=== PATIENT | male | born 1950 | race Caucasian/White ===

== ENCOUNTER 2019-09-24 06:00 | Outpatient (RCR) | payer OTHER, SELFPAY | END 2019-10-24 00:01 | LOC: WPT 06:00 | PROVIDERS: Visit Provider Specialist | DX: M75.101 Unspecified rotator cuff tear or rupture of right shoulder, not specified as traumatic (principal) | CPT/HCPCS: 97110 ×2 ==

== ENCOUNTER 2019-10-27 | Outpatient (RCR) | payer OTHER, SELFPAY | END 2020-01-04 | disposition home or self-care (01) | LOC: WPT | PROVIDERS: PCP Nurse Practitioner; Visit Provider Specialist | DX: M75.101 Unspecified rotator cuff tear or rupture of right shoulder, not specified as traumatic (principal) | CPT/HCPCS: 97110; 97164 ==

== ENCOUNTER → 2019-12-21 10:36 | Outpatient (BNVA) | payer OTHER, SELFPAY | PROVIDERS: Family Provider Nurse Practitioner; PCP Nurse Practitioner; Visit Provider Nurse Practitioner Family | DX: R09.89 Other specified symptoms and signs involving the circulatory and respiratory systems (principal); J06.9 Acute upper respiratory infection, unspecified; J43.9 Emphysema, unspecified | CPT/HCPCS: 71046; 80053; 85025; 87804 ==

== ENCOUNTER → 2020-01-25 15:00 | Outpatient (BNVA) | payer BC, SELFPAY | PROVIDERS: Family Provider Nurse Practitioner; PCP Nurse Practitioner; Visit Provider Nurse Practitioner Family | DX: R68.89 Other general symptoms and signs (principal); J06.9 Acute upper respiratory infection, unspecified; R53.83 Other fatigue; D64.9 Anemia, unspecified; E55.9 Vitamin D deficiency, unspecified; E78.2 Mixed hyperlipidemia; Z79.899 Other long term (current) drug therapy | CPT/HCPCS: 87635 ==

== ENCOUNTER → 2020-01-26 06:10 | Outpatient (BNVA) | payer BC, SELFPAY | PROVIDERS: Family Provider Nurse Practitioner; PCP Nurse Practitioner; Visit Provider Nurse Practitioner Family | DX: R68.89 Other general symptoms and signs (principal); J06.9 Acute upper respiratory infection, unspecified; R53.83 Other fatigue; E55.9 Vitamin D deficiency, unspecified; D64.9 Anemia, unspecified; E78.2 Mixed hyperlipidemia; Z79.899 Other long term (current) drug therapy | CPT/HCPCS: 80053; 80061; 82306; 82607; 83036; 83540; 84443; 85025 ==

== ENCOUNTER → 2020-02-26 12:21 | Outpatient (BNVA) | payer BC, SELFPAY | PROVIDERS: Family Provider Nurse Practitioner; PCP Nurse Practitioner; Visit Provider Nurse Practitioner Family | DX: R60.9 Edema, unspecified (principal); J22 Unspecified acute lower respiratory infection; J30.9 Allergic rhinitis, unspecified; R79.0 Abnormal level of blood mineral; J43.9 Emphysema, unspecified; D64.9 Anemia, unspecified | CPT/HCPCS: 80053; 83540; 85025 ==

== ENCOUNTER 2020-04-11 10:07 | Outpatient (CLI) | payer OTHER, BC, SELFPAY ==
[2020-04-11 10:59] LABS: Basophils % 0.3 %; Eosinophils # 0.1 10^3/uL (0.0-0.8); Eosinophils % 0.7 %; Hemoglobin 11.9 g/dL (11.7-16.6); Lymphocytes # 2.3 10^3/uL (0.8-4.8); Lymphocytes % 21.5 %; Mean Corpuscular HGB Conc 33.1 g/dL (30.0-36.0); Mean Corpuscular Hemoglobin 31.9 pg (28.0-34.0); Mean Corpuscular Volume 96.5 fL (80-94); Mean Platelet Volume 11.5 fL (7.4-10.4); Monocytes # 0.6 10^3/uL (0.2-0.9); Monocytes % 5.2 %; Neutrophils # 7.6 10^3/uL (1.8-7.7); Neutrophils % 71.5 %; Nucleated Red Blood Cells % 0 %; Platelet Count 160 10^3/cmm (130-400); Red Blood Count 3.73 10^6/uL (4.1-5.3); Red Cell Distribution Width 12.5 % (12.1-15.1); White Blood Count 10.6 10^3/uL (4.0-10.0)
[2020-04-11 11:01] LABS: Alanine Aminotransferase 16 U/L (0-41); Albumin Level 2.9 g/dL (3.5-5.2); Alkaline Phosphatase 63 IU/L (40-130); Anion Gap 11.6 (5-19); Aspartate Amino Transferase 26 U/L (0-40); Blood Urea Nitrogen 21 mg/dL (8-23); Calcium 8.8 mg/dL (8.5-10.5); Carbon Dioxide 29 mmol/L (22-29); Chloride 102 mmol/L (98-107); Globulin 2.2 g/dL (1.3-4.6); Glomerular Filtration Rate 66.8 mL/min (90-130); Glucose 109 mg/dL (65-115); Osmolality Calculated 283 mOsm/kg (285-295); Potassium 4.6 mmol/L (3.5-5.1); Sodium 138 mmol/L (136-145); Total Bilirubin 0.2 mg/dL (0.15-1.2); Total Protein 5.1 g/dL (6.6-8.7)
== END 2020-04-11 10:08 | disposition home or self-care (01) ==
LOC: LAB 10:13
PROVIDERS: PCP Nurse Practitioner; Visit Provider Internal Medicine Critical Care Medicine
DX: J43.9 Emphysema, unspecified (principal)
CPT/HCPCS: 80053; 85025

== ENCOUNTER → 2020-06-24 13:08 | Outpatient (BNVA) | payer OTHER, SELFPAY | PROVIDERS: PCP Nurse Practitioner; Visit Provider Nurse Practitioner Family | DX: M25.512 Pain in left shoulder (principal); R10.9 Unspecified abdominal pain; R53.83 Other fatigue; I10 Essential (primary) hypertension; J40 Bronchitis, not specified as acute or chronic; J32.9 Chronic sinusitis, unspecified | CPT/HCPCS: 73030 ==

== ENCOUNTER → 2020-10-01 12:07 | Outpatient (BNVA) | payer BC, SELFPAY | PROVIDERS: PCP Nurse Practitioner; Visit Provider Family Medicine | DX: J40 Bronchitis, not specified as acute or chronic (principal); I10 Essential (primary) hypertension; R53.83 Other fatigue; R00.1 Bradycardia, unspecified | CPT/HCPCS: 71045 ==

== ENCOUNTER 2020-10-22 09:17 | Outpatient (CLI) | payer BC, SELFPAY ==
--- NOTE | 2020-10-22 09:30 | USCV_ITS ---
Mian Menendez Age: 70 Gender: M : 1950 Exam Date: 10/22/2020 09:48 Ordering Phys: PARISH Fraser APRNP Technologist: Rubia Villeda Exam Location: [facility] Indication: SOB BP: / HR: Rhythm: Sinus Technical Quality: Adequate MEASUREMENTS (Male / Female) Normal Values 2D ECHO LV Diastolic Diameter PLAX 5.1 cm 4.2 - 5.9 / 3.9 - 5.3 cm LV Systolic Diameter PLAX 2.3 cm IVS Diastolic Thickness 1.6 cm 0.6 - 1.0 / 0.6 - 0.9 cm IVS Systolic Thickness 1.8 cm LVPW Diastolic Thickness 1.0 cm 0.6 - 1.0 / 0.6 - 0.9 cm LVPW Systolic Thickness 1.9 cm LVOT Diameter 2.0 cm LV Ejection Fraction 2D Teich 85.6 % LV Ejection Fraction MOD 2C 53.5 % LV Ejection Fraction 2C AL 55.3 % LA Diameter 4.3 cm LA Width 3.6 cm LA Height 4.3 cm RA Width 3.9 cm RA Height 5.1 cm Aorta at Sinotubular Diameter 3.1 cm M-MODE LV Diastolic Diameter MM 3.6 cm 4.2 - 5.9 / 3.9 - 5.3 cm LV Systolic Diameter MM 2.4 cm LV Ejection Fraction MM Teich 65.3 % IVS Diastolic Thickness MM 1.1 cm 0.6 - 1.0 / 0.6 - 0.9 cm IVS Systolic Thickness MM 1.3 cm LVPW Diastolic Thickness MM 1.3 cm 0.6 - 1.0 / 0.6 - 0.9 cm LVPW Systolic Thickness MM 1.6 cm RV Diastolic Diameter MM 2.3 cm Aortic Annulus Diameter 3.3 cm LA Ao Ratio MM 1.6 MV E Point Septal Separation 0.1 cm DOPPLER AV Peak Velocity 170.0 cm/s LVOT Peak Velocity 103.3 cm/s AV Area Cont Eq vti 2.4 cm squared AV Area Cont Eq pk 1.9 cm squared MV Area PHT 3.9 cm squared Mitral E to A Ratio 0.7 MV E' Velocity 47.0 cm/s Mitral E to MV E' Ratio 10.1 Mitral E to LV E' Lateral Ratio 12.7 Mitral E to LV E' Septal Ratio 8.4 TR Peak Velocity 202.9 cm/s TR Peak Gradient 16.5 mmHg TR Mean Velocity 148.2 cm/s TR Mean Gradient 10.2 mmHg TR Velocity Time Integral 49.5 cm TV Peak E Velocity 57.0 cm/s Right Atrial Pressure 3.0 mmHg Pulmonary Artery Systolic Pressu 19.5 mmHg PV Peak Velocity 74.0 cm/s RV Acceleration Time 0.2 s RV Ejection Time 0.3 s RV AcT/ET 0.6 FINDINGS Left Ventricle Normal left ventricular cavity size. Mild concentric left ventricular hypertrophy. Normal left ventricular systolic function. Left ventricular ejection fraction is estimated at 65 %. Normal diastolic function. Right Ventricle Normal right ventricular size and systolic function. Right ventricular systolic pressure 23 mmHg. Right Atrium Normal right atrial size. Right atrial pressure estimated at 3 mm Hg. Left Atrium Upper normal left atrial size. Mitral Valve Structurally normal mitral valve. No mitral valve stenosis. Trace mitral valve regurgitation. Aortic Valve Structurally normal trileaflet aortic valve. No aortic valve stenosis. No aortic valve regurgitation. Tricuspid Valve Structurally normal tricuspid valve. No tricuspid valve stenosis. Trace tricuspid valve regurgitation. Pulmonic Valve Structurally normal pulmonic valve. No pulmonary valve stenosis. Trace pulmonary valve regurgitation. Pericardium No pericardial effusion. Aorta Normal size aortic root and proximal ascending aorta. Normal- sized inferior vena cava. CONCLUSIONS 1. Normal left ventricular cavity size. Mild concentric left ventricle hypertrophy. Normal left ventricular systolic function. Left ventricular ejection fraction is estimated at 65 %. Normal diastolic function. 2. Normal right ventricular size and systolic function. 3. No significant valvular abnormality. 4. Normal pulmonary artery pressure estimated at 23 mmHg. 5. When compared to previous echocardiogram dated 07/16/2017, there may not have been any significant change. Dora Burris MD (Electronically Signed) Final Date: 22 October 2020 17:10 S
== END 2020-10-22 09:18 | disposition home or self-care (01) ==
PROVIDERS: PCP Nurse Practitioner; Visit Provider Nurse Practitioner Family
DX: R06.02 Shortness of breath (principal); R00.1 Bradycardia, unspecified; I51.7 Cardiomegaly
CPT/HCPCS: 80053; 83735; 84443; 85025; 85651; 93306

== ENCOUNTER 2020-10-28 07:47 | Outpatient (CLI) | payer BC, SELFPAY ==
[2020-10-28] MEDS: iohexol 300 mg/mL 100 mL Btl IV (08:29)
--- NOTE | 2020-10-28 08:30 | CT_ITS ---
WS: [id number] CT CHEST TECHNIQUE: Contrast enhanced CT of the chest with coronal and sagittal reformatted images. CLINICAL INFORMATION: R91.8 - Other nonspecific abnormal finding of lung field COMPARISON: None. DLP: 824.[address] scans at [facility] use at least one of these dose optimization techniques: automat ed exposure control; mA and/or kV adjustment per patient size (includes targeted exams where dose is matched to clinical indication); or iterative reconstruction. FINDINGS: Previously described lingula pneumonia has resolved. Moderate chronic emphysematous changes. No acute pulmonary infiltrates. Calcified granuloma left upper lobe. No mediastinal or hilar lymphadenopathy. Aortic calcification. Coronary calcification. Left upper pole renal cyst measuring 3.7 CM. Adrenal g lands are normal. Hypertrophic changes thoracic spine. CT/CT chest w con* [id number] IMPRESSION: 1. Moderate chronic emphysematous changes. No acute pulmonary infiltrates. 2. Previously described lingula pneumonia has resolved. 3. No suspicious pulmonary parenchymal opacities. 4. No mediastinal or hilar lymphadenopathy. 5. Vascular calcification including coronary. 6. Partially visualized left renal cyst measuring 3.7 CM.
== END 2020-10-28 07:48 | disposition home or self-care (01) ==
LOC: RADWPI 07:52
PROVIDERS: PCP Nurse Practitioner; Visit Provider Family Medicine
DX: R91.8 Other nonspecific abnormal finding of lung field (principal); I25.10 Atherosclerotic heart disease of native coronary artery without angina pectoris
CPT/HCPCS: 71260; Q9967

== ENCOUNTER → 2021-03-06 08:10 | Outpatient (BNVA) | payer OTHER, SELFPAY | PROVIDERS: PCP Nurse Practitioner Family; Visit Provider Internal Medicine Critical Care Medicine | DX: R53.83 Other fatigue (principal); Z20.822 Contact with and (suspected) exposure to COVID-19 | CPT/HCPCS: 87635 ==

== ENCOUNTER → 2021-03-12 10:43 | Outpatient (BNVA) | payer BC, SELFPAY | PROVIDERS: PCP Nurse Practitioner Family; Visit Provider Nurse Practitioner Family | DX: J32.9 Chronic sinusitis, unspecified (principal); I10 Essential (primary) hypertension; D64.9 Anemia, unspecified | CPT/HCPCS: 80053; 81003; 82607; 82746; 83921; 85025 ==

== ENCOUNTER 2021-03-13 07:57 | Outpatient (CLI) | payer OTHER, BC, SELFPAY ==
--- NOTE | 2021-03-13 13:22 | PFTS_ITS ---
Date of Study:03/13/21 Date of Dictation: MECHANICS: Forced vital capacity (FVC) is normal. Forced expiratory volume in one second (FEV1) is normal. FEV1/FVC is normal. FLOW VOLUME LOOP: Scooping present. LUNG VOLUMES: Total lung capacity (TLC) is normal. Residual volume (RV) is increased. DIFFUSING CAPACITY FOR CARBON MONOXIDE: Normal. INTERPRETATION: The postbronchodilator spirometry is normal. There is no significant postbronchodilator response. Lung volumes are consistent with air trapping. Given the presence of scooping of the flow volume loop, the patient likely has small airways disease. Gas exchange (DLCO) is normal. MTDD
== END 2021-03-13 07:58 | disposition home or self-care (01) ==
LOC: RT 08:02
PROVIDERS: PCP Nurse Practitioner Family; Visit Provider Internal Medicine Critical Care Medicine
DX: J43.9 Emphysema, unspecified (principal)
CPT/HCPCS: 94060; 94726; 94729; J7611

== ENCOUNTER 2021-03-24 19:32 | Inpatient (IN) | payer OTHER, BC, MEDICARE, SELFPAY ==
[2021-03-24 19:38] VITALS: BP 140/77; PULSE 77; RESP 20; TEMP 36.2; O2SAT 95; BMI 26.6
--- NOTE | 2021-03-24 19:38 | XRR_ITS ---
PROCEDURE INFORMATION: Exam: XR Chest Exam date and time: 03/24/2021 7:47 PM Age: 70 years old Clinical indication: Sternal or substernal pain; Prior surgery; Surgery type: Stents; Additional info: Cp and SOB x 5 days TECHNIQUE: Imaging protocol: XR of the chest. Views: 1 view. COMPARISON: CT chest w con* [id number] 10/28/2020 8:15 AM FINDINGS: Lungs: Unremarkable. No consolidation. The pulmonary vascularity is within normal limits. A few scattered calcified pulmonary granulomas are noted. Pleural spaces: Unremarkable. No pleural effusion. No pneumothorax. Heart/Mediastinum: Unremarkable. No cardiomegaly. Bones/joints: No acute abnormality. XR/XR chest 1V portable [id number] IMPRESSION: No acute findings.
--- NOTE | 2021-03-24 19:39 | ECG_ITS ---
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 Measurements Intervals [place] Rate: 73 P: 40 [place]: 144 QRS: 34 QRSD: 97 T: 30 QT: 393 QTc: 434 Interpretive Statements SINUS RHYTHM WITH OCCASIONAL VENTRICULAR PREMATURE COMPLEXES Compared to ECG 07/16/2017 05:53:50 Ventricular premature complex(es) now present Sinus bradycardia no longer present Electronically Signed On 03-25-2021 19:10:34 CDT by Zack Villareal M.D. [id number] f
--- NOTE | 2021-03-24 19:43 | W.ED.CHESTPA ---
HPI - Chest Pain General: Chief Complaint: Chest Pain Stated Complaint: cp Time Seen by Provider: 03/24/21 19:37 Source: patient Mode of arrival: ambulatory Limitations: no limitations History of Present Illness: HPI narrative: 70-year-old male who states been having chest pain for last 2 nights. He states it woke him up in the middle the night. His pain is sharp in nature last roughly 10 to 15 minutes. He does have a history of coronary disease. Denies any pain currently. Denies any dyspnea or nausea. He denies any diaphoresis. Associated symptoms: Deny abdominal pain, dyspnea, fever(s), nausea or vomiting Review of Systems Const: Denies: fever(s), chills, body aches or change in appetite Eyes: Denies: blurry vision or eye discomfort ENMT: Denies: throat pain or dental pain Card: Reports: chest pain Resp: Denies: dyspnea GI: Denies: abdominal pain, nausea, vomiting or diarrhea : Denies: dysuria Musc: Denies: neck pain or back pain Skin/Breast: Denies: rash Neuro: Denies: headache(s) Psych: Denies: depression Rell/Lymph: Denies: easy bruising All/Imm: Denies: urticaria PFSH ED PFSH: Medical History Anemia Anxiety Bronchitis COPD (chronic obstructive pulmonary disease) Fatigue Hypertension Left lateral abdominal pain Lower respiratory tract infection Nausea Primary localized osteoarthritis of both knees Sinusitis Surgical History Status post coronary artery stent placement Status post hernia repair Status post shoulder surgery Status post total knee replacement Social History Smoking and tobacco status: former smoker Quit status (tobacco): has quit using tobacco Year quit tobacco: 2002 - 1PPD x 35 Years Alcohol intake: never Lives independently: Yes Household members: spouse Marital status: Current occupational status: employed Current occupation: [employer] History of recent travel: No Current gender identity: Male Physical Exam Const: COMMON NORMALS: no acute distress, patient oriented x3 and healthy appearing HENMT: COMMON NORMALS: normocephalic and atraumatic HEAD & SCALP: normocephalic and atraumatic Eye: COMMON NORMALS: Equal, round and reactive pupils present and EOMs intact bilaterally PUPIL: Yes Equal, round and reactive pupils present Neck/C-Spine: COMMON NORMALS: full ROM and supple Chest: COMMONS NORMALS: normal inspection of the chest and normal palpation of entire chest wall Resp: COMMON NORMALS: normal respiratory effort, No retractions, No use of accessory muscles and clear to auscultation bilaterally AUSCULTATION: clear to auscultation bilaterally Cardio: COMMON NORMALS: regular rate, regular rhythm and No murmurs present (Cardio) RATE: regular rate RHYTHM: regular rhythm GI: COMMON NORMALS: Normal to inspection, nondistended, normoactive bowel sounds present, Soft to palpation, non-tender and no masses PALPATION: Yes Soft to palpation Extremity: COMMON NORMALS: normal to inspection and full ROM Neuro: COMMON NORMALS: patient oriented x3, moves all extremities and no focal motor deficits Psych: COMMON NORMALS: mental status grossly normal, Normal thought process present and cooperative THOUGHT PROCESS: Normal thought process present Skin: COMMON NORMALS: no rashes or lesions noted and no wounds GENERAL SKIN EXAM: no rashes or lesions noted Course Vital Signs: Vital signs: Vital Signs Temperature 97.1 F L 03/24/21 19:38 Pulse Rate 82 03/24/21 20:40 Respiratory Rate 22 H 03/24/21 20:40 Blood Pressure 126/79 03/24/21 20:40 Pulse Oximetry 94 03/24/21 20:40 MDM - Chest Pain MDM Narrative: Medical decision making narrative: Mian presents here with chest pain is repeat troponin here is negative. He also had some weakness and found to have acute kidney injury with elevated BUN and creatinine. Spoke to the hospitalist and will admit to trend troponins and give IV fluids. Will admit for observation. Lab Data: Labs: Lab Results 03/24/21 03/24/21 03/24/21 Range/Units 19:49 19:49 19:49 WBC 13.2 H (4.0-10.0) 10^3/ uL RBC 3.71 L (4.1-5.3) 10^6/u L Hgb 12.1 (11.7-16.6) g/dL Hct 36.1 L (42.0-52.0) % MCV 97.3 H (80-94) fL MCH 32.6 (28.0-34.0) pg MCHC 33.5 (30.0-36.0) g/dL RDW 12.3 (12.1-15.1) % Plt Count 284 (130-400) 10^3/c mm MPV 9.9 (7.4-10.4) fL Neut % (Auto) 73.9 % Lymph % (Auto) 21.0 % Granite % (Auto) 4.3 % Eos % (Auto) 0.0 % Baso % (Auto) 0.2 % Neut # (Auto) 9.74 H (1.8-7.7) 10^3/u L Lymph # (Auto) 2.8 (0.8-4.8) 10^3/u L Granite # (Auto) 0.6 (0.2-0.9) 10^3/u L Eos # (Auto) 0.0 (0.0-0.8) 10^3/u L Baso # (Auto) 0.0 (0.0-0.1) 10^3/u L Nucleated RBC % (a uto) 0 % Nucleated RBCs # 0.0 /100WBC Sodium 138 (136-145) mmol/L Potassium 4.9 (3.5-5.1) mmol/L Chloride 98 (98-107) mmol/L Carbon Dioxide 25 (22-29) mmol/L Anion Gap 19.9 H (5-19) BUN 54 H (8-23) mg/dL Creatinine 2.7 H (0.7-1.2) mg/dL GFR Calculation 23.6 L (90-130) mL/min Glucose 124 H (65-115) mg/dL Calculated Osmolal ity 302 H (285-295) mOsm/k g Calcium 9.7 (8.5-10.5) mg/dL Total Bilirubin 0.4 (0.15-1.2) mg/dL AST 17 (0-40) U/L ALT 16 (0-41) U/L Alkaline Phosphata se 59 (40-130) IU/L Troponin T Baselin e 29 H (0-15) ng/L Troponin T 120 Min [place] (0-15) ng/L Delta Troponin T (0-10) ABS# Total Protein 6.9 (6.6-8.7) g/dL Albumin 4.6 (3.5-5.2) g/dL Globulin 2.3 (1.3-4.6) g/dL Lipase 43 (13-60) U/L 03/24/21 Range/Units 21:36 WBC (4.0-10.0) 10^3/ uL RBC (4.1-5.3) 10^6/u L Hgb (11.7-16.6) g/dL Hct (42.0-52.0) % MCV (80-94) fL MCH (28.0-34.0) pg MCHC (30.0-36.0) g/dL RDW (12.1-15.1) % Plt Count (130-400) 10^3/c mm MPV (7.4-10.4) fL Neut % (Auto) % Lymph % (Auto) % Granite % (Auto) % Eos % (Auto) % Baso % (Auto) % Neut # (Auto) (1.8-7.7) 10^3/u L Lymph # (Auto) (0.8-4.8) 10^3/u L Granite # (Auto) (0.2-0.9) 10^3/u L Eos # (Auto) (0.0-0.8) 10^3/u L Baso # (Auto) (0.0-0.1) 10^3/u L Nucleated RBC % (a uto) % Nucleated RBCs # /100WBC Sodium (136-145) mmol/L Potassium (3.5-5.1) mmol/L Chloride (98-107) mmol/L Carbon Dioxide (22-29) mmol/L Anion Gap (5-19) BUN (8-23) mg/dL Creatinine (0.7-1.2) mg/dL GFR Calculation (90-130) mL/min Glucose (65-115) mg/dL Calculated Osmolal ity (285-295) mOsm/k g Calcium (8.5-10.5) mg/dL Total Bilirubin (0.15-1.2) mg/dL AST (0-40) U/L ALT (0-41) U/L Alkaline Phosphata se (40-130) IU/L Troponin T Baselin e (0-15) ng/L Troponin T 120 Min [place] 22.85 H (0-15) ng/L Delta Troponin T -6.15 L (0-10) ABS# Total Protein (6.6-8.7) g/dL Albumin (3.5-5.2) g/dL Globulin (1.3-4.6) g/dL Lipase (13-60) U/L Imaging Data^: CXR: Attestation: I personally reviewed and interpreted this imaging study as follows: Radiologist's impression: [facility] [place] [address] XRay Report Signed Patient: Mian Menendez Unit #: [id number] : 1950 Age/Sex: 70 / M ADM Date: 03/24/21 Loc: ER Room/Bed: Attending Dr: Ordering Provider/Ordering MD: Jenni Betancourt MD Date of Service: 03/24/21 Procedure(s): XR chest 1V portable [id number] Accession Number(s): [id number] Report Number: [id number] PROCEDURE INFORMATION: Exam: XR Chest Exam date and time: 03/24/2021 7:47 PM Age: 70 years old Clinical indication: Sternal or substernal pain; Prior surgery; Surgery type: Stents; Additional info: Cp and SOB x 5 days TECHNIQUE: Imaging protocol: XR of the chest. Views: 1 view. COMPARISON: CT chest w con* [id number] 10/28/2020 8:15 AM FINDINGS: Lungs: Unremarkable. No consolidation. The pulmonary vascularity is within normal limits. A few scattered calcified pulmonary granulomas are noted. Pleural spaces: Unremarkable. No pleural effusion. No pneumothorax. Heart/Mediastinum: Unremarkable. No cardiomegaly. Bones/joints: No acute abnormality. XR/XR chest 1V portable [id number] IMPRESSION: No acute findings. EKG Data^: EKG 1: Attestation: I personally reviewed and interpreted this EKG as follows: EKG interpretation date: 03/24/21 EKG interpretation time: 19:56 Interpretation: nsr hr [address] or t wave abnormalities qrs 91 qtc 413 EKG 2: Attestation: I personally reviewed and interpreted this EKG as follows: EKG interpretation date: 03/24/21 EKG interpretation time: 21:47 Interpretation: nsr hr [address] or t wave abnormalities qrs 105 qtc 435 Discharge Plan Discharge Patient Disposition: Admitted As Inpatient Clinical Impression: Acute kidney injury Chest pain Qualifiers: Chest pain type: unspecified Qualified Code(s): R07.9 - Chest pain, unspecified Condition: Stable Coding Level of Care Code ED Platform Stapler for Chg Fwd Exam Comprehensive
[2021-03-24] MEDS: aspirin 81 mg Chew Tablet 324 MG PO (19:57)
[2021-03-24 20:05] LABS: Basophils % 0.2 %; Hematocrit 36.1 % (42.0-52.0); Hemoglobin 12.1 g/dL (11.7-16.6); Lymphocytes # 2.8 10^3/uL (0.8-4.8); Mean Corpuscular HGB Conc 33.5 g/dL (30.0-36.0); Mean Corpuscular Hemoglobin 32.6 pg (28.0-34.0); Mean Corpuscular Volume 97.3 fL (80-94); Mean Platelet Volume 9.9 fL (7.4-10.4); Monocytes # 0.6 10^3/uL (0.2-0.9); Monocytes % 4.3 %; Neutrophils # 9.74 10^3/uL (1.8-7.7); Neutrophils % 73.9 %; Nucleated Red Blood Cells % 0 %; Platelet Count 284 10^3/cmm (130-400); Red Blood Count 3.71 10^6/uL (4.1-5.3); Red Cell Distribution Width 12.3 % (12.1-15.1); White Blood Count 13.2 10^3/uL (4.0-10.0)
[2021-03-24 20:22] LABS: Troponin(5th) Baseline 29 ng/L (0-15)
[2021-03-24 20:24] LABS: Alanine Aminotransferase 16 U/L (0-41); Albumin Level 4.6 g/dL (3.5-5.2); Alkaline Phosphatase 59 IU/L (40-130); Anion Gap 19.9 (5-19); Aspartate Amino Transferase 17 U/L (0-40); Blood Urea Nitrogen 54 mg/dL (8-23); Calcium 9.7 mg/dL (8.5-10.5); Carbon Dioxide 25 mmol/L (22-29); Chloride 98 mmol/L (98-107); Globulin 2.3 g/dL (1.3-4.6); Glomerular Filtration Rate 23.6 mL/min (90-130); Glucose 124 mg/dL (65-115); Lipase 43 U/L (13-60); Osmolality Calculated 302 mOsm/kg (285-295); Potassium 4.9 mmol/L (3.5-5.1); Sodium 138 mmol/L (136-145); Total Bilirubin 0.4 mg/dL (0.15-1.2); Total Protein 6.9 g/dL (6.6-8.7)
[2021-03-24 20:40] VITALS: BP 126/79; PULSE 82; RESP 22; O2SAT 94
[2021-03-24] MEDS: sodium chloride 0.9% 1,000 ML 999 ML IV (20:47)
--- NOTE | 2021-03-24 21:39 | ECG_ITS ---
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 Measurements Intervals [place] Rate: 84 P: -34 [place]: 137 QRS: 49 QRSD: 138 T: -33 QT: 481 QTc: 572 Interpretive Statements SINUS RHYTHM WITH OCCASIONAL SUPRAVENTRICULAR PREMATURE COMPLEXES INTRAVENTRICULAR CONDUCTION DELAY [130+ ms QRS DURATION] Compared to ECG 03/24/2021 19:47:29 Intraventricular conduction delay now present Ventricular premature complex(es) no longer present Electronically Signed On 03-25-2021 19:14:43 CDT by Zack Villareal M.D. [email or web address] [id number]
[2021-03-24 21:57] LABS: Troponin 5 2HR 22.85 ng/L (0-15)
[2021-03-24 22:00] VITALS: PULSE 101
--- NOTE | 2021-03-24 22:15 | P.HP_ITS ---
Providers/Chief Complaint Primary Care Provider: BOB Wilkins Chief Complaint: cp History of Present Illness Mian Menendez is a 70 year old male who has history of class D COPD, former smoker, sinus bradycardia, preserved ejection fraction heart failure, coronary artery disease status post 4 stent placement, presented today with chief complaint of lethargy fatigue and chest discomfort. Patient was treated with Augmentin and prednisone for sinusitis 2 weeks ago. Patient is stating that he has been expressing chest pain on and off, he had 2 episodes when he woke up from his sleep because of this discomfort which he is describing as pressure-like sensation substernal which lasted for about 5 minutes. Today he was working in his backyard when all of a sudden he started experiencing weak and lethargic, he could not bring himself back indoor, he laid down in his backyard, he did not sprints any chest pain, shortness of breath, strokelike symptoms. He is describing this event as just running out of energy. No recent nausea, vomiting, diaphoresis. He chews tobacco, consider himself fairly active for his age. No recent fever, diarrhea, dysuria. Diagnostics in the ER revealed normal CBC, BMP, he is afebrile, mild leukoc ytosis, D-dimer 1.4, creatinine 2.7, EKG without ischemic or infarctive changes, troponin with negative delta, He cannot get CTA because of his creatinine I will start him on heparin drip and get VQ scan Review of Systems Const: Denies: fever(s) Eyes: Denies: change in vision ENMT: Denies: throat pain Card: Reports: chest pain and pre-syncope Resp: Denies: dyspnea GI: Denies: abdominal pain : Denies: flank pain Musc: Denies: neck pain Skin/Breast: Denies: rash Neuro: Denies: headache(s) Psych: Denies: anxiety Endo: Denies: polyuria Rell/Lymph: Denies: easy bruising All/Imm: Denies: urticaria Medications/Allergies Home Medications Medication Instructions Recorded Confirmed Last Taken Type aspirin 325 mg tablet 325 mg PO DAILY@199912/18/19 03/24/21 03/23/21 History famotidine 20 mg tablet 20 mg PO BID@0800,199912/18/19 03/24/21 03/24/21 History furosemide 40 mg tablet 40 mg PO DAILY@0812/18/19 03/24/21 03/24/21 History montelukast 10 mg tablet 10 mg PO DAILY@199912/18/19 03/24/21 03/23/21 History tamsulosin 0.4 mg capsule 0.4 mg PO DAILY@199904/11/20 03/24/21 03/23/21 History gabapentin 100 mg capsule 100 mg PO TID@08,06/24/20 03/24/21 03/24/21 History mirtazapine 30 mg tablet 15 mg PO BEDTIME@1999 tab 06/24/20 03/24/21 03/23/21 History clonidine HCl 0.1 mg tablet 0.1 mg PO BID PRN 30 Days #60 tab 09/30/20 03/24/21 Unknown Rx lisinopril 40 mg tablet 40 mg PO DAILY@1999 tab 10/01/20 03/24/21 03/23/21 History melatonin 10 mg capsule 10 mg PO DAILY@199910/01/20 03/24/21 03/23/21 History potassium chloride 20 mEq 20 meq PO DAILY@0800 10/01/20 03/24/21 03/24/21 History tablet,extended release albuterol sulfate 90 mcg/actuation 1 inh INHALATION QID PRN #8.5 g 02/06/21 03/24/21 Unknown Rx aerosol inhaler amlodipine 10 mg PO DAILY@0803/24/21 03/24/21 03/24/21 History chlorthalidone 25 mg PO DAILY@199903/24/21 03/24/21 03/23/21 History cholecalciferol (vitamin D3) 1,250 mcg PO DAILY@199903/24/21 03/24/21 03/23/21 History citalopram 30 mg PO DAILY@199903/24/21 03/24/21 03/23/21 History vrdzzmqbkur-xwbabboyl-folnsqeo 1 inh INHALATION DAILY@79903/24/21 03/24/21 03/24/21 History [Trelegy Ellipta] olopatadine 1 - 2 drp OPHTHALMIC (EYE) 03/24/21 03/24/21 03/24/21 History DAILY@0800 Allergies Allergy/AdvReac Type Severity Reaction Status Date / [facility] Allergy hallucinati Verified 03/12/21 13:53 ons buspirone Allergy caused Verified 03/12/21 13:53 negative thinking simvastatin Allergy fatigue Verified 03/12/21 13:53 PFSH Acute PFSH: Medical History Anemia Anxiety Bronchitis COPD (chronic obstructive pulmonary disease) Fatigue Hypertension Left lateral abdominal pain Lower respiratory tract infection Nausea Primary localized osteoarthritis of both knees Sinusitis Surgical History Status post coronary artery stent placement Status post hernia repair Status post shoulder surgery Status post total knee replacement Family History Other Hypertension Social History Smoking and tobacco status: former smoker Quit status (tobacco): has quit using tobacco Year quit tobacco: 2002 - 1PPD x 35 Years Alcohol intake: never Lives independently: Yes Household members: spouse Marital status: Current occupational status: employed Current occupation: [employer] History of recent travel: No Current gender identity: Male Vitals/I&O/Wt Last Vital Signs Temp 97.1 F L 03/24/21 19:38 Pulse 82 03/24/21 20:40 Resp 22 H 03/24/21 20:40 BP 126/79 03/24/21 20:40 Pulse Ox 94 03/24/21 20:40 Weight last 48 hrs Weight 74.843 kg Physical Exam Narrative: EXAM NARRATIVE: elderly male was laying comfortably in supine position No active chest pain shortness of breath or abdominal pain Saturating well on room air S1, S2 sinus rhythm no active signs of heart failure or murmur Abdomen soft nontender bowel sound present Lower extremity no edema gangrene ulcer Bilateral breath sounds without adventitious rhonchi or crackles No acute neurological events EOMI, PERRLA Awake alert oriented x3 GCS 15 No joint swelling Data : 03/24/21 19:49 03/24/21 19:49 A&P Assessment and plan (1) Unstable angina: Status: Acute (2) Dehydration: Status: Acute (3) Acute kidney injury: Status: Acute Additional A&P Information Unstable angina Currently chest pain-free, EKG without ischemic or infarctive changes, incomplete right bundle branch block, troponin negative delta, patient has established history of coronary disease, hypertension and dyslipidemia will request Lexiscan stress test in the morning, hold AV lenora blocking agents, n.p.o. after midnight D-dimer came back high I will start heparin drip will request VQ scan not a candidate of CTA chest because of DAWNA, echo in am Dehydration with acute on chronic kidney disease Worsening creatinine, he takes multiple nephrotoxic agents which I would hold for now give him normal saline fluid resuscitation monitor urine output creatinine and fluid status on daily basis, hold chlorthalidone Patient has facial flushing Clinically looks dehydrated Patient chews tobacco, counseled on cessation History of bradycardia: Metoprolol has been discontinued by PCP, EKG showing incomplete right bundle branch block, current heart rate 77 normal hemodynamics, normal TSH, rheumatological profile showed positive SKYLER homogenous pattern N.p.o. after midnight Full code Currently on heparin drip for possible pulmonary embolism because of high D- dimer Attestations Medical Necessity Statement*: Anticipating discharge within 48 hours will need overnight monitoring to rule out cardiac etiology for his symptoms, will need stress test currently on heparin drip for possible PE Time Spent in Patient Care: 30mins Coding Level of Care Code Acute Supervisor [employer] for Meghan Hu Diagnoses Unstable angina I20.0 Dehydration E86.0 Acute kidney injury N17.9
[2021-03-24 22:42] LABS: D Dimer 1.49 ug/mIFEU (0-0.59)
[2021-03-24 22:51] LABS: Procalcitonin 0.07 ng/mL (0-0.5)
[2021-03-24 23:04] VITALS: BP 133/78; PULSE 78; RESP 16; O2SAT 94
[2021-03-24 23:13] VITALS: BP 139/76; PULSE 76; RESP 15; O2SAT 95
[2021-03-24 23:36] VITALS: BP 128/69; PULSE 75; RESP 19; TEMP 36.5; O2SAT 93
[2021-03-25] VITALS (12 sets, daily range): BP systolic 112–152; BP diastolic 64–78; PULSE 67–90; RESP 11–22; TEMP 36.4–36.7; O2SAT 91–98
[2021-03-25 00:01] LABS: Partial Thromboplastin Time 25.6 SECONDS (23.9-36.7)
[2021-03-25 00:05] LABS: Creatine Phosphokinase 66 U/L (39-308)
[2021-03-25] MEDS: heparin 5,000 unit/mL INJ 1 mL IV (00:09)
[2021-03-25] MEDS: sodium chloride 0.9% 1,000 ML 100 ML IV ×2 (00:17→10:20)
[2021-03-25] MEDS: heparin drip 25,000 UNIT/500 ML PREMIX 21 UNIT IV (00:20)
--- NOTE | 2021-03-25 01:39 | ECG_ITS ---
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 Measurements Intervals [place] Rate: 74 P: 65 [place]: 147 QRS: 61 QRSD: 91 T: 60 QT: 386 QTc: 428 Interpretive Statements SINUS RHYTHM Compared to ECG 03/24/2021 19:47:29 Ventricular premature complex(es) no longer present Electronically Signed On 03-25-2021 19:14:47 CDT by Zack Villareal M.D. [id number]
[2021-03-25 02:11] LABS: Troponin 5 6HR 25.06 ng/L (0-15)
[2021-03-25 02:12] LABS: Troponin 5 6HR Delta -3.94 ng/L (0-12)
--- NOTE | 2021-03-25 06:03 | ECG_ITS ---
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 Interpretive Statements NAME OF STUDY: LEXISCAN SESTAMIBI STRESS TEST INDICATION: Angina, PROCEDURE: At the baseline, the EKG revealed normal sinus rhythm with a poor R wave progression. Normal ST-T's.. The baseline blood pressure was 143/75 mm Hg with a heart rate of 72 beats/min. Lexiscan was infused over a period of 20 seconds. A total of 0.4 milligrams of Lexiscan was infused. The stress phase was continued for a total of 5 minutes. Heart rate at the end of the stress phase was 87 with a blood pressure 146/68. The EKG at the peak infusion revealed no significant changes.few PVCs were noted during the Lexiscan infusion. Sestamibi was injected 20 seconds after the Lexiscan infusion. Blood pressure at the end of the recovery phase was 152/64 with a heart rate of 83 per minute. CONCLUSION: 1. No significant EKG changes with the LexiScan infusion 2. No LexiScan induced chest pain or cardiac arrhythmia 3. Normal blood pressure and heart rate response 4. Sestamibi/sestamibi perfusion scan pending; see separate report. Electronically Signed On 03-27-2021 20:20:59 CDT by Mele Barragan M.D. [id number]
[2021-03-25 06:18] LABS: Basophils % 0.4 %; Eosinophils % 0.2 %; Hematocrit 29.6 % (42.0-52.0); Lymphocytes # 5.2 10^3/uL (0.8-4.8); Lymphocytes % 46.7 %; Mean Corpuscular HGB Conc 33.8 g/dL (30.0-36.0); Mean Corpuscular Hemoglobin 32.8 pg (28.0-34.0); Mean Platelet Volume 9.8 fL (7.4-10.4); Monocytes # 0.6 10^3/uL (0.2-0.9); Monocytes % 5.7 %; Neutrophils # 5.23 10^3/uL (1.8-7.7); Neutrophils % 46.6 %; Nucleated Red Blood Cells % 0 %; Platelet Count 219 10^3/cmm (130-400); Red Blood Count 3.05 10^6/uL (4.1-5.3); Red Cell Distribution Width 12.3 % (12.1-15.1); White Blood Count 11.2 10^3/uL (4.0-10.0)
[2021-03-25 06:45] LABS: Anion Gap 13.9 (5-19); Blood Urea Nitrogen 55 mg/dL (8-23); Calcium 8.5 mg/dL (8.5-10.5); Carbon Dioxide 26 mmol/L (22-29); Chloride 104 mmol/L (98-107); Glomerular Filtration Rate 40.3 mL/min (90-130); Glucose 84 mg/dL (65-115); Osmolality Calculated 304 mOsm/kg (285-295); Potassium 3.9 mmol/L (3.5-5.1); Sodium 140 mmol/L (136-145)
[2021-03-25 06:52] LABS: Partial Thromboplastin Time 90.9 SECONDS (23.9-36.7)
[2021-03-25] MEDS: regadenoson 0.4 Mg/5 ml Syringe IVP (08:08)
[2021-03-25] MEDS: amlodipine 10 mg Tablet PO (09:51)
[2021-03-25] MEDS: famotidine 20 mg Tablet PO (09:51)
[2021-03-25 13:50] LABS: Partial Thromboplastin Time 66.9 SECONDS (23.9-36.7)
[2021-03-25] MEDS: enoxaparin 100 mg/mL Syringe 70 MG SUBCUT (14:19)
--- NOTE | 2021-03-25 15:24 | PM.PN ---
Subjective Subjective: Interval history: Overnight labs and H&P reviewed. Patient continues to have some chest discomfort, however now rated as 1 out of 10. Stress test results are still pending at this time. Heparin drip has been changed to Lovenox. Currently saturating well on room air. However has not attempted to get out of bed due to concern for pain and dyspnea. 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: no focal neuro deficits Data : 03/25/21 06:05 03/25/21 06:05 A&P Assessment and plan (1) Unstable angina: Status: Acute (2) Chest pain: Status: Acute Qualifiers: Chest pain type: unspecified Qualified Code(s): R07.9 - Chest pain, unspecified (3) Acute kidney injury: Status: Acute (4) Anemia: Status: Acute Qualifiers: Anemia type: unspecified type Qualified Code(s): D64.9 - Anemia, unspecified Additional A&P Information 70-year-old male with a past CAD, CHF, status post 2 MIs in the past, multiple stents, hypertension, presented overnight with chief complains of chest pain that had been getting progressively worse over the past 2 to 3 weeks alongside dyspnea progressing to minimal exertion. Also reports orthopnea and PND per history. EKG and troponin series not concerning for NSTEMI at this time. Cannot rule out unstable angina. Stress test testing is pending. Less likely to be PE given more subacute presentation over the last 2 to 3 weeks however cannot rule this possibility out given elevated D-dimer. Unable to get a CTA of the chest due to DAWNA, VQ scan cannot be performed until 48 hours after Lexiscan infusion. We will need to wait for this. Echocardiogram has been taken and pending. Awaiting results of stress test to determine further treatment course. If continues to have significant chest pain, will obtain cardiology consult and assess for angiogram given significant past history. Continue aspirin, reported allergy to simvastatin,, listed as fatigue Heparin drip converted to Lovenox, creatinine clearance at 40 Attestations Medical Necessity Statement*: Ongoing chest pain and, change to inpatient admission. 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
--- NOTE | 2021-03-25 19:10 | PC.NURSE ---
Patient called nurses station with complaint of chest pain. Went to room to assess, no visible unease, no signs of diaphoresis, complained of pain at a 2 out of 10. Stated it felt like a dull ache. Vitals taken BP 140/75, hr 71. While in room patient stated pain was now gone.
[2021-03-25] MEDS: mirtazapine 15 mg Tablet PO (20:22)
[2021-03-25] MEDS: aspirin 325 mg Tablet PO (20:22)
[2021-03-25] MEDS: tamsulosin 0.4 mg Capsule PO (20:22)
[2021-03-25] MEDS: citalopram 20 mg Tablet 30 MG PO (20:23)
[2021-03-25] MEDS: sodium chloride 0.9% 1,000 ML 50 ML IV (20:24)
--- NOTE | 2021-03-25 23:12 | USCV_ITS ---
Mian Menendez Age: 70 Gender: M : 1950 Exam Date: 03/25/2021 05:22 Ordering Phys: Reji Bernard MD Technologist: Rubia Villeda Exam Location: [facility] [place] Indication: CHEST PAIN ANGINA BP: 122 / 70 HR: 77 Rhythm: Sinus Technical Quality: Adequate MEASUREMENTS (Male / Female) Normal Values 2D ECHO LV Diastolic Diameter PLAX 4.3 cm 4.2 - 5.9 / 3.9 - 5.3 cm LV Systolic Diameter PLAX 3.2 cm LV Chamber Size 3.5 cm IVS Diastolic Thickness 1.5 cm 0.6 - 1.0 / 0.6 - 0.9 cm IVS Systolic Thickness 1.5 cm LVPW Diastolic Thickness 1.6 cm 0.6 - 1.0 / 0.6 - 0.9 cm LVPW Systolic Thickness 1.3 cm RV Chamber Size 3.3 cm LVOT Diameter 2.0 cm LV Ejection Fraction 2D Teich 51.9 % LV Ejection Fraction MOD 2C 64.5 % LV Ejection Fraction 2C AL 64.6 % LA Diameter 3.4 cm LA Width 2.4 cm LA Height 3.8 cm RA Width 3.6 cm RA Height 4.6 cm Aorta at Sinotubular Diameter 3.4 cm M-MODE LV Diastolic Diameter MM 5.5 cm 4.2 - 5.9 / 3.9 - 5.3 cm LV Systolic Diameter MM 3.4 cm LV Ejection Fraction MM Teich 67.3 % IVS Diastolic Thickness MM 1.0 cm 0.6 - 1.0 / 0.6 - 0.9 cm IVS Systolic Thickness MM 1.6 cm LVPW Diastolic Thickness MM 1.1 cm 0.6 - 1.0 / 0.6 - 0.9 cm LVPW Systolic Thickness MM 1.7 cm Aortic Annulus Diameter 3.3 cm LA Ao Ratio MM 1.1 MV E Point Septal Separation 0.6 cm DOPPLER AV Peak Velocity 192.0 cm/s LVOT Peak Velocity 118.0 cm/s AV Area Cont Eq vti 2.1 cm squared AV Area Cont Eq pk 2.0 cm squared MV Area PHT 2.9 cm squared Mitral E to A Ratio 0.9 MV E' Velocity 50.0 cm/s Mitral E to MV E' Ratio 9.4 Mitral E to LV E' Lateral Ratio 9.6 Mitral E to LV E' Septal Ratio 9.3 TR Peak Velocity 164.7 cm/s TR Peak Gradient 10.8 mmHg TR Mean Velocity 107.9 cm/s TR Mean Gradient 5.6 mmHg TR Velocity Time Integral 38.2 cm TV Peak E Velocity 52.0 cm/s Right Atrial Pressure 3.0 mmHg Pulmonary Artery Systolic Pressu 13.8 mmHg PV Peak Velocity 82.0 cm/s RV Acceleration Time 0.1 s RV Ejection Time 0.3 s RV AcT/ET 0.4 FINDINGS Left Ventricle Normal left ventricular cavity size. Normal left ventricular systolic function. No regional wall motion abnormalities. Left ventricular ejection fraction is estimated at 66 %. Grade I/IV diastolic dysfunction (abnormal relaxation filling pattern), normal to mildly elevated filling pressures. Right Ventricle The right ventricle is normal in size and function. Right Atrium The right atrium is normal in size. Left Atrium The left atrium is normal in size. Mitral Valve Structurally normal mitral valve without significant stenosis or prolapse. There is no mitral regurgitation. Aortic Valve Moderate aortic valve calcification. No aortic valve stenosis. No aortic valve regurgitation. Tricuspid Valve Structurally normal tricuspid valve without significant stenosis or regurgitation. Pulmonary artery systolic pressure is normal. Pulmonic Valve Structurally normal pulmonic valve without significant stenosis. There is no pulmonic regurgitation. Pericardium Normal pericardium without effusion. Aorta Normal ascending aorta dimension. CONCLUSIONS 1-Normal left ventricular cavity size. Normal left ventricular systolic function. No regional wall motion abnormalities. Left ventricular ejection fraction is estimated at 66 %. Grade I/IV diastolic dysfunction (abnormal relaxation filling pattern), normal to mildly elevated filling pressures. 2-Moderate aortic valve calcification. No aortic valve stenosis. No aortic valve regurgitation. 3-There is no pericardial effusion. 4-Pulmonary artery systolic pressure is within normal limits. 5-Right atrial pressure is around 5 mm of mercury. 6-No significant change since the prior echocardiogram study of 10/22/2020. Reji Magaloln MD (Electronically Signed) Final Date: 25 March 2021 22:01 S
--- NOTE | 2021-03-25 23:12 | NMCV_ITS ---
NM trip perf SPECT r/s* [id number] Mian Menendez Age: 70 Gender: M : 1950 Exam Date: 03/25/2021 07:01 Ordering Phys: Reji Bernard MD Technologist: BENITEZ Vazquez Exam Location: [facility] Indications: Chest pain STRESS TEST Please see separate stress test report in [facility] for full findings IMAGE PROTOCOL Rest/Stress 1 Lexiscan Day Radiopharmaceutical Dose (mCi) Administration Site Administered by Rest: Tc-99m 10.9 IV BENITEZ Vazquez Sestamibi Stress:Tc-99m 32.6 IV BENITEZ Vazquez Sestamibi Rest: 25-Mar-2021 60 Discovery 630 Stress: 25-Mar-2021 60 Discovery 630 0.4mg Lexiscan. Images obtained in supine and prone position. SPECT RESULTS Technical Quality: Good Raw Data Analysis: Normal Image Corrections: No attenuation or motion correction applied Summed Stress Score: 4 Summed Rest Score: 1 Summed Difference Score: 3 PERFUSION FINDINGS Small to moderate area of decreased tracer uptake in the mid and apical inferior and apical lateral segments. Some reversibility was noted in these regions at rest FUNCTIONAL RESULTS (calculated via Gated SPECT) Stress Image LV EF (%): 67 Stress EDV (mL):108 TID: 1.07 Stress ESV (mL):36 FUNCTIONAL FINDINGS: Segmental wall motion analysis revealing no gross wall motion abnormalities. IMPRESSIONS 1. Myocardial perfusion imaging revealing small to moderate area of decreased aseptic in the inferior and inferolateral regions with some reversibility, suggestive of myocardial scarring with ischemia in the description of the right coronary artery predominantly with some involvement of the circumflex artery. 2. Normal LV ejection fraction 67%. 3. LV wall motion analysis revealing no gross wall motion abnormalities. 4. Normal LV volume. No similar previous studies are available for comparison Dr Mele Barragan MD [facility] (Electronically Signed) Final Date: 25 March 2021 19:11 S
[2021-03-26] VITALS (12 sets, daily range): BP systolic 113–151; BP diastolic 67–92; PULSE 72–90; RESP 14–18; TEMP 36.5–37.1; O2SAT 91–98
[2021-03-26] MEDS: enoxaparin 100 mg/mL Syringe 70 MG SUBCUT ×2 (02:04→13:21)
[2021-03-26 04:27] LABS: Basophils % 0.5 %; Eosinophils # 0.1 10^3/uL (0.0-0.8); Eosinophils % 0.9 %; Hematocrit 31.5 % (42.0-52.0); Hemoglobin 10.2 g/dL (11.7-16.6); Lymphocytes # 4.4 10^3/uL (0.8-4.8); Lymphocytes % 57.1 %; Mean Corpuscular HGB Conc 32.4 g/dL (30.0-36.0); Mean Corpuscular Hemoglobin 32.3 pg (28.0-34.0); Mean Corpuscular Volume 99.7 fL (80-94); Mean Platelet Volume 10.3 fL (7.4-10.4); Monocytes # 0.4 10^3/uL (0.2-0.9); Monocytes % 5.4 %; Neutrophils # 2.76 10^3/uL (1.8-7.7); Neutrophils % 35.8 %; Nucleated Red Blood Cells % 0 %; Platelet Count 199 10^3/cmm (130-400); Red Blood Count 3.16 10^6/uL (4.1-5.3); Red Cell Distribution Width 12.1 % (12.1-15.1); White Blood Count 7.7 10^3/uL (4.0-10.0)
[2021-03-26 04:41] LABS: Alanine Aminotransferase 11 U/L (0-41); Albumin Level 3.6 g/dL (3.5-5.2); Alkaline Phosphatase 45 IU/L (40-130); Anion Gap 11.3 (5-19); Aspartate Amino Transferase 17 U/L (0-40); Blood Urea Nitrogen 29 mg/dL (8-23); Calcium 8.6 mg/dL (8.5-10.5); Carbon Dioxide 24 mmol/L (22-29); Chloride 109 mmol/L (98-107); Globulin 2.1 g/dL (1.3-4.6); Glomerular Filtration Rate 74.3 mL/min (90-130); Glucose 89 mg/dL (65-115); Osmolality Calculated 295 mOsm/kg (285-295); Potassium 4.3 mmol/L (3.5-5.1); Sodium 140 mmol/L (136-145); Total Bilirubin 0.2 mg/dL (0.15-1.2); Total Protein 5.7 g/dL (6.6-8.7)
[2021-03-26] MEDS: amlodipine 10 mg Tablet PO (09:49)
--- NOTE | 2021-03-26 10:29 | PC.CHAP ---
Pastoral Care Encounter/Spiritual Assessment Type of Contact [] Declined machine ii engraver visit [] Patient/Family/Request visit [] Outpatient visit [] Follow-up visit [] Physician referral [] Code/Alert [x] Routine visit [] Staff referral [] Actively dying [x] Patient sleeping [] Family support [] [] Out of room [] Palliative care [] [] Receiving care in room [] Pre-surgical visit [] Trauma [] Long length of stay [] ICU visit [] Other: Relational/Emotional Strength [] Patient feels connected with others/family/visitors/staff [] Distress [] Loneliness/isolation [] Abandonment Spirituality of Patient [] Person of Ines [] Attends Taoist of their Ines [] Believes in Prayer [] Reads Bible or Worship materials [] There are Spiritual issues to be addressed Cofounder Interventions [x] Prayer [x] Active listening [x] Non-anxious presence [x] Spiritual/emotional support [] Crisis/trauma care [] Spiritual counseling [] Bereavement support [] Provided bereavement packet [] Provided Bible/devotional materials [] Provided toy/stuffed animal, coloring book to patient or family member [] Provided Communion [] Anointing/[place] [] Salvation [x] Completed spiritual assessment [] Other: Impact on Illness or Injury [] Angry [] Fearful [] Anxious [] Often cries [] Exhaustion [] Unable to work [] Unable to attend presybeterian [] Unable to walk/stand [] Unable to read [] Unable to drive [] Unable to eat/drink [] Unable to sleep [] Unable to be with family [] Patient intubated [] Other: Summary Time spent with patient
--- NOTE | 2021-03-26 16:32 | PC.RESP ---
Pulmonary Rehab information sent to patient.
--- NOTE | 2021-03-26 17:13 | P.PN_ITS ---
Subjective Subjective: Interval history: stress test returned abnormal. vague chest discomfort persisting, SOB on walking to bathroom, planned for cardiac cath tomorrow. 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 Myocardial perfusion imaging revealing small to moderate area of decreased aseptic in the inferior and inferolateral regions with some reversibility, suggestive of myocardial scarring with ischemia in the description of the right coronary artery predominantly with some involvement of the circumflex artery. 2. Normal LV ejection fraction 67%. 3. LV wall motion analysis revealing no gross wall motion abnormalities. 4. Normal LV volume. No similar previous studies are available for comparison ate of Service: 03/25/21 Procedure(s): CV echo complete* [id number] CONCLUSIONS 1-Normal left ventricular cavity size. Normal left ventricular systolic function. No regional wall motion abnormalities. Left ventricular ejection fraction is estimated at 66 %. Grade I/IV diastolic dysfunction (abnormal relaxation filling pattern), normal to mildly elevated filling pressures. 2-Moderate aortic valve calcification. No aortic valve stenosis. No aortic valve regurgitation. 3-There is no pericardial effusion. 4-Pulmonary artery systolic pressure is within normal limits. 5-Right atrial pressure is around 5 mm of mercury. 6-No significant change since the prior echocardiogram study of 10/22/2020. A&P Assessment and plan (1) Unstable angina: Status: Acute (2) Chest pain: Status: Acute Qualifiers: Chest pain type: unspecified Qualified Code(s): R07.9 - Chest pain, unspecified (3) Acute kidney injury: Status: Acute (4) Anemia: Status: Acute Qualifiers: Anemia type: unspecified type Qualified Code(s): D64.9 - Anemia, unspecified Additional A&P Information 70-year-old male with a past CAD, CHF, status post 2 MIs in the past, multiple stents, hypertension, presented overnight with chief complains of chest pain that had been getting progressively worse over the past 2 to 3 weeks alongside dyspnea progressing to minimal exertion. Also reports orthopnea and PND per history. Stress test today returned abnormal Still SOB with minimal exertion Echocardiogram as noted above Planend for cardiac cath tomorrow DAWNA resolved Continue aspirin, reported allergy to simvastatin,, listed as fatigue Continue Lovenox Attestations Medical Necessity Statement*: cardiac cath tomorrow Coding Level of Care Code Acute Hog Feeder for [facility] Fwjaved Diagnoses Unstable angina I20.0 Chest pain R07.9 Chest pain type: unspecified Acute kidney injury N17.9 Anemia D64.9 Anemia type: unspecified type
[2021-03-26] MEDS: sodium chloride 0.9% 1,000 ML 50 ML IV (17:23)
--- NOTE | 2021-03-26 18:02 | P.CONIM_ITS ---
Providers/Reason For Consult Consulting Physician/Specialty*: Zack Villareal MD/ Cardiology Reason for Consult*: Chest pain/abnormal stress test Requesting Physician: Dr Nieto Attending Physician: Cindy Nieto MD Primary Care Provider: BOB Wilkins History of Present Illness History of Present Illness Mian Menendez is a 70 year old male with a history of COPD, former smoker, sinus bradycardia, preserved ejection fraction heart failure, coronary artery disease status post 4 stent placement, presented chest pain, fatigue and shortness of breath. According to patient he was woken up from sleep because of chest discomfort. It felt like pressure. Substernal with radiation to the left arm. Last for about 5 minutes. He underwent nuclear stress test that showed scarring with possible ischemia in RCA and left circumflex artery. Troponins have not trended up. EKG not showing acute ischemic changes. Review of Systems Const: Denies: fever(s) Eyes: Denies: change in vision ENMT: Denies: throat pain Card: Reports: chest pain and pre-syncope Resp: Denies: dyspnea GI: Denies: abdominal pain : Denies: flank pain Musc: Denies: neck pain Skin/Breast: Denies: rash Neuro: Denies: headache(s) Psych: Denies: anxiety Endo: Denies: polyuria Rell/Lymph: Denies: easy bruising All/Imm: Denies: urticaria Meds/Allergies Home Medications and Allergies Home Medications Medication Instructions Recorded Confirmed Last Taken Type aspirin 325 mg tablet 325 mg PO DAILY@199912/18/19 03/24/21 03/23/21 History famotidine 20 mg tablet 20 mg PO BID@0812/18/19 03/24/21 03/24/21 History furosemide 40 mg tablet 40 mg PO DAILY@79912/18/19 03/24/21 03/24/21 History montelukast 10 mg tablet 10 mg PO DAILY@199912/18/19 03/24/21 03/23/21 History tamsulosin 0.4 mg capsule 0.4 mg PO DAILY@199904/11/20 03/24/21 03/23/21 History gabapentin 100 mg capsule 100 mg PO TID@08,12,20 06/24/20 03/24/21 03/24/21 History mirtazapine 30 mg tablet 15 mg PO BEDTIME@1999 tab 06/24/20 03/24/21 03/23/21 History clonidine HCl 0.1 mg tablet 0.1 mg PO BID PRN 30 Days #60 tab 09/30/20 03/24/21 Unknown Rx lisinopril 40 mg tablet 40 mg PO DAILY@1999 tab 10/01/20 03/24/21 03/23/21 History melatonin 10 mg capsule 10 mg PO DAILY@199910/01/20 03/24/21 03/23/21 History potassium chloride 20 mEq 20 meq PO DAILY@79910/01/20 03/24/21 03/24/21 History tablet,extended release albuterol sulfate 90 mcg/actuation 1 inh INHALATION QID PRN #8.5 g 02/06/21 03/24/21 Unknown Rx aerosol inhaler amlodipine 10 mg PO DAILY@79903/24/21 03/24/21 03/24/21 History chlorthalidone 25 mg PO DAILY@199903/24/21 03/24/21 03/23/21 History cholecalciferol (vitamin D3) 1,250 mcg PO DAILY@199903/24/21 03/24/21 03/23/21 History citalopram 30 mg PO DAILY@199903/24/21 03/24/21 03/23/21 History qbrjlqfzfuw-bbdglmxpt-keeynymo 1 inh INHALATION DAILY@0803/24/21 03/24/21 03/24/21 History [Trelegy Ellipta] olopatadine 1 - 2 drp OPHTHALMIC (EYE) 03/24/21 03/24/21 03/24/21 History DAILY@0800 Allergies Allergy/AdvReac Type Severity Reaction Status Date / Time bupropion [From Wellbutrin] Allergy hallucinati Verified 03/12/21 13:53 ons buspirone Allergy caused Verified 03/12/21 13:53 negative thinking simvastatin Allergy fatigue Verified 03/12/21 13:53 Current Medications Current Medications Generic Name Dose Route Start Last Admin Trade Name Freq PRN Reason Stop Dose Admin Albuterol Sulfate 2.5 mg 03/25/21 15:32 03/25/21 18:25 Albuterol 2.5 Mg/0.5 Ml Neb INHALATION 2.5 mg Q4H.RESPIRATORY PRN Administration SHORTNESS OF BREATH Amlodipine Besylate 10 mg 03/25/21 08:00 03/26/21 09:49 Amlodipine 10 Mg Tablet PO 10 mg DAILY@0800 SAMEER Administration Citalopram Hydrobromide 30 mg 03/25/21 20:00 03/25/21 20:23 Citalopram 20 Mg Tablet PO 30 mg DAILY@1999 SAMEER Administration Enoxaparin Sodium 70 mg 03/25/21 13:45 03/26/21 13:21 Enoxaparin 100 Mg/Ml Syringe 1 mg/kg (70 mg) 70 mg SUBCUT Administration Q12H SAMEER Sodium Chloride 1,000 mls @ 50 mls/hr 03/24/21 23:12 03/26/21 17:23 Sodium Chloride 0.9% IV 50 mls/hr .Q20H SAMEER Administration Mirtazapine 15 mg 03/25/21 20:00 03/25/21 20:22 Mirtazapine 15 Mg Tablet PO 15 mg BEDTIME@1999 SAMEER Administration Tamsulosin HCl 0.4 mg 03/25/21 20:00 03/25/21 20:22 Tamsulosin 0.4 Mg Capsule PO 0.4 mg DAILY@1999 SAMEER Administration PFSH Acute PFSH: Medical History Anemia Anxiety Bronchitis COPD (chronic obstructive pulmonary disease) Fatigue Hypertension Left lateral abdominal pain Lower respiratory tract infection Nausea Primary localized osteoarthritis of both knees Sinusitis Surgical History Status post coronary artery stent placement Status post hernia repair Status post shoulder surgery Status post total knee replacement Family History Other Hypertension Social History Smoking and tobacco status: former smoker Quit status (tobacco): has quit using tobacco Year quit tobacco: 2002 - 1PPD x 35 Years Alcohol intake: never Lives independently: Yes Household members: spouse Marital status: Current occupational status: employed Current occupation: [employer] History of recent travel: No Current gender identity: Male Vitals/I&O/Wt Last Vital Signs Temp 97.8 F 03/26/21 16:00 Pulse 90 03/26/21 15:38 Resp 15 03/26/21 15:38 BP 151/77 03/26/21 16:00 Pulse Ox 97 03/26/21 15:38 03/26/21 03/26/21 03/26/21 06:59 14:59 22:59 Intake Total 100 / 3080 840 / 840 1480 / 2320 Output Total 500 / 500 Balance 100 / 1630 340 / 340 1480 / 1820 Weight last 48 hrs Weight 165 lb Physical Exam Narrative: EXAM NARRATIVE: GENERAL: Patient is alert, awake and oriented x3. [] NECK: No jugular vein distension. [] HEENT: No cyanosis. No icterus. No pallor. [] HEART: Regular S1 and S2. No murmur, rub or gallop. [] LUNGS: Clear to auscultate bilaterally. [] ABDOMEN: Soft, nontender and nondistended. Positive bowel sounds. No guarding, rebound or tenderness. [] CENTRAL NERVOUS SYSTEM: Grossly nonfocal. [] EXTREMITIES: Lower extremities with 1+ edema bilaterally. Pulses palpable in the lower extremities, both dorsalis pedis and posterior tibial. [] A&P Assessment and plan (1) Hypertension: Status: Acute Qualifiers: Hypertension type: essential hypertension Qualified Code(s): I10 - Essential (primary) hypertension (2) Chest pain: Status: Acute Qualifiers: Chest pain type: unspecified Qualified Code(s): R07.9 - Chest pain, unspecified (3) Abnormal stress test: Status: Acute (4) COPD (chronic obstructive pulmonary disease): Status: Acute Qualifiers: COPD type: emphysema Emphysema type: unspecified Qualified Code(s): J43.9 - Emphysema, unspecified Patient has typical chest discomfort stent scarring with area of ischemia in RCA and LCx territory. We will proceed with coronary angiogram to rule out coronary artery disease with possible percutaneous coronary intervention. n.p.o. past midnight. Continue aspirin. Recent echocardiogram from September 2020 was showing normal LV systolic function. Thank you for involving us with the care of this patient. We will continue to follow. Please call with questions. Coding Level of Care Code Acute Tie Layer for Meghan [facility] Diagnoses Hypertension I10 Hypertension type: essential hypertension Chest pain R07.9 Chest pain type: unspecified Abnormal stress test R94.39 COPD (chronic obstructive pulmonary disease) J43.9 COPD type: emphysema Emphysema type: unspecified
[2021-03-26] MEDS: citalopram 20 mg Tablet 30 MG PO (20:03)
[2021-03-26] MEDS: mirtazapine 15 mg Tablet PO (20:03)
[2021-03-26] MEDS: aspirin 81 mg EC Tablet PO (20:03)
[2021-03-26] MEDS: tamsulosin 0.4 mg Capsule PO (20:03)
--- NOTE | 2021-03-26 20:12 | PC.NURSE ---
Received report from MAXIMO Ravi. Patient resting in bed watching tv. Denies pain or discomforts at this time. Patient is pleasant and cooperative. Medications administered as ordered. No distress observed.
--- NOTE | 2021-03-26 22:01 | PC.NURSE ---
Spoke with Dr Villareal. Plan for patient to have Left Heart Catheterization in the am at 0500. Received instruction to hold 0145 Lovenox.
[2021-03-27] VITALS (51 sets, daily range): BP systolic 114–161; BP diastolic 67–89; PULSE 64–802; RESP 7–25; TEMP 36.6–37.1; O2SAT 83–97
[2021-03-27] MEDS: diphenhydrAMINE 50 mg Capsule PO (04:01)
--- NOTE | 2021-03-27 04:45 | XACV_ITS ---
Exam Room: [facility] Ht: 168 cm Wt: 75 kg BSA: 1.88 m2 Gender: Male : 1950 Any Known Allergies: Other Exam Priority: Routine Procedure(s): Procedure Description: Diagnostic procedure Procedure Description: Left Heart Catheterization Diagnostic Cath Status: Elective Diagnostic Findings * Left Anterior Descending has no significant disease. Has mid vessel bridging. * Circumflex has 20% mid vessel disease. * Proximal Right Coronary Artery: minimal 30% stenosis, MARIAH: 3 flow. Has patent mid vessel stent. * Left Main has no disease. * Coronary angiography shows right dominance. PCI Status: Elective Conclusions 1. Non obstrructive coronary artery disease. 2. Patent prior stents. Recommendations * Aggressive risk factor control. * Can add imdur if chest pain persists. * Outpatient cardiology follow up in 4 weeks. Diagnostic RX Recommendation: medical therapy and/or counseling Anticoagulation: Heparin Pressures Phase:Rest AO : 142 / 16 ( 50 ) @ 12:40:58 AM LV : 138 / -1 / 18 @ 12:40:58 AM 142 / -6 / 18 @ 12:40:58 AM Clinical Evaluation EBL: 5mL-10mL Procedural Details Procedure Consent Obtained. Pre-Procedure Time Out. Identified patient by full name and date of as verbalized by the patient/guarantor. Does the consent match the physician's order: Yes. Accurate & Complete Informed Consent: Yes. Inpatient/Outpatient History & Physical on Chart: Yes. If H&P is completed, is and addenduem needed: No; If yes, is the addendum complete: No. The risks, benefits, and alternatives of sedation and/or procedure were discussed by physician. The patient agrees to continue. Correct patient, site and procedure confirmed by cath team. Procedure started. PERRLA. Strong, equal hand deputy treasurer bilaterally. Lungs clear x 5 lobes. Oxygen started at 2liters/min via nasal canula. right radial was prepped with chloroprep then draped in the usual sterile fashion. bilateral groins was prepped with chloroprep then draped in the usual sterile fashion. Physician notified. Baseline sample Acquired. HR: 75 BPM. Physician arrived. Physician scrubbed in. Lidocaine 1% infiltrated to the right radial. Arterial access obtained. A 5 cuban TIG catheter in over wire. Multiple views taken of right coronary artery. Catheter redirected to the LCA. Multiple views taken of left coronary artery. EDP Sample taken: LV 142/-7,18; HR: 79 BPM; SpO2: 96%. Pullback taken: LV Off; AO Off; Mean: , Peak to Peak: , SEP: ; HR: 75 BPM; SpO2: 95%. Catheter removed over wire. A TR Band was successful obtaining hemostatsis at the Radial artery insertion site. PERRLA. Strong, equal hand deputy treasurer bilaterally. No VTE prophylaxis required. Medication's Wasted: Lidocaine 1% = 18 mL. Medication's Wasted: Heparin = 1000 units. Medication's Wasted: Nitro = 49.8 mg. Medication's Wasted: Other = Fentanyl 50mcg. Total IV fluids: 75 mL. Estimated blood loss: 5mL-10mL. Physician scrubbed out. [facility] Clinical Fraility Score: 3: Managing Well. Agriscience Instructor Indications: New Onset Angina. Chest Pain Symptom Assessment: Atypical Angina. Cardiovascular Instability: No. Procedure completed. Patient transferred by wheelchair to 1st floor. Admit Source: In Patient. Vital chart was stopped. Access Site Site: Radial artery Sheath Size: 5 Fr Hemostasis Method: TR Band Hemostasis Success: Successful Procedure Medications Start: 5:00 AM Stop: 5:00 AM Medication: Fentanyl Amount: 50 mcg Route: I.V. Start: 5:10 AM Stop: 5:10 AM Medication: Versed Amount: 1 mg Route: I.V. Start: 5:14 AM Stop: 5:14 AM Medication: Versed Amount: 1 mg Route: I.V. Start: 5:15 AM Stop: 5:15 AM Medication: Nitrogylcerin Amount: 200 mcg Route: I.A. Start: 5:17 AM Stop: 5:17 AM Medication: Heparin Amount: 5000 units Route: I.V. I, the attending physician, have reviewed and verified all procedure medications. Yes, all medications given per verbal order History/Risk Factors Hypertension: Yes Dyslipidemia: No Peripheral Arterial Disease (PAD): No Myocardial Infarction (ND): No Obesity: No Renal Disease: No Tobacco Use: Former Prior Interventions PCI: Yes CABG: No Valve Surgery: No Report Signatures Finalized by Zack Villareal MD on 04/04/2021 11:22 AM
--- NOTE | 2021-03-27 05:10 | W.PM.OPSUD ---
Surgery/Procedure H&P Update DATE OF PROCEDURE: March 27, 2021 DATE H&P PERFORMED: 03/26/21 H&P UPDATE INFORMATION: I have reviewed H&P completed within last 30 days, I have examined patient prior to procedure and No changes to prior documentation PREOP DIAGNOSIS: Chest pain/abnormal stress test PRIMARY INDICATION FOR PROCEDURE: Chest pain/abnormal stress test PLANNED PROCEDURE: Operation Date: 03/27/21 05:00 Proposed Procedures p Cardiac Catheterization(Left) - Zack Villareal M.D Possible percutaneous coronary intervention PATIENT REASSESSED PRIOR TO SEDATION, WITH NO CHANGE NOTED: Yes PHYSICAL EXAM: alert, oriented x 3 and clear to auscultation bilaterally AIRWAY EVAL/ANESTHESIA PLAN: ASA IV, Monitored Anesthesia, Local Anesthesia, Risks, benefits & alternatives of sedation and/or procedure discussed and Patient agrees to continue as planned
--- NOTE | 2021-03-27 05:19 | PC.NURSE ---
Patient taken to clinical lab technologist at 0445. Spouse and daughter at bedside.
--- NOTE | 2021-03-27 05:53 | PC.NURSE ---
Patient received from blood bank laboratory technologist via wheelchair. Patient is s/p [facility] without intervention. TR Band in place to right wrist with 15ml of air. No s/s of bleeding or hematoma formation observed. Patient denies pain to site. Pulse palpable, extremity warm and pink.
--- NOTE | 2021-03-27 06:29 | P.PN_ITS ---
Subjective Subjective: Interval history: Patient underwent coronary angiogram that demonstrated mild to moderate stenosis in the RCA and LCx. No intervention was needed. Vitals/I&O/Wt Last Vital Signs Temp 98 F 03/27/21 05:35 Pulse 66 03/27/21 06:00 Resp 11 L 03/27/21 06:00 BP 120/79 03/27/21 06:00 Pulse Ox 86 L 03/27/21 06:00 03/26/21 03/26/21 03/27/21 14:59 22:59 06:59 Intake Total 840 / 840 1600 / 2440 624.167 / 3064.167 Output Total 500 / 500 300 / 800 400 / 1200 Balance 340 / 340 1300 / 1640 224.167 / 1864.167 Physical Exam Narrative: EXAM NARRATIVE: GENERAL: Patient is alert, awake and oriented x3. [] NECK: No jugular vein distension. [] HEENT: No cyanosis. No icterus. No pallor. [] HEART: Regular S1 and S2. No murmur, rub or gallop. [] LUNGS: Clear to auscultate bilaterally. [] ABDOMEN: Soft, nontender and nondistended. Positive bowel sounds. No guarding, rebound or tenderness. [] CENTRAL NERVOUS SYSTEM: Grossly nonfocal. [] EXTREMITIES: Lower extremities with 1+ edema bilaterally. Pulses palpable in the lower extremities, both dorsalis pedis and posterior tibial. [] Data : 03/28/21 03:53 03/28/21 03:53 A&P Assessment and plan (1) Hypertension: Status: Acute Qualifiers: Hypertension type: essential hypertension Qualified Code(s): I10 - Essential (primary) hypertension (2) Chest pain: Status: Acute Qualifiers: Chest pain type: unspecified Qualified Code(s): R07.9 - Chest pain, unspecified (3) Abnormal stress test: Status: Acute (4) COPD (chronic obstructive pulmonary disease): Status: Acute Qualifiers: COPD type: emphysema Emphysema type: unspecified Qualified Code(s): J43.9 - Emphysema, unspecified Patient has typical chest discomfort symptoms. Stress test showed scarring with area of ischemia in RCA and LCx territory. Coronary angiogram did not reveal severe CAD. Medical therapy is recommended Can add imdur Continue aspirin. Recent echocardiogram from September 2020 was showing normal LV systolic function. Thank you for involving us with the care of this patient. We will continue to follow. Please call with questions. Attestations Medical Necessity Statement*: Care expected to cross 2 mid nights. Coding Level of Care Code Acute Certified Neurodiagnostic Technologist for [facility] Fwd Diagnoses Hypertension I10 Hypertension type: essential hypertension Chest pain R07.9 Chest pain type: unspecified Abnormal stress test R94.39 COPD (chronic obstructive pulmonary disease) J43.9 COPD type: emphysema Emphysema type: unspecified
[2021-03-27] MEDS: amlodipine 10 mg Tablet PO (08:11)
--- NOTE | 2021-03-27 09:45 | PC.NURSE ---
call placed to Dr. Villareal at this time to clarify orders for fluids at 2 different rates. instructions to run fluids at 50ml per hour for the next 12 hours or until discharge.
[2021-03-27] MEDS: sodium chloride 0.9% 1,000 ML 50 ML IV (09:55)
--- NOTE | 2021-03-27 10:12 | PC.NURSE ---
Addendum entered by Virginia Boyle RN 03/27/21 10:17: for 12 hours Original Note: during rounding dr enamorado with verbal instructions to decrease fluids to 35 mls per hour
--- NOTE | 2021-03-27 10:43 | NM_ITS ---
WS: [id number] NUCLEAR MEDICINE LUNG VENTILATION AND PERFUSION CLINICAL INFORMATION: evaluate for PE TECHNIQUE: Ventilation/perfusion lung scan with 32.5 mCi technetium 99m DTPA. 5.5 mCi technetium 99m MAA COMPARISON: None. FINDINGS: Patchy radiotracer deposition on the ventilatory images compatible with emphysematous changes. Radiot racer deposition along the central bronchial airways. Relatively normal symmetric perfusion imaging. A few matched defects. No mismatched ventilation/perfusion defects. NM/NM pul vent and perfus* [id number] IMPRESSION: 1. Low probability for pulmonary embolus.
--- NOTE | 2021-03-27 11:27 | PC.NURSE ---
patient off unit for testing
--- NOTE | 2021-03-27 12:30 | PC.NURSE ---
TR band removed per protocol patient tolerated well no bleeding or hematoma formations noted
--- NOTE | 2021-03-27 17:20 | P.PN_ITS ---
Subjective Subjective: Interval history: Status post left heart cath this morning. Nonobstructive CAD noted. Understands are all patent. No chest pain today, however continues to complain of dyspnea with minimal exertion. We will proceed with VQ scan Medications: Reviewed: Yes Vitals/I&O/Wt Last Vital Signs Temp 98 F 03/27/21 05:35 Pulse 65 03/27/21 14:55 Resp 18 03/27/21 14:45 BP 134/71 03/27/21 14:45 Pulse Ox 94 03/27/21 11:15 03/27/21 03/27/21 03/27/21 06:59 14:59 22:59 Intake Total 624.167 / 3064.167 750.000 / 750.000 Output Total 400 / 1200 Balance 224.167 / 1864.167 750.000 / 750.000 Physical Exam Narrative: EXAM NARRATIVE: GEN: Awake, alert and oriented, no acute distress CVS: S1S2 N RS: CTA B/L Abd: Soft, nt/nd , bs+ MANAGER SURGERY: no focal neuro deficits Data : 03/26/21 03:42 03/26/21 03:42 A&P Assessment and plan (1) Unstable angina: Status: Acute (2) Chest pain: Status: Acute Qualifiers: Chest pain type: unspecified Qualified Code(s): R07.9 - Chest pain, unspecified (3) Acute kidney injury: Status: Acute (4) Anemia: Status: Acute Qualifiers: Anemia type: unspecified type Qualified Code(s): D64.9 - Anemia, unspecified Additional A&P Information 70-year-old male with a past CAD, CHF, status post 2 MIs in the past, multiple stents, hypertension, presented overnight with chief complains of chest pain that had been getting progressively worse over the past 2 to 3 weeks alongside dyspnea progressing to minimal exertion. Also reports orthopnea and PND per history. Stress test returned abnormal , this was followed by PCI this morning, which di d not reveal obstructive CAD, older stents were patent. Still SOB with minimal exertion, proceeding with VQ scan to evaluate for PE New oxygen requirement of 2 L/min today DAWNA resolved Continue aspirin, reported allergy to simvastatin,, listed as fatigue Continue Lovenox until results of VQ scan are available Attestations Medical Necessity Statement*: VQ scan, evaluate for PE cough dyspnea Coding Level of Care Code Acute Brickmason Helper for [facility] Fwd Diagnoses Unstable angina I20.0 Chest pain R07.9 Chest pain type: unspecified Acute kidney injury N17.9 Anemia D64.9 Anemia type: unspecified type
--- NOTE | 2021-03-27 17:27 | XR_ITS ---
WS: [id number] Portable AP upright chest, 03/27/2021 Clinical Data: CHF Comparison: Portable chest, 03/24/2021. Findings: No nodules, masses or effusions are seen. The heart is normal. The pulmonary vascularity is not increased. No pneumonia or pneumothorax is seen. The aortic arch and descending aorta are tortuo us. There are monitor leads on the chest wall. There is a small orthopedic anchor in the left humeral head. XR/XR chest 1V portable [id number] Impression: Atherosclerosis.
[2021-03-27 18:52] LABS: NT Pro B Type Natriuretic Pept 351 pg/mL (0-125)
[2021-03-27] MEDS: citalopram 20 mg Tablet 30 MG PO (21:40)
[2021-03-27] MEDS: aspirin 81 mg EC Tablet PO (21:40)
[2021-03-27] MEDS: tamsulosin 0.4 mg Capsule PO (21:40)
[2021-03-27] MEDS: mirtazapine 15 mg Tablet PO (21:41)
[2021-03-27] MEDS: temazepam 15 mg Capsule PO (21:49)
[2021-03-28] VITALS (8 sets, daily range): BP systolic 130–171; BP diastolic 76–99; PULSE 71–100; RESP 18–21; TEMP 36.6–37.1; O2SAT 94–97
[2021-03-28 05:32] LABS: Basophils % 0.3 %; Eosinophils # 0.2 10^3/uL (0.0-0.8); Eosinophils % 1.5 %; Hemoglobin 11.2 g/dL (11.7-16.6); Lymphocytes # 2.9 10^3/uL (0.8-4.8); Lymphocytes % 28.4 %; Mean Corpuscular HGB Conc 32.9 g/dL (30.0-36.0); Mean Corpuscular Hemoglobin 32.3 pg (28.0-34.0); Mean Platelet Volume 10.9 fL (7.4-10.4); Monocytes # 0.7 10^3/uL (0.2-0.9); Monocytes % 7.3 %; Neutrophils # 6.29 10^3/uL (1.8-7.7); Neutrophils % 62.1 %; Nucleated Red Blood Cells % 0 %; Platelet Count 193 10^3/cmm (130-400); Red Blood Count 3.47 10^6/uL (4.1-5.3); Red Cell Distribution Width 11.9 % (12.1-15.1); White Blood Count 10.1 10^3/uL (4.0-10.0)
[2021-03-28 05:46] LABS: Alanine Aminotransferase 15 U/L (0-41); Albumin Level 3.8 g/dL (3.5-5.2); Alkaline Phosphatase 57 IU/L (40-130); Anion Gap 11.9 (5-19); Aspartate Amino Transferase 19 U/L (0-40); Blood Urea Nitrogen 19 mg/dL (8-23); Calcium 8.9 mg/dL (8.5-10.5); Carbon Dioxide 25 mmol/L (22-29); Chloride 105 mmol/L (98-107); Creatinine Clr Calc Pharmacy 75.7969; Globulin 2.7 g/dL (1.3-4.6); Glomerular Filtration Rate 83.9 mL/min (90-130); Glucose 95 mg/dL (65-115); Osmolality Calculated 288 mOsm/kg (285-295); Potassium 3.9 mmol/L (3.5-5.1); Sodium 138 mmol/L (136-145); Total Bilirubin 0.3 mg/dL (0.15-1.2); Total Protein 6.5 g/dL (6.6-8.7)
[2021-03-28] MEDS: amlodipine 10 mg Tablet PO (08:07)
--- NOTE | 2021-03-28 08:38 | PM.PN ---
Subjective Subjective: Interval history: Patient is doing well. No complaints of chest pain, shortness of breath or palpitations. Underwent coronary angiogram yesterday that showed mild to moderate disease of LCX and RCA but no severe stenosis. Plan for medical therapy Vitals/I&O/Wt Last Vital Signs Temp 97.8 F 03/28/21 07:55 Pulse 100 03/28/21 07:55 Resp 21 H 03/28/21 07:55 BP 171/99 03/28/21 07:55 Pulse Ox 96 03/28/21 07:55 03/27/21 03/28/21 03/28/21 22:59 06:59 14:59 Intake Total 887.583 / 1637.583 Output Total 800 / 800 675 / 1475 Balance 87.583 / 837.583 -675 / 162.583 Physical Exam Narrative: EXAM NARRATIVE: GENERAL: Patient is alert, awake and oriented x3. [] NECK: No jugular vein distension. [] HEENT: No cyanosis. No icterus. No pallor. [] HEART: Regular S1 and S2. No murmur, rub or gallop. [] LUNGS: Clear to auscultate bilaterally. [] ABDOMEN: Soft, nontender and nondistended. Positive bowel sounds. No guarding, rebound or tenderness. [] CENTRAL NERVOUS SYSTEM: Grossly nonfocal. [] EXTREMITIES: Lower extremities with 1+ edema bilaterally. Pulses palpable in the lower extremities, both dorsalis pedis and posterior tibial. [] Data : 03/28/21 03:53 03/28/21 03:53 A&P Assessment and plan (1) Hypertension: Status: Acute Qualifiers: Hypertension type: essential hypertension Qualified Code(s): I10 - Essential (primary) hypertension (2) Chest pain: Status: Acute Qualifiers: Chest pain type: unspecified Qualified Code(s): R07.9 - Chest pain, unspecified (3) Abnormal stress test: Status: Acute (4) COPD (chronic obstructive pulmonary disease): Status: Acute Qualifiers: COPD type: emphysema Emphysema type: unspecified Qualified Code(s): J43.9 - Emphysema, unspecified Patient has typical chest discomfort symptoms. Stress test showed scarring with area of ischemia in RCA and LCx territory. Coronary angiogram did not reveal severe CAD. Medical therapy is recommended. Patient is chest pain free at this time Can add imdur VQ scan showed low probability for PE Continue aspirin. Recent echocardiogram from September 2020 was showing normal LV systolic function. Thank you for involving us with the care of this patient. We will continue to follow. Please call with questions. Attestations Medical Necessity Statement*: Care expected to cross 2 midnights Coding Level of Care Code Acute Maintenance And Custodian Supervisor for [facility] Fwd Diagnoses Hypertension I10 Hypertension type: essential hypertension Chest pain R07.9 Chest pain type: unspecified Abnormal stress test R94.39 COPD (chronic obstructive pulmonary disease) J43.9 COPD type: emphysema Emphysema type: unspecified
--- NOTE | 2021-03-28 10:38 | PC.SOCIAL ---
IMM Update Pg. 2 of IMM updated and reviewed with patient, who verbalized understanding. Copy provided.
[2021-03-28] MEDS: isosorbide mononitrate ER 30 mg Tablet 15 MG PO (12:13)
--- NOTE | 2021-03-28 13:34 | PC.NURSE ---
Dr Nieto with plans to Discharge patient instructions to order home 02 evaluation
--- NOTE | 2021-03-28 22:16 | P.DS_ITS ---
Discharge Providers Date of Admission: 03/25/21 09:33 Date of Discharge: March 28, 2021 Attending Provider at Admission: Reji Bernard MD Attending Provider at Discharge: Cindy Nieto MD Primary Care Provider: BOB Wilkins Diagnoses at Discharge Discharge Diagnosis (1) Hypertension: Status: Acute Qualifiers: Hypertension type: essential hypertension Qualified Code(s): I10 - Essential (primary) hypertension (2) Chest pain: Status: Acute Qualifiers: Chest pain type: unspecified Qualified Code(s): R07.9 - Chest pain, unspecified (3) Abnormal stress test: Status: Acute (4) COPD (chronic obstructive pulmonary disease): Status: Acute Qualifiers: COPD type: emphysema Emphysema type: unspecified Qualified Code(s): J43.9 - Emphysema, unspecified (5) Dehydration: Status: Acute (6) Acute kidney injury: Status: Acute Reason for Visit Reason for Visit: cp Hospital Course Hospital Course Mian Menendez is a 70 year old male who has history of class D COPD, former smoker, preserved ejection fraction heart failure, coronary artery disease status post 4 stent placement, presented with chief complaint of lethargy fatigue, worsening dyspnea on exertion and chest discomfort. Troponin series without significant delta, no acute ST-T wave changes on EKG, Myocardial perfusion imaging revealing small to moderate area of decreased aseptic in the inferior and inferolateral regions with some reversibility, suggestive of myocardial scarring with ischemia in the description of the right coronary artery predominantly with some involvement of the circumflex artery. Thereafter underwent PCI for abnromal stress test and ongoing symptoms which revealed mild to moderate non obstructive CAD for which medical management was recommended by cardiology. Imdur 30mg has been added at discharge. Chlorthalidone and lisinopril were discontinued due to DAWNA and dehydration which were present on admission, both resolved with iv hydration. Patient remained euvolemic during course of admission, No pulmonary edema or consolidation noted. V/Q scan with low probability of PE. Remained on room air during course of admission. Recent PFTs did not show any worsening disease. Discharged today in stable condition with advice to follow up with cardiology and pulmonology as outpatient. Physical Exam Narrative: EXAM NARRATIVE: GEN: Awake, alert and oriented, no acute distress CVS: S1S2 N RS: CTA B/L Abd: Soft, nt/nd , bs+ ELECTRIC PLATER: no focal neuro deficits Discharge Data Data Completed and Pending: Completed Studies During Hospitalization Category Date Time Status Sestamibi Stress Test Request Routi ne Exams 03/25/21 06:03 Completed XR chest 1V imke ble [id number] Routine Exams 03/27/21 17:27 Completed XR chest 1V mike ble [id number] Stat Exams 03/24/21 19:38 Completed NM trip perf SPECT r/s* [id number] Routin e Nuc Med 03/25/21 23:12 Completed NM pul vent and p erfus* [id number] Routi ne Nuc Med 03/27/21 10:43 Completed CV echo complete* [id number] Routine Ultrasound 03/25/21 23:12 Completed Pending at discharge Category Date Time Status INTERNATIONAL MARKETING MANAGER request for service Routin e Exams 03/27/21 04:45 Taken Sestamibi Stress Test Request Routi ne Exams 03/24/21 23:12 Stop Req Labs from last 24 hours 03/28/21 03/28/21 03:53 03:53 WBC 10.1 H RBC 3.47 L Hgb 11.2 L Hct 34.0 L MCV 98.0 H MCH 32.3 MCHC 32.9 RDW 11.9 L Plt Count 193 MPV 10.9 H Neut % (Auto) 62.1 Lymph % (Auto) 28.4 [place] % (Auto) 7.3 Eos % (Auto) 1.5 Baso % (Auto) 0.3 Neut # (Auto) 6.29 Lymph # (Auto) 2.9 [place] # (Auto) 0.7 Eos # (Auto) 0.2 Baso # (Auto) 0.0 Nucleated RBC % (a uto) 0 Nucleated RBCs # 0.0 Sodium 138 Potassium 3.9 Chloride 105 Carbon Dioxide 25 Anion Gap 11.9 BUN 19 Creatinine 0.9 GFR Calculation 83.9 L Glucose 95 Calculated Osmolal ity 288 Calcium 8.9 Total Bilirubin 0.3 AST 19 ALT 15 Alkaline Phosphata se 57 Total Protein 6.5 L Albumin 3.8 Globulin 2.7 Vitals: Last Vital Signs Temp 97.8 F 03/28/21 15:53 Pulse 90 03/28/21 15:53 Resp 20 H 03/28/21 15:53 BP 138/76 03/28/21 15:53 Pulse Ox 95 03/28/21 15:53 Discharge Plan Discharge Patient Disposition: Home Condition: Stable Prescriptions: New isosorbide mononitrate 30 mg Tablet Extended Release 24 Hr 30 mg PO DAILY 30 Days Qty: 30 RF: 0 Continued tamsulosin 0.4 mg capsule 0.4 mg PO DAILY@1999 RF: 0 mirtazapine 30 mg tablet 15 mg PO BEDTIME@1999 RF: 0 gabapentin 100 mg capsule 100 mg PO TID@08,12,20 RF: 0 clonidine HCl 0.1 mg tablet 0.1 mg PO BID PRN (Reason: hypertensive emergency) 30 Days Qty: 60 RF: 1 melatonin 10 mg capsule 10 mg PO DAILY@1999 RF: 0 potassium chloride 20 mEq tablet extended release 20 meq PO DAILY@08 RF: 0 albuterol sulfate 90 mcg/actuation HFA aerosol inhaler 1 inh inhalation QID PRN (Reason: shortness of breath or wheezing) Qty: 8.5 RF: 3 aspirin 325 mg tablet 325 mg PO DAILY@1999 RF: 0 famotidine [Pepcid] 20 mg tablet 20 mg PO BID@ RF: 0 montelukast [Singulair] 10 mg tablet 10 mg PO DAILY@1999 RF: 0 furosemide [Lasix] 40 mg tablet 40 mg PO DAILY@799 RF: 0 citalopram 20 mg tablet 30 mg PO DAILY@1999 RF: 0 olopatadine 0.1 % drops 1 - 2 drp ophthalmic (eye) DAILY@799 RF: 0 amlodipine 10 mg tablet 10 mg PO DAILY@799 RF: 0 cholecalciferol (vitamin D3) 1,250 mcg (50,000 unit) capsule 1,250 mcg PO DAILY@1999 RF: 0 Trelegy Ellipta 100-62.5-25 mcg blister with device 1 inh inhalation DAILY@799 RF: 0 Discontinued lisinopril 40 mg tablet 40 mg PO DAILY@1999 RF: 0 chlorthalidone 25 mg tablet 25 mg PO DAILY@1999 RF: 0 Discharge Orders: Discharge Order (Routine); Ordered 03/28/21 Ordered By: Cindy Nieto Referrals: PARISH Fraser, BOB [Primary Care Provider] - 7-10 days (Your primary care clinic will call you to set up this appointment. If you do not hear from them by Wednesday please call [phone]. ) Zack Villareal M.D [Physician] - 7-10 days (Heart care services will call you to set up this appointment. If you do not hear from them by Wednesday please call [phone]. ) Al Marley MD [Physician] - 1 week (Heart care services will call you to set up this appointment. If you do not hear from them by wednesday please call [phone]. worsening dyspnea ) Discharge Diet: Cardiac Discharge Activity: Resume usual activity Patient Instructions: Isosorbide Mononitrate (By mouth), Left Heart Catheterization (DC), Right Heart Catheterization (DC), Chest Pain Stoplight, Opioid Safety, Post Angiogram Home Care Instructions Activity Restrictions/Additional Instructions: maintain BP chart by checking BP twice a day every day and bring to your next appointment with cardiology Discharge Attestations Time Spent in Discharge Care*: greater than 30 min Quality Metrics Clinical Quality Measures During this hospital stay, did patient experience: None Coding Level of Care Code Acute g FW DC note Diagnoses Hypertension I10 Hypertension type: essential hypertension Chest pain R07.9 Chest pain type: unspecified Abnormal stress test R94.39 COPD (chronic obstructive pulmonary disease) J43.9 COPD type: emphysema Emphysema type: unspecified Dehydration E86.0 Acute kidney injury N17.9
== END 2021-03-28 16:51 | disposition home or self-care (01) | DRG 287 ==
LOC: ER 21:58 → CSU 03-25 06:22
PROVIDERS: Internal Medicine; Admitting Provider Internal Medicine; Emergency Provider Emergency Medicine; PCP Nurse Practitioner Family; Visit Provider Student in an Organized Health Care Education/Training Program
PROC: B2151ZZ Fluoroscopy of Left Heart using Low Osmolar Contrast (ICD-10-PCS; principal; 2021-03-27 05:00)
DX: I25.110 Atherosclerotic heart disease of native coronary artery with unstable angina pectoris (principal); I13.0 Hypertensive heart and chronic kidney disease with heart failure and stage 1 through stage 4 chronic kidney disease, or unspecified chronic kidney disease; I50.30 Unspecified diastolic (congestive) heart failure; N17.9 Acute kidney failure, unspecified; J43.9 Emphysema, unspecified; N18.9 Chronic kidney disease, unspecified; D64.9 Anemia, unspecified; F41.9 Anxiety disorder, unspecified; M17.0 Bilateral primary osteoarthritis of knee; Z96.659 Presence of unspecified artificial knee joint; E86.0 Dehydration; I45.10 Unspecified right bundle-branch block; E78.5 Hyperlipidemia, unspecified; F17.220 Nicotine dependence, chewing tobacco, uncomplicated; I25.2 Old myocardial infarction
CPT/HCPCS: 36415; 71045; 78014; 78452; 80048; 80053; 82550; 83690; 83880; 84145; 84484; 85025; 85378; 85730; 93005; 93017; 93306; 93452; 94640; 96360; 96372; 99285; A9500; A9540; A9567; C1769; C1887; C1894; G0378; J1644; J1650; J2250; J2785; J3010; J3490; J7030; J7611; Q0163; Q9967

== ENCOUNTER → 2021-04-03 11:30 | Outpatient (BNVA) | payer OTHER, SELFPAY | PROVIDERS: PCP Nurse Practitioner Family; Visit Provider Nurse Practitioner Family | DX: I10 Essential (primary) hypertension (principal); I25.10 Atherosclerotic heart disease of native coronary artery without angina pectoris | CPT/HCPCS: 80048 ==

== ENCOUNTER → 2021-05-05 09:23 | Outpatient (BNVA) | payer OTHER, SELFPAY | PROVIDERS: PCP Nurse Practitioner Family; Visit Provider Specialist | DX: M17.0 Bilateral primary osteoarthritis of knee (principal); M25.569 Pain in unspecified knee | CPT/HCPCS: 73560; 73565 ==

== ENCOUNTER → 2021-05-16 12:16 | Outpatient (BNVA) | payer OTHER, SELFPAY | PROVIDERS: PCP Nurse Practitioner Family; Visit Provider Nurse Practitioner Family | DX: Z20.822 Contact with and (suspected) exposure to COVID-19 (principal); J32.9 Chronic sinusitis, unspecified; B96.89 Other specified bacterial agents as the cause of diseases classified elsewhere; J22 Unspecified acute lower respiratory infection; J40 Bronchitis, not specified as acute or chronic | CPT/HCPCS: 87635 ==

== ENCOUNTER → 2021-11-03 13:20 | Outpatient (BNVA) | payer OTHER, SELFPAY | PROVIDERS: PCP Nurse Practitioner Family; Referring Provider Nurse Practitioner; Visit Provider Specialist | DX: M19.012 Primary osteoarthritis, left shoulder (principal); M25.511 Pain in right shoulder; G89.29 Other chronic pain; Z98.890 Other specified postprocedural states | CPT/HCPCS: 73030 ==

== ENCOUNTER 2021-12-20 12:41 | Outpatient (CLI) | payer OTHER, SELFPAY ==
--- NOTE | 2021-12-20 12:54 | MR_ITS ---
WS: [id number] MRI LEFT SHOULDER NONCONTRAST TECHNIQUE: Sagittal T2, coronal T1, T2 and proton density imaging. Axial gradient PDE imaging. CLINICAL INFORMATION: M25.511 - Pain in right shoulder COMPARISON: None. FINDINGS: Some images degraded by patient motion. Prior rotator cuff surgery with rotator cuff anchors. Narrowing of the glenohumeral joint and AC join t. Moderate degenerative arthritis at the AC joint with mild edema and mild downsloping of the acromi on. Prior repair distal supraspinatus tendon with chronic thinning of the supraspinatus. Small amount of remnant anchor tendon near the supraspinatus insertion. No tendon retraction. Normal infraspinatus. N ormal teres minor. Laxity within the subscapularis tendon with mild chronic thinning and presumed chr onic tear distally with anchoring. Biceps tendon is absent from the bicipital groove. Intra-articular biceps tendon is diminutive and difficult to visualize. Degenerative fraying of the g lenoid labrum. MR/MR shoulder LT wo con* [id number] IMPRESSION: 1. Prior repair of the rotator cuff with rotator cuff anchors. Susceptibility artifact degrades some images. 2. Chronic thinning of the distal supraspinatus tendon with anchors. No tendon retraction. 3. Laxity with chronic thinning and presumed chronic tear and anchoring of the subscapularis tendon distally. 4. Biceps tendon is absent in the bicipital groove. 5. Degenerative fraying glenoid labrum. 6. Moderate degenerative narrowing of the glenohumeral joint. Moderate degener ative arthritis AC joint with narrowing of the subacromial space.
== END 2021-12-20 12:42 | disposition home or self-care (01) ==
PROVIDERS: PCP Nurse Practitioner Family; Visit Provider Specialist
DX: M25.511 Pain in right shoulder (principal); M25.512 Pain in left shoulder; G89.29 Other chronic pain
CPT/HCPCS: 73221

== ENCOUNTER → 2022-02-05 12:56 | Outpatient (BNVA) | payer OTHER, SELFPAY | PROVIDERS: PCP Nurse Practitioner Family; Visit Provider Internal Medicine Critical Care Medicine | DX: J98.4 Other disorders of lung (principal); J30.9 Allergic rhinitis, unspecified; I10 Essential (primary) hypertension; Z87.891 Personal history of nicotine dependence | CPT/HCPCS: 99213 ==

== ENCOUNTER → 2022-02-12 08:57 | Outpatient (BNVA) | payer OTHER, SELFPAY | PROVIDERS: PCP Nurse Practitioner; Visit Provider Specialist | DX: Z87.891 Personal history of nicotine dependence (principal); M17.0 Bilateral primary osteoarthritis of knee | CPT/HCPCS: 20610; J1100; J2795; J3301 ==

== ENCOUNTER → 2022-02-18 14:33 | Outpatient (BNVA) | payer OTHER, SELFPAY | PROVIDERS: PCP Nurse Practitioner; Visit Provider Specialist | DX: M75.102 Unspecified rotator cuff tear or rupture of left shoulder, not specified as traumatic (principal); M12.812 Other specific arthropathies, not elsewhere classified, left shoulder; Z87.891 Personal history of nicotine dependence | CPT/HCPCS: 20610; 99213; J1100; J2795; J3301 ==

== ENCOUNTER 2022-05-18 06:01 | Day surgery (SDC) | payer OTHER, SELFPAY ==
[2022-05-14 14:56] VITALS: BMI 29.9
[2022-05-18 06:35] VITALS: BP 137/94; PULSE 73; RESP 18; TEMP 36.8; O2SAT 95
[2022-05-18] MEDS: sodium chloride 0.9% 1,000 ML 30 ML IV (06:47)
--- NOTE | 2022-05-18 07:15 | P.HP_ITS ---
Same Day Surgery H&P Indication for Procedure/HPI DATE OF PROCEDURE: May 18, 2022 CHIEF COMPLAINT/INDICATIONFOR SURGICAL PROCEDURE: Personal history of colon polyps PREOP DIAGNOSIS: History of colon polyps PLANNED PROCEDURE: Operation Date: 05/18/22 07:45 Proposed Procedures p Colonoscopy 70274,Z12.13(Not Applicable) - Tristin Bonilla MD Medications/Allergies* Home Medications Medication Instructions Recorded Confirmed Type famotidine 20 mg tablet (Pepcid) 20 mg PO BID@0800,199912/18/19 05/14/22 History furosemide 40 mg tablet (Lasix) 40 mg PO DAILY@79912/18/19 05/14/22 History montelukast 10 mg tablet 10 mg PO DAILY@199912/18/19 05/14/22 History (Singulair) tamsulosin 0.4 mg capsule 0.4 mg PO DAILY@199904/11/20 05/14/22 History mirtazapine 30 mg tablet 15 mg PO BEDTIME@1999 tab 06/24/20 05/14/22 History melatonin 10 mg capsule 10 mg PO DAILY@199910/01/20 05/14/22 History potassium chloride 20 mEq 20 meq PO DAILY@0800 10/01/20 05/14/22 History tablet,extended release cholecalciferol (vitamin D3) 1,250 1,250 mcg PO DAILY@199903/24/21 05/14/22 History mcg (50,000 unit) capsule olopatadine 0.1 % eye drops 1 - 2 drp OPHTHALMIC (EYE) 03/24/21 05/14/22 History DAILY@0800 isosorbide dinitrate 5 mg tablet 5 mg PO DAILY tab 05/05/21 05/14/22 History gemfibrozil 600 mg tablet 600 mg PO BID 04/21/22 05/14/22 History levothyroxine 25 mcg tablet 25 mcg PO DAILY 04/21/22 05/14/22 History (Synthroid) vitamin B complex 1 cap PO DAILY 04/21/22 05/14/22 History coenzyme Q10 200 mg capsule (Co 200 mg PO DAILY 05/14/22 05/14/22 History Q-10) gabapentin 300 mg capsule 300 mg PO DAILY 05/14/22 05/14/22 History Allergies/Adverse Reactions Allergy/AdvReac Type Severity Reaction Status Date / Time atorvastatin [From Lipitor] Allergy Unknown Verified 05/07/22 09:16 bupropion [From Wellbutrin] Allergy hallucinati Verified 05/07/22 09:16 ons buspirone Allergy caused Verified 05/07/22 09:16 negative thinking ezetimibe [From Zetia] Allergy Unknown Verified 05/07/22 09:16 lovastatin Allergy Unknown Verified 05/07/22 09:16 pravastatin [From Pravachol] Allergy Unknown Verified 05/07/22 09:16 simvastatin Allergy fatigue Verified 05/07/22 09:16 Current Medications: Generic Name Dose Route Start Last Admin Trade Name Freq PRN Reason Stop Dose Admin Sodium Chloride 1,000 mls @ 30 mls/hr 05/18/22 06:30 05/18/22 06:47 Sodium Chloride 0.9% IV 05/19/22 06:29 30 mls/hr .Q24H SAMEER Administration Pertinent History/Comorbid Conditions* Medical History (Updated 05/07/22 @ 09:53 by Tristin Bonilla MD) Acute bacterial sinusitis Anemia Anxiety Back pain Bronchitis Chronic shoulder pain COPD (chronic obstructive pulmonary disease) Coronary artery disease Depression Fatigue Hypertension Left lateral abdominal pain Lower respiratory infection Lower respiratory tract infection Nausea Primary localized osteoarthritis of both knees Sinusitis Sinusitis, bacterial Surgical History (Updated 12/18/19 @ 16:14 by BOB Wasserman) Status post coronary artery stent placement Status post hernia repair Status post shoulder surgery Status post total knee replacement Family History (Updated 03/24/21 @ 23:01 by Reji Bernard MD) Hypertension Social History Smoking and tobacco status: former smoker (Now uses chewing tobacco) Quit status (tobacco): has quit using tobacco Year quit tobacco: 2002 - 1PPD x 35 Years Alcohol intake: never Lives independently: Yes Household members: spouse Marital status: Current occupational status: employed Current occupation: [employer] History of recent travel: No Current gender identity: Male Pertinent Exam Findings alert, oriented x 3, clear to auscultation bilaterally, regular rate & rhythm, operative site marked and procedure specific exam findings Recommendations Surgery/Procedure today Coding Level of Care Code 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
--- NOTE | 2022-05-18 08:02 | P.ANESASSM_ITS ---
Pre-Anesthetic Assessment Height/Weight: Height 1.65 m Weight 81.647 kg Temp Pulse Resp BP Pulse Ox 98.2 F 73 18 137/94 95 05/18/22 06:35 05/18/22 06:35 05/18/22 06:35 05/18/22 06:35 05/18/22 06:35 Preop Diagnosis: History of colon polyps Operation Date: 05/18/22 07:45 Proposed Procedures p Colonoscopy 31739,Z12.13(Not Applicable) - Tristin Bonilla MD Familial anesthetic complications: none Was Beta Zenaida taken within 24 hours: N/A Was Clonidine taken within 24 hours: N/A Last intake: Intake Last Liquid Date 05/17/22 Last Liquid Time 22:00 Last Solid Date 05/16/22 Last Solid Time 21:00 Social No alcohol and No tobacco Exam alert, oriented x 3, clear to auscultation bilaterally and regular rate & rhythm Airway Submandibular: within normal limits Cervical ROM: within normal limits Mallampati: Class II Comments: Comments: Missing upper teeth Pulmonary Chronic Obstructive Pulmonary Disease Mass of lingula of lung CV/HEM Coronary Artery Disease (s/p stent) and Hypertension METS > 4 None reported Hepatic None reported GI Gastroesophageal Reflux Disease (well controlled) Nausea Metabolic None reported Musc/skel Osteoarthritis/DJD Neuropsych Depression Anesthetic Plan ASA status: 3 (71 year old male with COPD, CAD s/p stent, bronchitis, HTN for f/u for colon polyps) Anesthesia: Anesthesia Evaluation and General Other: I discussed with the patient risks, goals, and benefits of MAC and general anesthesia. We discussed spectrum of MAC anesthesia including conversion to general as well as possibility of recall of intraoperative stimuli including discomfort/pain. Patient agrees to proceed with MAC. Risk of > 500 ml blood loss (7ml/kg in children): No Medications/Allergies Home Medications Medication Instructions Recorded Confirmed Last Taken Type famotidine 20 mg tablet (Pepcid) 20 mg PO BID@0800,199912/18/19 05/14/22 05/17/22 History furosemide 40 mg tablet (Lasix) 40 mg PO DAILY@79912/18/19 05/14/22 05/17/22 History montelukast 10 mg tablet 10 mg PO DAILY@199912/18/19 05/14/22 05/17/22 History (Singulair) tamsulosin 0.4 mg capsule 0.4 mg PO DAILY@199904/11/20 05/14/22 05/17/22 History mirtazapine 30 mg tablet 15 mg PO BEDTIME@1999 tab 06/24/20 05/14/22 05/14/22 History melatonin 10 mg capsule 10 mg PO DAILY@199910/01/20 05/14/22 05/14/22 History potassium chloride 20 mEq 20 meq PO DAILY@0800 10/01/20 05/14/22 05/17/22 History tablet,extended release cholecalciferol (vitamin D3) 1,250 1,250 mcg PO DAILY@199903/24/21 05/14/22 05/17/22 History mcg (50,000 unit) capsule olopatadine 0.1 % eye drops 1 - 2 drp OPHTHALMIC (EYE) 03/24/21 05/14/22 03/24/21 History DAILY@0800 citalopram 40 mg tablet 40 mg PO DAILY 30 Days #30 tab 03/31/21 05/14/22 05/17/22 Rx isosorbide dinitrate 5 mg tablet 5 mg PO DAILY tab 05/05/21 05/14/22 05/17/22 History amlodipine 5 mg tablet 5 mg PO DAILY #90 tab 08/04/21 05/14/22 05/17/22 Rx losartan 100 mg tablet 100 mg PO DAILY #90 tab 08/04/21 05/14/22 05/17/22 Rx cyclobenzaprine 10 mg tablet See Rx Instructions .ROUTE 09/10/21 05/14/22 05/17/22 Rx .COMPLEX #30 tab tiotropium 2.5 mcg-olodaterol 2.5 2 puff INHALATION DAILY #4 g 03/17/22 05/14/22 Unknown Rx mcg/actuation mist for inhalation (Stiolto Respimat) gemfibrozil 600 mg tablet 600 mg PO BID 04/21/22 05/14/22 05/17/22 History levothyroxine 25 mcg tablet 25 mcg PO DAILY 04/21/22 05/14/22 05/17/22 History (Synthroid) vitamin B complex 1 cap PO DAILY 04/21/22 05/14/22 05/17/22 History coenzyme Q10 200 mg capsule (Co 200 mg PO DAILY 05/14/22 05/14/22 05/17/22 History Q-10) gabapentin 300 mg capsule 300 mg PO DAILY 05/14/22 05/14/22 05/17/22 History Allergies Allergy/AdvReac Type Severity Reaction Status Date / Time atorvastatin [From Lipitor] Allergy Unknown Verified 05/07/22 09:16 bupropion [From Wellbutrin] Allergy hallucinati Verified 05/07/22 09:16 ons buspirone Allergy caused Verified 05/07/22 09:16 negative thinking ezetimibe [From Zetia] Allergy Unknown Verified 05/07/22 09:16 lovastatin Allergy Unknown Verified 05/07/22 09:16 pravastatin [From Pravachol] Allergy Unknown Verified 05/07/22 09:16 simvastatin Allergy fatigue Verified 05/07/22 09:16 Current Medications Generic Name Dose Route Start Last Admin Trade Name Freq PRN Reason Stop Dose Admin Sodium Chloride 1,000 mls @ 30 mls/hr 05/18/22 06:30 05/18/22 06:47 Sodium Chloride 0.9% IV 05/19/22 06:29 30 mls/hr .Q24H SAMEER Administration PFSH Anesthesia Medical History Acute bacterial sinusitis Anemia Anxiety Back pain Bronchitis Chronic shoulder pain COPD (chronic obstructive pulmonary disease) Coronary artery disease Depression Fatigue Hypertension Left lateral abdominal pain Lower respiratory infection Lower respiratory tract infection Nausea Primary localized osteoarthritis of both knees Sinusitis Sinusitis, bacterial Surgical History Status post coronary artery stent placement Status post hernia repair Status post shoulder surgery Status post total knee replacement Family History Other Hypertension Social History Smoking and tobacco status: former smoker (Now uses chewing tobacco) Quit status (tobacco): has quit using tobacco Year quit tobacco: 2002 - 1PPD x 35 Years Alcohol intake: never Lives independently: Yes Household members: spouse Marital status: Current occupational status: employed Current occupation: [employer] Service History of recent travel: No Current gender identity: Male Data Anesthesia Cardiac Studies: Echocardiogram Ultrasound 03/25/21 Sestamibi Stress Test (Cardiology) 03/25/21
[2022-05-18 08:14] VITALS: BP 107/61; PULSE 69; RESP 16; TEMP 36.2; O2SAT 95
[2022-05-18 08:21] VITALS: BP 125/79; PULSE 65; RESP 18; O2SAT 95
--- NOTE | 2022-05-18 13:38 | ANE.PACU2 ---
Inpatient post-anesthesia follow up: Airway intact: Yes Vital signs: Temperature 97.2 F Pulse Rate 65 Respiratory Rate 18 Blood Pressure 125/79 Pulse Oximetry 95 Oxygen Delivery Me thod Room Air Oxygen Flow Rate 3 Fraction of Inspir ed Oxygen Hydration adequate: Yes Nausea and vomiting: No Pain level: 1 Mental status: Baseline
== END 2022-05-18 08:45 | disposition home or self-care (01) ==
PROVIDERS: PCP Nurse Practitioner; Visit Provider Internal Medicine
PROC: 0DJD8ZZ Inspection of Lower Intestinal Tract, Via Natural or Artificial Opening Endoscopic (ICD-10-PCS; CPT 45378; principal; 2022-05-18 07:45)
DX: Z86.010 Personal history of colon polyps (principal); K57.30 Diverticulosis of large intestine without perforation or abscess without bleeding; J44.9 Chronic obstructive pulmonary disease, unspecified; I25.10 Atherosclerotic heart disease of native coronary artery without angina pectoris; Z95.5 Presence of coronary angioplasty implant and graft; I10 Essential (primary) hypertension; K21.9 Gastro-esophageal reflux disease without esophagitis; M19.90 Unspecified osteoarthritis, unspecified site; F32.A Depression, unspecified; Z87.891 Personal history of nicotine dependence
CPT/HCPCS: 45378; J7030

== ENCOUNTER → 2022-08-05 12:34 | Outpatient (BNVA) | payer OTHER, SELFPAY | PROVIDERS: PCP Nurse Practitioner; Visit Provider Internal Medicine | DX: I10 Essential (primary) hypertension (principal); Z87.891 Personal history of nicotine dependence | CPT/HCPCS: 99213; 99214 ==

== ENCOUNTER → 2022-08-17 10:56 | Outpatient (BNVA) | payer OTHER, SELFPAY | PROVIDERS: PCP Nurse Practitioner; Referring Provider Nurse Practitioner; Visit Provider Specialist | DX: M12.811 Other specific arthropathies, not elsewhere classified, right shoulder (principal) | CPT/HCPCS: 20610; 73030; 99213; J1100; J2795; J3301 ==

== ENCOUNTER → 2022-08-19 09:25 | Outpatient (BNVA) | payer OTHER, SELFPAY | PROVIDERS: PCP Nurse Practitioner; Visit Provider Specialist | DX: M17.0 Bilateral primary osteoarthritis of knee (principal) | CPT/HCPCS: 20610; J7326 ==

== ENCOUNTER 2022-09-15 10:35 | Outpatient (CLI) | payer OTHER, SELFPAY ==
--- NOTE | 2022-09-15 10:46 | MR_ITS ---
WS: [id number] MRI RIGHT SHOULDER NONCONTRAST TECHNIQUE: Sagittal T2, coronal T1, T2 and proton density imaging. Axial gradient PDE imaging. CLINICAL INFORMATION: R SHOULDER PAIN/?ROTATOR CUFF TEAR COMPARISON: MRI 2019 FINDINGS: Images degraded by patient motion. Interval rotator cuff/biceps tendon anchor. [place] susceptibility artifact degrades some images. Hype rtrophic spurring along the glenohumeral neck. Moderate degenerative arthritis at the AC joint. Small joint effusion. Interval repair of the rotator cuff with marked thinning of the distal supraspinatus . Tiny amount of residual supraspinatus tendon visualized. Small tear at the supraspinatus insertion. Normal infraspinatus appears intact where visualized. Normal teres minor. Chronic appearing tear of the subscapularis tendon distally. Biceps tendon is not well visualized due to susceptibility artifact and motion. Advanced arthritis th e glenohumeral joint. Hypertrophic spurring along the humeral neck. High riding humeral head. MR/MR shoulder RT wo con* [id number] IMPRESSION: 1. Interval postoperative changes biceps tendon/rotator cuff anchor. Motion de grades some images. 2. Chronic thinning of the distal supraspinatus with a small amount of residua l tendon. Tiny tear at the supraspinatus insertion. 3. Infraspinatus appears repaired compared to previous and appears intact. Thi s is difficult to visualize distally due to motion on susceptibly artifact. 4. Teres minor appears intact. Chronic appearing tear of the subscapularis. 5. Biceps tendon not visualized due to susceptibility artifact from anchor. 6. Small joint effusion. 7. Advanced arthritis at the AC joint and glenohumeral joint with hypertrophic spurring along the humeral neck.
== END 2022-09-15 10:36 | disposition home or self-care (01) ==
LOC: RAD 10:37
PROVIDERS: PCP Nurse Practitioner; Visit Provider Nurse Practitioner
DX: M25.411 Effusion, right shoulder (principal)
CPT/HCPCS: 73221

== ENCOUNTER 2022-09-18 10:06 | Outpatient (CLI) | payer OTHER, SELFPAY ==
--- NOTE | 2022-09-18 | USCV_ITS ---
Mian Menendez Age: 72 Gender: M : 1950 Exam Date: 09/18/2022 10:43 Ordering Phys: Mariluz Ko Technologist: SHUBHAM [place] [facility] [place] HISTORY: Diameter (cm) AP x Transverse x Length Velocity (cm/s) Waveform Prox Aorta: 2.11 x 1.61 x 50.70 Triphasic Mid Aorta: 1.82 x 1.96 x 53.70 Triphasic Distal Aorta: 1.85 x 2.02 x 54.90 Triphasic Right Iliac Prox: 1.01 x 1.10 x 72.80 Triphasic Left Iliac Prox: 0.98 x 0.96 x 75.80 Triphasic Stent Prox Landing x x Aneurysmal Sac Max x x Lt Lat Sac Dim Rt Lat Sac Dim Stent Dist Landing x x Right Iliac Stent x x Left Iliac Stent x x Right Renal Art Left Renal Art FINDINGS: Comparison: none available. Ectatic abdominal aorta with evidence of atherosclerotic plaque noted. No evidence of abdominal aortic aneurysm. There is evidence of atherosclerotic plaque no significan stenosis in the right common iliac artery. There is evidence of atherosclerotic plaque no significan stenosis in the left common iliac artery. CONCLUSIONS Ectatic abdominal aorta with evidence of atherosclerotic plaque noted. Dr. Dione Acosta DO (Electronically Signed) Final Date: 18 September 2022 11:34 S
== END 2022-09-18 10:07 | disposition home or self-care (01) ==
LOC: RAD 10:08
PROVIDERS: PCP Nurse Practitioner; Visit Provider Nurse Practitioner
DX: Z13.6 Encounter for screening for cardiovascular disorders (principal); I77.811 Abdominal aortic ectasia
CPT/HCPCS: 76706

== ENCOUNTER 2022-10-27 15:15 | Oncology outpatient (recurring) (ONCR) | payer OTHER, SELFPAY ==
[2022-10-27 16:34] LABS: Basophils # 0.1 10^3/uL (0.0-0.1); Basophils % 0.8 %; Eosinophils # 0.1 10^3/uL (0.0-0.8); Eosinophils % 1.8 %; Hematocrit 37.2 % (42.0-52.0); Hemoglobin 12.5 g/dL (11.7-16.6); Lymphocytes # 2.7 10^3/uL (0.8-4.8); Lymphocytes % 41.7 %; Mean Corpuscular HGB Conc 33.6 g/dL (30.0-36.0); Mean Corpuscular Hemoglobin 31.6 pg (28.0-34.0); Mean Corpuscular Volume 94.2 fl (80-94); Mean Platelet Volume 10.5 fL (7.4-10.4); Monocytes # 0.4 10^3/uL (0.2-0.9); Monocytes % 6.6 %; Neutrophils % 48.8 %; Nucleated Red Blood Cells % 0 %; Platelet Count 259 10^3/cmm (130-400); Red Blood Count 3.95 10^6/uL (4.1-5.3); Red Cell Distribution Width 12.3 % (12.1-15.1); Reticulocyte % 0.9 % (0.5-2.0); White Blood Count 6.6 10^3/uL (4.0-10.0)
[2022-10-27 16:43] LABS: Erythrocyte Sedimentation Rate 10 mm/hr (0-10); LAB Peripheral Smear Sent for Review
[2022-10-27 17:32] LABS: Alanine Aminotransferase 15 U/L (0-41); Albumin Level 4.5 g/dL (3.5-5.2); Alkaline Phosphatase 101 U/L (40-130); Anion Gap 16.2 (5-19); Aspartate Amino Transferase 19 U/L (0-40); Blood Urea Nitrogen 19 mg/dL (8-23); Calcium 10.1 mg/dL (8.5-10.5); Carbon Dioxide 30 mmol/L (22-29); Chloride 99 mmol/L (98-107); Ferritin 39 ng/mL (30-400); Globulin 3.1 g/dL (1.3-4.6); Glomerular Filtration Rate 54.6 mL/min (90-130); Glucose 87 mg/dL (65-115); Iron 132 ug/dL (59-158); Lactate Dehydrogenase 195 U/L (135-225); Osmolality Calculated 294 mOsm/kg (285-295); Percent Saturation 30.7 % (20-50); Potassium 4.2 mmol/L (3.5-5.1); Sodium 141 mmol/L (136-145); Total Bilirubin 0.4 mg/dL (0.15-1.2); Total Iron Binding Capacity 429 mcg/dl; Total Protein 7.6 g/dL (6.6-8.7); Unsaturated Iron Binding 297 ug/dL (112-347)
[2022-10-27 17:35] LABS: Vitamin B12 614 pg/mL (232-1245)
[2022-10-27 18:26] LABS: Folate Level > 20.0 ng/mL (4.5-32.2)
[2022-10-28 13:20] LABS: KAPPA LIGHT CHAIN, FREE, SERUM 35.4 mg/L (3.3-19.4); KAPPA/LAMBDA LIGHT CHAINS FREE 1.19 (0.26-1.65); LAMBDA LIGHT CHAIN, FREE, SERU 29.7 mg/L (5.7-26.3)
[2022-10-29 12:20] LABS: ALBUMIN 4.2 g/dL (3.8-4.8); ALPHA 1 GLOBULIN 0.3 g/dL (0.2-0.3); ALPHA 2 GLOBULIN 0.8 g/dL (0.5-0.9); BETA 1 GLOBULIN 0.6 g/dL (0.4-0.6); BETA 2 GLOBULIN 0.4 g/dL (0.2-0.5); GAMMA GLOBULIN 0.8 g/dL (0.8-1.7)
== END 2022-11-24 23:59 | disposition home or self-care (01) ==
PROVIDERS: PCP Nurse Practitioner; Visit Provider Internal Medicine Medical Oncology
DX: D64.9 Anemia, unspecified (principal); N18.9 Chronic kidney disease, unspecified; I12.9 Hypertensive chronic kidney disease with stage 1 through stage 4 chronic kidney disease, or unspecified chronic kidney disease; Z87.891 Personal history of nicotine dependence
CPT/HCPCS: 80053; 82607; 82728; 82746; 83010; 83540; 83550; 83615; 83883; 84155; 84165; 85025; 85045; 85651; 86140; 99204

== ENCOUNTER → 2022-11-05 09:03 | Outpatient (BNVA) | payer OTHER, SELFPAY | PROVIDERS: PCP Nurse Practitioner; Visit Provider Internal Medicine Pulmonary Disease | DX: J98.4 Other disorders of lung (principal); J43.9 Emphysema, unspecified; J30.9 Allergic rhinitis, unspecified; Z87.891 Personal history of nicotine dependence | CPT/HCPCS: 99214 ==

== ENCOUNTER → 2023-03-11 10:25 | Outpatient (BNVA) | payer BC, SELFPAY | PROVIDERS: PCP Nurse Practitioner Family; Visit Provider Specialist | DX: M17.0 Bilateral primary osteoarthritis of knee (principal) | CPT/HCPCS: 20610; J7326 ==

== ENCOUNTER → 2023-05-13 10:59 | Outpatient (BNVA) | payer BC, SELFPAY | PROVIDERS: PCP Nurse Practitioner Family; Visit Provider Nurse Practitioner Family | DX: J98.4 Other disorders of lung (principal) | CPT/HCPCS: 71046 ==

== ENCOUNTER → 2023-05-20 07:55 | Outpatient (BNVA) | payer OTHER, SELFPAY | PROVIDERS: Visit Provider Internal Medicine Pulmonary Disease | DX: J43.9 Emphysema, unspecified (principal); J98.4 Other disorders of lung; J30.9 Allergic rhinitis, unspecified; J22 Unspecified acute lower respiratory infection; Z87.891 Personal history of nicotine dependence | CPT/HCPCS: 99214 ==

== ENCOUNTER → 2023-07-22 13:19 | Outpatient (BNVA) | payer OTHER, SELFPAY | PROVIDERS: PCP Nurse Practitioner; Visit Provider Nurse Practitioner Family | DX: D48.5 Neoplasm of uncertain behavior of skin (principal); L57.0 Actinic keratosis; L57.8 Other skin changes due to chronic exposure to nonionizing radiation; L81.4 Other melanin hyperpigmentation | CPT/HCPCS: 11102; 17004; 99213 ==

== ENCOUNTER → 2023-08-12 07:58 | Outpatient (BNVA) | payer OTHER, SELFPAY | PROVIDERS: PCP Nurse Practitioner; Visit Provider Dermatology | DX: C44.41 Basal cell carcinoma of skin of scalp and neck (principal) | CPT/HCPCS: 12042; 17311 ==

== ENCOUNTER 2023-08-13 09:22 | Outpatient (CLI) | payer OTHER, SELFPAY ==
--- NOTE | 2023-08-13 09:29 | USCV_ITS ---
Mian Menendez Age: 73 Gender: M : 1950 Exam Date: 08/13/2023 10:07 Ordering Phys: Mariluz Ko Technologist: GENO [place] [facility] [place]: [place] SCREENING HISTORY: Diameter (cm) AP x Transverse x Length Velocity (cm/s) Waveform Prox Aorta: 2.80 x 2.79 x 56.70 Triphasic Mid Aorta: 1.68 x 2.11 x 71.10 Triphasic Distal Aorta: 2.18 x 2.14 x 107.40 Triphasic Right Iliac Prox: 0.96 x 0.97 x 109.90 Triphasic Left Iliac Prox: 0.72 x 0.87 x 114.00 Triphasic Stent Prox Landing x x Aneurysmal Sac Max x x Lt Lat Sac Dim Rt Lat Sac Dim Stent Dist Landing x x Right Iliac Stent x x Left Iliac Stent x x Right Renal Art Left Renal Art FINDINGS: Limited due to body habitus and bowel gas comparison 09/15 CONCLUSIONS No evidence of abdominal aortic or bilateral iliac aneurysm. Aorta is stable compared to previous. Uli Rodriguez MD (Electronically Signed) Final Date: 13 August 2023 13:10 S
== END 2023-08-13 09:23 | disposition home or self-care (01) ==
LOC: RAD 09:22
PROVIDERS: PCP Nurse Practitioner; Visit Provider Nurse Practitioner
DX: Z13.6 Encounter for screening for cardiovascular disorders (principal)
CPT/HCPCS: 76706

== ENCOUNTER → 2023-08-26 08:41 | Outpatient (BNVA) | payer OTHER, SELFPAY | PROVIDERS: PCP Nurse Practitioner; Visit Provider Dermatology | DX: Z48.02 Encounter for removal of sutures (principal) | CPT/HCPCS: 99024 ==

== ENCOUNTER → 2023-09-01 14:37 | Outpatient (BNVA) | payer OTHER, SELFPAY | PROVIDERS: PCP Nurse Practitioner; Referring Provider Nurse Practitioner; Visit Provider Internal Medicine | DX: I12.9 Hypertensive chronic kidney disease with stage 1 through stage 4 chronic kidney disease, or unspecified chronic kidney disease (principal); N18.9 Chronic kidney disease, unspecified; Z87.891 Personal history of nicotine dependence | CPT/HCPCS: 99214 ==

== ENCOUNTER 2023-09-09 14:37 | Outpatient (CLI) | payer OTHER, SELFPAY ==
--- NOTE | 2023-09-09 15:15 | USCV_ITS ---
Mian Menendez Age: 73 Gender: M : 1950 Exam Date: 09/09/2023 14:53 Ordering Phys: Zack Villareal M.D ([email or web address]) Technologist: FIDE [place] [facility] [place]: GILBERT, CAD, BP: 146 / 80 HR: 68 Rhythm: Sinus Technical Quality: Adequate MEASUREMENTS (Male / Female) Normal Values 2D ECHO LV Diastolic Diameter PLAX 3.7 cm 4.2 - 5.9 / 3.9 - 5.3 cm LV Systolic Diameter PLAX 1.8 cm IVS Diastolic Thickness 1.7 cm 0.6 - 1.0 / 0.6 - 0.9 cm IVS Systolic Thickness 2.0 cm LVPW Diastolic Thickness 1.5 cm 0.6 - 1.0 / 0.6 - 0.9 cm LVPW Systolic Thickness 2.1 cm LVOT Diameter 2.1 cm LV Ejection Fraction 2D Teich 82.1 % LV Ejection Fraction MOD 2C 68.3 % LV Ejection Fraction 2C AL 68.6 % LA Diameter 3.6 cm LA Width 4.0 cm LA Height 5.2 cm RA Width 3.2 cm RA Height 4.3 cm Aorta at Sinotubular Diameter 3.1 cm IVC Diameter 1.9 cm M-MODE Aortic Annulus Diameter 2.9 cm LA Ao Ratio MM 1.4 MV E Point Septal Separation 0.1 cm DOPPLER AV Peak Velocity 125.0 cm/s LVOT Peak Velocity 101.0 cm/s AV Area Cont Eq vti 2.5 cm squared AV Area Cont Eq pk 2.7 cm squared MV Peak Velocity 99.0 cm/s MV Area PHT 3.1 cm squared Mitral E to A Ratio 0.7 MV E' Velocity 37.0 cm/s Mitral E to MV E' Ratio 13.4 Mitral E to LV E' Lateral Ratio 13.2 Mitral E to LV E' Septal Ratio 13.7 TR Peak Velocity 163.0 cm/s TR Peak Gradient 10.6 mmHg Right Atrial Pressure 5.0 mmHg Pulmonary Artery Systolic Pressu 15.6 mmHg PV Peak Velocity 71.0 cm/s RV Acceleration Time 0.1 s RV Ejection Time 0.3 s RV AcT/ET 0.4 FINDINGS Left Ventricle Normal left ventricular size, systolic function and wall thickness, with no regional wall motion abnormalities. Grade I/IV diastolic dysfunction (abnormal relaxation filling pattern), normal to mildly elevated filling pressures. Left ventricular ejection fraction is estimated at 65 %. Right Ventricle Normal right ventricular size and systolic function. Normal right ventricular systolic pressure. Right Atrium The right atrium is normal in size. Left Atrium The left atrium is normal in size. Mitral Valve Structurally normal mitral valve without significant stenosis or prolapse. There is no mitral regurgitation. Aortic Valve Structurally normal aortic valve without significant sclerosis or stenosis. There is no aortic regurgitation. Tricuspid Valve Structurally normal tricuspid valve without significant stenosis or regurgitation. Pulmonary artery systolic pressure is normal. Pulmonic Valve Pulmonic valve not well visualized. Mild pulmonary valve regurgitation. Pericardium Normal pericardium without effusion. Aorta Normal ascending aorta dimension. IVC The inferior vena cava appears normal. CONCLUSIONS Normal left ventricular size, systolic function and wall thickness, with no regional wall motion abnormalities. Grade I/IV diastolic dysfunction (abnormal relaxation filling pattern), normal to mildly elevated filling pressures. Left ventricular ejection fraction is estimated at 65 %. No change since the previous study dated 03/25/2021 Dr. Darell Sales MD (Electronically Signed) Final Date: 10 September 2023 08:36 S
== END 2023-09-09 14:38 | disposition home or self-care (01) ==
PROVIDERS: PCP Nurse Practitioner; Visit Provider Internal Medicine
DX: R06.02 Shortness of breath (principal); I25.10 Atherosclerotic heart disease of native coronary artery without angina pectoris; I51.89 Other ill-defined heart diseases
CPT/HCPCS: 93306

== ENCOUNTER → 2023-09-23 08:46 | Outpatient (BNVA) | payer OTHER, SELFPAY | PROVIDERS: PCP Nurse Practitioner; Visit Provider Specialist | DX: M17.0 Bilateral primary osteoarthritis of knee (principal); Z71.89 Other specified counseling | CPT/HCPCS: 20610; J1100; J2795; J3301 ==

== ENCOUNTER → 2023-11-04 12:48 | Outpatient (BNVA) | payer OTHER, SELFPAY | PROVIDERS: PCP Nurse Practitioner; Visit Provider Nurse Practitioner | DX: M17.0 Bilateral primary osteoarthritis of knee (principal); Z71.89 Other specified counseling | CPT/HCPCS: 20610; J7318 ==

== ENCOUNTER → 2024-01-27 09:28 | Outpatient (BNVA) | payer OTHER, SELFPAY | PROVIDERS: PCP Nurse Practitioner; Visit Provider Internal Medicine Pulmonary Disease | DX: J44.9 Chronic obstructive pulmonary disease, unspecified (principal); J43.9 Emphysema, unspecified; J98.4 Other disorders of lung; J30.9 Allergic rhinitis, unspecified; Z12.2 Encounter for screening for malignant neoplasm of respiratory organs; Z87.891 Personal history of nicotine dependence | CPT/HCPCS: 99214 ==

== ENCOUNTER → 2024-02-11 09:15 | Outpatient (BNVA) | payer OTHER, SELFPAY | PROVIDERS: PCP Nurse Practitioner; Visit Provider Specialist | DX: M17.0 Bilateral primary osteoarthritis of knee (principal) | CPT/HCPCS: 20610; 73560; 73565; J1100; J2795; J3301 ==

== ENCOUNTER 2024-02-11 22:44 | Inpatient (IN) | payer OTHER, SELFPAY ==
[2024-02-11 23:02] VITALS: BP 170/89; PULSE 108; RESP 20; TEMP 36.9; O2SAT 92; BMI 32.4
--- NOTE | 2024-02-11 23:10 | PC.NURSE ---
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
--- NOTE | 2024-02-11 23:19 | ECG_ITS ---
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 Measurements Intervals [place] Rate: 114 P: 56 AR: 159 QRS: -32 QRSD: 108 T: 56 QT: 347 QTc: 478 Interpretive Statements SINUS TACHYCARDIA LEFT AXIS DEVIATION [QRS AXIS < -30] SEPTAL MYOCARDIAL INFARCTION , PROBABLY OLD [40+ ms Q WAVE IN V1/V2] Compared to ECG 03/24/2021 21:34:40 Left-axis deviation now present Myocardial infarct finding now present Sinus rhythm no longer present Intraventricular conduction delay no longer present Electronically Signed On 02-12-2024 9:18:44 CDT by Darell Sales M.D. [id number]
--- NOTE | 2024-02-11 23:19 | XRR_ITS ---
PROCEDURE INFORMATION: Exam: XR Chest Exam date and time: 02/11/2024 11:21 PM Age: 73 years old Clinical indication: Chest pressure; Prior surgery; Surgery date: 6+ months; Surgery type: Coronary stents; Patient HX: C/O chest pain TECHNIQUE: Imaging protocol: Radiologic exam of the chest. Views: 1 view. COMPARISON: CR XR chest 2V* [id number] 05/13/2023 12:02 PM FINDINGS: Lungs: No consolidation. Pleural spaces: No large pleural effusion. No pneumothorax. Heart/Mediastinum: Unremarkable. No cardiomegaly. Bones/joints: No acute abnormality. XR/XR chest 1V portable [id number] IMPRESSION: No acute findings.
[2024-02-11 23:25] LABS: Hematocrit 35.9 % (37-53); Lymphocytes # 0.6 10^3/uL (0.8-4.8); Lymphocytes % 9.7 %; Mean Corpuscular HGB Conc 33.4 g/dL (30-55); Mean Corpuscular Hemoglobin 31.5 pg (27-33); Mean Corpuscular Volume 94.2 fl (82-101); Mean Platelet Volume 10.8 fL (7.4-10.4); Monocytes % 0.7 %; Neutrophils # 5.27 10^3/uL (1.8-7.7); Neutrophils % 89.3 %; Nucleated Red Blood Cells % 0 %; Platelet Count 253 10^3/cmm (157-399); Red Blood Count 3.81 10^6/uL (3.85-5.65); Red Cell Distribution Width 12.2 % (12.1-15.1)
[2024-02-11 23:38] LABS: Troponin(5th) Baseline 46 ng/L (0-15)
[2024-02-11 23:41] LABS: Blood Urea Nitrogen 37 mg/dL (8-23); Calcium 9.8 mg/dL (8.5-10.5); Carbon Dioxide 25 mmol/L (22-29); Chloride 99 mmol/L (98-107); Creatinine Clr Calc Pharmacy 40.7463; Glucose 260 mg/dL (65-115); Osmolality Calculated 306 mOsm/kg (285-295); Sodium 139 mmol/L (136-145)
[2024-02-11 23:43] LABS: Anion Gap 19.9 (5-19); Potassium 4.9 mmol/L (3.5-5.1)
[2024-02-12] VITALS (23 sets, daily range): BP systolic 127–190; BP diastolic 69–120; PULSE 78–128; RESP 15–20; TEMP 36.4–37; O2SAT 92–96; BMI 33.0
--- NOTE | 2024-02-12 00:59 | PC.NURSE ---
report to MAXIMO Green
--- NOTE | 2024-02-12 01:19 | ECG_ITS ---
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 Measurements Intervals [place] Rate: 91 P: 35 CT: 154 QRS: -13 QRSD: 101 T: 50 QT: 391 QTc: 483 Interpretive Statements SINUS RHYTHM Compared to ECG 02/11/2024 22:47:16 Sinus tachycardia no longer present Left-axis deviation no longer present Myocardial infarct finding no longer present Electronically Signed On 02-12-2024 9:20:36 CDT by Darell Sales M.D. [id number]
--- NOTE | 2024-02-12 01:29 | ED_ITS ---
HPI - Chest Pain 2 General: Chief Complaint: Chest Pain Stated Complaint: cp right arm jaw heart racing Time Seen by Provider: 02/11/24 23:20 History of Present Illness: 73-year-old male presents emergency depa rtment with complaints of right arm pain radiating to his jaw and feels like he is having intermittent heart racing. He does have a history of hypertension, hyperlipidemia coronary artery disease with cardiac stent placement approximately 8 to 10 years ago and COPD. He states that he has been having intermittent episodes of chest pressure/pain for the previous 2 weeks. He states that last night when he was getting ready for bed he started having substernal chest pain that radiated to the right side into his jaw when he checked his blood pressure felt that his blood pressure was significantly elevated. He did take sublingual nitro without significant relief. He states his current discomfort is a 2 out of 10 and pressure like discomfort. He states tonight when his chest discomfort started he did feel slightly short of breath, lightheaded and felt like his heart was racing. Associated symptoms: Reports palpitations Review of Systems 2 General: Reports: 10 or more systems reviewed and unremarkable except in HPI and below Card: Reports: chest pain, palpitations and lightheadedness PFSH ED 2 PFSH: Medical History Elevated troponin Primary osteoarthritis of knees, bilateral Low back pain Chronic kidney disease Osteoarthritis Rotator cuff arthropathy of right shoulder Gastro-esophageal reflux disease without esophagitis Hyperlipidemia Obstructive sleep apnea Other idiopathic peripheral autonomic neuropathy History of colon polyps Left rotator cuff tear arthropathy Chronic shoulder pain Small airways disease Coronary artery disease Back pain Depression Anemia Primary osteoarthritis of right knee Primary osteoarthritis of left knee Mass of lingula of lung Bronchitis Primary localized osteoarthritis of both knees Allergic rhinosinusitis COPD (chronic obstructive pulmonary disease) Hypertension Anxiety Surgical History Hx of colonoscopy (04/2022) Status post coronary artery stent placement Status post hernia repair (2016) Repair of bilateral inguinal and umbilical hernias with mesh Status post total knee replacement Status post shoulder surgery Family History Other Hypertension Social History Smoking and tobacco/nicotine status: former use of tobacco/nicotine Quit status (tobacco/nicotine): has quit using Year quit tobacco: 2003 - 1PPD x 35 Years Alcohol intake: former Substance/Drug Use: never Lives independently: Yes Household members: spouse Marital status: Current occupational status: employed Current occupation: [employer] Do you think of yourself as: Straight/Heterosexual Current gender identity: Male Physical Exam 2 Narrative: EXAM NARRATIVE: General: Alert, appears uncomfortable, . Skin: Warm, dry, Intact. Head: Normocephalic, atraumatic. Neck: Supple, trachea midline. Eye: Extraocular movements are intact. PERRLA Ears, nose, mouth and throat: mucosa moist. Cardiovascular: Sinus tachycardia, Normal peripheral perfusion. Respiratory: Lungs are clear to auscultation, respirations are non-labored, breath sounds are equal, Symmetrical chest wall expansion. Gastrointestinal: Soft, Nontender, Non distended, Normal bowel sounds. Musculoskeletal: Normal ROM, no deformity. Neurological: Alert and oriented, No focal neurological deficit observed. Psychiatric: Cooperative, appropriate mood & affect. Course 2 Vital Signs: Vital signs: Vital Signs Temperature 98.1 F 02/15/24 07:48 Pulse Rate 81 02/15/24 06:00 Respiratory Rate 12 02/15/24 04:00 Blood Pressure 119/86 02/15/24 14:22 Pulse Oximetry 94 02/14/24 21:00 Oxygen Delivery Me thod Room Air 02/15/24 08:00 Oxygen Flow Rate 2 02/12/24 13:24 MDM - Chest Pain Medical Decision Making Physical exam completed and documented, I will obtain serial cardiac enzymes, serial twelve-lead EKGs, chest x-ray, CBC, CMP, urinalysis, B-type natriuretic peptide, PT/PTT/INR, and a chest x-ray. I will provide cardiac dose aspirin and nitroglycerin administration. I have provided a loading dose of heparin and possible heparin drip I have reviewed previous and pertinent medical records for assist in obtaining beneficial medical information to improved the care and treatment of the patient. I will reevaluate and contact the hospitalist for admission of the patient for additional evaluation treatment and care. Medical Records I reviewed the patient's medical records. Lab Data I reviewed the patient's lab results. 02/15/24 06:45 02/15/24 06:45 Radiology Impressions Chest X-Ray 02/13/24 10:21 IMPRESSION: No focal lung consolidation. Laboratory Results WBC 5.90 10^3/uL (3.29-11.43) 02/11/24 23:06 RBC 3.81 10^6/uL (3.85-5.65) L 02/11/24 23:06 Hgb 12.00 g/dL (11.27-16.99) 02/11/24 23:06 Hct 35.9 % (37-53) L 02/11/24 23:06 MCV 94.2 fl (82-101) 02/11/24 23:06 MCH 31.5 pg (27-33) 02/11/24 23:06 MCHC 33.4 g/dL (30-55) 02/11/24 23:06 RDW 12.2 % (12.1-15.1) 02/11/24 23:06 Plt Count 253 10^3/cmm (157-399) 02/11/24 23:06 MPV 10.8 fL (7.4-10.4) H 02/11/24 23:06 Neut % (Auto) 89.3 % 02/11/24 23:06 Lymph % (Auto) 9.7 % 02/11/24 23:06 Early % (Auto) 0.7 % 02/11/24 23:06 Eos % (Auto) 0.0 % 02/11/24 23:06 Baso % (Auto) 0.0 % 02/11/24 23:06 Neut # (Auto) 5.27 10^3/uL (1.8-7.7) 02/11/24 23:06 Lymph # (Auto) 0.6 10^3/uL (0.8-4.8) L 02/11/24 23:06 Early # (Auto) 0.0 10^3/uL (0.2-0.9) L 02/11/24 23:06 Eos # (Auto) 0.0 10^3/uL (0.0-0.8) 02/11/24 23:06 Baso # (Auto) 0.0 10^3/uL (0.0-0.1) 02/11/24 23:06 Nucleated RBC % (auto) 0 % 02/11/24 23:06 Nucleated RBCs # 0.0 /100WBC 02/11/24 23:06 Sodium 139 mmol/L (136-145) 02/11/24 23:06 Potassium 4.9 mmol/L (3.5-5.1) 02/11/24 23:06 Chloride 99 mmol/L (98-107) 02/11/24 23:06 Carbon Dioxide 25 mmol/L (22-29) 02/11/24 23:06 Anion Gap 19.9 (5-19) H 02/11/24 23:06 BUN 37 mg/dL (8-23) H 02/11/24 23:06 Creatinine 1.7 mg/dL (0.7-1.2) H 02/11/24 23:06 GFR Calculation Not Reportable 02/11/24 23:06 Glucose 260 mg/dL (65-115) H 02/11/24 23:06 Estimat Average Glucose 117 02/11/24 23:06 Hemoglobin A1c 5.7 % (4.0-6.0) 02/11/24 23:06 Calculated Osmolality 306 mOsm/kg (285-295) H 02/11/24 23:06 Calcium 9.8 mg/dL (8.5-10.5) 02/11/24 23:06 Troponin T Baseline 46 ng/L (0-15) H 02/11/24 23:06 Troponin T 120 Minute 147.6 ng/L (0-15) H 02/12/24 01:17 Delta Troponin T 101.6 ABS# (0-10) H* 02/12/24 01:17 NT-Pro-B Natriuret Pep 304 pg/mL (0-125) H 02/12/24 01:17 Triglycerides 30 mg/dL (0-150) 02/12/24 01:17 Cholesterol 175 mg/dL (0-200) 02/12/24 01:17 LDL Cholesterol, Calc 122 mg/dL (50-129) 02/12/24 01:17 HDL Cholesterol 47 mg/dL (60-100) L 02/12/24 01:17 LDL/HDL Ratio 2.60 RATIO (0.00-3.22) 02/12/24 01:17 Cholesterol/HDL Ratio 3.72 mg/dL (1.0-5.00) 02/12/24 01:17 All radiology interpretation(s) finalized by discharge Discharge Plan Discharge Patient Disposition: Admitted As Inpatient Admit Provider: Cindy Nieto Clinical Impression: Acute non-ST elevation myocardial infarction (NSTEMI), Chronic kidney insufficiency Chest pain Qualifiers: Chest pain type: unspecified Qualified Code(s): R07.9 - Chest pain, unspecified Condition: Stable Discharge Diet: Cardiac Discharge Activity: Increase activity as tolerated and Limit activity as instructed Coding Level of Care Code ED Diet Technician Registered for Meghan Hu
[2024-02-12 01:47] LABS: Troponin 5 2HR 147.6 ng/L (0-15); Troponin 5 2HR Delta 101.6 ABS# (0-10)
[2024-02-12] MEDS: nitroglycerin 1 gm/inch oint Pkt 0.5 INCH TOPICAL ×3 (02:25→09:46)
[2024-02-12] MEDS: aspirin 81 mg Chew Tablet 324 MG PO (02:27)
[2024-02-12] MEDS: heparin 5,000 unit/mL INJ 1 mL 4000 UNIT IVP (02:27)
[2024-02-12] MEDS: heparin drip 25,000 UNIT/500 ML PREMIX 24.6999999999999993 UNIT IV ×2 (02:33→03:55)
--- NOTE | 2024-02-12 04:17 | PC.NURSE ---
received pt from ED and pt was on heparin drip, this nurse changed order per protocol for titration order set, used same bag of heparin, also place a PTT order for 0830 per protocol
--- NOTE | 2024-02-12 04:24 | P.HP_ITS ---
Providers/Chief Complaint 2 Admitting Physician: Cindy Nieto MD Primary Care Provider: BOB Alex Chief Complaint: cp right arm jaw heart racing History of Present Illness Mian Menendez is a 73 year old male with PMH COPD, hypertension, hyperlipidemia, preserved ejection fraction heart failure, coronary artery disease and obstructive sleep apnea presenting to the emergency room today due to chest pain. Patient states that he has been having episodes of chest pain over the past 2 weeks. He estimates he has had at least 3 episodes in this timeframe. Last night as he was going to bed he developed chest discomfort located in the middle of the chest, radiating into the right side and into his jaw. Initially he thought he was hypertensive, attempted to check his blood pressure at home but his cuff kept leaking air , with numbers more than 250 systolic. His noted him to be very flushed. He took a sublingual nitro at home which appeared to relieve his symptoms partially. He has had 2 similar episodes in the past weeks however states that the pain was not as intense as it was last night. Patient has a history of coronary artery disease, last stents were placed about 10 years ago. He had presented with chest pain here in 2020 at which time an angiogram was performed, he was found to have nonobstructive coronary artery disease and patent prior stents. Imdur was added to his regimen. Medical therapy recommended. Review of Systems 2 General: Reports: 10 or more systems reviewed and unremarkable except in HPI and below Const: Denies: fever(s), chills or body aches Eyes: Denies: change in vision, blurry vision or photophobia ENMT: Reports: hoarseness; Denies: throat pain, enlarged tonsils, odynophagia or nasal congestion Card: Denies: chest pain, palpitations, irregular heart rhythm, edema, swelling of feet/ankles, lightheadedness, pre-syncope, dyspnea on exertion or orthopnea Resp: Denies: dyspnea, productive cough, non-productive cough, wheezing, stridor, pain on inspiration, change in phlegm color, hemoptysis or chest congestion GI: Denies: abdominal pain, nausea, vomiting, hematemesis, coffee ground emesis, dysphagia, heartburn, diarrhea, constipation, GI cramping, change in stool character, hematochezia or melena : Denies: flank pain, dysuria, urinary frequency, urinary urgency, urinary hesitancy or hematuria Musc: Denies: neck pain, back pain, extremity pain, joint swelling, joint warmth or deformity Neuro: Denies: headache(s), numbness in extremities, weakness in extremities, sensory changes, difficulty walking, frequent falls, dizziness, vertigo, behavioral changes, Slurred speech present or seizure-like activity Psych: Denies: anxiety, depression, suicidal ideation or homicidal ideation Endo: Denies: polyuria, polydipsia, tired all the time, cold intolerance or hot flashes Rell/Lymph: Denies: easy bruising or easy bleeding Medications/Allergies Home Medications Medication Instructions Recorded Confirmed Last Taken Type famotidine 20 mg tablet (Pepcid) 20 mg PO BID@0800,199912/18/19 02/12/24 1 Day Ago History ~02/11/24 furosemide 40 mg tablet (Lasix) 40 mg PO DAILY@79912/18/19 02/12/24 1 Day Ago History ~02/11/24 montelukast 10 mg tablet 10 mg PO DAILY@199912/18/19 02/12/24 1 Day Ago History (Singulair) ~02/11/24 tamsulosin 0.4 mg capsule 0.4 mg PO DAILY@199904/11/20 02/12/24 1 Day Ago History ~02/11/24 melatonin 10 mg capsule 10 mg PO DAILY@199910/01/20 02/12/24 2 Days Ago History ~02/10/24 potassium chloride 20 mEq 20 meq PO DAILY@00 10/01/20 02/12/24 1 Day Ago History tablet,extended release ~02/11/24 cholecalciferol (vitamin D3) 1,250 1,250 mcg PO DAILY@199903/24/21 02/12/24 1 Day Ago History mcg (50,000 unit) capsule ~02/11/24 citalopram 40 mg tablet 40 mg PO DAILY 30 days #30 tabs 03/31/21 02/12/24 1 Day Ago Rx ~02/11/24 isosorbide dinitrate 5 mg tablet 5 mg PO DAILY 05/05/21 02/12/24 1 Day Ago History ~02/11/24 amlodipine 5 mg tablet 5 mg PO DAILY #90 tabs 08/04/21 02/12/24 1 Day Ago Rx ~02/11/24 losartan 100 mg tablet 100 mg PO DAILY #90 tabs 08/04/21 02/12/24 1 Day Ago Rx ~02/11/24 cyclobenzaprine 10 mg tablet See Rx Instructions .Route 09/10/21 02/12/24 1 Day Ago Rx .COMPLEX #30 tabs ~02/11/24 gemfibrozil 600 mg tablet 600 mg PO BID 04/21/22 02/12/24 1 Day Ago History ~02/11/24 levothyroxine 25 mcg tablet 25 mcg PO DAILY 04/21/22 02/12/24 1 Day Ago History (Synthroid) ~02/11/24 coenzyme Q10 200 mg capsule (Co 200 mg PO DAILY 05/14/22 02/12/24 1 Day Ago History Q-10) ~02/11/24 multivitamin 1 tab PO DAILY 10/27/22 02/12/24 1 Day Ago History ~02/11/24 albuterol sulfate 90 mcg/actuation 2 puff inhalation Q6H PRN 12/11/22 02/12/24 Unknown Rx aerosol inhaler (Ventolin HFA) shortness of breath or wheezing #8.5 grams fluticasone propionate 50 2 spray intranasal DAILY #16 grams 12/11/22 02/12/24 Unknown Rx mcg/actuation nasal spray,suspension (Flonase Allergy Relief) albuterol sulfate 2.5 mg/3 mL 2.5 mg (3 mL) inhalation QID PRN 12/16/22 02/12/24 Unknown Rx (0.083 %) solution for nebulization shortness of breath or wheezing #90 mL ketoconazole 2 % shampoo 1 applic topical ONCE #120 mL 01/15/23 02/12/24 3 Days Ago Rx ~02/09/24 ketoconazole 2 % topical cream 1 applic topical BID #30 grams 01/15/23 02/12/24 Unknown Rx tiotropium 2.5 mcg-olodaterol 2.5 2 puff inhalation DAILY #4 grams 05/20/23 02/12/24 1 Day Ago Rx mcg/actuation mist for inhalation ~02/11/24 (Stiolto Respimat) aspirin 81 mg tablet,delayed 81 mg PO DAILY #90 tabs 09/01/23 02/12/24 1 Day Ago Rx release ~02/11/24 Allergies Allergy/AdvReac Type Severity Reaction Status Date / Time atorvastatin [From Lipitor] Allergy Unknown Verified 02/11/24 11:55 bupropion [From Wellbutrin] Allergy hallucinati Verified 02/11/24 11:55 ons buspirone Allergy caused Verified 02/11/24 11:55 negative thinking ezetimibe [From Zetia] Allergy Unknown Verified 02/11/24 11:55 lovastatin Allergy Unknown Verified 02/11/24 11:55 pravastatin [From Pravachol] Allergy Unknown Verified 02/11/24 11:55 simvastatin Allergy fatigue Verified 02/11/24 11:55 PFSH Acute 2 PFSH: Medical History Primary osteoarthritis of knees, bilateral Low back pain Chronic kidney disease Osteoarthritis Rotator cuff arthropathy of right shoulder Gastro-esophageal reflux disease without esophagitis Hyperlipidemia Obstructive sleep apnea Other idiopathic peripheral autonomic neuropathy History of colon polyps Left rotator cuff tear arthropathy Chronic shoulder pain Small airways disease Coronary artery disease Back pain Depression Anemia Primary osteoarthritis of right knee Primary osteoarthritis of left knee Mass of lingula of lung Bronchitis Primary localized osteoarthritis of both knees Allergic rhinosinusitis COPD (chronic obstructive pulmonary disease) Hypertension Anxiety Surgical History Hx of colonoscopy (04/2022) Status post coronary artery stent placement Status post hernia repair (2016) Repair of bilateral inguinal and umbilical hernias with mesh Status post total knee replacement Status post shoulder surgery Family History Other Hypertension Social History Smoking and tobacco/nicotine status: former use of tobacco/nicotine Quit status (tobacco/nicotine): has quit using Year quit tobacco: 2002 - 1PPD x 35 Years Alcohol intake: former Substance/Drug Use: never Lives independently: Yes Household members: spouse Marital status: Current occupational status: employed Current occupation: [employer] Do you think of yourself as: Straight/Heterosexual Current gender identity: Male Vitals/I&O/Wt Last Vital Signs Temp 98.6 F 02/12/24 03:33 Pulse 86 02/12/24 04:05 Resp 16 02/12/24 03:33 BP 148/86 02/12/24 03:33 Pulse Ox 94 02/12/24 03:33 O2 Del Method Nasal Cannula 02/12/24 03:33 O2 Flow Rate 2 02/12/24 00:54 02/11/24 02/11/24 02/12/24 14:59 22:59 06:59 Intake Total 65.933 / 65.933 Balance 65.933 / 65.933 Weight last 48 hrs Weight 89.902 kg Weight 89.811 kg Weight 89.902 kg Weight 88.451 kg Physical Exam 2 Narrative: General: No acute distress, AO x3 HEENT: PERRLA, pupils bilaterally equal and reactive, pallors not present Chest: Normal vesicular breath sounds, no added sounds, equal good air entry bilaterally CVS: S1-S2 regular, no murmurs, no tachycardia, no gallops, no rubs Abdomen: Soft, nontender, no organomegaly, bowel sounds present Neuro: No focal deficits, no facial deformity, AO x3, power 5/5 in all limbs Data 02/11/24 23:06 02/11/24 23:06 Other Labs: Radiology Impressions Chest X-Ray 02/11/24 23:19 IMPRESSION: No acute findings. Laboratory Results WBC 5.90 10^3/uL (3.29-11.43) 02/11/24 23:06 RBC 3.81 10^6/uL (3.85-5.65) L 02/11/24 23:06 Hgb 12.00 g/dL (11.27-16.99) 02/11/24 23:06 Hct 35.9 % (37-53) L 02/11/24 23:06 MCV 94.2 fl (82-101) 02/11/24 23:06 MCH 31.5 pg (27-33) 02/11/24 23:06 MCHC 33.4 g/dL (30-55) 02/11/24 23:06 RDW 12.2 % (12.1-15.1) 02/11/24 23:06 Plt Count 253 10^3/cmm (157-399) 02/11/24 23:06 MPV 10.8 fL (7.4-10.4) H 02/11/24 23:06 Neut % (Auto) 89.3 % 02/11/24 23:06 Lymph % (Auto) 9.7 % 02/11/24 23:06 [place] % (Auto) 0.7 % 02/11/24 23:06 Eos % (Auto) 0.0 % 02/11/24 23:06 Baso % (Auto) 0.0 % 02/11/24 23:06 Neut # (Auto) 5.27 10^3/uL (1.8-7.7) 02/11/24 23:06 Lymph # (Auto) 0.6 10^3/uL (0.8-4.8) L 02/11/24 23:06 [place] # (Auto) 0.0 10^3/uL (0.2-0.9) L 02/11/24 23:06 Eos # (Auto) 0.0 10^3/uL (0.0-0.8) 02/11/24 23:06 Baso # (Auto) 0.0 10^3/uL (0.0-0.1) 02/11/24 23:06 Nucleated RBC % (auto) 0 % 02/11/24 23:06 Nucleated RBCs # 0.0 /100WBC 02/11/24 23:06 Sodium 139 mmol/L (136-145) 02/11/24 23:06 Potassium 4.9 mmol/L (3.5-5.1) 02/11/24 23:06 Chloride 99 mmol/L (98-107) 02/11/24 23:06 Carbon Dioxide 25 mmol/L (22-29) 02/11/24 23:06 Anion Gap 19.9 (5-19) H 02/11/24 23:06 BUN 37 mg/dL (8-23) H 02/11/24 23:06 Creatinine 1.7 mg/dL (0.7-1.2) H 02/11/24 23:06 GFR Calculation Not Reportable 02/11/24 23:06 Glucose 260 mg/dL (65-115) H 02/11/24 23:06 Estimat Average Glucose 117 02/11/24 23:06 Hemoglobin A1c 5.7 % (4.0-6.0) 02/11/24 23:06 Calculated Osmolality 306 mOsm/kg (285-295) H 02/11/24 23:06 Calcium 9.8 mg/dL (8.5-10.5) 02/11/24 23:06 Troponin T Baseline 46 ng/L (0-15) H 02/11/24 23:06 Troponin T 120 Minute 147.6 ng/L (0-15) H 02/12/24 01:17 Delta Troponin T 101.6 ABS# (0-10) H* 02/12/24 01:17 A&P Assessment and plan (1) Acute non-ST elevation myocardial infarction (NSTEMI): 73-year-old male presenting to the ER with chief complaints of chest pain. EKG currently without any acute ST-T wave changes Baseline troponin at 46, trending up at 147 with a delta of 101 at 2 hours. He has been started on heparin drip in the emergency room which we will continue at this time. Received aspirin 325 mg additionally in the ER Plavix 300 mg now Start aspirin 81 mg p.o. daily Reported allergy to several statins including atorvastatin, lovastatin, pravastatin and simvastatin. Continue home dose of gemfibrozil for now. As needed morphine for pain Nitrobid every 6 hours Holding losartan in view of DAWNA with creatinine at 1.7 today. Review of past numbers shows baseline creatinine to be between 0.9-1.1. Holding Lasix additionally as he is clinically euvolemic. Cardiology consult in AM. Npo for possible angiogram last echo from 08/2023 Normal left ventricular size, systolic function and wall thickness, with no regional wall motion abnormalities. Grade I/IV diastolic dysfunction. Left ventricular ejection fraction is estimated at 65 %. Plan COPD: no acute exacerbation: Duoneb every 6 hrs inhalation Continue amlodipine , citalopram from home medications Attestations 2 Medical Necessity Statement*: > 2 midnight admission is anticipated for NSTEMI Coding Level of Care Code Acute Code for Chg Fwd High MDM includes number and complexity of problems actively addressed during encounter, amount and/or complexity of data reviewed/ordered and described risk of complication, morbidity or mortality of management as documented Diagnoses Acute non-ST elevation myocardial infarction (NSTEMI) I21.4
[2024-02-12] MEDS: clopidogrel 300 mg Tablet PO (04:36)
[2024-02-12 04:46] LABS: Estmated Average Glucose 117; Hemoglobin A1C 5.7 % (4.0-6.0)
[2024-02-12 04:55] LABS: Chol HDL Ratio 3.72 mg/dL (1.0-5.00); Cholesterol 175 mg/dL (0-200); HDL Cholesterol 47 mg/dL (60-100); LDL Cholesterol Calculated 122 mg/dL (50-129); NT Pro B Type Natriuretic Pept 304 pg/mL (0-125); Triglycerides 30 mg/dL (0-150)
--- NOTE | 2024-02-12 05:36 | ECG_ITS ---
[facility] Test Date: 2024-02-12 Pat Name: Mian Menendez Department: Room: 112 Gender: Male [employer] Technician: : 1950 Requested By: Arvind Romero Order Number: [id number] Reji MD: Darell Sales M.D. Measurements Intervals [place] Rate: 90 P: 41 NH: 156 QRS: 0 QRSD: 109 T: 47 QT: 386 QTc: 472 Interpretive Statements SINUS RHYTHM Compared to ECG 02/12/2024 01:23:30 No significant changes Electronically Signed On 02-12-2024 9:20:57 CDT by Darell Sales M.D. [id number]
[2024-02-12 06:00] LABS: Troponin 5 6HR 313.8 ng/L (0-15); Troponin 5 6HR Delta 267.8 ng/L (0-12)
[2024-02-12] MEDS: ipratropium-albuterol 3 mL Neb INHALATION ×3 (07:18→19:41)
[2024-02-12 08:52] LABS: Partial Thromboplastin Time 95.6 SECONDS (23.9-36.7)
[2024-02-12] MEDS: cyclobenzaprine 10 mg Tablet PO (09:26)
[2024-02-12] MEDS: citalopram 20 mg Tablet 40 MG PO (09:26)
[2024-02-12] MEDS: pantoprazole DR 40 mg Tablet PO (09:26)
[2024-02-12] MEDS: aspirin 81 mg EC Tablet PO (09:26)
[2024-02-12] MEDS: amlodipine 5 mg Tablet PO (09:26)
[2024-02-12] MEDS: levothyroxine 25 mcg Tablet PO (09:26)
[2024-02-12] MEDS: gemfibrozil 600 mg Tablet PO ×2 (09:26→17:27)
--- NOTE | 2024-02-12 09:39 | P.CONIM_ITS ---
Providers/Reason For Consult 2 Consulting Physician/Specialty*: Cardiovascular medicine Reason for Consult*: Chest pain, elevated troponin Requesting Physician: Hospitalist Attending Physician: Grayson Guillen MD Primary Care Provider: BOB Alex History of Present Illness History of Present Illness Mian Menendez is a 73 year old male with a known history of coronary artery disease and previously placed stents. His last visit in the office was sometime ago. He had been seen back in 2020 and was having chest pain. Angiography at the time revealed nonobstructive disease. He had 3 episodes of chest pain over the last few days. He had 1 early this morning which was severe and he came to the emergency room. He has been admitted. He is on intravenous heparin. Currently he is free of pain. He was also placed on topical nitrates. He has a history of glucose intolerance, prior tobacco abuse, COPD, anxiety, anemia, peripheral neuropathy, sleep apnea, dyslipidemia, chronic kidney disease, chronic pain and degenerative joint disease. He also has a diagnosis of congestive heart failure though I do not see the etiology of that. His last echo was in August showing an ejection fraction of 65% and grade 1 diastolic dysfunction. The last angiogram was in March 2021. His chest x-ray on this visit is normal. His EKGs are relatively unremarkable. The first 1 showed sinus tachycardia with minimal ST changes but nothing of any significance. The second and third EKGs are unremarkable. His BUN is 37 and his creatinine is 1.7. First troponin 46, second 148 and third 313. Currently he is pain-free. His is in the room for the discussion. Review of Systems 2 Narrative: Review of systems is negative Medications/Allergies Home Medications Medication Instructions Recorded Confirmed Last Taken Type famotidine 20 mg tablet (Pepcid) 20 mg PO BID@0800,199912/18/19 02/12/24 1 Day Ago History ~02/11/24 furosemide 40 mg tablet (Lasix) 40 mg PO DAILY@79912/18/19 02/12/24 1 Day Ago History ~02/11/24 montelukast 10 mg tablet 10 mg PO DAILY@199912/18/19 02/12/24 1 Day Ago History (Singulair) ~02/11/24 tamsulosin 0.4 mg capsule 0.4 mg PO DAILY@199904/11/20 02/12/24 1 Day Ago History ~02/11/24 melatonin 10 mg capsule 10 mg PO DAILY@199910/01/20 02/12/24 2 Days Ago History ~02/10/24 potassium chloride 20 mEq 20 meq PO DAILY@79910/01/20 02/12/24 1 Day Ago History tablet,extended release ~02/11/24 cholecalciferol (vitamin D3) 1,250 1,250 mcg PO DAILY@199903/24/21 02/12/24 1 Day Ago History mcg (50,000 unit) capsule ~02/11/24 citalopram 40 mg tablet 40 mg PO DAILY 30 days #30 tabs 03/31/21 02/12/24 1 Day Ago Rx ~02/11/24 isosorbide dinitrate 5 mg tablet 5 mg PO DAILY 05/05/21 02/12/24 1 Day Ago History ~02/11/24 amlodipine 5 mg tablet 5 mg PO DAILY #90 tabs 08/04/21 02/12/24 1 Day Ago Rx ~02/11/24 losartan 100 mg tablet 100 mg PO DAILY #90 tabs 08/04/21 02/12/24 1 Day Ago Rx ~02/11/24 cyclobenzaprine 10 mg tablet See Rx Instructions .Route 09/10/21 02/12/24 1 Day Ago Rx .COMPLEX #30 tabs ~02/11/24 gemfibrozil 600 mg tablet 600 mg PO BID 04/21/22 02/12/24 1 Day Ago History ~02/11/24 levothyroxine 25 mcg tablet 25 mcg PO DAILY 04/21/22 02/12/24 1 Day Ago History (Synthroid) ~02/11/24 coenzyme Q10 200 mg capsule (Co 200 mg PO DAILY 05/14/22 02/12/24 1 Day Ago History Q-10) ~02/11/24 multivitamin 1 tab PO DAILY 10/27/22 02/12/24 1 Day Ago History ~02/11/24 albuterol sulfate 90 mcg/actuation 2 puff inhalation Q6H PRN 12/11/22 02/12/24 Unknown Rx aerosol inhaler (Ventolin HFA) shortness of breath or wheezing #8.5 grams fluticasone propionate 50 2 spray intranasal DAILY #16 grams 12/11/22 02/12/24 Unknown Rx mcg/actuation nasal spray,suspension (Flonase Allergy Relief) albuterol sulfate 2.5 mg/3 mL 2.5 mg (3 mL) inhalation QID PRN 12/16/22 02/12/24 Unknown Rx (0.083 %) solution for nebulization shortness of breath or wheezing #90 mL ketoconazole 2 % shampoo 1 applic topical ONCE #120 mL 01/15/23 02/12/24 3 Days Ago Rx ~02/09/24 ketoconazole 2 % topical cream 1 applic topical BID #30 grams 01/15/23 02/12/24 Unknown Rx tiotropium 2.5 mcg-olodaterol 2.5 2 puff inhalation DAILY #4 grams 05/20/23 02/12/24 1 Day Ago Rx mcg/actuation mist for inhalation ~02/11/24 (Stiolto Respimat) aspirin 81 mg tablet,delayed 81 mg PO DAILY #90 tabs 09/01/23 02/12/24 1 Day Ago Rx release ~02/11/24 Allergies Allergy/AdvReac Type Severity Reaction Status Date / Time atorvastatin [From Lipitor] Allergy Unknown Verified 02/11/24 11:55 bupropion [From Wellbutrin] Allergy hallucinati Verified 02/11/24 11:55 ons buspirone Allergy caused Verified 02/11/24 11:55 negative thinking ezetimibe [From Zetia] Allergy Unknown Verified 02/11/24 11:55 lovastatin Allergy Unknown Verified 02/11/24 11:55 pravastatin [From Pravachol] Allergy Unknown Verified 02/11/24 11:55 simvastatin Allergy fatigue Verified 02/11/24 11:55 Current Medications Generic Name Dose Route Start Last Admin Trade Name Freq PRN Reason Stop Dose Admin Albuterol/Ipratropium 3 ml 02/12/24 08:00 02/12/24 07:18 Ipratropium-Albuterol 3 Ml Neb INHALATION 3 ml Q6H.RESP SAMEER Administration Amlodipine Besylate 5 mg 02/12/24 09:00 02/12/24 09:26 Amlodipine 5 Mg Tablet PO 5 mg DAILY SAMEER Administration Aspirin 81 mg 02/12/24 09:00 02/12/24 09:26 Aspirin 81 Mg Ec Tablet PO 81 mg DAILY SAMEER Administration Citalopram Hydrobromide 40 mg 02/12/24 09:00 02/12/24 09:26 Citalopram 20 Mg Tablet PO 40 mg DAILY SAMEER Administration Cyclobenzaprine HCl 10 mg 02/12/24 09:00 02/12/24 09:26 Cyclobenzaprine 10 Mg Tablet PO 10 mg DAILY SAMEER Administration Gemfibrozil 600 mg 02/12/24 09:00 02/12/24 09:26 Gemfibrozil 600 Mg Tablet PO 600 mg BID SAMEER Administration Heparin Sodium/Sodium Chloride 25,000 unit in 500 mls @ 0 mls/hr 02/12/24 04:00 02/12/24 09:25 Heparin Drip IV 10.57 unit/kg/hr .Q0M SAMEER 19 mls/hr Titration Protocol Per Protocol Levothyroxine Sodium 25 mcg 02/12/24 09:00 02/12/24 09:26 Levothyroxine 25 Mcg Tablet PO 25 mcg DAILY SAMEER Administration Nitroglycerin 0.5 inch 02/12/24 04:15 02/12/24 04:29 Nitroglycerin 1 Gm/Inch Oint Pkt TOPICAL 0.5 inch Q6H SAMEER Administration Non-Formulary Medication 5 mg 02/12/24 09:00 02/12/24 09:19 Isosorbide Dinitrate PO Not Given DAILY SAMEER Pantoprazole Sodium 40 mg 02/12/24 09:00 02/12/24 09:[address] 40 Mg Tablet PO 40 mg DAILY SAMEER Administration PFSH Acute 2 PFSH: Medical History (Updated 02/12/24 @ 09:58 by Darell Sales MD) Elevated troponin Primary osteoarthritis of knees, bilateral Low back pain Chronic kidney disease Osteoarthritis Rotator cuff arthropathy of right shoulder Gastro-esophageal reflux disease without esophagitis Hyperlipidemia Obstructive sleep apnea Other idiopathic peripheral autonomic neuropathy History of colon polyps Left rotator cuff tear arthropathy Chronic shoulder pain Small airways disease Coronary artery disease Back pain Depression Anemia Primary osteoarthritis of right knee Primary osteoarthritis of left knee Mass of lingula of lung Bronchitis Primary localized osteoarthritis of both knees Allergic rhinosinusitis COPD (chronic obstructive pulmonary disease) Hypertension Anxiety Surgical History (Updated 02/12/24 @ 09:58 by Darell Sales MD) Hx of colonoscopy (04/2022) Status post coronary artery stent placement Status post hernia repair (2016) Repair of bilateral inguinal and umbilical hernias with mesh Status post total knee replacement Status post shoulder surgery Family History Other Hypertension Social History Smoking and tobacco/nicotine status: former use of tobacco/nicotine Quit status (tobacco/nicotine): has quit using Year quit tobacco: 2003 - 1PPD x 35 Years Alcohol intake: former Substance/Drug Use: never Lives independently: Yes Household members: spouse Marital status: Current occupational status: employed Current occupation: [employer] Do you think of yourself as: Straight/Heterosexual Current gender identity: Male Vitals/I&O/Wt Last Vital Signs Temp 97.9 F 02/12/24 08:00 Pulse 94 02/12/24 08:00 Resp 17 02/12/24 08:00 BP 147/81 02/12/24 08:00 Pulse Ox 95 02/12/24 08:00 O2 Del Method Nasal Cannula 02/12/24 08:00 O2 Flow Rate 2 02/12/24 07:19 02/11/24 02/12/24 02/12/24 22:59 06:59 14:59 Intake Total 65.933 / 65.933 135.438 / 135.438 Balance 65.933 / 65.933 135.438 / 135.438 Weight last 48 hrs Weight 198 lb 3.2 oz Weight 198 lb 3.2 oz Weight 198 lb Weight 198 lb 3.2 oz Weight 195 lb Physical Exam 2 Narrative: GENERAL: In general he looks and feels well HEENT: Exam within normal limits. NECK: Supple without jugular vein distention. The carotid upstroke is normal without bruits. BACK: Exam normal. LUNGS: Clear. HEART: Regular rate and rhythm. ABDOMEN: Benign without organomegaly or tenderness. EXTREMITIES: No edema. NEUROLOGIC: Exam normal. SKIN: Unremarkable. Data 02/11/24 23:06 02/11/24 23:06 A&P Assessment and plan (1) Hypertension: Qualifiers: Hypertension type: essential hypertension Qualified Code(s): I10 - Essential (primary) hypertension (2) Coronary artery disease: (3) Chest pain: Qualifiers: Chest pain type: unspecified Qualified Code(s): R07.9 - Chest pain, unspecified (4) Elevated troponin: (5) Chronic kidney insufficiency: (6) COPD (chronic obstructive pulmonary disease): Qualifiers: COPD type: emphysema Emphysema type: unspecified Qualified Code(s): J 43.9 - Emphysema, unspecified (7) Hyperlipidemia: (8) Obstructive sleep apnea: (9) Status post coronary artery stent placement: Plan He probably needs angiography but I am reluctant to proceed today given his renal insufficiency. As long as he is free of pain I am going to give him 24 hours of intravenous saline at 100 mL/h. I will reassess with him tomorrow morning and we will see how to proceed. It will be either stress testing on Wednesday or angiography tomorrow. I am concerned about contrast-induced nephropathy. Consult Attestations 2 Medical Necessity Statement: Admission for chest pain and elevated troponin and Moderate Time for a total of 45 minutes, includes reviewing past or interval history, examining/interviewing patient, placing orders, counseling patient/family/other support, updating patient/family/other support, discussing plan of care with staff, communicating with other healthcare providers and documenting encounter Diagnoses Essential hypertension I10 Hypertension type: essential hypertension Coronary artery disease I25.10 Chest pain R07.9 Chest pain type: unspecified Elevated troponin R79.89 Chronic kidney insufficiency N18.9 Pulmonary emphysema, unspecified emphysema type J43.9 COPD type: emphysema Emphysema type: unspecified Hyperlipidemia E78.5 Obstructive sleep apnea G47.33 Status post coronary artery stent placement Z95.5
[2024-02-12] MEDS: fluticasone nasal spray 16gm Btl 2 SPRAY INTRANASAL (09:46)
[2024-02-12] MEDS: sodium chloride 0.9% 1,000 ML 100 ML IV ×2 (10:00→20:23)
--- NOTE | 2024-02-12 13:50 | ECG_ITS ---
[facility] Test Date: 2024-02-12 Pat Name: Mian Menendez Department: Room: 112 Gender: Male [employer]: : 1950 Requested By: Darell Sales Order Number: [id number] Reji MD: Darell Sales M.D. Measurements Intervals [place] Rate: 127 P: 0 OR: 0 QRS: -34 QRSD: 105 T: 69 QT: 308 QTc: 448 Interpretive Statements Sinus tachycardia with frequent PACs. LEFT AXIS DEVIATION [QRS AXIS < -30] MODERATE ST DEPRESSION [0.05+ mV ST DEPRESSION] Compared to ECG 02/12/2024 05:36:00 Left-axis deviation now present ST (T wave) deviation now present Sinus rhythm no longer present Electronically Signed On 02-13-2024 8:11:20 CDT by Darell Sales M.D. [id number]
[2024-02-12] MEDS: metoprolol tartrate 1 mg/1 mL SDV 5 mL 5 MG IVP (14:04)
[2024-02-12] MEDS: nitroglycerin 1 gm/inch oint Pkt 1 INCH TOPICAL (14:04)
[2024-02-12] MEDS: morphine 4 mg/mL SDV 1 mL 2 MG IVP (14:04)
--- NOTE | 2024-02-12 14:22 | PC.NURSE ---
Patient had an event of chest pain. Chest pain rated 7/10 on pain scale, heart rate and blood pressure elevated and chest pain radiating to the right arm and jaw. Hospitalist and School Commissioner have been notified. Orders received per internet network specialist are as follows; 1inch nitro-bid, 5mg IVP lopressor. Orders per hospitalist; 2mg IVP morphine, possible nitro gtt if symptoms do not subside. has been notified.
--- NOTE | 2024-02-12 14:53 | PM.MISC ---
Miscellaneous Note Note: I was called by the nurse a short while ago who said that Mian suddenly had severe chest pain and became very hypertensive with blood pressures over 200/100. He became tachycardic, went into atrial fibrillation with a rapid ventricular response. He was also flushed. I gave him 5 mg of Lopressor IV which converted him back to sinus rhythm with a rate around 90 bpm. This brought his blood pressure down and decreased significantly his chest pain. When I saw him shortly thereafter the pain was nearly gone and things had calm down. His skin was still flushed but things were improving. Interestingly, the EKG that revealed atrial fibrillation did not reveal any significant ST changes over the baseline. I will continue to watch him, giving him fluids and reassess in the morning.
[2024-02-12 16:50] LABS: Partial Thromboplastin Time 56.5 SECONDS (23.9-36.7)
[2024-02-12] MEDS: tamsulosin 0.4 mg Capsule 0.400000000000000022 MG PO (20:22)
[2024-02-12] MEDS: montelukast sodium 10 mg Tablet PO (20:22)
[2024-02-12 23:44] LABS: Partial Thromboplastin Time 45.8 SECONDS (23.9-36.7)
[2024-02-12] MEDS: heparin 5,000 unit/mL INJ 1 mL IV (23:58)
[2024-02-13] VITALS (59 sets, daily range): BP systolic 131–167; BP diastolic 85–123; PULSE 61–130; RESP 14–33; TEMP 36.4–36.6; O2SAT 90–95
[2024-02-13] MEDS: ipratropium-albuterol 3 mL Neb INHALATION ×3 (02:04→20:11)
[2024-02-13] MEDS: heparin drip 25,000 UNIT/500 ML PREMIX 21 UNIT IV (02:51)
--- NOTE | 2024-02-13 07:15 | P.PN_ITS ---
Subjective 2 Subjective: No further episodes of pain overnight. He feels okay this morning. Good urine output overnight. Vitals/I&O/Wt Last Vital Signs Temp 97.6 F 02/13/24 04:00 Pulse 85 02/13/24 06:00 Resp 18 02/13/24 04:00 BP 167/96 02/13/24 04:00 Pulse Ox 95 02/13/24 04:00 O2 Del Method Room Air 02/13/24 04:00 O2 Flow Rate 2 02/12/24 13:24 02/12/24 02/13/24 02/13/24 22:59 06:59 14:59 Intake Total 1240 / 1500.438 331.562 / 1832.000 Output Total 650 / 950 900 / 1850 Balance 590 / 550.438 -568.438 / -18.000 Weight last 48 hrs Weight 203 lb Weight 198 lb 3.2 oz Weight 198 lb 3.2 oz Weight 198 lb Weight 198 lb 3.2 oz Weight 195 lb Physical Exam 2 Narrative: GENERAL: In general he looks and feels well HEENT: Exam within normal limits. NECK: Supple without jugular vein distention. The carotid upstroke is normal without bruits. BACK: Exam normal. LUNGS: Clear. HEART: Regular rate and rhythm. ABDOMEN: Benign without organomegaly or tenderness. EXTREMITIES: No edema. NEUROLOGIC: Exam normal. SKIN: Unremarkable. Data 02/11/24 23:06 02/11/24 23:06 A&P Assessment and plan (1) Status post coronary artery stent placement: (2) Hypertension: Qualifiers: Hypertension type: essential hypertension Qualified Code(s): I10 - Essential (primary) hypertension (3) Coronary artery disease: (4) Hyperlipidemia: (5) Chest pain: Qualifiers: Chest pain type: unspecified Qualified Code(s): R07.9 - Chest pain, unspecified (6) Elevated troponin: (7) COPD (chronic obstructive pulmonary disease): Qualifiers: COPD type: emphysema Emphysema type: unspecified Qualified Code(s): J 43.9 - Emphysema, unspecified (8) Obstructive sleep apnea: Plan Cardiac catheterization this morning. Discussed the risks and benefits with the patient and his . Attestations 2 Medical Necessity Statement*: Hospitalization for management of renal insufficiency and coronary disease with elevated troponin, chest pain and Moderate Time for a total of 30 minutes, includes reviewing past or interval history, examining/interviewing patient, placing orders, counseling patient/family/other support, updating patient/family/other support, discussing plan of care with staff, communicating with other healthcare providers and documenting encounter Diagnoses Status post coronary artery stent placement Z95.5 Essential hypertension I10 Hypertension type: essential hypertension Coronary artery disease I25.10 Hyperlipidemia E78.5 Chest pain R07.9 Chest pain type: unspecified Elevated troponin R79.89 Pulmonary emphysema, unspecified emphysema type J43.9 COPD type: emphysema Emphysema type: unspecified Obstructive sleep apnea G47.33
[2024-02-13 07:33] LABS: Basophils % 0.1 %; Hematocrit 32.6 % (37-53); Lymphocytes # 1.2 10^3/uL (0.8-4.8); Lymphocytes % 10.3 %; Mean Corpuscular HGB Conc 32.5 g/dL (30-55); Mean Corpuscular Hemoglobin 32.2 pg (27-33); Mean Corpuscular Volume 99.1 fl (82-101); Monocytes # 0.7 10^3/uL (0.2-0.9); Monocytes % 5.8 %; Neutrophils # 9.55 10^3/uL (1.8-7.7); Neutrophils % 83.3 %; Nucleated Red Blood Cells % 0 %; Platelet Count 213 10^3/cmm (157-399); Red Blood Count 3.29 10^6/uL (3.85-5.65); Red Cell Distribution Width 12.4 % (12.1-15.1); White Blood Count 11.46 10^3/uL (3.29-11.43)
[2024-02-13 07:53] LABS: Alanine Aminotransferase 20 U/L (0-41); Albumin Level 3.9 g/dL (3.5-5.2); Alkaline Phosphatase 80 U/L (40-130); Anion Gap 12.6 (5-19); Aspartate Amino Transferase 26 U/L (0-40); Blood Urea Nitrogen 31 mg/dL (8-23); Calcium 8.6 mg/dL (8.5-10.5); Carbon Dioxide 23 mmol/L (22-29); Chloride 106 mmol/L (98-107); Creatinine Clr Calc Pharmacy 58.8829; Globulin 2.4 g/dL (1.3-4.6); Glucose 147 mg/dL (65-115); Magnesium 2.4 mg/dL (1.7-2.3); Osmolality Calculated 293 mOsm/kg (285-295); Potassium 4.6 mmol/L (3.5-5.1); Sodium 137 mmol/L (136-145); Total Bilirubin 0.2 mg/dL (0.15-1.2); Total Protein 6.3 g/dL (6.6-8.7)
--- NOTE | 2024-02-13 08:19 | XACV_ITS ---
Exam Room: 112 Ht: 165 cm Wt: 92 kg BSA: 2.09 m2 Gender: Male : 1950 Any Known Allergies: Other Exam Priority: Routine Procedure(s): Procedure Description: Diagnostic procedure Henrry RENAE; Diagnostic Cath Status: Urgent Diagnostic Findings * Patient with fairly typical episodes of chest discomfort and elevated troponin. Also has renal insufficiency. 24 hours of normal saline was administered prior to cardiac catheterization. The procedure was done from the right radial artery. * Coronary angiography reveals right coronary artery dominance. The left main coronary artery is normal. There is a 95+ percent eccentric somewhat calcified stenosis in the proximal LAD just prior to the takeoff of the first diagonal branch. The remainder of the vessel is free of any significant lesions but there is luminal irregularities. Circumflex also contains luminal irregularities. There is a very proximal marginal branch which has a 99% stenosis in the ostium. The right coronary artery is the dominant vessel. There are previously placed stents in the midportion. There are no significant stenoses though there are luminal irregularities. No left ventriculogram was done due to the renal insufficiency. PCI Status: Urgent PCI LVEF Assessed: No PCI Indication: NSTE - ACS Interventional Findings * The LAD lesion was wired without too much difficulty. The guide support was poor. I made an attempt to primarily stent the LAD lesion but this was unsuccessful as the stent would not pass. I then went in with a 3.5 x 8 mm angioplasty balloon and performed angioplasty. Subsequently a stent would still not pass through the lesion. I then used a guide liner. This allowed a stent to be placed. The stent was a 4 by 8 mm stent. Despite this there was still some eccentricity, about a 40 to 50% stenosis. I did not have a noncompliant balloon big enough to post dilate the lesion however the stenosis is improved significantly. As soon as the guide was placed the patient became agitated, developed chest pain, became hypertensive and tachycardic. His blood pressure went up to 220/110 and his heart rate up to 140. He became slowly more agitated despite sedation and beta-blockers throughout the procedure. Because of the difficulty in getting the stent in place, having to use a guide liner among others, I used slightly more than 200 mL of contrast material. Because of all of the above issues, the contrast material, agitation, hypertension and tachycardia as well as chest pain I decided to stop after getting what I hope is the culprit lesion and not try to intervene on the circumflex. This will be a difficult lesion to intervene on should it be necessary because of his ostial location and its proximity to the left main coronary artery. Decision for PCI with Surgical Consult: No PCI for Multi-vessel Disease: No Conclusions 1. 95% eccentric LAD lesion undergoing difficult angioplasty and stent. 99% ostial first obtuse marginal lesion not intervened upon due to contrast load, agitation, hypertension and tachycardia. Recommendations * We will try to keep him free of angina with medical therapy. We may have to go back in later to attempt intervention to the circumflex though this will be difficult because of its location. Interventional RX Recommendation: PCI w/o planned CABG Diagnostic RX Recommendation: medical therapy and/or counseling Anticoagulation: Heparin Pressures Phase:Rest AO : 126 / 89 ( 107 ) @ 9:55:00 AM 126 / 93 ( 106 ) @ 9:57:00 AM 176 / 115 ( 143 ) @ 10:03:00 AM 210 / 114 ( 152 ) @ 10:08:00 AM 194 / 131 ( 161 ) @ 10:10:00 AM 207 / 147 ( 176 ) @ 10:15:00 AM Clinical Evaluation EBL: 5mL-10mL Procedural Details Pre-Procedure Time Out. Identified patient by full name and date of as verbalized by the patient/guarantor. Does the consent match the physician's order: Yes. Accurate & Complete Informed Consent: Yes. Inpatient/Outpatient History & Physical on Chart: Yes. If H&P is completed, is and addenduem needed: No; If yes, is the addendum complete: N/A. Visualize and Verify Site with Patient/Guarantor: N/A. Relevant Radiology Images available: Yes. Pre-op teaching completed and patient verbalized understanding. The risks, benefits, and alternatives of sedation and/or procedure were discussed by physician. The patient agrees to continue. Procedure started. [facility] Clinical Fraility Score: 4: Vulnerable. Vegetable Preparer Indications: ACS > 24 hours. Chest Pain Symptom Assessment: Typical Angina Symptoms. Correct patient, site and procedure confirmed by cath team. Current diagnosis: NSTEMI. PERRLA. Strong, equal hand supervisor tank cleaning bilaterally. Lungs clear x 5 lobes. IV Site on Arrival: 18 gauge in the left anticubital. IV Fluids: 0.9% NaCl at KVO. 600 mL infused prior to quality assurance qa lab technician. Pre Procedural Pulses: right radial was 2+. Oxygen started at 2liters/min via nasal canula. right groin was prepped with chloroprep then draped in the usual sterile fashion. right radial was prepped with chloroprep then draped in the usual sterile fashion. Baseline sample Acquired. HR: 100 BPM. Physician arrived. Physician scrubbed in. Immediate Pre-Procedure Time Out. Correct Patient: Yes; Correct Procedure: Yes; Correct Site: Yes; Correct Patient Position: Yes; Correct Supplies: Yes; Dried Flammable Prep: Yes; Blood Products Available: N/A;. Lidocaine 1% infiltrated to the right radial. Arterial access obtained. Wire unable to advance through the needle. Wire and needle out. Arterial access obtained. A 5 mexican TIG catheter in over wire. Multiple views taken of right coronary artery. Catheter redirected to the LCA. Multiple views taken of left coronary artery. Catheter removed over the exchange wire. A 6 mexican JL4.5 catheter in over wire. Current Diagnosis : NSTEMI. Multiple views taken of left coronary artery. Catheter removed over the exchange wire. 6 mexican XB 3.5 guide catheter was inserted over the wire. [place] guidewire was advanced through the guide catheter to lesion in the prox LAD. Stent inserted to lesion in the prox LAD. Intact stent out OTW. Inflation number : 1 A AB TREK [id number] RX BALLOON was prepped and advanced across the Prox LAD , then inflated to 12 PIOTR for 0:34 seconds. Balloon out. Stent inserted to lesion in the prox LAD. Intact stent out OTW. Guideliner inserted and advanced OTW. Inflation Number : 2 A CONCEPCIÓN [place] BOOKER 4.0X08 CIELO -Lot Number# _[id number] EXP: 02/17/2024 was prepped and advanced across the Prox LAD. The stent was deployed at 16 PIOTR for 0:49 seconds. Stent balloon out over wire. Guideliner out OTW. Results checked. Wire out. Guide catheter out. A TR Band was successful obtaining hemostatsis at the Right Radial artery insertion site. Vital chart was stopped. Post Procedure: Pulses reassessed and unchanged. PERRLA. Strong, equal hand supervisor tank cleaning bilaterally. No VTE prophylaxis required. Medication's Wasted: Lidocaine 1% = 17 mL. Medication's Wasted: Nitro = 49.8 mg. Medication's Wasted: Other = Fentanyl 25mcg Versed 1 mg. Total IV fluids: 40 mL. Post-op diagnosis: CAD. Complications: None. Estimated blood loss: 5mL-10mL. Responsiveness - Normal response to verbal stimuli; alert and oriented, PERRLA. Airway - Unaffected, no intervention required; spontaneous ventilation. Circulation: W/N/L, pulses unchanged. Nausea/Vomiting: No. Procedure completed. Patient transferred by wheelchair to 1st floor. Access Site Site: Right Radial artery Sheath Size: 6 Fr Hemostasis Method: TR Band Hemostasis Success: Successful Procedure Medications Start: 8:43 AM Stop: 8:43 AM Medication: Versed 1 mg and Fentanyl 25 mcg Amount: 1 Route: I.V. Start: 8:47 AM Stop: 8:47 AM Medication: Versed Amount: 1 mg Route: I.V. Start: 8:52 AM Stop: 8:52 AM Medication: Nitrogylcerin Amount: 200 mcg Route: I.A. Start: 8:54 AM Stop: 8:54 AM Medication: Heparin Amount: 2500 units Route: I.V. Start: 9:11 AM Stop: 9:11 AM Medication: Versed 1 mg and Fentanyl 25 mcg Amount: 1 Route: I.V. Start: 9:14 AM Stop: 9:14 AM Medication: Lopressor (metoprolol) Amount: 5 mg Route: I.V. Start: 9:17 AM Stop: 9:17 AM Medication: Versed 1 mg and Fentanyl 25 mcg Amount: 1 Route: I.V. Start: 9:22 AM Stop: 9: AM Medication: Lopressor (metoprolol) Amount: 5 mg Route: I.V. Start: 9:29 AM Stop: 9:29 AM Medication: Heparin Amount: 3500 units Route: I.V. Start: 9:31 AM Stop: 9:31 AM Medication: Plavix Amount: 600 mg Route: P.O. I, the attending physician, have reviewed and verified all procedure medications. Yes, all medications given per verbal order History/Risk Factors Hypertension: Yes Dyslipidemia: Yes Peripheral Arterial Disease (PAD): No Myocardial Infarction (MA): Yes Obesity: No Renal Disease: No Tobacco Use: Former Prior Interventions PCI: Yes CABG: No Valve Surgery: No Date of PCI: 10/25/2005 Report Signatures Finalized by Dr. Darell Sales MD on 02/13/2024 10:11 AM
[2024-02-13] MEDS: amlodipine 5 mg Tablet PO (08:24)
[2024-02-13] MEDS: levothyroxine 25 mcg Tablet PO (08:24)
[2024-02-13] MEDS: aspirin 81 mg EC Tablet PO (08:24)
[2024-02-13] MEDS: diphenhydrAMINE 50 mg Capsule PO (08:24)
[2024-02-13] MEDS: citalopram 20 mg Tablet 40 MG PO (08:24)
[2024-02-13] MEDS: pantoprazole DR 40 mg Tablet PO (08:24)
[2024-02-13] MEDS: sodium chloride 0.9% 1,000 ML 50 ML IV (08:24)
[2024-02-13] MEDS: gemfibrozil 600 mg Tablet PO ×2 (08:24→18:10)
[2024-02-13] MEDS: fluticasone nasal spray 16gm Btl 2 SPRAY INTRANASAL (08:25)
--- NOTE | 2024-02-13 10:09 | ECG_ITS ---
[facility] Test Date: 2024-02-13 Pat Name: Mian Menendez Department: Room: 112 Gender: Male Trust Operations Assistant: : 1950 Requested By: Grayson Guillen Order Number: [id number] Reji MD: Darell Sales M.D. Measurements Intervals [place] Rate: 127 P: 0 MA: 0 QRS: 2 QRSD: 104 T: 40 QT: 321 QTc: 467 Interpretive Statements ATRIAL FIBRILLATION WITH RAPID VENTRICULAR RESPONSE ABNORMAL RHYTHM ECG Compared to ECG 02/12/2024 13:50:46 Sinus tachycardia no longer present Left-axis deviation no longer present ST (T wave) deviation no longer present Electronically Signed On 02-14-2024 15:05:36 CDT by Darell Sales M.D. [email or web address]
--- NOTE | 2024-02-13 10:21 | XRR_ITS ---
PROCEDURE INFORMATION: Exam: XR Chest Exam date and time: 02/13/2024 10:31 AM Age: 73 years old Clinical indication: Shortness of breath; Additional info: SOB, hypoxia, concern for fluid overload TECHNIQUE: Imaging protocol: Radiologic exam of the chest. Views: 1 view. COMPARISON: CR (CHEST, ) 02/11/2024 11:21 PM FINDINGS: Lungs: No focal lung consolidation. Chronic appearing interstitial lung markings. Stable left upper lung granuloma. Pleural spaces: No pleural effusion. No pneumothorax. Heart/Mediastinum: Unremarkable. No cardiomegaly. Bones/joints: No acute bony abnormality. XR/XR chest 1V portable [id number] IMPRESSION: No focal lung consolidation.
[2024-02-13] MEDS: isosorbide mononitrate ER 30 mg Tablet PO (10:54)
[2024-02-13] MEDS: metoprolol tartrate 1 mg/1 mL SDV 5 mL 5 MG IVP (11:21)
--- NOTE | 2024-02-13 12:06 | P.PN_ITS ---
Subjective 2 Subjective: Overnight patient did not have any chest pain. Today morning DAWNA resolved and patient underwent cardiac angiogram and was found to have double vessel disease with 99% lesion in proximal LAD and 99% lesion in LCx. Underwent CIELO to LAD. Post cath patient has been having increased work of breathing but saturating more than 92% on 2 L with heart rate running in 120s. A-fib with RVR. Vitals/I&O/Wt Last Vital Signs Temp 97.6 F 02/13/24 04:00 Pulse 120 H 02/13/24 11:40 Resp 18 02/13/24 11:40 BP 140/94 02/13/24 11:40 Pulse Ox 93 02/13/24 11:40 O2 Del Method Nasal Cannula 02/13/24 11:39 O2 Flow Rate 2 02/12/24 13:24 02/12/24 02/13/24 02/13/24 22:59 06:59 14:59 Intake Total 1240 / 1500.438 331.562 / 7761.661 3285 / 1000 Output Total 650 / 950 900 / 1850 750 / 750 Balance 590 / 550.438 -568.438 / -18.000 250 / 250 Weight last 48 hrs Weight 92.079 kg Weight 89.902 kg Weight 89.902 kg Weight 89.811 kg Weight 89.902 kg Weight 88.451 kg Physical Exam 2 Narrative: General: No acute distress, AO x3 HEENT: PERRLA, pupils bilaterally equal and reactive, pallors not present Chest: Normal vesicular breath sounds, no added sounds, equal good air entry bilaterally CVS: S1-S2 regular, no murmurs, no tachycardia, no gallops, no rubs Abdomen: Soft, nontender, no organomegaly, bowel sounds present Neuro: No focal deficits, no facial deformity, AO x3, power 5/5 in all limbs Data 02/13/24 06:26 02/13/24 06:26 A&P Assessment and plan (1) Acute non-ST elevation myocardial infarction (NSTEMI): Post PCI today. Found to have double vessel disease with lesion in LAD and LCx. Post PCI to LAD. LCx could not be intervened as patient had chest pain and got agitated. Post cath patient having mild chest pain and tachycardia. Continue with aspirin, Plavix, gemfibrozil, increase dose of metoprolol 50 mg twice daily, Imdur as per cardiology team. Patient is allergic to statins. Monitor vitals. Continue with normal send 50 cc/h. Watch for fluid overload. (2) Acute kidney injury: (3) Atrial fibrillation with RVR: Plan COPD: no acute exacerbation: Duoneb every 6 hrs inhalation Acute kidney injury: Monitor BMP daily. Resolved for now. Watch for MICHAELA. Continue gentle IV hydration. Strict input output charting. A-fib with RVR: Postcardiac catheterization. Monitor heart rate. Patient would possibly need anticoagulation if remains in A-fib for more than 24 hours. Check echocardiogram once heart rate less than 100. Hypertension: Goal blood pressure less than 140/90 mmHg. Hold off on amlodipine for now. Continue with Imdur and metoprolol as above. Will uptitrate as for goal blood pressures. Patient might need a higher dose of nitrates. Full code Carb consistent diet Lovenox for DVT prophylaxis Protonix for PUD prophylaxis Attestations 2 Medical Necessity Statement*: Requires further hospitalization for management of non-ST elevation NM post PCI, A-fib with RVR Diagnoses Acute non-ST elevation myocardial infarction (NSTEMI) I21.4 Acute kidney injury N17.9 Atrial fibrillation with RVR I48.91
[2024-02-13] MEDS: metoprolol tartrate 50 mg Tablet PO (18:09)
[2024-02-13] MEDS: dilTIAZem 5 mg/mL SDV 5 mL 20 MG IVP (19:32)
[2024-02-13] MEDS: tamsulosin 0.4 mg Capsule 0.400000000000000022 MG PO (19:48)
[2024-02-13] MEDS: montelukast sodium 10 mg Tablet PO (19:48)
[2024-02-14] VITALS (12 sets, daily range): BP systolic 116–153; BP diastolic 64–82; PULSE 60–699; RESP 16–19; TEMP 36.6–36.7; O2SAT 93–97
[2024-02-14 04:24] LABS: Basophils % 0.1 %; Hematocrit 32.1 % (37-53); Lymphocytes # 1.8 10^3/uL (0.8-4.8); Lymphocytes % 19.7 %; Mean Corpuscular HGB Conc 31.8 g/dL (30-55); Mean Corpuscular Hemoglobin 31.3 pg (27-33); Mean Corpuscular Volume 98.5 fl (82-101); Mean Platelet Volume 10.2 fL (7.4-10.4); Monocytes # 0.8 10^3/uL (0.2-0.9); Monocytes % 8.1 %; Neutrophils # 6.57 10^3/uL (1.8-7.7); Neutrophils % 71.3 %; Nucleated Red Blood Cells % 0 %; Platelet Count 218 10^3/cmm (157-399); Red Blood Count 3.26 10^6/uL (3.85-5.65); Red Cell Distribution Width 12.5 % (12.1-15.1); White Blood Count 9.21 10^3/uL (3.29-11.43)
[2024-02-14 04:45] LABS: Alanine Aminotransferase 20 U/L (0-41); Albumin Level 3.9 g/dL (3.5-5.2); Alkaline Phosphatase 81 U/L (40-130); Anion Gap 12.7 (5-19); Aspartate Amino Transferase 22 U/L (0-40); Blood Urea Nitrogen 29 mg/dL (8-23); Calcium 8.7 mg/dL (8.5-10.5); Carbon Dioxide 22 mmol/L (22-29); Chloride 109 mmol/L (98-107); Creatinine Clr Calc Pharmacy 58.8829; Globulin 2.3 g/dL (1.3-4.6); Glucose 154 mg/dL (65-115); Osmolality Calculated 297 mOsm/kg (285-295); Potassium 4.7 mmol/L (3.5-5.1); Sodium 139 mmol/L (136-145); Total Bilirubin 0.2 mg/dL (0.15-1.2); Total Protein 6.2 g/dL (6.6-8.7)
[2024-02-14 04:47] LABS: Troponin T (5th) Once 321 ng/L (0-15)
[2024-02-14] MEDS: FUROsemide 10 mg/mL SDV 4mL 40 MG IVP (05:26)
--- NOTE | 2024-02-14 07:51 | P.PN_ITS ---
Subjective 2 Subjective: Mian is improved overnight. No more chest pain. His heart rate has come down nicely. He was still tachycardic into the evening last night. He was given 1 dose of Cardizem 20 mg IV. Since then he has been in sinus rhythm with a heart rate between 70 and 80. He was also given 1 dose of Lasix overnight 40 mg IV. He does tend to wheeze a little bit. I have been giving him normal saline to try and remove the contrast material more efficiently. His chest x-ray yesterday did not show any consolidation, atelectasis or evidence of heart failure. His BUN and creatinine are 29 and 1.2 this morning. Vitals/I&O/Wt Last Vital Signs Temp 97.8 F 02/14/24 03:59 Pulse 73 02/14/24 06:00 Resp 19 H 02/14/24 03:59 BP 139/82 02/14/24 03:59 Pulse Ox 94 02/14/24 03:59 O2 Del Method Nasal Cannula 02/14/24 03:59 O2 Flow Rate 2 02/12/24 13:24 02/13/24 02/14/24 02/14/24 22:59 06:59 14:59 Intake Total 1240 / 2480 Output Total 0 / 750 1475 / 2225 Balance 1240 / 1730 -1475 / 255 Weight last 48 hrs Weight 204 lb Weight 203 lb Physical Exam 2 Narrative: GENERAL: In general he looks and feels well HEENT: Exam within normal limits. NECK: Supple without jugular vein distention. The carotid upstroke is normal without bruits. BACK: Exam normal. LUNGS: Occasional wheezes HEART: Regular rate and rhythm. ABDOMEN: Benign without organomegaly or tenderness. EXTREMITIES: No edema. The right radial artery entry site is flat, dry without bleeding, hematoma or vascular anomaly NEUROLOGIC: Exam normal. SKIN: Unremarkable. Data 02/14/24 04:13 02/14/24 04:13 A&P Assessment and plan (1) Status post coronary artery stent placement: (2) Hypertension: Qualifiers: Hypertension type: essential hypertension Qualified Code(s): I10 - Essential (primary) hypertension (3) Coronary artery disease: (4) Hyperlipidemia: (5) Acute non-ST elevation myocardial infarction (NSTEMI): (6) Chest pain: Qualifiers: Chest pain type: unspecified Qualified Code(s): R07.9 - Chest pain, unspecified (7) Elevated troponin: (8) Atrial fibrillation with RVR: (9) Chronic kidney insufficiency: (10) COPD (chronic obstructive pulmonary disease): Qualifiers: COPD type: emphysema Emphysema type: unspecified Qualified Code(s): J 43.9 - Emphysema, unspecified (11) Obstructive sleep apnea: Plan I explained everything to him again this morning. Yesterday he was still somewhat sleepy from the medication. His is in the room this morning but she is asleep in the chair. I reiterated to him that the difficulty we had with the LAD, the contrast load and leaving the circumflex alone. Today we will try to get him up and around, make adjustments in his medications. I would plan to send him home tomorrow. We will then see him in 7 to 10 days as an outpatient. If he is free of pain and doing well with regard to his blood pressure and heart rate my plan would be to treat him medically for the foreseeable future. If he struggles with pain then we would bring him back in an attempt to intervene on a difficult circumflex marginal branch. We will decrease his fluids. Attestations 2 Medical Necessity Statement*: Hospitalization for non-ST elevation [place], coronary disease, hypertension and tachycardia , High MDM includes number and complexity of problems actively addressed during encounter, amount and/or complexity of data reviewed/ordered and described risk of complication, morbidity or mortality of management as documented and Moderate Time for a total of 35 minutes, includes reviewing past or interval history, examining/interviewing patient, placing orders, counseling patient/family/other support, updating patient/family/other support, discussing plan of care with staff, communicating with other healthcare providers, documenting encounter and coordinating care Diagnoses Status post coronary artery stent placement Z95.5 Essential hypertension I10 Hypertension type: essential hypertension Coronary artery disease I25.10 Hyperlipidemia E78.5 Acute non-ST elevation myocardial infarction (NSTEMI) I21.4 Chest pain R07.9 Chest pain type: unspecified Elevated troponin R79.89 Atrial fibrillation with RVR I48.91 Chronic kidney insufficiency N18.9 Pulmonary emphysema, unspecified emphysema type J43.9 COPD type: emphysema Emphysema type: unspecified Obstructive sleep apnea G47.33
[2024-02-14] MEDS: ipratropium-albuterol 3 mL Neb INHALATION ×3 (08:31→20:59)
[2024-02-14] MEDS: citalopram 20 mg Tablet 40 MG PO (08:40)
[2024-02-14] MEDS: isosorbide mononitrate ER 30 mg Tablet PO (08:41)
[2024-02-14] MEDS: clopidogrel 75 mg Tablet PO (08:41)
[2024-02-14] MEDS: gemfibrozil 600 mg Tablet PO ×2 (08:41→17:48)
[2024-02-14] MEDS: aspirin 81 mg EC Tablet PO (08:41)
[2024-02-14] MEDS: pantoprazole DR 40 mg Tablet PO (08:42)
[2024-02-14] MEDS: amlodipine 5 mg Tablet PO (08:42)
[2024-02-14] MEDS: losartan 50 mg Tablet PO (08:42)
[2024-02-14] MEDS: metoprolol tartrate 50 mg Tablet PO ×2 (08:42→17:48)
[2024-02-14] MEDS: levothyroxine 25 mcg Tablet PO (09:00)
--- NOTE | 2024-02-14 09:52 | PC.CHAP ---
Pastoral Care Encounter/Spiritual Assessment Type of Contact [] Declined die cutter visit [] Patient/Family/Request visit [] Outpatient visit [] Follow-up visit [] Physician referral [] Code/Alert [x] Routine visit [] Staff referral [] Actively dying [] Patient sleeping [x] Family support [] [] Out of room [] Palliative care [] [] Receiving care in room [] Pre-surgical visit [] Trauma [] Long length of stay [] ICU visit [] Other: Relational/Emotional Strength [] Patient feels connected with others/family/visitors/staff [] Distress [] Loneliness/isolation [] Abandonment Spirituality of Patient [x] Person of Ines [x] Attends Adventism of their Ines [x] Believes in Prayer [x] Reads Bible or Nondenominational materials [] There are Spiritual issues to be addressed Field Scout Interventions [x] Prayer [x] Active listening [] Non-anxious presence [x] Spiritual/emotional support [] Crisis/trauma care [] Spiritual counseling [] Bereavement support [] Provided bereavement packet [x] Provided Bible/devotional materials [] Provided toy/stuffed animal, coloring book to patient or family member [] Provided Communion [] Anointing/[place] [] Salvation [x] Completed spiritual assessment [] Other: Impact on Illness or Injury [] Angry [] Fearful [] Anxious [] Often cries [] Exhaustion [] Unable to work [] Unable to attend yazdanism [] Unable to walk/stand [] Unable to read [] Unable to drive [] Unable to eat/drink [] Unable to sleep [] Unable to be with family [] Patient intubated [] Other: Summary Time spent with patient 10 min
--- NOTE | 2024-02-14 15:15 | PC.SOCIAL ---
Pg 2 IMM Explained to pt Pg 2 IMM. No questions voiced. Provided pt a copy. Initialed, dated, & timed a copy & placed in chart.
[2024-02-14] MEDS: montelukast sodium 10 mg Tablet PO (20:18)
[2024-02-14] MEDS: tamsulosin 0.4 mg Capsule 0.400000000000000022 MG PO (20:18)
--- NOTE | 2024-02-14 22:24 | P.PN_ITS ---
Subjective 2 Subjective: She is standing up by the bedside denies current chest pain or pressure. She had a discussion with cardiology earlier this morning and shares with me the plan regarding continuation of medical therapy, follow-up of symptoms with follow-up in office with trial of medical therapy or otherwise consideration of neck steps if intolerant. Vitals/I&O/Wt Last Vital Signs Temp 97.9 F 02/14/24 20:37 Pulse 74 02/14/24 21:00 Resp 16 02/14/24 21:00 BP 153/69 02/14/24 20:37 Pulse Ox 94 02/14/24 21:00 O2 Del Method Room Air 02/14/24 21:00 O2 Flow Rate 2 02/12/24 13:24 02/14/24 02/14/24 02/14/24 06:59 14:59 22:59 Output Total 1475 / 2225 900 / 900 Balance -1475 / 255 -900 / -900 Weight last 48 hrs Weight 92.533 kg Weight 92.079 kg Physical Exam 2 Narrative: Accompanied by his Const: COMMON NORMALS: patient oriented x3 and alert GENERAL APPEARANCE: c ooperative ORIENTATION/CONSCIOUSNESS: Yes awake HENMT: COMMON NORMALS: oropharynx normal Neck/C-Spine: COMMON NORMALS: no JVD Resp: COMMON NORMALS: normal respiratory effort and clear to auscultation bilaterally AUSCULTATION: clear to auscultation bilaterally Cardio: COMMON NORMALS: no JVD, regular rhythm, S1 normal heart sound present, S2 normal heart sound present and No murmurs present (Cardio) RHYTHM: regular rhythm HEART SOUNDS: S1 normal heart sound present and S2 normal heart sound present GI: COMMON NORMALS: Normal to inspection, nondistended, normoactive bowel sounds present, Soft to palpation and non-tender PALPATION: Yes Soft to palpation Extremity: COMMON NORMALS: no joint enlargement and no pedal edema Neuro: COMMON NORMALS: patient oriented x3 and moves all extremities S ENSORIUM/ORIENTATION: Yes alert Skin: COMMON NORMALS: no rashes or lesions noted GENERAL SKIN EXAM: no rashes or lesions noted Data 02/14/24 04:13 02/14/24 04:13 A&P Assessment and plan (1) Acute non-ST elevation myocardial infarction (NSTEMI): Reviewed vitals, CBC, CMP. BUN, creatinine with improvement down to 29, 1.2 respectively. Reviewed cardiology note. Discussed with test case developer. After discussion of options with cardiology continuing on medical management currently with monitor symptoms, possible discharge tomorrow with follow-up outpatient. If intolerant may require additional intervention. Post PCI. Found to have double vessel disease with lesion in LAD and LCx. Post PCI to LAD. LCx could not be intervened as patient had chest pain and got agitated. Post cath patient having mild chest pain and tachycardia. Continue with aspirin, Plavix, gemfibrozil, increase dose of metoprolol 50 mg twice daily, Imdur, losartan as per cardiology team. Reassessed at elevation History with risk of creatinine elevation. Patient is allergic to statins. Monitor vitals. IV fluids discontinued. Discussed with test case developer. (2) Acute kidney injury: Reviewed BUN, creatinine, with gradual improvement. IV fluids discontinued. Reassess chemistry. (3) Atrial fibrillation with RVR: Monitor heart rate. Continue metoprolol. Reassess chemistry. Plan COPD: no acute exacerbation: Duoneb every 6 hrs inhalation Hypertension: Goal blood pressure less than 140/90 mmHg. Hold off on amlodipine for now. Continue with Imdur and metoprolol as above. Will uptitrate as for goal blood pressures. Patient might need a higher dose of nitrates. Full code Carb consistent diet Lovenox for DVT prophylaxis Protonix for PUD prophylaxis Attestations 2 Medical Necessity Statement*: Continue admission for assessment of management of CAD, status post partial revascularization, optimizing medical treatment, monitor in the hospital, post discharge planning and arrangements. and High MDM includes amount and/or complexity of data reviewed/ordered [ previous or external records, resulted lab(s)/test(s), ordered lab(s)/test(s) and other healthcare professional discussion] and described risk of complication, morbidity or mortality of management as documented Diagnoses Acute non-ST elevation myocardial infarction (NSTEMI) I21.4 Acute kidney injury N17.9 Atrial fibrillation with RVR I48.91
[2024-02-15] VITALS (7 sets, daily range): BP systolic 119–153; BP diastolic 69–86; PULSE 72–81; RESP 12; TEMP 36.7; BMI 33.9
[2024-02-15 06:54] LABS: Basophils % 0.2 %; Eosinophils % 0.2 %; Hematocrit 36.4 % (37-53); Lymphocytes # 2.6 10^3/uL (0.8-4.8); Lymphocytes % 28.3 %; Mean Corpuscular HGB Conc 33.8 g/dL (30-55); Mean Corpuscular Hemoglobin 31.7 pg (27-33); Mean Corpuscular Volume 93.8 fl (82-101); Mean Platelet Volume 10.7 fL (7.4-10.4); Monocytes # 0.8 10^3/uL (0.2-0.9); Monocytes % 9.2 %; Neutrophils % 60.9 %; Nucleated Red Blood Cells % 0 %; Platelet Count 235 10^3/cmm (157-399); Red Blood Count 3.88 10^6/uL (3.85-5.65); Red Cell Distribution Width 12.2 % (12.1-15.1); White Blood Count 9.04 10^3/uL (3.29-11.43)
--- NOTE | 2024-02-15 07:08 | P.PN_ITS ---
Subjective 2 Subjective: Mian has had an uneventful night. No more episodes of hypertension, tachycardia or chest pain. He feels okay this morning. Vitals/I&O/Wt Last Vital Signs Temp 97.9 F 02/14/24 20:37 Pulse 81 02/15/24 06:00 Resp 12 02/15/24 04:00 BP 153/69 02/15/24 00:01 Pulse Ox 94 02/14/24 21:00 O2 Del Method Room Air 02/15/24 04:00 O2 Flow Rate 2 02/12/24 13:24 Weight last 48 hrs Weight 204 lb Weight 204 lb Physical Exam 2 Narrative: GENERAL: In general he looks and feels well HEENT: Exam within normal limits. NECK: Supple without jugular vein distention. The carotid upstroke is normal without bruits. BACK: Exam normal. LUNGS: Clear. HEART: Regular rate and rhythm. ABDOMEN: Benign without organomegaly or tenderness. EXTREMITIES: No edema. The right radial artery entry site is flat, dry without bleeding or hematoma. No vascular anomalies. NEUROLOGIC: Exam normal. SKIN: Unremarkable. Data 02/15/24 06:45 02/14/24 04:13 A&P Assessment and plan (1) Status post coronary artery stent placement: (2) Hypertension: Qualifiers: Hypertension type: essential hypertension Qualified Code(s): I10 - Essential (primary) hypertension (3) Coronary artery disease: (4) Hyperlipidemia: (5) Acute non-ST elevation myocardial infarction (NSTEMI): (6) Chest pain: Qualifiers: Chest pain type: unspecified Qualified Code(s): R07.9 - Chest pain, unspecified (7) Elevated troponin: (8) Atrial fibrillation with RVR: (9) Chronic kidney insufficiency: (10) COPD (chronic obstructive pulmonary disease): Qualifiers: COPD type: emphysema Emphysema type: unspecified Qualified Code(s): J 43.9 - Emphysema, unspecified (11) Obstructive sleep apnea: Plan I believe he may go home today. He should be discharged on his home medications including amlodipine 5 mg daily, furosemide 40 mg daily, isosorbide dinitrate 5 mg daily, potassium 20 mEq daily. I would decrease the losartan dose to 50 mg daily. We should add Plavix 75 mg daily, metoprolol to tartrate 50 mg twice daily, aspirin 81 mg daily. He should see us in 7 to 10 days by the nurse practitioner for creatinine evaluation, right radial artery check and to evaluate his symptoms. My goal is to continue to treat him medically as long as he remains free of discomfort. The obtuse marginal branch will be difficult to intervene upon because of its position so if we can successfully treat him medically that is the goal. I believe the LAD lesion was the culprit and causing his angina. Attestations 2 Medical Necessity Statement*: Discharge today and Moderate Time for a total of 30 minutes, includes reviewing past or interval history, examining/interviewing patient, counseling patient/family/other support, updating patient/family/other support, discussing plan of care with staff, communicating with other healthcare providers and documenting encounter Diagnoses Status post coronary artery stent placement Z95.5 Essential hypertension I10 Hypertension type: essential hypertension Coronary artery disease I25.10 Hyperlipidemia E78.5 Acute non-ST elevation myocardial infarction (NSTEMI) I21.4 Chest pain R07.9 Chest pain type: unspecified Elevated troponin R79.89 Atrial fibrillation with RVR I48.91 Chronic kidney insufficiency N18.9 Pulmonary emphysema, unspecified emphysema type J43.9 COPD type: emphysema Emphysema type: unspecified Obstructive sleep apnea G47.33
[2024-02-15 07:11] LABS: Blood Urea Nitrogen 22 mg/dL (8-23); Calcium 9.5 mg/dL (8.5-10.5); Carbon Dioxide 25 mmol/L (22-29); Chloride 103 mmol/L (98-107); Creatinine Clr Calc Pharmacy 64.3941; Glucose 118 mg/dL (65-115); Osmolality Calculated 288 mOsm/kg (285-295); Sodium 137 mmol/L (136-145)
[2024-02-15 07:16] LABS: Anion Gap 13.4 (5-19); Potassium 4.4 mmol/L (3.5-5.1)
[2024-02-15] MEDS: citalopram 20 mg Tablet 40 MG PO (09:46)
[2024-02-15] MEDS: aspirin 81 mg EC Tablet PO (09:47)
[2024-02-15] MEDS: metoprolol tartrate 50 mg Tablet PO (09:47)
[2024-02-15] MEDS: isosorbide mononitrate ER 30 mg Tablet PO (09:47)
[2024-02-15] MEDS: amlodipine 5 mg Tablet PO (09:47)
[2024-02-15] MEDS: levothyroxine 25 mcg Tablet PO (09:47)
[2024-02-15] MEDS: gemfibrozil 600 mg Tablet PO (09:47)
[2024-02-15] MEDS: clopidogrel 75 mg Tablet PO (09:47)
[2024-02-15] MEDS: losartan 50 mg Tablet PO (09:47)
[2024-02-15] MEDS: pantoprazole DR 40 mg Tablet PO (09:48)
[2024-02-15] MEDS: fluticasone nasal spray 16gm Btl 2 SPRAY INTRANASAL (09:48)
--- NOTE | 2024-02-15 10:01 | PC.CHAP ---
Pastoral Care Encounter/Spiritual Assessment Type of Contact [] Declined home supervisor visit [] Patient/Family/Request visit [] Outpatient visit [] Follow-up visit [] Physician referral [] Code/Alert [X] Routine visit [] Staff referral [] Actively dying [] Patient sleeping [] Family support [] [] Out of room [] Palliative care [] [] Receiving care in room [] Pre-surgical visit [] Trauma [] Long length of stay [] ICU visit [] Other: Relational/Emotional Strength [X] Patient feels connected with others/family/visitors/staff [] Distress [] Loneliness/isolation [] Abandonment Spirituality of Patient [X] Person of Ines [] Attends Yarsanism of their Ines [X] Believes in Prayer [] Reads Bible or Latter Day materials [] There are Spiritual issues to be addressed Vender Interventions [X] Prayer [X] Active listening [] Non-anxious presence [X] Spiritual/emotional support [] Crisis/trauma care [] Spiritual counseling [] Bereavement support [] Provided bereavement packet [] Provided Bible/devotional materials [] Provided toy/stuffed animal, coloring book to patient or family member [] Provided Communion [] Anointing/[place] [] Salvation [X] Completed spiritual assessment [] Other: Impact on Illness or Injury [] Angry [] Fearful [] Anxious [] Often cries [] Exhaustion [] Unable to work [] Unable to attend buddhism [] Unable to walk/stand [] Unable to read [] Unable to drive [] Unable to eat/drink [] Unable to sleep [] Unable to be with family [] Patient intubated [] Other: Summary Time spent with patient 5 MIN
--- NOTE | 2024-02-15 11:44 | PM.DCS ---
Discharge Providers Date of Admission: 02/12/24 02:48 Date of Discharge: February 15, 2024 Attending Provider at Admission: Cindy Nieto MD Attending Provider at Discharge: Fransico Patel Primary Care Provider: BOB Alex Diagnoses at Discharge Discharge Diagnosis (1) Status post coronary artery stent placement: Status: Acute (2) Hypertension: Status: Acute Qualifiers: Hypertension type: essential hypertension Qualified Code(s): I10 - Essential (primary) hypertension (3) Coronary artery disease: Status: Acute (4) Hyperlipidemia: Status: Acute (5) Acute non-ST elevation myocardial infarction (NSTEMI): Status: Acute (6) Chest pain: Status: Acute Qualifiers: Chest pain type: unspecified Qualified Code(s): R07.9 - Chest pain, unspecified (7) Elevated troponin: Status: Acute (8) Atrial fibrillation with RVR: Status: Acute (9) Chronic kidney insufficiency: Status: Chronic (10) COPD (chronic obstructive pulmonary disease): Status: Acute Qualifiers: COPD type: emphysema Emphysema type: unspecified Qualified Code(s): J43.9 - Emphysema, unspecified (11) Obstructive sleep apnea: Status: Acute Reason for Visit Reason for Visit: cp right arm jaw heart racing Hospital Course Hospital Course Pleasant 73-year-old gentleman with history of COPD, HTN, HLD, HFpEF, CAD, ELZA, former smoker, was admitted after presenting with chest pain which has been recurrent recently, middle of the chest radiating to the right side and into the jaw, initially hypertensive, being more intensive during this episode. On admission was diagnosed with NSTEMI, started on antiplatelets, anticoagulation, allergic to statins, continued on gemfibrozil, initially with DAWNA, creatinine 1.7 baseline 0.9-1.1, initially losartan and Lasix held. Was assessed by cardiology. Transposition also experienced episode of chest pain, flushing, with hypertension and A-fib with RVR, received IV Lopressor. DAWNA improved. Underwent additional assessment with coronary angiography with finding of two-vessel disease, underwent PCI and stenting of 90% lesion of the LAD, additional 99% stenosis lesion of LCx, however, the second lesion was left alone, with difficulty with LAD, concern for contrast load, as per discussion between him and cardiology decision was made to treat medically for foreseeable future, reassess tolerance, in case of recurrent symptoms consideration of reintervention on the circumflex marginal branch. As per cardiology recommendations he is continued on amlodipine 5 mg. Furosemide 40 mg, extra by dinitrate 5 mg, potassium 20 mEq, losartan was decreased to 50 mg, started on Plavix 75 mg, aspirin 81 mg, metoprolol tartrate 50 mg twice a day. He knows to monitor for any worsening or new concerning symptoms, and to seek medical attention and is cleared for discharge by cardiology. He also knows to follow-up with primary provider and cardiology for reassessment. Discharge Data Studies Completed and Pending Completed Studies During Hospitalization Category Date Time Status [employer]EL[employer] request for service Routine Exams 02/13/24 08:19 Completed XR chest 1V portable [id number] Routine Exams 02/13/24 10:21 Completed XR chest 1V portable [id number] Stat Exams 02/11/24 23:19 Completed Pending at discharge Category Date Time Status Basic Metabolic Panel AM LABS Lab 02/16/24 04:00 Ordered Basic Metabolic Panel AM LABS Lab 02/17/24 04:00 Ordered Complete Blood Count w/Auto AM LABS Lab 02/16/24 04:00 Ordered Complete Blood Count w/Auto AM LABS Lab 02/17/24 04:00 Ordered Radiology Impressions Chest X-Ray 02/13/24 10:21 IMPRESSION: No focal lung consolidation. Laboratory Results WBC 9.04 10^3/uL (3.29-11.43) 02/15/24 06:45 Corrected WBC Cancelled 02/15/24 04:55 RBC 3.88 10^6/uL (3.85-5.65) 02/15/24 06:45 Hgb 12.30 g/dL (11.27-16.99) 02/15/24 06:45 Hct 36.4 % (37-53) L 02/15/24 06:45 MCV 93.8 fl (82-101) 02/15/24 06:45 MCH 31.7 pg (27-33) 02/15/24 06:45 MCHC 33.8 g/dL (30-55) D 02/15/24 06:45 RDW 12.2 % (12.1-15.1) 02/15/24 06:45 Plt Count 235 10^3/cmm (157-399) 02/15/24 06:45 MPV 10.7 fL (7.4-10.4) H 02/15/24 06:45 Gran % Cancelled 02/15/24 04:55 Neut % (Auto) 60.9 % 02/15/24 06:45 Lymph % (Auto) 28.3 % 02/15/24 06:45 [place] % (Auto) 9.2 % 02/15/24 06:45 Eos % (Auto) 0.2 % 02/15/24 06:45 Baso % (Auto) 0.2 % 02/15/24 06:45 Neut # (Auto) 5.50 10^3/uL (1.8-7.7) 02/15/24 06:45 Lymph # (Auto) 2.6 10^3/uL (0.8-4.8) 02/15/24 06:45 [place] # (Auto) 0.8 10^3/uL (0.2-0.9) 02/15/24 06:45 Eos # (Auto) 0.0 10^3/uL (0.0-0.8) 02/15/24 06:45 Baso # (Auto) 0.0 10^3/uL (0.0-0.1) 02/15/24 06:45 Absolute Gran (auto) Cancelled 02/15/24 04:55 Nucleated RBC % (auto) 0 % 02/15/24 06:45 Nucleated RBCs # 0.0 /100WBC 02/15/24 06:45 APTT 119.0 SECONDS (23.9-36.7) H D 02/13/24 06:26 Sodium 137 mmol/L (136-145) 02/15/24 06:45 Potassium 4.4 mmol/L (3.5-5.1) 02/15/24 06:45 Chloride 103 mmol/L (98-107) 02/15/24 06:45 Carbon Dioxide 25 mmol/L (22-29) 02/15/24 06:45 Anion Gap 13.4 (5-19) 02/15/24 06:45 BUN 22 mg/dL (8-23) 02/15/24 06:45 Creatinine 1.1 mg/dL (0.7-1.2) 02/15/24 06:45 GFR Calculation Not Reportable 02/15/24 06:45 Glucose 118 mg/dL (65-115) H 02/15/24 06:45 Estimat Average Glucose 117 02/11/24 23:06 Hemoglobin A1c 5.7 % (4.0-6.0) 02/11/24 23:06 Calculated Osmolality 288 mOsm/kg (285-295) 02/15/24 06:45 Calcium 9.5 mg/dL (8.5-10.5) 02/15/24 06:45 Magnesium 2.4 mg/dL (1.7-2.3) H 02/13/24 06:26 Total Bilirubin 0.2 mg/dL (0.15-1.2) 02/14/24 04:13 AST 22 U/L (0-40) 02/14/24 04:13 ALT 20 U/L (0-41) 02/14/24 04:13 Alkaline Phosphatase 81 U/L (40-130) 02/14/24 04:13 Troponin T 5th Gen ng/L 321 ng/L (0-15) H* 02/14/24 04:13 Troponin T Baseline 46 ng/L (0-15) H 02/11/24 23:06 Troponin T 120 Minute 147.6 ng/L (0-15) H 02/12/24 01:17 Delta Troponin T 101.6 ABS# (0-10) H* 02/12/24 01:17 Troponin T Hi Sens 6Hr 313.8 ng/L (0-15) H 02/12/24 05:33 Troponin T Hi Sens 6Hr Delta 267.8 ng/L (0-12) H* 02/12/24 05:33 NT-Pro-B Natriuret Pep 304 pg/mL (0-125) H 02/12/24 01:17 Total Protein 6.2 g/dL (6.6-8.7) L 02/14/24 04:13 Albumin 3.9 g/dL (3.5-5.2) 02/14/24 04:13 Globulin 2.3 g/dL (1.3-4.6) 02/14/24 04:13 Triglycerides 30 mg/dL (0-150) 02/12/24 01:17 Cholesterol 175 mg/dL (0-200) 02/12/24 01:17 LDL Cholesterol, Calc 122 mg/dL (50-129) 02/12/24 01:17 HDL Cholesterol 47 mg/dL (60-100) L 02/12/24 01:17 LDL/HDL Ratio 2.60 RATIO (0.00-3.22) 02/12/24 01:17 Cholesterol/HDL Ratio 3.72 mg/dL (1.0-5.00) 02/12/24 01:17 Vitals Last Vital Signs Temp 98.1 F 02/15/24 07:48 Pulse 81 02/15/24 06:00 Resp 12 02/15/24 04:00 BP 119/86 02/15/24 09:47 Pulse Ox 94 02/14/24 21:00 O2 Del Method Room Air 02/15/24 08:00 O2 Flow Rate 2 02/12/24 13:24 Discharge Plan Discharge Patient Disposition: Home Condition: Stable Prescriptions: New clopidogrel 75 mg Tablet 75 mg PO DAILY Qty: 90 0RF metoprolol tartrate 50 mg Tablet 50 mg PO BID Qty: 180 0RF Continued tamsulosin 0.4 mg capsule 0.4 mg PO DAILY@1999 melatonin 10 mg capsule 10 mg PO DAILY@1999 potassium chloride 20 mEq tablet extended release 20 meq PO DAILY@0800 famotidine [Pepcid] 20 mg tablet 20 mg PO BID@0800,1999 montelukast [Singulair] 10 mg tablet 10 mg PO DAILY@1999 furosemide [Lasix] 40 mg tablet 40 mg PO DAILY@0800 isosorbide dinitrate 5 mg tablet 5 mg PO DAILY Rx Instructions: allow nitrate-free interval of 12-14 hrs per 24-hr period citalopram 40 mg tablet 40 mg PO DAILY 30 Days Qty: 30 1RF albuterol sulfate 2.5 mg /3 mL (0.083 %) solution for nebulization 2.5 mg inhalation QID PRN (Reason: shortness of breath or wheezing) Qty: 90 0RF aspirin 81 mg tablet,delayed release (DR/EC) 81 mg PO DAILY Qty: 90 3RF dexamethasone sodium phosphate 10 mg/mL solution 8 mg IM ONCE Qty: 0.8 0RF levothyroxine [Synthroid] 25 mcg tablet 25 mcg PO DAILY gemfibrozil 600 mg tablet 600 mg PO BID ketoconazole 2 % shampoo 1 applic topical ONCE Qty: 120 6RF Rx Instructions: Lather into scalp 2-3 times weekly. Allow to sit on scalp 5 minutes before rinsing ketoconazole 2 % cream 1 applic topical BID Qty: 30 2RF Rx Instructions: To pink scaly areas on face as needed multivitamin Tablet 1 tab PO DAILY Stiolto Respimat 2.5-2.5 mcg/actuation mist 2 puff inhalation DAILY Qty: 4 3RF albuterol sulfate [Ventolin HFA] 90 mcg/actuation HFA aerosol inhaler 2 puff inhalation Q6H PRN (Reason: shortness of breath or wheezing) Qty: 8.5 0RF fluticasone propionate [Flonase Allergy Relief] 50 mcg/actuation spray,suspension 2 spray intranasal DAILY Qty: 16 0RF Rx Instructions: administer into each nostril amlodipine 5 mg tablet 5 mg PO DAILY Qty: 90 2RF cyclobenzaprine 10 mg tablet See Rx Instructions .ROUTE .COMPLEX Qty: 30 2RF Dose Instruction: TAKE ONE TABLET BY MOUTH EVERY DAY Rx Instructions: TAKE ONE TABLET BY MOUTH EVERY DAY cholecalciferol (vitamin D3) 1,250 mcg (50,000 unit) capsule 1,250 mcg PO DAILY@1999 coenzyme Q10 [Co Q-10] 200 mg Capsule 200 mg PO DAILY Discharge Orders: Discharge Order (Routine); Ordered 02/15/24 Ordered By: Fransico Patel Referrals: Raquel Toussaint FNP [Nurse Practitioner] - 02/29/24 2:00 pm Mariluz Ko FNP [Primary Care Provider] - 02/22/24 9:30 am Discharge Diet: Cardiac Discharge Activity: Increase activity as tolerated and Limit activity as instructed Patient Instructions: Metoprolol (By mouth) (Lopressor, Toprol XL), Clopidogrel (By mouth) (Plavix), A-fib (Atrial Fibrillation) (DC), Coronary Angioplasty (DC), Acute Kidney Injury (DC), Heart Healthy Diet (GEN), Prevent Cardiovascular Disease (GEN), Post Angiogram Home Care Instructions, Post Heart Attack Stoplight Activity Restrictions/Additional Instructions: Continue cardiovascular risk prevention measures, continue aspirin, Plavix, discussed with your primary doctor consideration of prior authorization for a PCSK9 inhibitor. Continue to monitor blood pressures, aim for target blood pressure 120/80. Maintain heart healthy diet. Currently avoid strenuous exercise due to blockage in one of your coronary arteries, however, include mild to moderate activity until cleared for some moderate exercise by your primary provider and/your reliability manager. Seek medical attention immediately in case of any unresolving chest pain or pressure, shortness of breath, feeling faint, or any other worsening or new concerning symptoms. Avoid lifting anything heavier than 2 pounds for the next 3 days, have your primary doctor and/your cardiology reassessed access site where angiography was performed. Segmental attention immediately in case of any pulsatile mass, bleeding, pain or loss of color or feeling in the extremity. Discharge Attestations Time Spent in Discharge Care*: greater than 30 min Quality Metrics Clinical Quality Measures [ No reported AMI, CVA or VTE this stay] Coding Level of Care Code 63256 Total time (in minutes) for Discharge: 40 Diagnoses Status post coronary artery stent placement Z95.5 Essential hypertension I10 Hypertension type: essential hypertension Coronary artery disease I25.10 Hyperlipidemia E78.5 Acute non-ST elevation myocardial infarction (NSTEMI) I21.4 Chest pain R07.9 Chest pain type: unspecified Elevated troponin R79.89 Atrial fibrillation with RVR I48.91 Chronic kidney insufficiency N18.9 Pulmonary emphysema, unspecified emphysema type J43.9 COPD type: emphysema Emphysema type: unspecified Obstructive sleep apnea G47.33
--- NOTE | 2024-02-15 14:23 | PC.NURSE ---
Discharge Note Patient discharged to home via POV accompanied by spouse. Discharge instructions reviewed with patient and/or apprenticeship training representative. Mobile pharmacy medications and/or prescriptions provided. Belongings/home medications returned.
== END 2024-02-15 14:24 | disposition home or self-care (01) | DRG 322 ==
LOC: ER 02-12 02:37 → CSU 02-12 02:48
PROVIDERS: Internal Medicine Cardiovascular Disease; Student in an Organized Health Care Education/Training Program; Admitting Provider Student in an Organized Health Care Education/Training Program; Emergency Provider Internal Medicine; PCP Nurse Practitioner; Visit Provider Internal Medicine
PROC: 027034Z Dilation of Coronary Artery, One Artery with Drug-eluting Intraluminal Device, Percutaneous Approach (ICD-10-PCS; principal; 2024-02-13 09:00)
PROC: 027034Z Dilation of Coronary Artery, One Artery with Drug-eluting Intraluminal Device, Percutaneous Approach (ICD-10-PCS; 2024-02-13 09:00)
DX: I21.4 Non-ST elevation (NSTEMI) myocardial infarction (principal); I13.0 Hypertensive heart and chronic kidney disease with heart failure and stage 1 through stage 4 chronic kidney disease, or unspecified chronic kidney disease; I50.32 Chronic diastolic (congestive) heart failure; N17.9 Acute kidney failure, unspecified; I25.10 Atherosclerotic heart disease of native coronary artery without angina pectoris; J43.9 Emphysema, unspecified; K21.9 Gastro-esophageal reflux disease without esophagitis; E78.5 Hyperlipidemia, unspecified; N18.9 Chronic kidney disease, unspecified; G47.33 Obstructive sleep apnea (adult) (pediatric); F32.A Depression, unspecified; F41.9 Anxiety disorder, unspecified; G62.9 Polyneuropathy, unspecified; G89.29 Other chronic pain; R00.0 Tachycardia, unspecified; I48.91 Unspecified atrial fibrillation; Z79.82 Long term (current) use of aspirin; Z95.5 Presence of coronary angioplasty implant and graft; Z86.010 Personal history of colon polyps; Z87.891 Personal history of nicotine dependence
CPT/HCPCS: 36415; 71045; 80048; 80053; 80061; 83036; 83735; 83880; 84484; 85025; 85730; 93005; 93454; 94640; 96365; 96374; 96375; 96376; 99152; 99153; 99285; C1725; C1769; C1874; C1887; C1894; C9600; J1644; J1940; J2250; J2270; J3010; J3490; J7030; Q0163; Q9967

== ENCOUNTER → 2024-02-24 10:58 | Outpatient (BNVA) | payer OTHER, SELFPAY | PROVIDERS: PCP Nurse Practitioner; Visit Provider Dermatology | DX: L57.0 Actinic keratosis (principal); L85.3 Xerosis cutis; D69.2 Other nonthrombocytopenic purpura; Z85.828 Personal history of other malignant neoplasm of skin | CPT/HCPCS: 17000; 99213 ==

== ENCOUNTER 2024-02-28 13:27 | Outpatient (CLI) | payer OTHER, SELFPAY ==
--- NOTE | 2024-02-28 13:32 | XR_ITS ---
WS: [id number] DEXA (DUAL ENERGY X-RAY ABSORPTIOMETRY) Bone mineral density was performed using a [employer] machine. HISTORY: SCREENING/BONE DEMINERALIZATION NOTED COMPARISON: None available. Lumbar spine BMD (L1-L4): 1.212 g/cm2 T score: -0.1 Z score: 0.2 Total hip BMD: Left: 0.856 g/cm2. T score: -1.7 Z score: -1.1 Right: 0.901 g/cm2. T score: -1.4 Z score: -0.8 10 year probability of a major osteoporotic fracture is 12.0%. XR/XR DEXA axial skeleton* 25999 IMPRESSION: OSTEOPENIA.
== END 2024-02-28 13:28 | disposition home or self-care (01) ==
LOC: RAD 13:27
PROVIDERS: PCP Nurse Practitioner; Visit Provider Nurse Practitioner
DX: Z13.820 Encounter for screening for osteoporosis (principal); M81.0 Age-related osteoporosis without current pathological fracture; M85.80 Other specified disorders of bone density and structure, unspecified site
CPT/HCPCS: 77080

== ENCOUNTER → 2024-02-29 13:04 | Outpatient (BNVA) | payer OTHER, SELFPAY | PROVIDERS: PCP Nurse Practitioner; Visit Provider Nurse Practitioner Family | DX: I25.110 Atherosclerotic heart disease of native coronary artery with unstable angina pectoris (principal); Z87.891 Personal history of nicotine dependence; I12.9 Hypertensive chronic kidney disease with stage 1 through stage 4 chronic kidney disease, or unspecified chronic kidney disease; N18.9 Chronic kidney disease, unspecified | CPT/HCPCS: 99214 ==

== ENCOUNTER 2024-03-15 12:20 | Emergency (ER) | payer OTHER, SELFPAY ==
--- NOTE | 2024-03-15 12:20 | ECG_ITS ---
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 Measurements Intervals [place] Rate: 48 P: 44 VT: 139 QRS: -3 QRSD: 102 T: 60 QT: 454 QTc: 407 Interpretive Statements SINUS BRADYCARDIA Compared to ECG 02/13/2024 10:09:52 Atrial fibrillation no longer present Electronically Signed On 03-15-2024 18:12:03 CDT by Mele Barragan M.D. [id number]
--- NOTE | 2024-03-15 12:24 | XRR_ITS ---
PROCEDURE INFORMATION: Exam: XR Chest Exam date and time: 03/15/2024 12:42 PM Age: 73 years old Clinical indication: Pain; Angina pectoris; Additional info: Cp TECHNIQUE: Imaging protocol: Radiologic exam of the chest. Views: 1 view. COMPARISON: CR (CHEST, ) 02/13/2024 10:31 AM FINDINGS: Lungs: Calcified granuloma left upper lung. Otherwise, unremarkable. Pleural spaces: Unremarkable. No pleural effusion. No pneumothorax. Heart/Mediastinum: Unremarkable. No cardiomegaly. Bones/joints: Unchanged mild scoliosis with mild and moderate multilevel spondylosis. Unchanged bilateral shoulder arthritis with bilateral superior subluxation of the humeral heads. Unchanged surgical material in both humeral heads. XR/XR chest 1V portable [id number] IMPRESSION: No acute disease.
[2024-03-15 12:26] VITALS: BP 130/79; PULSE 47; RESP 18; TEMP 36.6; O2SAT 94; BMI 32.5
--- NOTE | 2024-03-15 13:00 | PC.PHAR ---
PT IS [facility] FOR MED LIST 12:58PM 03/15/24
--- NOTE | 2024-03-15 13:02 | W.ED.CHESTPA ---
HPI - Chest Pain General: Chief Complaint: Chest Pain Stated Complaint: chest pains, sent by [employer] Time Seen by Provider: 03/15/24 12:52 Source: patient Mode of arrival: ambulatory Limitations: no limitations History of Present Illness: 73-year-old male with history of hypertension he states that he has a history coronary artery disease as well and had stents placed weeks ago he said that over the last week his blood pressures been running consistently in the 150s and 160s that he had some mild chest pains at time the last time the chest pain was 2 days ago denies any pain currently he does see cardiology clinic. Associated symptoms: Deny abdominal pain, dyspnea, fever(s), nausea or vomiting Review of Systems Const: Denies: fever(s), chills, body aches or change in appetite ENMT: Denies: throat pain or dental pain Card: Reports: chest pain Resp: Denies: dyspnea GI: Denies: abdominal pain, nausea, vomiting or diarrhea : Denies: dysuria Musc: Denies: neck pain or back pain Skin/Breast: Denies: rash Neuro: Denies: headache(s) PFSH ED PFSH: Medical History Elevated troponin Primary osteoarthritis of knees, bilateral Low back pain Chronic kidney disease Osteoarthritis Rotator cuff arthropathy of right shoulder Gastro-esophageal reflux disease without esophagitis Hyperlipidemia Obstructive sleep apnea Other idiopathic peripheral autonomic neuropathy History of colon polyps Left rotator cuff tear arthropathy Chronic shoulder pain Small airways disease Coronary artery disease Back pain Depression Anemia Primary osteoarthritis of right knee Primary osteoarthritis of left knee Mass of lingula of lung Bronchitis Primary localized osteoarthritis of both knees Allergic rhinosinusitis COPD (chronic obstructive pulmonary disease) Hypertension Anxiety Surgical History Hx of colonoscopy (04/2022) Status post coronary artery stent placement Status post hernia repair (2017) Repair of bilateral inguinal and umbilical hernias with mesh Status post total knee replacement Status post shoulder surgery Family History Other Hypertension Social History Smoking and tobacco/nicotine status: former use of tobacco/nicotine Quit status (tobacco/nicotine): has quit using Year quit tobacco: 2002 - 1PPD x 35 Years Alcohol intake: former Substance/Drug Use: never Lives independently: Yes Household members: spouse Marital status: Current occupational status: employed Current occupation: [employer] Do you think of yourself as: Straight/Heterosexual Current gender identity: Male Physical Exam Const: COMMON NORMALS: no acute distress, patient oriented x3 and healthy appearing HENMT: COMMON NORMALS: normocephalic and atraumatic HEAD & SCALP: normocephalic and atraumatic Neck/C-Spine: COMMON NORMALS: full ROM and supple Chest: COMMONS NORMALS: normal inspection of the chest Resp: COMMON NORMALS: normal respiratory effort, No retractions, No use of accessory muscles and clear to auscultation bilaterally AUSCULTATION: clear to auscultation bilaterally Cardio: COMMON NORMALS: regular rate, regular rhythm and No murmurs present (Cardio) RATE: regular rate RHYTHM: regular rhythm GI: COMMON NORMALS: Normal to inspection, nondistended, normoactive bowel sounds present, Soft to palpation, non-tender and no masses PALPATION: Yes Soft to palpation Extremity: COMMON NORMALS: normal to inspection and full ROM Neuro: COMMON NORMALS: patient oriented x3, moves all extremities and no focal motor deficits Psych: COMMON NORMALS: mental status grossly normal, Normal thought process present and cooperative THOUGHT PROCESS: Normal thought process present Skin: COMMON NORMALS: no rashes or lesions noted and no wounds GENERAL SKIN EXAM: no rashes or lesions noted Course Vital Signs: Vital signs: Vital Signs Temperature 97.9 F 03/15/24 12:26 Pulse Rate 47 L 03/15/24 14:14 Respiratory Rate 16 03/15/24 13:12 Blood Pressure 156/89 03/15/24 14:14 Pulse Oximetry 95 03/15/24 14:14 Oxygen Delivery Me thod Nasal Cannula 03/15/24 14:14 Oxygen Flow Rate 2 03/15/24 14:14 MDM - Chest Pain Medical Decision Making Patient presents here with hypertension over the last week. Had some mild chest pains his heart enzymes here are normal he had no chest pain here. I did speak to Dr. Steele we will start him on hydralazine he is stable for discharge she is to follow-up with the cardiology clinic and return if worsening he understands agrees to plan. Medical Records I reviewed the patient's medical records. Lab Data I reviewed the patient's lab results. 03/15/24 12:57 03/15/24 12:57 Radiology Impressions Chest X-Ray 03/15/24 12:24 IMPRESSION: No acute disease. Laboratory Results WBC 7.02 10^3/uL (3.29-11.43) 03/15/24 12:57 RBC 4.03 10^6/uL (3.85-5.65) 03/15/24 12:57 Hgb 12.60 g/dL (11.27-16.99) 03/15/24 12:57 Hct 38.3 % (37-53) 03/15/24 12:57 MCV 95.0 fl (82-101) 03/15/24 12:57 MCH 31.3 pg (27-33) 03/15/24 12:57 MCHC 32.9 g/dL (30-55) 03/15/24 12:57 RDW 12.6 % (12.1-15.1) 03/15/24 12:57 Plt Count 229 10^3/cmm (157-399) 03/15/24 12:57 MPV 10.6 fL (7.4-10.4) H 03/15/24 12:57 Neut % (Auto) 51.6 % 03/15/24 12:57 Lymph % (Auto) 36.0 % 03/15/24 12:57 [place] % (Auto) 10.0 % 03/15/24 12:57 Eos % (Auto) 1.4 % 03/15/24 12:57 Baso % (Auto) 0.4 % 03/15/24 12:57 Neut # (Auto) 3.62 10^3/uL (1.8-7.7) 03/15/24 12:57 Lymph # (Auto) 2.5 10^3/uL (0.8-4.8) 03/15/24 12:57 [place] # (Auto) 0.7 10^3/uL (0.2-0.9) 03/15/24 12:57 Eos # (Auto) 0.1 10^3/uL (0.0-0.8) 03/15/24 12:57 Baso # (Auto) 0.0 10^3/uL (0.0-0.1) 03/15/24 12:57 Nucleated RBC % (auto) 0 % 03/15/24 12:57 Nucleated RBCs # 0.0 /100WBC 03/15/24 12:57 PT 12.70 SECONDS (12.1-14.9) 03/15/24 12:57 INR 0.92 (0.8-1.2) 03/15/24 12:57 Sodium 137 mmol/L (136-145) 03/15/24 12:57 Potassium 4.5 mmol/L (3.5-5.1) 03/15/24 12:57 Chloride 101 mmol/L (98-107) 03/15/24 12:57 Carbon Dioxide 24 mmol/L (22-29) 03/15/24 12:57 Anion Gap 16.5 (5-19) 03/15/24 12:57 BUN 24 mg/dL (8-23) H 03/15/24 12:57 Creatinine 1.3 mg/dL (0.7-1.2) H 03/15/24 12:57 GFR Calculation Not Reportable 03/15/24 12:57 Glucose 112 mg/dL (65-115) 03/15/24 12:57 Calculated Osmolality 289 mOsm/kg (285-295) 03/15/24 12:57 Calcium 9.1 mg/dL (8.5-10.5) 03/15/24 12:57 Total Bilirubin 0.3 mg/dL (0.15-1.2) 03/15/24 12:57 AST 16 U/L (0-40) 03/15/24 12:57 ALT 16 U/L (0-41) 03/15/24 12:57 Alkaline Phosphatase 98 U/L (40-130) 03/15/24 12:57 Troponin T Baseline 25 ng/L (0-15) H 03/15/24 12:57 Troponin T 120 Minute 23.80 ng/L (0-15) H 03/15/24 15:12 Delta Troponin T -1.20 ABS# (0-10) L 03/15/24 15:12 Total Protein 6.7 g/dL (6.6-8.7) 03/15/24 12:57 Albumin 4.3 g/dL (3.5-5.2) 03/15/24 12:57 Globulin 2.4 g/dL (1.3-4.6) 03/15/24 12:57 Lipase 24 U/L (13-60) 03/15/24 12:57 All radiology interpretation(s) finalized by discharge EKG Data EKG 1: I personally reviewed and interpreted this EKG as follows: EKG interpretation date: 03/15/24 EKG interpretation time: 12:20 Interpretation: sinus marcela [address] or t wave abnormalities qrs 102 qtc 420 EKG 2: I personally reviewed and interpreted this EKG as follows: EKG interpretation date: 03/15/24 EKG interpretation time: 14:19 Interpretation: sinus marcela hr [address] or t wave abnormalities qrs 111 qtc 456 Discharge Plan Discharge Patient Disposition: Home Clinical Impression: Hypertension Qualifiers: Hypertension type: essential hypertension Qualified Code(s): I10 - Essential (primary) hypertension Condition: Stable Prescriptions: New hydralazine 50 mg tablet 50 mg PO BID Qty: 60 0RF No Action tamsulosin 0.4 mg capsule 0.4 mg PO QPM melatonin 10 mg capsule 10 mg PO QPM potassium chloride 20 mEq tablet extended release 20 meq PO DAILY@0800 famotidine [Pepcid] 20 mg tablet 20 mg PO DAILY montelukast [Singulair] 10 mg tablet 10 mg PO QPM furosemide [Lasix] 40 mg tablet 40 mg PO DAILY@0800 isosorbide dinitrate 5 mg tablet 5 mg PO DAILY Rx Instructions: allow nitrate-free interval of 12-14 hrs per 24-hr period aspirin 81 mg tablet,delayed release (DR/EC) 81 mg PO DAILY Qty: 90 3RF nitroglycerin 0.4 mg tablet, sublingual 0.4 mg sublingual Q5M PRN (Reason: chest pain) Qty: 30 4RF Rx Instructions: do not exceed 3 doses per episode amlodipine 5 mg tablet 5 mg PO BID Qty: 180 2RF levothyroxine [Synthroid] 25 mcg tablet 25 mcg PO DAILY gemfibrozil 600 mg tablet 600 mg PO BID multivitamin Tablet 1 tab PO DAILY Stiolto Respimat 2.5-2.5 mcg/actuation mist 2 puff inhalation DAILY Qty: 4 3RF fluticasone propionate [Flonase Allergy Relief] 50 mcg/actuation spray,suspension 2 spray intranasal DAILY Qty: 16 0RF Rx Instructions: administer into each nostril Praluent Pen 150 mg/mL pen injector 150 mg SUBCUT Q14D Qty: 2 11RF cholecalciferol (vitamin D3) 1,250 mcg (50,000 unit) capsule 1,250 mcg PO DAILY@2000 clopidogrel 75 mg Tablet 75 mg PO DAILY Qty: 90 0RF coenzyme Q10 [Co Q-10] 200 mg Capsule 200 mg PO DAILY metoprolol tartrate 100 mg Tablet 50 mg PO DAILY [place] 5-325 mg Tablet 1 tab PO Q6H PRN (Reason: Pain) losartan 100 mg tablet 100 mg PO DAILY aripiprazole 10 mg tablet 5 mg PO DAILY cyclobenzaprine 10 mg tablet 10 mg PO BID PRN (Reason: Muscle Spasm) citalopram 40 mg tablet 40 mg PO QAM Discharge Orders: Discharge ED (Routine); Ordered 03/15/24 Ordered By: Jenni Betancourt Referrals: Mariluz Ko FNP [Primary Care Provider] - Discharge Diet: Advance as tolerated Discharge Activity: Resume usual activity Patient Instructions: Hypertension (ED) Coding Level of Care Code ED Table Games Dual Rate Supervisor for Meghan Hu
[2024-03-15 13:07] LABS: Basophils % 0.4 %; Eosinophils # 0.1 10^3/uL (0.0-0.8); Eosinophils % 1.4 %; Hematocrit 38.3 % (37-53); Lymphocytes # 2.5 10^3/uL (0.8-4.8); Mean Corpuscular HGB Conc 32.9 g/dL (30-55); Mean Corpuscular Hemoglobin 31.3 pg (27-33); Mean Platelet Volume 10.6 fL (7.4-10.4); Monocytes # 0.7 10^3/uL (0.2-0.9); Neutrophils # 3.62 10^3/uL (1.8-7.7); Neutrophils % 51.6 %; Nucleated Red Blood Cells % 0 %; Platelet Count 229 10^3/cmm (157-399); Red Blood Count 4.03 10^6/uL (3.85-5.65); Red Cell Distribution Width 12.6 % (12.1-15.1); White Blood Count 7.02 10^3/uL (3.29-11.43)
[2024-03-15 13:12] VITALS: BP 123/87; PULSE 53; RESP 16; O2SAT 91
[2024-03-15 13:24] LABS: Alanine Aminotransferase 16 U/L (0-41); Albumin Level 4.3 g/dL (3.5-5.2); Alkaline Phosphatase 98 U/L (40-130); Anion Gap 16.5 (5-19); Aspartate Amino Transferase 16 U/L (0-40); Blood Urea Nitrogen 24 mg/dL (8-23); Calcium 9.1 mg/dL (8.5-10.5); Carbon Dioxide 24 mmol/L (22-29); Chloride 101 mmol/L (98-107); Creatinine Clr Calc Pharmacy 51.5976; Globulin 2.4 g/dL (1.3-4.6); Glucose 112 mg/dL (65-115); Lipase 24 U/L (13-60); Osmolality Calculated 289 mOsm/kg (285-295); Potassium 4.5 mmol/L (3.5-5.1); Sodium 137 mmol/L (136-145); Total Bilirubin 0.3 mg/dL (0.15-1.2); Total Protein 6.7 g/dL (6.6-8.7)
[2024-03-15 13:25] LABS: Troponin(5th) Baseline 25 ng/L (0-15)
[2024-03-15 13:27] LABS: INR 0.92 (0.8-1.2)
[2024-03-15] MEDS: hyDRALAzine 20 mg/mL INJ 1 mL 10 MG IVP (14:11)
[2024-03-15 14:14] VITALS: BP 156/89; PULSE 47; O2SAT 95
--- NOTE | 2024-03-15 14:19 | ECG_ITS ---
[facility] Test Date: 2024-03-15 Pat Name: Mian Menendez Department: Room: Gender: Male Process Assistant: : 1950 Requested By: Jenni Betancourt Order Number: [id number] Reji MD: Mele Barragan M.D. Measurements Intervals [place] Rate: 52 P: 66 GA: 153 QRS: 14 QRSD: 111 T: 48 QT: 476 QTc: 444 Interpretive Statements SINUS BRADYCARDIA WITH OCCASIONAL VENTRICULAR PREMATURE COMPLEXES MODERATE INTRAVENTRICULAR CONDUCTION DELAY [110+ ms QRS DURATION] Compared to ECG 03/15/2024 12:20:53 Ventricular premature complex(es) now present Intraventricular conduction delay now present Electronically Signed On 03-16-2024 0:12:10 CDT by Mele Barragan M.D. [email or web address], [id number]
[2024-03-15 15:45] VITALS: BP 161/102; PULSE 85; O2SAT 97
== END 2024-03-15 16:16 | disposition home or self-care (01) ==
PROVIDERS: Emergency Provider Emergency Medicine; PCP Nurse Practitioner
DX: I12.9 Hypertensive chronic kidney disease with stage 1 through stage 4 chronic kidney disease, or unspecified chronic kidney disease (principal); N18.9 Chronic kidney disease, unspecified; E78.5 Hyperlipidemia, unspecified; I25.10 Atherosclerotic heart disease of native coronary artery without angina pectoris; J44.9 Chronic obstructive pulmonary disease, unspecified; Z87.891 Personal history of nicotine dependence; Z79.82 Long term (current) use of aspirin; Z79.02 Long term (current) use of antithrombotics/antiplatelets
CPT/HCPCS: 36415; 71045; 80053; 83690; 84484; 85025; 85610; 93005; 96374; 99285; J0360

== ENCOUNTER → 2024-05-04 14:49 | Outpatient (BNVA) | payer OTHER, SELFPAY | PROVIDERS: PCP Nurse Practitioner; Visit Provider Internal Medicine | DX: I25.110 Atherosclerotic heart disease of native coronary artery with unstable angina pectoris (principal); E78.5 Hyperlipidemia, unspecified; Z87.891 Personal history of nicotine dependence; I12.9 Hypertensive chronic kidney disease with stage 1 through stage 4 chronic kidney disease, or unspecified chronic kidney disease; N18.9 Chronic kidney disease, unspecified | CPT/HCPCS: 80048; 83880; 99214 ==

== ENCOUNTER 2024-05-10 05:42 | Outpatient (CLI) | payer OTHER, SELFPAY ==
[2024-05-10] VITALS (18 sets, daily range): BP systolic 114–154; BP diastolic 64–88; PULSE 52–80; RESP 12–20; TEMP 36.7–37.1; O2SAT 92–99; BMI 33.7
--- NOTE | 2024-05-10 06:00 | XACV_ITS ---
Exam Room: 2 Ht: 163 cm Wt: 89 kg BSA: 2.05 m2 Gender: Male : 1950 Any Known Allergies: Other Exam Priority: Routine Procedure(s): Procedure Description: Diagnostic procedure Procedure Description: PCI procedure Procedure Description: Drug Eluting Coronary Stent Procedure Description: PTCA Procedure Description: Miscellaneous Procedure Description: ACT Procedure Description: Coronary Angiography Diagnostic Cath Status: Elective Diagnostic Findings * Left Anterior Descending has patent prior stent with 30% stenosis. . * Circumflex has diffuse luminal irregularities. OM1 has ostial critical 95% stenosis.. * Left Main has mild luminal irregularities. * Proximal Right Coronary Artery to Mid Right Coronary Artery: mild 40% stenosis, MARIAH: 3 flow. * First Obtuse Marginal Branch Segment: critical 95% stenosis, MARIAH: 3 flow. * Coronary angiography shows co-dominance. PCI Status: Elective PCI Indication: Other Interventional Findings * Procedure detail: We engaged left main artery with XB 3.0 guide catheter. IV heparin was administered to maintain anticoagulation. 0.014 run-through guidewire was used to cross the critical ostial OM1 lesion and was put in distal vessel. We predilated the stenosis with 2.5 x 8 mm semicompliant balloon. This was followed by placement of 2.75 x 12 mm resolute Booker drug-eluting stent. At this time final angiogram was performed that showed excellent stent expansion and no residual stenosis. Guidewire and guide catheter were removed. Patient left the Experimental Physicist in a stable condition.. * First Obtuse Marginal Branch Segment: 95% stenosis treated with a AB TREK 2.50X8 RX BALLOON, and MDT R BOOKER 2.75X12 CIELO. 0% residual stenosis, MARIAH: 3 flow. Conclusions 1. Critical ostial OM1 stenosis s/p successful revascularization with 1 stent.. 2. First Obtuse Marginal Branch Segment was treated with a Balloon, and Drug Eluting Stent. Recommendations * Dual antiplatelet therapy with aspirin and plavix for atleast 1 year. * High intensity statin therapy. * Outpatient cardiology follow up in 2-4 weeks. Interventional RX Recommendation: PCI w/o planned CABG Diagnostic RX Recommendation: PCI w/o planned CABG Anticoagulation: Heparin Pressures Phase:Rest AO : 115 / 68 ( 88 ) @ 11:15:00 AM 105 / 63 ( 80 ) @ 11:21:00 AM 113 / 70 ( 89 ) @ 11:27:00 AM 122 / 67 ( 88 ) @ 11:36:00 AM 124 / 67 ( 90 ) @ 11:36:00 AM LV : 134 / 7 / 27 @ 11:36:00 AM 132 / 13 / 33 @ 11:36:00 AM 104 / 11 / 12 @ 11:36:00 AM Valves Phase:DefaultPhase AV : 0.0 @ 10:48:54 AM AV Mean Gradient: 0.0 @ 10:48:54 AM Clinical Evaluation EBL: 5mL-10mL Procedural Details Procedure Consent Obtained. Pre-Procedure Time Out. Identified patient by full name and date of as verbalized by the patient/guarantor. Does the consent match the physician's order: Yes. Accurate & Complete Informed Consent: Yes. Inpatient/Outpatient History & Physical on Chart: Yes. If H&P is completed, is and addenduem needed: No; If yes, is the addendum complete: N/A. Visualize and Verify Site with Patient/Guarantor: N/A. Relevant Radiology Images available: Yes. Pre-op teaching completed and patient verbalized understanding. The risks, benefits, and alternatives of sedation and/or procedure were discussed by physician. The patient agrees to continue. Procedure started. Physician arrived. Current Diagnosis : Chest Pain. [facility] Clinical Fraility Score: 3: Managing Well. Experimental Physicist Indications: Other. Chest Pain Symptom Assessment: Atypical Angina. Correct patient, site and procedure confirmed by cath team. Current diagnosis: Chest Pain. PERRLA. Strong, equal hand service crew supervisor bilaterally. Lungs clear x 5 lobes. IV Site on Arrival: 20 gauge in the right forearm. IV Fluids: 0.9% NaCl at KVO. 500 mL infused prior to hoisting laborer. Pre Procedural Pulses: bilateral dorsalis pedis was 3+. Pre Procedural Pulses: bilateral posterior tibial was 1+. Pre Procedural Pulses: bilateral radial was 3+. Oxygen started at 2liters/min via nasal canula. right groin was prepped with chloroprep then draped in the usual sterile fashion. right radial was prepped with chloroprep then draped in the usual sterile fashion. Baseline sample Acquired. HR: 56 BPM. Physician scrubbed in. Immediate Pre-Procedure Time Out. Correct Patient: Yes; Correct Procedure: Yes; Correct Site: Yes; Correct Patient Position: Yes; Correct Supplies: Yes; Dried Flammable Prep: Yes; Blood Products Available: N/A;. Lidocaine 1% infiltrated to the right radial. Arterial access obtained. A 5 gibraltarian TIG catheter in over wire. Multiple views taken of left coronary artery. Catheter redirected to the RCA. Multiple views taken of right coronary artery. Catheter removed over the standard wire. 6 gibraltarian XB 3 guide catheter was inserted over the wire. Runthrough guidewire was advanced through the guide catheter to lesion in the OM. Balloon inserted to lesion in the OM. Inflation number : 1 A AB TREK 2.50X8 RX BALLOON was prepped and advanced across the 1st Ob Sonia , then inflated to 6 PIOTR for 0:07 seconds. Inflation number: 2 The AB TREK 2.50X8 RX BALLOON was reinflated across the 1st Ob Sonia, to 6 PIOTR for 0:06 seconds. Inflation number: 3 The AB TREK 2.50X8 RX BALLOON was reinflated across the 1st Ob Sonia, to 8 PIOTR for 0:15 seconds. Balloon out. Results checked. Inflation Number : 4 A CONCEPCIÓN [place] BOOKER 2.75X12 CIELO -Lot Number# _[id number] EXP: 06/28/2026 was prepped and advanced across the 1st Ob Sonia. The stent was deployed at 12 PIOTR for 0:18 seconds. Results checked. Stent balloon and wire out. Guide catheter out. A 5 gibraltarian TIG catheter in over wire. EDP Sample taken: LV 134/7,27; HR: 57 BPM; SpO2: 96%. Pullback taken: LV Off; AO Off; Mean: , Peak to Peak: , SEP: ; HR: 56 BPM; SpO2: 96%. EDP Sample taken: LV 132/13,33; HR: 56 BPM; SpO2: 97%. Pullback taken: LV 104/11,12; AO 122/67(88); Mean: 0mmHg, Peak to Peak: 0mmHg, SEP: 4sec/min; HR: 57 BPM; SpO2: 97%. Catheter removed over the standard wire. ACT drawn. Results 266 seconds. Therapeutic limits - pre-heparin administration 90-150 seconds and monitoring heparin during a vascular procedure >250 seconds. A TR Band was successful obtaining hemostatsis at the Right Radial artery insertion site. Vital chart was stopped. Post Procedure: Pulses reassessed and unchanged. PERRLA. Strong, equal hand service crew supervisor bilaterally. No VTE prophylaxis required. Medication's Wasted: Nitro = 49.8 mcg. Medication's Wasted: Heparin = 2000 units. Medication's Wasted: Other = Fentanyl 75mcg. Medication's Wasted: Lidocaine 1% = 15 mL. Total IV fluids: 50 mL. Post-op diagnosis: Stent to OM. Complications: None. Estimated blood loss: 5mL-10mL. Responsiveness - Normal response to verbal stimuli; alert and oriented, PERRLA. Airway - Unaffected, no intervention required; spontaneous ventilation. Circulation: W/N/L, pulses unchanged. Nausea/Vomiting: No. Procedure completed. Patient transferred by wheelchair to CPRU. Access Site Site: Right Radial artery Sheath Size: 6 Fr Hemostasis Method: TR Band Hemostasis Success: Successful Procedure Medications Start: 10:05 AM Stop: 10:05 AM Medication: Versed 1 mg and Fentanyl 25 mcg Amount: 1 Route: I.V. Start: 10:11 AM Stop: 10:11 AM Medication: Nitrogylcerin Amount: 200 mcg Route: I.A. Start: 10:15 AM Stop: 10:15 AM Medication: Versed Amount: 1 mg Route: I.V. Start: 10:15 AM Stop: 10:15 AM Medication: Heparin Amount: 5000 units Route: I.V. Start: 10:21 AM Stop: 10:21 AM Medication: Heparin Amount: 4000 units Route: I.V. Start: 10:37 AM Stop: 10:37 AM Medication: Plavix Amount: 300 mg Route: P.O. I, the attending physician, have reviewed and verified all procedure medications. Yes, all medications given per verbal order History/Risk Factors Hypertension: Yes Dyslipidemia: Yes Peripheral Arterial Disease (PAD): No Myocardial Infarction (OR): Yes Obesity: No Renal Disease: No Prior Interventions PCI: Yes CABG: No Valve Surgery: No Date of PCI: 02/12/2024 Report Signatures Finalized by Zack Villareal MD on 05/24/2024 04:19 PM
[2024-05-10] MEDS: sodium chloride 0.9% 1,000 ML 100 ML IV (06:30)
[2024-05-10 06:31] LABS: Basophils # 0.1 10^3/uL (0.0-0.1); Basophils % 0.8 %; Eosinophils # 0.3 10^3/uL (0.0-0.8); Eosinophils % 3.4 %; Lymphocytes # 2.9 10^3/uL (0.8-4.8); Lymphocytes % 39.4 %; Mean Corpuscular HGB Conc 33.1 g/dL (30-55); Mean Corpuscular Hemoglobin 31.4 pg (27-33); Mean Corpuscular Volume 94.9 fl (82-101); Mean Platelet Volume 10.8 fL (7.4-10.4); Monocytes # 0.8 10^3/uL (0.2-0.9); Monocytes % 10.8 %; Neutrophils # 3.31 10^3/uL (1.8-7.7); Neutrophils % 45.2 %; Nucleated Red Blood Cells % 0 %; Platelet Count 218 10^3/cmm (157-399); Red Blood Count 3.69 10^6/uL (3.85-5.65); Red Cell Distribution Width 12.8 % (12.1-15.1); White Blood Count 7.33 10^3/uL (3.29-11.43)
[2024-05-10 06:45] LABS: Anion Gap 19.1 (5-19); Blood Urea Nitrogen 28 mg/dL (8-23); Calcium 9.6 mg/dL (8.5-10.5); Carbon Dioxide 26 mmol/L (22-29); Chloride 102 mmol/L (98-107); Glucose 117 mg/dL (65-115); Osmolality Calculated 303 mOsm/kg (285-295); Potassium 4.1 mmol/L (3.5-5.1); Sodium 143 mmol/L (136-145)
--- NOTE | 2024-05-10 07:33 | SUR.PREOP ---
Patient with complaints of restless legs and requesting something for it. Dr. Villareal notified in person in the laborer vegetable farm. Orders received for Benadryl 50mg IV. See MAR for administration.
[2024-05-10] MEDS: diphenhydrAMINE 50 mg/mL SDV 1mL IVP (07:42)
--- NOTE | 2024-05-10 09:51 | W.PM.OPSUD ---
Surgery/Procedure H&P Update DATE OF PROCEDURE: May 10, 2024 DATE H&P PERFORMED: 05/04/22 H&P UPDATE INFORMATION: I have reviewed H&P completed within last 30 days, I have examined patient prior to procedure and No changes to prior documentation CHANGES TO PREVIOUS DOCUMENTATION: Patient has elevated creatinine. Getting 4 hour hydration prior to procedure and then will continue for 6 hours post procedure. PREOP DIAGNOSIS: Worsening angina PRIMARY INDICATION FOR PROCEDURE: Worsening angina PLANNED PROCEDURE: Operation Date: 05/10/24 10:00 Proposed Procedures p Cardiac Catheterization - [facility] w/wo LV & Coros(Left) - Zack Villareal M.D Possible percutaneous coronary intervention PATIENT REASSESSED PRIOR TO SEDATION, WITH NO CHANGE NOTED: Yes PHYSICAL EXAM: alert, oriented x 3, clear to auscultation bilaterally and regular rate & rhythm AIRWAY EVAL/ANESTHESIA PLAN: normal airway, ASA III, Local Anesthesia, Risks, benefits & alternatives of sedation and/or procedure discussed and Patient agrees to continue as planned ADDITIONAL INFORMATION: Moderate sedation
--- NOTE | 2024-05-10 10:45 | SUR.EXTENDED ---
Received the patient back from the farm labor contractor via cot s/p PCI of the ostial 1st OM. Patient drowsy but, A & 0 x 3. clinical research monitor placed and vital signs obtained. TR band intact to the right wrist. No bleeding or hematoma noted. Palpable radial pulse. No other assessment changes noted from pre cath assessment. Will transfer to a floor bed once one is available after recovery. Family at bedside. No concerns voiced at this time.
--- NOTE | 2024-05-10 11:47 | SUR.EXTENDED ---
Letting the air out of the TR band per protocol.
--- NOTE | 2024-05-10 13:06 | SUR.EXTENDED ---
Report called to MAXIMO Palacio and patient transferred via wheelchair to [facility] with family.
[2024-05-10] MEDS: tamsulosin 0.4 mg Capsule PO (18:31)
[2024-05-10] MEDS: montelukast sodium 10 mg Tablet PO (18:31)
[2024-05-10] MEDS: amlodipine 5 mg Tablet PO (18:31)
[2024-05-10] MEDS: gemfibrozil 600 mg Tablet PO (18:31)
[2024-05-10] MEDS: hyDRALAzine 50 mg Tablet PO (18:31)
[2024-05-10] MEDS: temazepam 15 mg Capsule PO (19:54)
[2024-05-10] MEDS: ipratropium-albuterol 3 mL Neb INHALATION (20:42)
[2024-05-11] MEDS: citalopram 20 mg Tablet 40 MG PO (04:43)
[2024-05-11 04:47] VITALS: BP 126/76; PULSE 96; RESP 18; TEMP 36.5
[2024-05-11 04:57] LABS: Basophils % 0.6 %; Eosinophils # 0.2 10^3/uL (0.0-0.8); Eosinophils % 3.1 %; Hematocrit 33.9 % (37-53); Lymphocytes # 1.7 10^3/uL (0.8-4.8); Lymphocytes % 27.9 %; Mean Corpuscular HGB Conc 32.7 g/dL (30-55); Mean Corpuscular Hemoglobin 31.5 pg (27-33); Mean Corpuscular Volume 96.3 fl (82-101); Mean Platelet Volume 11.2 fL (7.4-10.4); Monocytes # 0.6 10^3/uL (0.2-0.9); Monocytes % 10.2 %; Neutrophils # 3.56 10^3/uL (1.8-7.7); Neutrophils % 57.9 %; Nucleated Red Blood Cells % 0 %; Platelet Count 189 10^3/cmm (157-399); Red Blood Count 3.52 10^6/uL (3.85-5.65); Red Cell Distribution Width 12.8 % (12.1-15.1); White Blood Count 6.16 10^3/uL (3.29-11.43)
[2024-05-11 05:18] LABS: Anion Gap 15.6 (5-19); Blood Urea Nitrogen 21 mg/dL (8-23); Carbon Dioxide 26 mmol/L (22-29); Chloride 105 mmol/L (98-107); Creatinine Clr Calc Pharmacy 52.5338; Glucose 109 mg/dL (65-115); Osmolality Calculated 300 mOsm/kg (285-295); Potassium 3.6 mmol/L (3.5-5.1); Sodium 143 mmol/L (136-145)
[2024-05-11 07:29] VITALS: BP 141/91; PULSE 91; RESP 18; TEMP 36.7; O2SAT 95
[2024-05-11] MEDS: ipratropium-albuterol 3 mL Neb INHALATION (07:37)
[2024-05-11 07:39] VITALS: PULSE 86; RESP 18; O2SAT 95
[2024-05-11 07:47] VITALS: PULSE 89
--- NOTE | 2024-05-11 08:56 | PM.DCS ---
Discharge Providers Date of Admission: May 10, 2024 Date of Discharge: May 11, 2024 Attending Provider at Admission: Zack Villareal MD/ Attending Provider at Discharge: Zack Villareal M.D Primary Care Provider: BOB Alex Reason for Visit Reason for Visit: Left heart cath Brief History: 73-year-old man with past medical history of CAD who had recent LAD stenting and has residual critical OM1 stenosis is here for coronary angiogram with PCI as has been having worsening chest pain symptoms. Hospital Course Hospital Course Patient underwent successful revascularization of OM1 with 1 stent. He was observed overnight, his renal function was stable, was discharged home in a stable condition. Physical Exam Narrative: GENERAL: Patient is alert, awake and oriented x3. [] NECK: No jugular vein distension. [] HEENT: No cyanosis. No icterus. No pallor. [] HEART: Regular S1 and S2. No murmur, rub or gallop. [] LUNGS: Clear to auscultate bilaterally. [] CENTRAL NERVOUS SYSTEM: Grossly nonfocal. [] EXTREMITIES: Lower extremities with 1+ edema bilaterally. 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 Routine Exams 05/10/24 06:00 Taken Laboratory Results WBC 6.16 10^3/uL (3.29-11.43) 05/11/24 04:30 RBC 3.52 10^6/uL (3.85-5.65) L 05/11/24 04:30 Hgb 11.10 g/dL (11.27-16.99) L 05/11/24 04:30 Hct 33.9 % (37-53) L 05/11/24 04:30 MCV 96.3 fl (82-101) 05/11/24 04:30 MCH 31.5 pg (27-33) 05/11/24 04:30 MCHC 32.7 g/dL (30-55) 05/11/24 04:30 RDW 12.8 % (12.1-15.1) 05/11/24 04:30 Plt Count 189 10^3/cmm (157-399) 05/11/24 04:30 MPV 11.2 fL (7.4-10.4) H 05/11/24 04:30 Neut % (Auto) 57.9 % 05/11/24 04:30 Lymph % (Auto) 27.9 % 05/11/24 04:30 [place] % (Auto) 10.2 % 05/11/24 04:30 Eos % (Auto) 3.1 % 05/11/24 04:30 Baso % (Auto) 0.6 % 05/11/24 04:30 Neut # (Auto) 3.56 10^3/uL (1.8-7.7) 05/11/24 04:30 Lymph # (Auto) 1.7 10^3/uL (0.8-4.8) 05/11/24 04:30 [place] # (Auto) 0.6 10^3/uL (0.2-0.9) 05/11/24 04:30 Eos # (Auto) 0.2 10^3/uL (0.0-0.8) 05/11/24 04:30 Baso # (Auto) 0.0 10^3/uL (0.0-0.1) 05/11/24 04:30 Nucleated RBC % (auto) 0 % 05/11/24 04:30 Nucleated RBCs # 0.0 /100WBC 05/11/24 04:30 Sodium 143 mmol/L (136-145) 05/11/24 04:30 Potassium 3.6 mmol/L (3.5-5.1) 05/11/24 04:30 Chloride 105 mmol/L (98-107) 05/11/24 04:30 Carbon Dioxide 26 mmol/L (22-29) 05/11/24 04:30 Anion Gap 15.6 (5-19) 05/11/24 04:30 BUN 21 mg/dL (8-23) 05/11/24 04:30 Creatinine 1.3 mg/dL (0.7-1.2) H 05/11/24 04:30 GFR Calculation Not Reportable 05/11/24 04:30 Glucose 109 mg/dL (65-115) 05/11/24 04:30 Calculated Osmolality 300 mOsm/kg (285-295) H 05/11/24 04:30 Calcium 9.0 mg/dL (8.5-10.5) 05/11/24 04:30 Vitals Last Vital Signs Temp 98.0 F 05/11/24 07:29 Pulse 89 05/11/24 07:47 Resp 18 05/11/24 07:39 BP 141/91 05/11/24 07:29 Pulse Ox 95 05/11/24 07:39 O2 Del Method Room Air 05/11/24 07:39 O2 Flow Rate 2 05/10/24 19:29 Discharge Plan Discharge Patient Disposition: Home Prescriptions: Continued tamsulosin 0.4 mg capsule 0.4 mg PO QPM melatonin 10 mg capsule 10 mg PO QPM potassium chloride 20 mEq tablet extended release 20 meq PO DAILY@0800 famotidine [Pepcid] 20 mg tablet 20 mg PO DAILY montelukast [Singulair] 10 mg tablet 10 mg PO QPM isosorbide dinitrate 5 mg tablet 5 mg PO DAILY Rx Instructions: allow nitrate-free interval of 12-14 hrs per 24-hr period aspirin 81 mg tablet,delayed release (DR/EC) 81 mg PO DAILY Qty: 90 3RF nitroglycerin 0.4 mg tablet, sublingual 0.4 mg sublingual Q5M PRN (Reason: chest pain) Qty: 30 4RF Rx Instructions: do not exceed 3 doses per episode amlodipine 5 mg tablet 5 mg PO BID Qty: 180 2RF levothyroxine [Synthroid] 25 mcg tablet 25 mcg PO DAILY gemfibrozil 600 mg tablet 600 mg PO BID multivitamin Tablet 1 tab PO DAILY Stiolto Respimat 2.5-2.5 mcg/actuation mist 2 puff inhalation DAILY Qty: 4 3RF fluticasone propionate [Flonase Allergy Relief] 50 mcg/actuation spray,suspension 2 spray intranasal DAILY Qty: 16 0RF Rx Instructions: administer into each nostril Praluent Pen 150 mg/mL pen injector 150 mg SUBCUT Q14D Qty: 2 11RF furosemide [Lasix] 40 mg tablet 60 mg PO DAILY@0800 cholecalciferol (vitamin D3) 1,250 mcg (50,000 unit) capsule 1,250 mcg PO DAILY@2000 clopidogrel 75 mg Tablet 75 mg PO DAILY Qty: 90 0RF coenzyme Q10 [Co Q-10] 200 mg Capsule 200 mg PO DAILY aripiprazole 10 mg tablet 5 mg PO DAILY cyclobenzaprine 10 mg tablet 10 mg PO BID PRN (Reason: Muscle Spasm) citalopram 40 mg tablet 40 mg PO QAM hydralazine 50 mg tablet 50 mg PO BID Qty: 60 0RF Changed metoprolol tartrate 100 mg Tablet 50 mg PO BID Qty: 120 0RF Discharge Orders: Discharge Order (Routine); Ordered 05/11/24 Ordered By: Zack Villareal Referrals: Raquel Toussaint FNP [Nurse Practitioner] - 05/31/24 3:00 pm Mariluz Ko FNP [Primary Care Provider] - 05/22/24 3:00 pm Diet: Cardiac Activity: Increase activity as tolerated Patient Instructions: Coronary Angioplasty (DC), Post Angiogram Home Care Instructions Discharge Date/Time: 05/11/24 10:47 Discharge Attestations Time Spent in Discharge Care*: less than 30 min Quality Metrics Clinical Quality Measures [ No reported AMI, CVA or VTE this stay] Coding Level of Care Code Acute Code for Meghan Hu
[2024-05-11] MEDS: ARIPiprazole 10 mg Tablet 5 MG PO (10:01)
[2024-05-11] MEDS: famotidine 20 mg Tablet PO (10:02)
[2024-05-11] MEDS: clopidogrel 75 mg Tablet PO (10:02)
[2024-05-11] MEDS: amlodipine 5 mg Tablet PO (10:02)
[2024-05-11] MEDS: levothyroxine 25 mcg Tablet PO (10:02)
[2024-05-11] MEDS: gemfibrozil 600 mg Tablet PO (10:03)
[2024-05-11] MEDS: hyDRALAzine 50 mg Tablet PO (10:03)
[2024-05-11] MEDS: metoprolol tartrate 50 mg Tablet PO (10:03)
[2024-05-11] MEDS: aspirin 81 mg EC Tablet PO (10:46)
--- NOTE | 2024-05-11 11:14 | PC.SOCIAL ---
[facility]
== END 2024-05-11 10:47 | disposition home or self-care (01) ==
LOC: CCL 05:43 → CSU 13:23
PROVIDERS: PCP Nurse Practitioner; Visit Provider Internal Medicine
DX: I25.10 Atherosclerotic heart disease of native coronary artery without angina pectoris (principal); I10 Essential (primary) hypertension; E78.5 Hyperlipidemia, unspecified; I25.2 Old myocardial infarction; Z95.5 Presence of coronary angioplasty implant and graft
CPT/HCPCS: 36415; 80048; 85025; 85347; 93458; 94640; 96360; 96361; 96374; 96375; 99152; 99153; C1725; C1769; C1874; C1887; C1894; C9600; J1644; J2250; J3010; J3490; J7030; Q9967

== ENCOUNTER → 2024-05-19 07:37 | Outpatient (BNVA) | payer OTHER, SELFPAY | PROVIDERS: PCP Nurse Practitioner; Visit Provider Specialist | DX: M17.0 Bilateral primary osteoarthritis of knee (principal); Z71.89 Other specified counseling; Z87.891 Personal history of nicotine dependence | CPT/HCPCS: 20610; J1100; J2795; J3301 ==

== ENCOUNTER → 2024-05-31 15:47 | Outpatient (BNVA) | payer OTHER, SELFPAY | PROVIDERS: PCP Nurse Practitioner; Visit Provider Nurse Practitioner Family | DX: Z95.5 Presence of coronary angioplasty implant and graft (principal) | CPT/HCPCS: 36415; 80048; 99214 ==

== ENCOUNTER → 2024-07-18 13:39 | Outpatient (BNVA) | payer OTHER, SELFPAY | PROVIDERS: PCP Nurse Practitioner; Visit Provider Nurse Practitioner Family | DX: L57.0 Actinic keratosis (principal); D69.2 Other nonthrombocytopenic purpura; L57.8 Other skin changes due to chronic exposure to nonionizing radiation; L81.4 Other melanin hyperpigmentation; Z85.828 Personal history of other malignant neoplasm of skin | CPT/HCPCS: 17004; 99213 ==

== ENCOUNTER → 2024-07-31 13:33 | Outpatient (BNVA) | payer OTHER, SELFPAY | PROVIDERS: PCP Nurse Practitioner; Visit Provider Internal Medicine Cardiovascular Disease | DX: I25.10 Atherosclerotic heart disease of native coronary artery without angina pectoris (principal); I48.91 Unspecified atrial fibrillation; I87.2 Venous insufficiency (chronic) (peripheral); I13.0 Hypertensive heart and chronic kidney disease with heart failure and stage 1 through stage 4 chronic kidney disease, or unspecified chronic kidney disease; N18.9 Chronic kidney disease, unspecified; I50.33 Acute on chronic diastolic (congestive) heart failure; Z87.891 Personal history of nicotine dependence | CPT/HCPCS: 99214 ==

== ENCOUNTER 2024-08-20 10:34 | Emergency (ER) | payer OTHER, BC, SELFPAY ==
[2024-08-20 10:38] VITALS: BP 119/83; PULSE 71; RESP 18; TEMP 36.7; O2SAT 92; BMI 35.0
--- NOTE | 2024-08-20 10:39 | ECG_ITS ---
[facility] Date: 2024-08[facility]20 Pat Name: Mian Menendez Department: Room: Gender: Male Regional Liaison: : 1950 Requested By: eJnni Betancourt Order Number: [id number] Reji MD: Mele Barragan M.D. Measurements Intervals [place] Rate: 62 P: 51 PA: 150 QRS: 11 QRSD: 98 T: 19 QT: 428 QTc: 436 Interpretive Statements SINUS RHYTHM WITH OCCASIONAL VENTRICULAR PREMATURE COMPLEXES Compared to ECG 03/15/2024 14:19:37 Sinus bradycardia no longer present Intraventricular conduction delay no longer present Electronically Signed On 08-21-2024 00:08:46 CDT by Mele Barragan M.D. [email or web address]
--- NOTE | 2024-08-20 10:40 | XRR_ITS ---
PROCEDURE INFORMATION: Exam: XR Chest Exam date and time: 08/20/2024 11:23 AM Age: 74 years old Clinical indication: Shortness of breath; Additional info: SOB TECHNIQUE: Imaging protocol: Radiologic exam of the chest. Views: 1 view. COMPARISON: CR XR chest 1V portable [id number] 03/15/2024 12:42 PM FINDINGS: Lungs: Low lung volumes. Minimal streaky bibasilar atelectasis. No consolidation. Pleural spaces: Unremarkable. No pleural effusion. No pneumothorax. Heart/Mediastinum: Stable cardiomediastinal silhouette. Bones/joints: Degenerative changes of the spine seen. XR/XR chest 1V portable [id number] IMPRESSION: No evidence of active cardiopulmonary disease.
--- NOTE | 2024-08-20 11:27 | W.ED.SOB ---
HPI - SOB/Dyspnea General: Chief Complaint: Shortness of Breath/Dyspnea Stated Complaint: sob, Time Seen by Provider: 08/20/24 11:18 Source: patient Mode of arrival: ambulatory Limitations: no limitations History of Present Illness: HPI Narrative: 74-year-old male with a history of congestive heart failure he states that he feels like he has been retaining fluid has had some increased edema states that some very mild dyspnea denies any dyspnea at rest denies any chest pain he is on Lasix he denies any vomiting or diarrhea. Associated symptoms: Deny abdominal pain, chest pain, fever(s), nausea or vomiting Related Data Home Medications Medication Instructions Recorded Confirmed famotidine 20 mg tablet (Pepcid) 20 mg PO DAILY 12/18/19 08/10/24 montelukast 10 mg tablet 10 mg PO QPM 12/18/19 08/10/24 (Singulair) tamsulosin 0.4 mg capsule 0.4 mg PO QPM 04/11/20 08/10/24 melatonin 10 mg capsule 10 mg PO QPM 10/01/20 08/10/24 cholecalciferol (vitamin D3) 1,250 1,250 mcg PO DAILY@199903/24/21 08/10/24 mcg (50,000 unit) capsule isosorbide dinitrate 5 mg tablet 5 mg PO DAILY 05/05/21 08/10/24 gemfibrozil 600 mg tablet 600 mg PO BID 04/21/22 08/10/24 levothyroxine 25 mcg tablet 25 mcg PO DAILY 04/21/22 08/10/24 (Synthroid) coenzyme Q10 200 mg capsule (Co 200 mg PO DAILY 05/14/22 08/10/24 Q-10) multivitamin 1 tab PO DAILY 10/27/22 08/10/24 aripiprazole 10 mg tablet 5 mg PO DAILY 03/15/24 08/10/24 citalopram 40 mg tablet 40 mg PO QAM 03/15/24 08/10/24 cyclobenzaprine 10 mg tablet 10 mg PO BID PRN Muscle Spasm 03/15/24 08/10/24 furosemide 40 mg tablet (Lasix) 40 mg PO DAILY 05/31/24 08/10/24 guaifenesin 200 mg tablet 200 mg PO BID 07/31/24 08/10/24 ropinirole 2 mg tablet 2 mg PO DAILY 07/31/24 08/10/24 Previous Rx's Medication Instructions Recorded fluticasone propionate 50 2 spray intranasal DAILY #16 grams 12/11/22 mcg/actuation nasal spray,suspension (Flonase Allergy Relief) tiotropium 2.5 mcg-olodaterol 2.5 2 puff inhalation DAILY #4 grams 05/20/23 mcg/actuation mist for inhalation (Stiolto Respimat) aspirin 81 mg tablet,delayed 81 mg PO DAILY #90 tabs 09/01/23 release clopidogrel 75 mg tablet 75 mg PO DAILY #90 tabs 02/15/24 amlodipine 5 mg tablet 5 mg PO BID #180 tabs 02/29/24 nitroglycerin 0.4 mg sublingual 0.4 mg sublingual Q5M PRN chest 02/29/24 tablet pain #30 tabs alirocumab 150 mg/mL subcutaneous 150 mg SUBCUT Q14D #2 mL 03/08/24 pen injector (Praluent Pen) hydralazine 50 mg tablet 50 mg PO BID #60 tabs 03/15/24 metoprolol tartrate 100 mg tablet 50 mg (1/2 x 100 mg) PO BID #120 05/11/24 tabs metolazone 2.5 mg tablet 2.5 mg PO DAILY #5 tabs 07/31/24 potassium chloride 20 mEq 20 meq PO DAILY@0800 #90 tabs 07/31/24 tablet,extended release albuterol sulfate 90 mcg/actuation 1 - 2 inh inhalation Q4H PRN 08/10/24 aerosol inhaler (Ventolin HFA) shortness of breath or wheezing #8.5 grams levofloxacin 500 mg tablet 500 mg PO DAILY 7 days #7 tabs 08/10/24 prednisone 20 mg tablet 40 mg (2 x 20 mg) PO .Daily in 08/10/24 A.M. 5 days #10 tabs Allergies Allergy/AdvReac Type Severity Reaction Status Date / Time atorvastatin [From Lipitor] Allergy Unknown Verified 07/31/24 14:36 bupropion [From Wellbutrin] Allergy hallucinati Verified 07/31/24 14:36 ons buspirone Allergy caused Verified 07/31/24 14:36 negative thinking ezetimibe [From Zetia] Allergy Unknown Verified 07/31/24 14:36 lovastatin Allergy Unknown Verified 07/31/24 14:36 pravastatin [From Pravachol] Allergy Unknown Verified 07/31/24 14:36 simvastatin Allergy fatigue Verified 07/31/24 14:36 Review of Systems Const: Denies: fever(s), chills, body aches or change in appetite ENMT: Denies: throat pain or dental pain Card: Denies: chest pain Resp: Reports: dyspnea GI: Denies: abdominal pain, nausea, vomiting or diarrhea Musc: Reports: extremity swelling; Denies: neck pain or back pain Skin/Breast: Denies: rash Neuro: Denies: headache(s) PFS ED PFSH: Medical History (Updated 08/20/24 @ 12:43 by Jenni Betancourt MD) Pneumonia Elevated troponin Primary osteoarthritis of knees, bilateral Low back pain Chronic kidney disease Osteoarthritis Rotator cuff arthropathy of right shoulder Gastro-esophageal reflux disease without esophagitis Hyperlipidemia Obstructive sleep apnea Other idiopathic peripheral autonomic neuropathy History of colon polyps Left rotator cuff tear arthropathy Chronic shoulder pain Small airways disease Coronary artery disease Back pain Depression Anemia Primary osteoarthritis of right knee Primary osteoarthritis of left knee Mass of lingula of lung Bronchitis Primary localized osteoarthritis of both knees Allergic rhinosinusitis COPD (chronic obstructive pulmonary disease) Hypertension Anxiety Surgical History Hx of colonoscopy (04/2022) Status post coronary artery stent placement Status post hernia repair (2016) Repair of bilateral inguinal and umbilical hernias with mesh Status post total knee replacement Status post shoulder surgery Family History Other Hypertension Social History Smoking and tobacco/nicotine status: former use of tobacco/nicotine Quit status (tobacco/nicotine): has quit using Year quit tobacco: 2002 - 1PPD x 35 Years Alcohol intake: former Substance/Drug Use: never Lives independently: Yes Household members: spouse Marital status: Current occupational status: employed Current occupation: [employer] Do you think of yourself as: Straight/Heterosexual Current gender identity: Male Physical Exam Const: COMMON NORMALS: no acute distress, patient oriented x3 and healthy appearing HENMT: COMMON NORMALS: normocephalic and atraumatic HEAD & SCALP: normocephalic and atraumatic Neck/C-Spine: COMMON NORMALS: full ROM and supple Chest: COMMONS NORMALS: normal inspection of the chest Resp: COMMON NORMALS: normal respiratory effort, No retractions, No use of accessory muscles and clear to auscultation bilaterally AUSCULTATION: clear to auscultation bilaterally Cardio: COMMON NORMALS: regular rate, regular rhythm and No murmurs present (Cardio) RATE: regular rate RHYTHM: regular rhythm GI: COMMON NORMALS: Normal to inspection, nondistended, normoactive bowel sounds present, Soft to palpation, non-tender and no masses PALPATION: Yes Soft to palpation Extremity: COMMON NORMALS: full ROM NARRATIVE EXTREMITY EXAM: 2+edema Neuro: COMMON NORMALS: patient oriented x3, moves all extremities and no focal motor deficits Psych: COMMON NORMALS: mental status grossly normal, Normal thought process present and cooperative THOUGHT PROCESS: Normal thought process present Skin: COMMON NORMALS: no rashes or lesions noted and no wounds GENERAL SKIN EXAM: no rashes or lesions noted Course Vital Signs: Vital signs: Vital Signs Temperature 98.0 F 08/20/24 10:38 Pulse Rate 66 08/20/24 13:09 Respiratory Rate 16 08/20/24 13:09 Blood Pressure 115/85 08/20/24 13:09 Pulse Oximetry 93 08/20/24 13:09 Oxygen Delivery Me thod Room Air 08/20/24 12:31 MDM - SOB/Dyspnea Medical Decision Making Patient presents from lower extremity edema did give him Lasix he is diuresing his point. 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 Medical Records I reviewed the patient's medical records. Lab Data I reviewed the patient's lab results. 08/20/24 11:22 08/20/24 11:22 Labs/Radiology: Radiology Impressions Chest X-Ray 08/20/24 10:40 IMPRESSION: No evidence of active cardiopulmonary disease. Laboratory Results WBC 9.17 10^3/uL (3.29-11.43) 08/20/24 11:22 RBC 3.65 10^6/uL (3.85-5.65) L 08/20/24 11:22 Hgb 10.90 g/dL (11.27-16.99) L 08/20/24 11:22 Hct 34.1 % (37-53) L 08/20/24 11:22 MCV 93.4 fl (82-101) 08/20/24 11:22 MCH 29.9 pg (27-33) 08/20/24 11:22 MCHC 32.0 g/dL (30-55) 08/20/24 11:22 RDW 13.0 % (12.1-15.1) 08/20/24 11:22 Plt Count 229 10^3/cmm (157-399) 08/20/24 11:22 MPV 10.1 fL (7.4-10.4) 08/20/24 11:22 Neut % (Auto) 64.5 % 08/20/24 11:22 Lymph % (Auto) 23.9 % 08/20/24 11:22 [place] % (Auto) 8.8 % 08/20/24 11:22 Eos % (Auto) 2.1 % 08/20/24 11:22 Baso % (Auto) 0.3 % 08/20/24 11:22 Neut # (Auto) 5.91 10^3/uL (1.8-7.7) 08/20/24 11:22 Lymph # (Auto) 2.2 10^3/uL (0.8-4.8) 08/20/24 11:22 [place] # (Auto) 0.8 10^3/uL (0.2-0.9) 08/20/24 11:22 Eos # (Auto) 0.2 10^3/uL (0.0-0.8) 08/20/24 11:22 Baso # (Auto) 0.0 10^3/uL (0.0-0.1) 08/20/24 11:22 Nucleated RBC % (auto) 0 % 08/20/24 11:22 Nucleated RBCs # 0.0 /100WBC 08/20/24 11:22 Sodium 138 mmol/L (136-145) 08/20/24 11:22 Potassium 4.4 mmol/L (3.5-5.1) 08/20/24 11:22 Chloride 99 mmol/L (98-107) 08/20/24 11:22 Carbon Dioxide 31 mmol/L (22-29) H 08/20/24 11:22 Anion Gap 12.4 (5-19) 08/20/24 11:22 BUN 14 mg/dL (8-23) 08/20/24 11:22 Creatinine 1.1 mg/dL (0.7-1.2) 08/20/24 11:22 GFR Calculation Not Reportable 08/20/24 11:22 Glucose 130 mg/dL (65-115) H 08/20/24 11:22 Calculated Osmolality 288 mOsm/kg (285-295) 08/20/24 11:22 Calcium 8.9 mg/dL (8.5-10.5) 08/20/24 11:22 Total Bilirubin 0.3 mg/dL (0.15-1.2) 08/20/24 11:22 AST 27 U/L (0-40) 08/20/24 11:22 ALT 17 U/L (0-41) 08/20/24 11:22 Alkaline Phosphatase 72 U/L (40-130) 08/20/24 11:22 NT-Pro-B Natriuret Pep 471 pg/mL (0-125) H 08/20/24 11:22 Total Protein 6.5 g/dL (6.6-8.7) L 08/20/24 11:22 Albumin 4.1 g/dL (3.5-5.2) 08/20/24 11:22 Globulin 2.4 g/dL (1.3-4.6) 08/20/24 11:22 Coronavirus (PCR) Negative (Negative) 08/20/24 11:21 Influenza A (PCR) Negative (Negative) 08/20/24 11:21 Influenza Type B (PCR) Negative (Negative) 08/20/24 11:21 RSV (PCR) Negative (Negative) 08/20/24 11:21 All radiology interpretation(s) finalized by discharge EKG Data EKG 1: I personally reviewed and interpreted this EKG as follows: EKG Interpretation Date: 08/20/24 EKG interpretation time: 11:55 Interpretation: nsr hr [address] elevation qrs 98 qtc 433 Discharge Plan Discharge Patient Disposition: Home Clinical Impression: Bilateral edema of lower extremity, Dyspnea Condition: Stable Prescriptions: No Action tamsulosin 0.4 mg capsule 0.4 mg PO QPM melatonin 10 mg capsule 10 mg PO QPM famotidine [Pepcid] 20 mg tablet 20 mg PO DAILY montelukast [Singulair] 10 mg tablet 10 mg PO QPM isosorbide dinitrate 5 mg tablet 5 mg PO DAILY Rx Instructions: allow nitrate-free interval of 12-14 hrs per 24-hr period aspirin 81 mg tablet,delayed release (DR/EC) 81 mg PO DAILY Qty: 90 3RF nitroglycerin 0.4 mg tablet, sublingual 0.4 mg sublingual Q5M PRN (Reason: chest pain) Qty: 30 4RF Rx Instructions: do not exceed 3 doses per episode amlodipine 5 mg tablet 5 mg PO BID Qty: 180 2RF levofloxacin 500 mg tablet 500 mg PO DAILY 7 Days Qty: 7 0RF prednisone 20 mg tablet 40 mg PO .Daily in A.M. 5 Days Qty: 10 0RF albuterol sulfate [Ventolin HFA] 90 mcg/actuation HFA aerosol inhaler 1 - 2 inh inhalation Q4H PRN (Reason: shortness of breath or wheezing) Qty: 8.5 0RF levothyroxine [Synthroid] 25 mcg tablet 25 mcg PO DAILY gemfibrozil 600 mg tablet 600 mg PO BID multivitamin Tablet 1 tab PO DAILY Stiolto Respimat 2.5-2.5 mcg/actuation mist 2 puff inhalation DAILY Qty: 4 3RF fluticasone propionate [Flonase Allergy Relief] 50 mcg/actuation spray,suspension 2 spray intranasal DAILY Qty: 16 0RF Rx Instructions: administer into each nostril furosemide [Lasix] 40 mg tablet 40 mg PO DAILY guaifenesin 200 mg tablet 200 mg PO BID ropinirole 2 mg tablet 2 mg PO DAILY metolazone 2.5 mg tablet 2.5 mg PO DAILY Qty: 5 0RF potassium chloride 20 mEq tablet extended release 20 meq PO DAILY@0800 Qty: 90 3RF Praluent Pen 150 mg/mL pen injector 150 mg SUBCUT Q14D Qty: 2 11RF cholecalciferol (vitamin D3) 1,250 mcg (50,000 unit) capsule 1,250 mcg PO DAILY@2000 clopidogrel 75 mg Tablet 75 mg PO DAILY Qty: 90 0RF metoprolol tartrate 100 mg Tablet 50 mg PO BID Qty: 120 0RF coenzyme Q10 [Co Q-10] 200 mg Capsule 200 mg PO DAILY aripiprazole 10 mg tablet 5 mg PO DAILY cyclobenzaprine 10 mg tablet 10 mg PO BID PRN (Reason: Muscle Spasm) citalopram 40 mg tablet 40 mg PO QAM hydralazine 50 mg tablet 50 mg PO BID Qty: 60 0RF Discharge Orders: Discharge ED (Routine); Ordered 08/20/24 Ordered By: Jenni Betancourt Referrals: PARISH Fraser, AUTOMOTIVE PRODUCT SPECIALIST [Primary Care Provider] - 4-7 days Discharge Diet: Advance as tolerated Discharge Activity: Resume usual activity Patient Instructions: Dyspnea (ED), Edema (ED) Coding Level of Care Code ED Field Traffic Investigator for Meghan Hu
[2024-08-20 11:28] LABS: Basophils % 0.3 %; Eosinophils # 0.2 10^3/uL (0.0-0.8); Eosinophils % 2.1 %; Hematocrit 34.1 % (37-53); Lymphocytes # 2.2 10^3/uL (0.8-4.8); Lymphocytes % 23.9 %; Mean Corpuscular Hemoglobin 29.9 pg (27-33); Mean Corpuscular Volume 93.4 fl (82-101); Mean Platelet Volume 10.1 fL (7.4-10.4); Monocytes # 0.8 10^3/uL (0.2-0.9); Monocytes % 8.8 %; Neutrophils # 5.91 10^3/uL (1.8-7.7); Neutrophils % 64.5 %; Nucleated Red Blood Cells % 0 %; Platelet Count 229 10^3/cmm (157-399); Red Blood Count 3.65 10^6/uL (3.85-5.65); White Blood Count 9.17 10^3/uL (3.29-11.43)
[2024-08-20 11:54] LABS: Alanine Aminotransferase 17 U/L (0-41); Albumin Level 4.1 g/dL (3.5-5.2); Alkaline Phosphatase 72 U/L (40-130); Anion Gap 12.4 (5-19); Aspartate Amino Transferase 27 U/L (0-40); Blood Urea Nitrogen 14 mg/dL (8-23); Calcium 8.9 mg/dL (8.5-10.5); Carbon Dioxide 31 mmol/L (22-29); Chloride 99 mmol/L (98-107); Globulin 2.4 g/dL (1.3-4.6); Glucose 130 mg/dL (65-115); NT Pro B Type Natriuretic Pept 471 pg/mL (0-125); Osmolality Calculated 288 mOsm/kg (285-295); Potassium 4.4 mmol/L (3.5-5.1); Sodium 138 mmol/L (136-145); Total Bilirubin 0.3 mg/dL (0.15-1.2); Total Protein 6.5 g/dL (6.6-8.7)
[2024-08-20 12:13] LABS: Covid PCR NEGATIVE (Negative); Influenza A NEGATIVE (Negative); Influenza B NEGATIVE (Negative); Respiratory Syncytial Virus Ce NEGATIVE (Negative)
[2024-08-20 12:24] VITALS: BP 129/81; PULSE 62; RESP 15; O2SAT 91
[2024-08-20] MEDS: FUROsemide 10 mg/mL SDV 10mL 60 MG IVP (12:29)
[2024-08-20 12:31] VITALS: BP 128/81; PULSE 63; RESP 16; O2SAT 91
[2024-08-20 13:09] VITALS: BP 115/85; PULSE 66; RESP 16; O2SAT 93
== END 2024-08-20 13:04 | disposition home or self-care (01) ==
PROVIDERS: Emergency Provider Emergency Medicine; PCP Nurse Practitioner Family
DX: R60.0 Localized edema (principal); R06.00 Dyspnea, unspecified; I50.9 Heart failure, unspecified; Z79.899 Other long term (current) drug therapy
CPT/HCPCS: 0241U; 36415; 71045; 80053; 83880; 85025; 93005; 96374; 99285; J1940

== ENCOUNTER → 2024-08-21 13:28 | Outpatient (BNVA) | payer OTHER, BC, SELFPAY | PROVIDERS: PCP Nurse Practitioner Family; Visit Provider Specialist | DX: M12.811 Other specific arthropathies, not elsewhere classified, right shoulder (principal) | CPT/HCPCS: 73030; 99204 ==

== ENCOUNTER → 2024-08-25 07:45 | Outpatient (BNVA) | payer OTHER, SELFPAY | PROVIDERS: PCP Nurse Practitioner Family; Visit Provider Specialist | DX: M17.0 Bilateral primary osteoarthritis of knee (principal); Z71.89 Other specified counseling | CPT/HCPCS: 20610; J1100; J2795; J3301 ==

== ENCOUNTER 2024-09-08 13:00 | Outpatient (CLI) | payer OTHER, SELFPAY ==
--- NOTE | 2024-09-08 13:00 | MRR_ITS ---
PROCEDURE INFORMATION: Exam: MR Right Upper Extremity Joint Without Contrast; Shoulder Exam date and time: 09/08/2024 1:03 PM Age: 74 years old Clinical indication: Right; Patient HX: Shoulder pain and limited rom for 3 years injured being pulled on; Additional info: Right shoulder pain TECHNIQUE: Imaging protocol: Magnetic resonance imaging of the right upper extremity without contrast. Exam focused on the shoulder. COMPARISON: MR shoulder RT wo con* [id number] 09/15/2022 11:26 AM FINDINGS: Bones/joints: [id number] glenohumeral effusion. Moderate AC joint arthropathy with joint effusion, capsular and osseous hypertrophy. Mild subluxation of the humeral head of the posterior glenohumeral joint space. Mild degenerative spurring of the glenohumeral joint margins mild diffuse cartilage thinning of the glenoid and superior humeral head. Glenoid labrum: No obvious tear. Supraspinatus tendon: Full-thickness tear of the supraspinatus and infraspinatus with a proximally 1.8 cm medial-lateral gap. Suture anchors noted in the greater tuberosity. Moderate atrophy of the supraspinatus and infraspinatus muscles. Infraspinatus tendon: Unremarkable. No evidence of tear. Subscapularis tendon: Partial-thickness tear of the subscapularis near the footprint. Teres minor tendon: Unremarkable. No evidence of tear. Tendon of biceps brachii: Not visualized suggestive of tear. Glenohumeral ligaments: Unremarkable. Soft tissues: Unremarkable. MR/MR shoulder RT wo con* [id number] IMPRESSION: 1. Full-thickness tear of the supraspinatus and infraspinatus footprint with retraction of the torn edge. Moderate muscle atrophy. Partial-thickness tear of the subscapularis footprint. 2. Long head biceps tendon is not visualized suggestive of tear and retraction. 3. Moderate glenohumeral effusion. 4. Mild glenohumeral subluxation with widening of the posterior joint space.
== END 2024-09-08 13:01 | disposition home or self-care (01) ==
PROVIDERS: PCP Nurse Practitioner; Visit Provider Specialist
DX: M19.011 Primary osteoarthritis, right shoulder (principal); M75.121 Complete rotator cuff tear or rupture of right shoulder, not specified as traumatic
CPT/HCPCS: 73221

== ENCOUNTER 2024-09-12 09:02 | Outpatient (CLI) | payer OTHER, SELFPAY ==
--- NOTE | 2024-09-12 09:30 | USCV_ITS ---
Mian Menendez Age: 74 Gender: M : 1950 Exam Date: 09/12/2024 09:26 Ordering Phys: Reji Magallon MD ([email or web address]) Technologist: [employer] Exam Location: [facility] – [place] Indication: HISTORY: PROCEDURES: FINDINGS: The veins were found to be easily compressible with spontaneous blood flow. Non pulsatile flow pattern. Venous reflux was noted in the deep veins on the left side, involving the common femoral and popliteal veins The reflux time was 2.05-second in the common femoral and 1.6 seconds in the popliteal veins No significant venous reflux was noted in these superficial veins. Venous diameter was in the normal range. CONCLUSIONS 1. No significant venous reflux in the superficial veins bilaterally 2. Significant venous reflux of greater than 1000 ms were noted at the left common femoral and popliteal veins 3. No evidence of DVT or superficial vein thrombosis Dr Mele Barragan MD [facility] (Electronically Signed) Final Date: 15 September 2024 00:49 S
== END 2024-09-12 09:03 | disposition home or self-care (01) ==
LOC: RAD 09:03
PROVIDERS: PCP Nurse Practitioner; Visit Provider Internal Medicine Cardiovascular Disease
DX: I82.412 Acute embolism and thrombosis of left femoral vein (principal); I82.432 Acute embolism and thrombosis of left popliteal vein
CPT/HCPCS: 93970

== ENCOUNTER → 2024-09-28 12:46 | Outpatient (BNVA) | payer OTHER, SELFPAY | PROVIDERS: PCP Nurse Practitioner; Visit Provider Specialist | DX: Z01.818 Encounter for other preprocedural examination (principal) | CPT/HCPCS: 36415; 80053; 81001; 85025 ==

== ENCOUNTER → 2024-10-09 13:13 | Outpatient (BNVA) | payer OTHER, SELFPAY | PROVIDERS: PCP Nurse Practitioner; Visit Provider Nurse Practitioner Family | DX: E87.6 Hypokalemia (principal) | CPT/HCPCS: 80053 ==

== ENCOUNTER → 2024-10-24 11:27 | Outpatient (BNVA) | payer OTHER, SELFPAY | PROVIDERS: PCP Nurse Practitioner; Visit Provider Nurse Practitioner Family | DX: R06.02 Shortness of breath (principal) | CPT/HCPCS: 71046 ==

== ENCOUNTER 2024-10-27 11:26 | Inpatient (IN) | payer OTHER, MEDICARE, SELFPAY ==
[2024-10-27] VITALS (26 sets, daily range): BP systolic 110–146; BP diastolic 62–89; PULSE 64–104; RESP 16–30; TEMP 36.6–36.7; O2SAT 88–96; BMI 32.8
--- NOTE | 2024-10-27 11:30 | XRR_ITS ---
PROCEDURE INFORMATION: Exam: XR Chest Exam date and time: 10/27/2024 11:40 AM Age: 74 years old Clinical indication: Shortness of breath TECHNIQUE: Imaging protocol: Radiologic exam of the chest. Views: 1 view. COMPARISON: CR XR chest 2V* [id number] 10/24/2024 11:28 AM FINDINGS: Lungs: Unremarkable. No consolidation or mass. Pleural spaces: Unremarkable. No pleural effusion. No pneumothorax. Heart/Mediastinum: Unremarkable. No cardiomegaly. Bones/joints: Unremarkable. XR/XR chest 1V portable [id number] IMPRESSION: No acute findings.
--- NOTE | 2024-10-27 11:37 | ED_ITS ---
HPI - SOB/Dyspnea 2 General: Chief Complaint: Shortness of Breath/Dyspnea Stated Complaint: SOB Time Seen by Provider: 10/27/24 11:30 History of Present Illness: HPI Narrative: 74-year-old man with a history of conteh ry artery disease status post multiple stents and on Plavix, congestive heart failure, chronic kidney disease, GERD, hyperlipidemia, obstructive sleep apnea and COPD who presents to the emergency room by ambulance from clinic with hypoxemia. He says over the last month he has been feeling more short of breath. Has some swelling in his abdomen. Nonsignificant his legs. Recently was increased from 40 to 80 mg on his Lasix. He says his breathing treatments helped slightly. EMS reports he was in the low 80s upon their arrival. With an albuterol and oxygen he is been in the mid 90s they say. On presentation here he is 91% on 3.5 L nasal cannula. Lungs are tight with scattered wheeze. He says he is had no chest pain. No nausea or vomiting. No altered mental status. He had gone to clinic for his shortness of breath. Related Data Home Medications Medication Instructions Recorded Confirmed famotidine 20 mg tablet (Pepcid) 20 mg PO DAILY 12/18/19 10/27/24 montelukast 10 mg tablet 10 mg PO QPM 12/18/19 10/27/24 (Singulair) tamsulosin 0.4 mg capsule 0.4 mg PO QPM 04/11/20 10/27/24 isosorbide dinitrate 5 mg tablet 5 mg PO DAILY 05/05/21 10/27/24 gemfibrozil 600 mg tablet 600 mg PO BID 04/21/22 10/27/24 levothyroxine 25 mcg tablet 25 mcg PO DAILY 04/21/22 10/27/24 (Synthroid) aripiprazole 10 mg tablet 5 mg PO DAILY 03/15/24 10/27/24 citalopram 40 mg tablet 40 mg PO QAM 03/15/24 10/27/24 cyclobenzaprine 10 mg tablet 10 mg PO BID PRN Muscle Spasm 03/15/24 10/27/24 furosemide 40 mg tablet (Lasix) 40 mg PO DAILY 05/31/24 10/27/24 guaifenesin 200 mg tablet 400 mg PO BID 07/31/24 10/27/24 olodaterol 2.5 mcg/actuation mist 2 inh inhalation DAILY 10/27/24 10/27/24 for inhalation (Striverdi Respimat) ropinirole 3 mg tablet 3 mg PO DAILY 10/27/24 10/27/24 tiotropium 2.5 mcg-olodaterol 2.5 1 inh inhalation BID 10/27/24 10/27/24 mcg/actuation mist for inhalation (Stiolto Respimat) Previous Rx's Medication Instructions Recorded fluticasone propionate 50 2 spray intranasal DAILY #16 grams 12/11/22 mcg/actuation nasal spray,suspension (Flonase Allergy Relief) clopidogrel 75 mg tablet 75 mg PO DAILY #90 tabs 02/15/24 amlodipine 5 mg tablet 5 mg PO BID #180 tabs 02/29/24 alirocumab 150 mg/mL subcutaneous 150 mg SUBCUT Q14D #2 mL 03/08/24 pen injector (Praluent Pen) hydralazine 50 mg tablet 50 mg PO BID #60 tabs 03/15/24 metoprolol tartrate 100 mg tablet 50 mg (1/2 x 100 mg) PO BID #120 05/11/24 tabs potassium chloride 20 mEq 20 meq PO DAILY@0800 #90 tabs 07/31/24 tablet,extended release albuterol sulfate 90 mcg/actuation 1 - 2 inh inhalation Q4H PRN 08/10/24 aerosol inhaler (Ventolin HFA) shortness of breath or wheezing #8.5 grams metolazone 2.5 mg tablet 2.5 mg PO DAILY #30 tabs 08/21/24 fluticasone fur. 100 mcg-umeclid 1 inh inhalation DAILY 30 days #28 10/02/24 62.5 mcg-vilant 25 mcg ea inhalat.powder (Trelegy Ellipta) gabapentin 300 mg capsule 300 mg PO .hs #30 caps 10/24/24 Allergies Allergy/AdvReac Type Severity Reaction Status Date / Time atorvastatin [From Lipitor] Allergy Unknown Verified 10/27/24 13:04 bupropion [From Wellbutrin] Allergy hallucinati Verified 10/27/24 13:04 ons buspirone Allergy caused Verified 10/27/24 13:04 negative thinking ezetimibe [From Zetia] Allergy Unknown Verified 10/27/24 13:04 lovastatin Allergy Unknown Verified 10/27/24 13:04 pravastatin [From Pravachol] Allergy Unknown Verified 10/27/24 13:04 simvastatin Allergy fatigue Verified 10/27/24 13:04 Review of Systems 2 Narrative: Constitutional symptoms: Negative except as documented in HPI. Skin symptoms: Negative except as documented in HPI. Eye symptoms: Negative except as documented in HPI. ENMT symptoms: Negative except as documented in HPI. Respiratory symptoms: Negative except as documented in HPI. Cardiovascular symptoms: Negative except as documented in HPI. Gastrointestinal symptoms: Negative except as documented in HPI. Genitourinary symptoms: Negative except as documented in HPI. Musculoskeletal symptoms: Negative except as documented in HPI. Neurologic symptoms: Negative except as documented in HPI. Psychiatric symptoms: Negative except as documented in HPI. Endocrine symptoms: Negative except as documented in HPI. PFSH ED 2 PFSH: Medical History Worsening angina Chest pain Acute non-ST elevation myocardial infarction (NSTEMI) Acute kidney injury COPD exacerbation Hypokalemia Rotator cuff arthropathy of right shoulder Venous insufficiency (chronic) (peripheral) CHF (congestive heart failure) Pneumonia Elevated troponin Primary osteoarthritis of knees, bilateral Low back pain Chronic kidney disease Osteoarthritis Gastro-esophageal reflux disease without esophagitis Hyperlipidemia Obstructive sleep apnea Other idiopathic peripheral autonomic neuropathy History of colon polyps Left rotator cuff tear arthropathy Chronic shoulder pain Small airways disease Coronary artery disease Back pain Depression Anemia Primary osteoarthritis of right knee Primary osteoarthritis of left knee Mass of lingula of lung Bronchitis Primary localized osteoarthritis of both knees Allergic rhinosinusitis COPD (chronic obstructive pulmonary disease) Hypertension Anxiety Surgical History Hx of colonoscopy (04/2022) Status post coronary artery stent placement Status post hernia repair (2017) Repair of bilateral inguinal and umbilical hernias with mesh Status post total knee replacement Status post shoulder surgery Family History Other Hypertension Social History Smoking and tobacco/nicotine status: never used tobacco/nicotine Quit status (tobacco/nicotine): has quit using Year quit tobacco: 2003 - 1PPD x 35 Years Alcohol intake: former Substance/Drug Use: never Lives independently: Yes Household members: spouse Marital status: Current occupational status: employed Current occupation: [employer] Do you think of yourself as: Straight/Heterosexual Current gender identity: Male Physical Exam 2 Narrative: EXAM NARRATIVE: General: Alert, moderate distress. Skin: Warm, dry. Head: Normocephalic, atraumatic. Neck: Supple, trachea midline. Eye: Extraocular movements are intact. Ears, nose, mouth and throat: Oral mucosa moist. Cardiovascular: Regular rate and rhythm, Normal peripheral perfusion. Respiratory: coarse, scattered wheeze, moderate increased wob. tachypnea, prolonged expiratory phase. breath sounds are equal, Symmetrical chest wall expansion. Gastrointestinal: Soft, Nontender, Non distended, Normal bowel sounds. Musculoskeletal: Normal ROM, no deformity. Neurological: Alert and oriented to person, place, time, and situation, No focal neurological deficit observed. Psychiatric: Cooperative, appropriate mood & affect. Course 2 Vital Signs: Vital signs: Vital Signs Temperature 97.9 F 10/27/24 11:47 Pulse Rate 72 10/27/24 13:47 Respiratory Rate 22 H 10/27/24 13:36 Blood Pressure 134/80 10/27/24 13:36 Pulse Oximetry 96 10/27/24 13:47 Oxygen Delivery Me thod Nasal Cannula 10/27/24 13:36 Oxygen Flow Rate 6 10/27/24 13:36 Fraction of Inspir ed Oxygen 40 10/27/24 13:47 MDM - SOB/Dyspnea Medical Decision Making Differential diagnosis for patient with shortness of breath includes but is not limited to and based on the above HPI, review of systems and physical exam: Pneumonia. Bronchitis. Asthma or COPD with acute exacerbation. Acute coronary syndrome / [place]. Pulmonary embolism. Anxiety. Congestive heart failure. Viral infections including influenza and Covid-19. Atrial fibrillation. Anxiety. Pleural effusion. Pneumothorax. Orders placed to evaluate differential diagnosis based on the above differential, HPI and physical exam EKG: Time 11:47 AM. Rate 63. Normal sinus rhythm, No ST-T changes, occasional PVCs, normal CA & QRS intervals, This was reviewed and interpreted by myself the ER physician at 11:50 AM AB.45/54/62 with an O2 sat of 90% on 3.5 L nasal cannula. Mild hypercapnia that is compensated. Hypoxemia. Chest x-ray: No acute process. No infiltrate. No pneumothorax. This was reviewed and interpreted by myself the emergency room physician. I also reviewed the radiology report. Lab Review: Laboratory results were reviewed and interpreted by myself the emergency room physician. No leukocytosis. No new anemia. Renal function slightly worse at 42 and 1.7 than his baseline. Troponin is initially elevated and more elevated with a significant delta. Being placed on a heparin drip. Significant cardiac history. proBNP is down from his baseline. Potassium is low. This is being replaced. I reviewed the patient's medical record. Reexamination: Pt with worsening O2 requirements. Placed on bipap. Reexamination: After being placed on BiPAP patient appears much more comfortable. Work of breathing is improved. Oxygen saturations have gone up into the upper 90s. I spoke with he and his about admission. No altered mental status. No focal motor deficits. He is had no chest pain. Consultation: I spoke with Dr. Barragan who is on-call for the cardiology service. He recommends heparin bolus and drip and admission to the ICU. Patient has complex stent history and has had multiple cardiac caths in the last several months. Consultation: I spoke with Dr. Patel with the hospitalist service who agrees to admission. We will place patient in ICU. He recommends a D-dimer at this time. Assessment and plan: COPD with acute exacerbation Hypoxemic respiratory failure Hypercapnia Acute on chronic renal insufficiency Hypokalemia Non-ST elevation myocardial infarction History of congestive heart failure -Patient initially requiring 3.5 L than 6 L. At this point he was still in the 80s so I placed him on a BiPAP. Now oxygen saturations are in the upper 90s when he appears much more comfortable. ?IV Solu-Medrol, 2 updrafts. ?Kidney function looks slightly worse than usual. proBNP is down from normal usual. and PCP were concerned that he may be holding fluid in his abdomen. At this point I am going to hold off on any further diuresis. ?40 mill equivalents IV potassium. 40 mill equivalents p.o. potassium. 2 g of IV magnesium. ?Cardiology consultation. Heparin bolus and drip initiated. -I discussed the patient with the hospitalist on-call who is admitting the patient. - Discussed findings and plan with patient. Answered any questions. - All laboratory values were reviewed and interpreted personally by myself, the ER physician - All imaging was reviewed and interpreted personally by myself, the ER physician. - Evaluation and treatment of this problem were appropriate in the emergency setting Critical care -I spent a total of >35 minutes of critical care time managing the patient, independent of any other practitioner. -The time involved in the performance of separately reportable procedures was not counted towards critical care time. Lab Data 10/27/24 12:44 10/27/24 12:44 Labs/Radiology: Radiology Impressions Chest X-Ray 10/27/24 11:30 IMPRESSION: No acute findings. Laboratory Results WBC 8.40 10^3/uL (3.29-11.43) 10/27/24 12:44 Corrected WBC Cancelled 10/27/24 12:05 RBC 3.93 10^6/uL (3.85-5.65) 10/27/24 12:44 Hgb 11.50 g/dL (11.27-16.99) 10/27/24 12:44 Hct 35.0 % (37-53) L 10/27/24 12:44 MCV 89.1 fl (82-101) 10/27/24 12:44 MCH 29.3 pg (27-33) 10/27/24 12:44 MCHC 32.9 g/dL (30-55) 10/27/24 12:44 RDW 13.2 % (12.1-15.1) 10/27/24 12:44 Plt Count 249 10^3/cmm (157-399) 10/27/24 12:44 MPV 9.9 fL (7.4-10.4) 10/27/24 12:44 Gran % Cancelled 10/27/24 12:05 Neut % (Auto) 45.4 % 10/27/24 12:44 Lymph % (Auto) 39.8 % 10/27/24 12:44 [place] % (Auto) 10.6 % 10/27/24 12:44 Eos % (Auto) 3.7 % 10/27/24 12:44 Baso % (Auto) 0.4 % 10/27/24 12:44 Neut # (Auto) 3.82 10^3/uL (1.8-7.7) 10/27/24 12:44 Lymph # (Auto) 3.3 10^3/uL (0.8-4.8) 10/27/24 12:44 [place] # (Auto) 0.9 10^3/uL (0.2-0.9) 10/27/24 12:44 Eos # (Auto) 0.3 10^3/uL (0.0-0.8) 10/27/24 12:44 Baso # (Auto) 0.0 10^3/uL (0.0-0.1) 10/27/24 12:44 Absolute Gran (auto) Cancelled 10/27/24 12:05 Nucleated RBC % (auto) 0 % 10/27/24 12:44 Nucleated RBCs # 0.0 /100WBC 10/27/24 12:44 D-Dimer 0.42 ug/mLFEU (0-0.59) 10/27/24 12:44 Specimen Type Arterial 10/27/24 12:01 Sample Site Radial, right 10/27/24 12:01 ABG pH 7.45 (7.35-7.45) 10/27/24 12:01 ABG pCO2 53.9 mmHg (35-45) H 10/27/24 12:01 ABG pO2 61.3 mmHg (80.0-100.0) L 10/27/24 12:01 ABG PO2/FiO2 Ratio 170 10/27/24 12:01 ABG HCO3 37.7 mmol/L (22-26) H 10/27/24 12:01 ABG O2 Saturation 91.8 10/27/24 12:01 ABG Base Excess 11.7 mmol/L (-2.0-2.0) H 10/27/24 12:01 Silvano Test Pos 10/27/24 12:01 A-a O2 Gradient 17.4 mmHg (5-10) H 10/27/24 12:01 Hematocrit 39.3 % (42-52) L 10/27/24 12:01 Hgb O2 Saturation 90.5 % (95-100) L 10/27/24 12:01 Carboxyhemoglobin 1.3 %THgb (0.4-20.1) 10/27/24 12:01 Methemoglobin 0.2 % (0.4-1.5) L 10/27/24 12:01 Total Hemoglobin 12.8 g/dL (14-18) L 10/27/24 12:01 Sodium 141.0 mmol/L (131-143) 10/27/24 12:01 Potassium 2.6 mmol/L (3.5-5.0) L 10/27/24 12:01 Glucose 122.0 mg/dL (70-115) H 10/27/24 12:01 Ionized Calcium 1.2 mmol/L (1.1-1.4) 10/27/24 12:01 O2 Delivery Device Nc 10/27/24 12:01 O2 Liters/Min 3.5 % 10/27/24 12:01 FiO2 36.0 % 10/27/24 12:01 Letter Sorting Machine Operator ID [email or web address] 10/27/24 12:01 Sodium 140 mmol/L (136-145) 10/27/24 12:44 Potassium 2.8 mmol/L (3.5-5.1) L* 10/27/24 12:44 Chloride 91 mmol/L (98-107) L 10/27/24 12:44 Carbon Dioxide 36 mmol/L (22-29) H 10/27/24 12:44 Anion Gap 15.8 (5-19) 10/27/24 12:44 BUN 42 mg/dL (8-23) H 10/27/24 12:44 Creatinine 1.7 mg/dL (0.7-1.2) H 10/27/24 12:44 GFR Calculation Not Reportable 10/27/24 12:44 Glucose 124 mg/dL (65-115) H 10/27/24 12:44 Calculated Osmolality 302 mOsm/kg (285-295) H 10/27/24 12:44 Lactic Acid 2.0 mmol/L (0.5-2.2) 10/27/24 12:44 Calcium 10.0 mg/dL (8.5-10.5) 10/27/24 12:44 Total Bilirubin 0.2 mg/dL (0.15-1.2) 10/27/24 12:44 AST 29 U/L (0-40) 10/27/24 12:44 ALT 19 U/L (0-41) 10/27/24 12:44 Alkaline Phosphatase 103 U/L (40-130) 10/27/24 12:44 Troponin T Baseline 31 ng/L (0-15) H 10/27/24 12:44 C-Reactive Protein 23.1 mg/L (0.0-4.9) H 10/27/24 12:44 NT-Pro-B Natriuret Pep 168 pg/mL (0-125) H 10/27/24 12:44 Total Protein 7.2 g/dL (6.6-8.7) 10/27/24 12:44 Albumin 4.6 g/dL (3.5-5.2) 10/27/24 12:44 Globulin 2.6 g/dL (1.3-4.6) 10/27/24 12:44 Coronavirus (PCR) Negative (Negative) 10/27/24 12:05 Influenza A (PCR) Negative (Negative) 10/27/24 12:05 Influenza Type B (PCR) Negative (Negative) 10/27/24 12:05 RSV (PCR) Negative (Negative) 10/27/24 12:05 All radiology interpretation(s) finalized by discharge Discharge Plan Discharge Patient Disposition: Admitted As Inpatient Admit Provider: Fransico Patel Clinical Impression: Acute hypoxemic respiratory failure, COPD with acute exacerbation, Congestive heart failure, Hypokalemia, Non-ST elevated myocardial infarction, Acute on chronic renal failure Condition: Stable Coding Level of Care Code ED Director Of Dance for Meghan Hu
--- NOTE | 2024-10-27 11:47 | ECG_ITS ---
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 Measurements Intervals [place] Rate: 63 P: 13 [place]: 140 QRS: 2 QRSD: 110 T: 42 QT: 470 QTc: 485 Interpretive Statements SINUS RHYTHM WITH OCCASIONAL VENTRICULAR PREMATURE COMPLEXES PROLONGED QT INTERVAL Compared to ECG 08/20/2024 11:55:15 Prolonged QT interval now present Electronically Signed On 10-27-2024 21:32:14 SECURITY SYSTEMS SALES REPRESENTATIVE by Mele Barragan M.D. [email or web address]
[2024-10-27 12:12] LABS: ABG PCO2 53.9 mmHg (35-45); ABG PH Result 7.45 (7.35-7.45); Arterial Blood Gas Hematocrit 39.3 % (42-52); Base Excess ABG 11.7 mmol/L (-2.0-2.0); Blood Gas Allen Test Pos; Blood Gas LPM 3.5 %; Blood Gas Operator Identificat glc; Blood Gas Sample Site Radial, right; Blood Gas Sample Type Arterial; Carboxyhemoglobin 1.3 %THgb (0.4-20.1); HCO3 ABG 37.7 mmol/L (22-26); HGB O2 Sat 90.5 % (95-100); Ionized Calcium Level - ABG 1.2 mmol/L (1.1-1.4); Methemoglobin 0.2 % (0.4-1.5); Oxygen Device NC; Oxygen Saturation ABG 91.8; PO2 ABG 61.3 mmHg (80.0-100.0); Potassium Level - ABG 2.6 mmol/L (3.5-5.0); Total Hemoglobin 12.8 g/dL (14-18)
[2024-10-27 12:13] LABS: Alveolar-Arterial Oxygen Gradi 17.4 mmHg (5-10); PO2 FiO2 Ratio Arterial Blood 170
[2024-10-27] MEDS: methylPREDNISolone sod succ 125 mg/2 mL INJ IVP (12:17)
[2024-10-27] MEDS: ipratropium-albuterol 3 mL Neb INHALATION ×3 (12:20→23:57)
[2024-10-27] MEDS: albuterol 2.5 mg/3 mL Neb INHALATION (12:20)
--- NOTE | 2024-10-27 12:30 | PC.PHAR ---
patient is [facility], sent fax at 1230pm
[2024-10-27 12:55] LABS: Covid PCR NEGATIVE (Negative); Influenza A NEGATIVE (Negative); Influenza B NEGATIVE (Negative); Respiratory Syncytial Virus Ce NEGATIVE (Negative)
[2024-10-27 12:55] LABS: Basophils % 0.4 %; Eosinophils # 0.3 10^3/uL (0.0-0.8); Eosinophils % 3.7 %; Lymphocytes # 3.3 10^3/uL (0.8-4.8); Lymphocytes % 39.8 %; Mean Corpuscular HGB Conc 32.9 g/dL (30-55); Mean Corpuscular Hemoglobin 29.3 pg (27-33); Mean Corpuscular Volume 89.1 fl (82-101); Mean Platelet Volume 9.9 fL (7.4-10.4); Monocytes # 0.9 10^3/uL (0.2-0.9); Monocytes % 10.6 %; Neutrophils # 3.82 10^3/uL (1.8-7.7); Neutrophils % 45.4 %; Nucleated Red Blood Cells % 0 %; Platelet Count 249 10^3/cmm (157-399); Red Blood Count 3.93 10^6/uL (3.85-5.65); Red Cell Distribution Width 13.2 % (12.1-15.1)
[2024-10-27 13:16] LABS: Troponin(5th) Baseline 31 ng/L (0-15)
[2024-10-27 13:26] LABS: Alanine Aminotransferase 19 U/L (0-41); Albumin Level 4.6 g/dL (3.5-5.2); Alkaline Phosphatase 103 U/L (40-130); Anion Gap 15.8 (5-19); Aspartate Amino Transferase 29 U/L (0-40); Blood Urea Nitrogen 42 mg/dL (8-23); C Reactive Protein 23.1 mg/L (0.0-4.9); Carbon Dioxide 36 mmol/L (22-29); Chloride 91 mmol/L (98-107); Creatinine Clr Calc Pharmacy 40.3573; Globulin 2.6 g/dL (1.3-4.6); Glucose 124 mg/dL (65-115); NT Pro B Type Natriuretic Pept 168 pg/mL (0-125); Osmolality Calculated 302 mOsm/kg (285-295); Sodium 140 mmol/L (136-145); Total Bilirubin 0.2 mg/dL (0.15-1.2); Total Protein 7.2 g/dL (6.6-8.7)
[2024-10-27 13:34] LABS: Potassium 2.8 mmol/L (3.5-5.1)
--- NOTE | 2024-10-27 13:45 | ECG_ITS ---
[facility]: [facility]24-[facility]27 Pat Name: Mian Menendez Department: Room: Gender: Male [place] Performer: : 1950 Requested By: Marcia aCsey Order Number: [id number] Reji MD: Mele Barragan M.D. Measurements Intervals [place] Rate: 72 P: 9 HI: 120 QRS: 4 QRSD: 102 T: 15 QT: 304 QTc: 334 Interpretive Statements SINUS RHYTHM WITH OCCASIONAL VENTRICULAR PREMATURE COMPLEXES NONSPECIFIC T-WAVE ABNORMALITY Compared to ECG 10/27/2024 11:47:15 T-wave abnormality now present Prolonged QT interval no longer present Electronically Signed On 10-27-2024 21:51:21 PRESSURE SUPERVISOR by Mele Barragan M.D. [email or web address]
[2024-10-27] MEDS: potassium chloride oral liq 20 mEq/15 mL UDC 40 MEQ PO (13:57)
[2024-10-27 14:05] LABS: D Dimer 0.42 ug/mLFEU (0-0.59)
[2024-10-27] MEDS: magnesium sulfate premix 2 GM/50 ML PIGGYBACK IV (14:06)
[2024-10-27] MEDS: potassium chloride premix 100 ML 25 MEQ IV (14:07)
[2024-10-27 14:54] LABS: INR 0.93 (0.8-1.2)
[2024-10-27 14:58] LABS: Troponin 5 2HR 27.19 ng/L (0-15)
[2024-10-27] MEDS: doxycycline 100 MG in sodium chloride 0.9% (plus) 100 ML IV (14:58)
[2024-10-27 15:00] LABS: Troponin 5 2HR Delta -3.81 ABS# (0-10)
[2024-10-27] MEDS: heparin 5,000 unit/mL INJ 1 mL IVP (15:39)
[2024-10-27] MEDS: heparin drip 25,000 UNIT/500 ML PREMIX 25 UNIT IV (15:41)
--- NOTE | 2024-10-27 15:52 | P.CONIM_ITS ---
Providers/Reason For Consult 2 Consulting Physician/Specialty*: ROBERT Barragan MD/cardiology Reason for Consult*: Patient with a COPD exacerbation and elevated troponin T. Multiple PCI's in the past Requesting Physician: Dr. Patel Attending Physician: Fransico Patel Primary Care Provider: BOB Alex History of Present Illness History of Present Illness Mian Menendez is a 74 year old male with a history of atherosclerotic heart disease, status post PCI of the LAD in February 2024 and circumflex artery in April 2024, he is now presenting with COPD exacerbation. Was found to have elevated troponin T. Cardiology consult is requested for further cardiac evaluation recommendations. This patient has a history of atherosclerotic heart disease and multiple PCI's. The most recently PCI was in April of last year. Patient apparently has been having episodes of decompensated heart failure for the last 1 year or so. According the patient and the family, even after the last 2 coronary intervention, his heart failure symptoms has not improved much. He been getting more short of breath associated the swelling of both feet. He also had few episodes of chest pain, each time lasting for 5 to 10 minutes and then gradually subsides. For the last a few days, he been having creasing shortness of breath. This morning he was seen at the orthopedic clinic for a preop evaluation for possible revision of shoulder arthroplasty by Dr. Leon. Patient was found to be short of breath and hypoxic with a pO2 in the 80s. For that reason, he was sent down to the emergency room for further evaluation and management. According to the family, they have been noticing some leg swelling and purple discoloration of the toes for the last few days. He has been having these episodes periodically. Denies abdominal pain or dysuria. Lower leg pains. He has been compliant with medications. Patient is known to have severe COPD, chronic anemia, peripheral neuropathy, sleep apnea, dyslipidemia, chronic kidney disease and degenerative joint disease. Since hospital admission, he seems to be feeling better with respiratory shortness of breath. As of now he has no chest pain. His troponin T was slightly elevated. There was no significant delta. The EKG did not reveal any new changes. Medications/Allergies Home Medications Medication Instructions Recorded Confirmed Last Taken Type famotidine 20 mg tablet (Pepcid) 20 mg PO DAILY 12/18/19 10/27/24 05/10/24 04:00 History montelukast 10 mg tablet 10 mg PO QPM 12/18/19 10/27/24 05/09/24 20:00 History (Singulair) tamsulosin 0.4 mg capsule 0.4 mg PO QPM 04/11/20 10/27/24 05/09/24 20:00 History isosorbide dinitrate 5 mg tablet 5 mg PO DAILY 05/05/21 10/27/24 05/10/24 04:00 History gemfibrozil 600 mg tablet 600 mg PO BID 04/21/22 10/27/24 05/10/24 04:00 History levothyroxine 25 mcg tablet 25 mcg PO DAILY 04/21/22 10/27/24 05/10/24 04:00 History (Synthroid) fluticasone propionate 50 2 spray intranasal DAILY #16 grams 12/11/22 10/27/24 05/10/24 04:00 Rx mcg/actuation nasal spray,suspension (Flonase Allergy Relief) clopidogrel 75 mg tablet 75 mg PO DAILY #90 tabs 02/15/24 10/27/24 05/10/24 04:00 Rx amlodipine 5 mg tablet 5 mg PO BID #180 tabs 02/29/24 10/27/24 05/10/24 04:00 Rx alirocumab 150 mg/mL subcutaneous 150 mg SUBCUT Q14D #2 mL 03/08/24 10/27/24 Unknown Rx pen injector (Praluent Pen) aripiprazole 10 mg tablet 5 mg PO DAILY 03/15/24 10/27/24 05/10/24 04:00 History citalopram 40 mg tablet 40 mg PO QAM 03/15/24 10/27/24 05/10/24 04:00 History cyclobenzaprine 10 mg tablet 10 mg PO BID PRN Muscle Spasm 03/15/24 10/27/24 Unknown History hydralazine 50 mg tablet 50 mg PO BID #60 tabs 03/15/24 10/27/24 05/10/24 04:00 Rx metoprolol tartrate 100 mg tablet 50 mg (1/2 x 100 mg) PO BID #120 05/11/24 10/27/24 05/10/24 04:00 Rx tabs furosemide 40 mg tablet (Lasix) 40 mg PO DAILY 05/31/24 10/27/24 Unknown History guaifenesin 200 mg tablet 400 mg PO BID 07/31/24 10/27/24 Unknown History potassium chloride 20 mEq 20 meq PO DAILY@0800 #90 tabs 07/31/24 10/27/24 Unknown Rx tablet,extended release albuterol sulfate 90 mcg/actuation 1 - 2 inh inhalation Q4H PRN 08/10/24 10/27/24 Unknown Rx aerosol inhaler (Ventolin HFA) shortness of breath or wheezing #8.5 grams metolazone 2.5 mg tablet 2.5 mg PO DAILY #30 tabs 08/21/24 10/27/24 Unknown Rx fluticasone fur. 100 mcg-umeclid 1 inh inhalation DAILY 30 days #28 10/02/24 10/27/24 Unknown Rx 62.5 mcg-vilant 25 mcg ea inhalat.powder (Trelegy Ellipta) gabapentin 300 mg capsule 300 mg PO .hs #30 caps 10/24/24 10/27/24 Unknown Rx olodaterol 2.5 mcg/actuation mist 2 inh inhalation DAILY 10/27/24 10/27/24 Unknown History for inhalation (Striverdi Respimat) ropinirole 3 mg tablet 3 mg PO DAILY 10/27/24 10/27/24 Unknown History tiotropium 2.5 mcg-olodaterol 2.5 1 inh inhalation BID 10/27/24 10/27/24 Unknown History mcg/actuation mist for inhalation (Stiolto Respimat) Allergies Allergy/AdvReac Type Severity Reaction Status Date / Time atorvastatin [From Lipitor] Allergy Unknown Verified 10/27/24 13:04 bupropion [From Wellbutrin] Allergy hallucinati Verified 10/27/24 13:04 ons buspirone Allergy caused Verified 10/27/24 13:04 negative thinking ezetimibe [From Zetia] Allergy Unknown Verified 10/27/24 13:04 lovastatin Allergy Unknown Verified 10/27/24 13:04 pravastatin [From Pravachol] Allergy Unknown Verified 10/27/24 13:04 simvastatin Allergy fatigue Verified 10/27/24 13:04 Current Medications Generic Name Dose Route Start Last Admin Trade Name Freq PRN Reason Stop Dose Admin Heparin Sodium (Porcine) 0 unit 10/27/24 15:25 10/27/24 15:39 Heparin 5,000 Unit/Ml Inj 1 Ml IVP 4,500 unit PRN PRN Administration Heparin Weight Based Protocol -Subsequent Bolus Protocol Potassium Chloride 100 mls @ 25 mls/hr 10/27/24 13:35 10/27/24 14:07 K-Dony IV 10/27/24 17:34 25 mls/hr ONCE ONE Administration Heparin Sodium/Sodium Chloride 25,000 unit in 500 mls @ 0 mls/hr 10/27/24 15:30 10/27/24 15:41 Heparin Drip IV 13.99 unit/kg/hr CONT SAMEER 25 mls/hr Administration Protocol Per Protocol PFSH Acute 2 PFSH: Medical History (Updated 10/27/24 @ 19:12 by Mele Barragan MD) Elevated troponin Worsening angina Chest pain Acute non-ST elevation myocardial infarction (NSTEMI) Acute kidney injury COPD exacerbation Hypokalemia Rotator cuff arthropathy of right shoulder Venous insufficiency (chronic) (peripheral) CHF (congestive heart failure) Pneumonia Primary osteoarthritis of knees, bilateral Low back pain Chronic kidney disease Osteoarthritis Gastro-esophageal reflux disease without esophagitis Hyperlipidemia Obstructive sleep apnea Other idiopathic peripheral autonomic neuropathy History of colon polyps Left rotator cuff tear arthropathy Chronic shoulder pain Small airways disease Coronary artery disease Back pain Depression Anemia Primary osteoarthritis of right knee Primary osteoarthritis of left knee Mass of lingula of lung Bronchitis Primary localized osteoarthritis of both knees Allergic rhinosinusitis COPD (chronic obstructive pulmonary disease) Hypertension Anxiety Surgical History Hx of colonoscopy (04/2022) Status post coronary artery stent placement Status post hernia repair (2016) Repair of bilateral inguinal and umbilical hernias with mesh Status post total knee replacement Status post shoulder surgery Family History Other Hypertension Social History Smoking and tobacco/nicotine status: never used tobacco/nicotine Quit status (tobacco/nicotine): has quit using Year quit tobacco: 2002 - 1PPD x 35 Years Alcohol intake: former Substance/Drug Use: never Lives independently: Yes Household members: spouse Marital status: Current occupational status: employed Current occupation: [employer] Do you think of yourself as: Straight/Heterosexual Current gender identity: Male Vitals/I&O/Wt Last Vital Signs Temp 97.9 F 10/27/24 11:47 Pulse 75 10/27/24 14:59 Resp 16 10/27/24 14:59 BP 137/85 10/27/24 14:59 Pulse Ox 92 10/27/24 14:59 O2 Del Method BiPAP 10/27/24 14:37 O2 Flow Rate 6 10/27/24 13:36 FiO2 40 10/27/24 13:47 10/27/24 10/27/24 10/27/24 06:59 14:59 22:59 Intake Total 50 / 50 Balance 50 / 50 Weight last 48 hrs Weight 197 lb Physical Exam 2 Narrative: GENERAL: The patient is alert and oriented times three. Not in any acute distress. HEENT: No significant pallor, icterus or lymphadenopathy.Oral cavity: There are no mucous membrane lesions. NECK: Trachea appears to be central. No masses noted. No JVD or thyromegaly appreciated. RESPIRATORY: Chest is symmetrical. No intercostals muscle retraction or any accessory muscle activation. There is no chest wall tenderness. Breath sounds are heard bilaterally. Scattered expiratory wheezing. No evidence of consolidation. BREASTS: Deferred. HEART: The heart sounds are normal. No S3 or S4. No significant murmurs. No pericardial rub ABDOMEN: No vessel pulsations or distention. No tenderness. No organomegaly appreciated. Bowel sounds are normally heard. : Deferred. RECTAL: Deferred. LYMPHATIC: No lymphadenopathy noted in the neck. EXTREMITIES: No edema or cyanosis. No clubbing. Good peripheral pulses. MUSCULOSKELETAL: No acute joint deformities or swelling SKIN: There are no significant rashes or ecchymosis NEUROPSYCHIATRIC: The patient is alert and oriented x3. Appears to be in a good mood. No tremors or rigidity noted. Data 10/27/24 12:44 10/27/24 12:44 Other Labs: Laboratory Last Values WBC 8.40 10^3/uL (3.29-11.43) 10/27/24 12:44 Corrected WBC Cancelled 10/27/24 12:05 RBC 3.93 10^6/uL (3.85-5.65) 10/27/24 12:44 Hgb 11.50 g/dL (11.27-16.99) 10/27/24 12:44 Hct 35.0 % (37-53) L 10/27/24 12:44 MCV 89.1 fl (82-101) 10/27/24 12:44 MCH 29.3 pg (27-33) 10/27/24 12:44 MCHC 32.9 g/dL (30-55) 10/27/24 12:44 RDW 13.2 % (12.1-15.1) 10/27/24 12:44 Plt Count 249 10^3/cmm (157-399) 10/27/24 12:44 MPV 9.9 fL (7.4-10.4) 10/27/24 12:44 Gran % Cancelled 10/27/24 12:05 Neut % (Auto) 45.4 % 10/27/24 12:44 Lymph % (Auto) 39.8 % 10/27/24 12:44 [place] % (Auto) 10.6 % 10/27/24 12:44 Eos % (Auto) 3.7 % 10/27/24 12:44 Baso % (Auto) 0.4 % 10/27/24 12:44 Neut # (Auto) 3.82 10^3/uL (1.8-7.7) 10/27/24 12:44 Lymph # (Auto) 3.3 10^3/uL (0.8-4.8) 10/27/24 12:44 [place] # (Auto) 0.9 10^3/uL (0.2-0.9) 10/27/24 12:44 Eos # (Auto) 0.3 10^3/uL (0.0-0.8) 10/27/24 12:44 Baso # (Auto) 0.0 10^3/uL (0.0-0.1) 10/27/24 12:44 Absolute Gran (auto) Cancelled 10/27/24 12:05 Nucleated RBC % (auto) 0 % 10/27/24 12:44 Nucleated RBCs # 0.0 /100WBC 10/27/24 12:44 PT 13.10 SECONDS (12.1-14.9) 10/27/24 14:18 INR 0.93 (0.8-1.2) 10/27/24 14:18 APTT 24.0 SECONDS (23.9-36.7) 10/27/24 14:18 D-Dimer 0.42 ug/mLFEU (0-0.59) 10/27/24 12:44 Specimen Type Arterial 10/27/24 12:01 Sample Site Radial, right 10/27/24 12:01 ABG pH 7.45 (7.35-7.45) 10/27/24 12:01 ABG pCO2 53.9 mmHg (35-45) H 10/27/24 12:01 ABG pO2 61.3 mmHg (80.0-100.0) L 10/27/24 12:01 ABG PO2/FiO2 Ratio 170 10/27/24 12:01 ABG HCO3 37.7 mmol/L (22-26) H 10/27/24 12:01 ABG O2 Saturation 91.8 10/27/24 12:01 ABG Base Excess 11.7 mmol/L (-2.0-2.0) H 10/27/24 12:01 [place] Test Pos 10/27/24 12:01 A-a O2 Gradient 17.4 mmHg (5-10) H 10/27/24 12:01 Hematocrit 39.3 % (42-52) L 10/27/24 12:01 Hgb O2 Saturation 90.5 % (95-100) L 10/27/24 12:01 Carboxyhemoglobin 1.3 %THgb (0.4-20.1) 10/27/24 12:01 Methemoglobin 0.2 % (0.4-1.5) L 10/27/24 12:01 Total Hemoglobin 12.8 g/dL (14-18) L 10/27/24 12:01 Sodium 141.0 mmol/L (131-143) 10/27/24 12:01 Potassium 2.6 mmol/L (3.5-5.0) L 10/27/24 12:01 Glucose 122.0 mg/dL (70-115) H 10/27/24 12:01 Ionized Calcium 1.2 mmol/L (1.1-1.4) 10/27/24 12:01 O2 Delivery Device Nc 10/27/24 12:01 O2 Liters/Min 3.5 % 10/27/24 12:01 FiO2 36.0 % 10/27/24 12:01 Heavy Cleaner ID glc 10/27/24 12:01 Sodium 140 mmol/L (136-145) 10/27/24 12:44 Potassium 2.8 mmol/L (3.5-5.1) L* 10/27/24 12:44 Chloride 91 mmol/L (98-107) L 10/27/24 12:44 Carbon Dioxide 36 mmol/L (22-29) H 10/27/24 12:44 Anion Gap 15.8 (5-19) 10/27/24 12:44 BUN 42 mg/dL (8-23) H 10/27/24 12:44 Creatinine 1.7 mg/dL (0.7-1.2) H 10/27/24 12:44 GFR Calculation Not Reportable 10/27/24 12:44 Glucose 124 mg/dL (65-115) H 10/27/24 12:44 Calculated Osmolality 302 mOsm/kg (285-295) H 10/27/24 12:44 Lactic Acid 2.0 mmol/L (0.5-2.2) 10/27/24 12:44 Calcium 10.0 mg/dL (8.5-10.5) 10/27/24 12:44 Total Bilirubin 0.2 mg/dL (0.15-1.2) 10/27/24 12:44 AST 29 U/L (0-40) 10/27/24 12:44 ALT 19 U/L (0-41) 10/27/24 12:44 Alkaline Phosphatase 103 U/L (40-130) 10/27/24 12:44 Troponin T Baseline 31 ng/L (0-15) H 10/27/24 12:44 Troponin T 120 Minute 27.19 ng/L (0-15) H 10/27/24 14:34 Delta Troponin T -3.81 ABS# (0-10) L 10/27/24 14:34 C-Reactive Protein 23.1 mg/L (0.0-4.9) H 10/27/24 12:44 NT-Pro-B Natriuret Pep 168 pg/mL (0-125) H 10/27/24 12:44 Total Protein 7.2 g/dL (6.6-8.7) 10/27/24 12:44 Albumin 4.6 g/dL (3.5-5.2) 10/27/24 12:44 Globulin 2.6 g/dL (1.3-4.6) 10/27/24 12:44 Coronavirus (PCR) Negative (Negative) 10/27/24 12:05 Influenza A (PCR) Negative (Negative) 10/27/24 12:05 Influenza Type B (PCR) Negative (Negative) 10/27/24 12:05 RSV (PCR) Negative (Negative) 10/27/24 12:05 Micro: Microbiology 10/27/24 12:30 Blood Culture - Preliminary Blood SPECIMEN COLLECTED 10/27/24 12:23 Blood Culture - Preliminary Blood SPECIMEN COLLECTED Other data: The EKG showed Normal sinus rhythm with frequent PVCs. Some nonspecific T wave changes Cardiac colorization on 05/10/2024 Left Anterior Descending has patent prior stent with 30% stenosis. . * Circumflex has diffuse luminal irregularities. OM1 has ostial critical 95% stenosis.. * Left Main has mild luminal irregularities. * Proximal Right Coronary Artery to Mid Right Coronary Artery: mild 40% stenosis, MARIAH: 3 flow. * First Obtuse Marginal Branch Segment: critical 95% stenosis, MARIAH: 3 flow. * Coronary angiography shows co-dominance. Echocardiogram on 09/10/2023 Normal left ventricular size, systolic function and wall thickness, with no regional wall motion abnormalities. Grade I/IV diastolic dysfunction (abnormal relaxation filling pattern), normal to mildly elevated filling pressures. Left ventricular ejection fraction is estimated at 65 %. No change since the previous study dated 03/25/2021 A&P Assessment and plan (1) Congestive heart failure: Clinically appears compensated. The BNP is almost in the normal range. At this point, I may hold off on any intervention. The increasing shortness of breath most likely from the COPD. It may be appropriate to do an echocardiogram to evaluate the LV show LV function and rule out any other pathology. Qualifiers: Heart failure type: unspecified Heart failure chronicity: chronic Qualified Code(s): I50.9 - Heart failure, unspecified (2) Atherosclerotic heart disease of [place] coronary artery with other forms of angina pectoris: His chest pains are very atypical. There is slightly elevated troponin T, most likely you have type II. May hold off on any further intervention at this point. (3) Elevated troponin: Possible type II [place]. (4) Hyperlipidemia: Patient is known to have dyslipidemia. Advised to continue on the current medications. Will have the follow-up evaluation as scheduled. Patient understands the importance of dietary compliance Qualifiers: Hyperlipidemia type: mixed hyperlipidemia Qualified Code(s): E78.2 - Mixed hyperlipidemia (5) Hypokalemia: This needs to be corrected., Possibly iatrogenic. Plan Patient requires aggressive management of the COPD. The diuretics may be held at this point because the high BUN/creatinine ratio. The potassium need to be corrected After reviewing the echocardiogram, further recommendations will be made. Patient may continue on the current medications for the time being. Thank you for the opportunity to evaluate this patient and make these recommendations Consult Attestations 2 Medical Necessity Statement: Patient requires continued hospital stay for close monitoring and further management Coding Level of Care Code 67395 Diagnoses Chronic congestive heart failure, unspecified heart failure type I50.9 Heart failure type: unspecified Heart failure chronicity: chronic Atherosclerotic heart disease of [place] coronary artery with other forms of angina pectoris I25.118 Elevated troponin R79.89 Mixed hyperlipidemia E78.2 Hyperlipidemia type: mixed hyperlipidemia Hypokalemia E87.6
--- NOTE | 2024-10-27 16:41 | P.HP_ITS ---
Providers/Chief Complaint 2 Admitting Physician: Fransico Patel Primary Care Provider: BOB Alex Chief Complaint: SOB History of Present Illness Pleasant 80-year-old gentleman with history of CAD, prior staged procedure most recent stent to obtuse marginal in April, prior to that stents to proximal LAD in January, also with history of COPD, former smoker, CKD, ELZA, but intolerant of CPAP, HTN, HLD, GERD, BPH, osteoarthritis, other medical problems presented to ER due to progressive shortness of breath, with only slight improvement with breathing treatments. With hypoxia at home, oxygen saturation in the 80s when being picked up by EMS. In ER initially 91% on 3.5 L, but with worsening saturation requiring 6 L with saturation 88% was started on BiPAP support. He states has been having productive cough. Denies chest pain. With mild elevation of troponin in the ER. Chest x-ray without acute findings. Viral studies negative for flu, COVID, RSV. D-dimer obtained, not elevated 0.42. With worsening hypoxia despite oxygen support initial admission requested to intensive care unit. Review of Systems 2 Const: Denies: fever(s), chills, body aches or malaise ENMT: Denies: throat pain Card: Denies: chest pain, edema, pre-syncope or dyspnea on exertion Resp: Reports: dyspnea, productive cough, wheezing and chest congestion; Denies: hemoptysis GI: Denies: abdominal pain, nausea, vomiting, diarrhea, constipation, hematochezia or melena : Denies: flank pain, difficulty urinating, urinary frequency or hematuria Musc: Denies: back pain, joint swelling or joint redness Skin/Breast: Denies: rash Neuro: Denies: headache(s) or confusion Medications/Allergies Home Medications Medication Instructions Recorded Confirmed Last Taken Type famotidine 20 mg tablet (Pepcid) 20 mg PO DAILY 12/18/19 10/27/24 05/10/24 04:00 History montelukast 10 mg tablet 10 mg PO QPM 12/18/19 10/27/24 05/09/24 20:00 History (Singulair) tamsulosin 0.4 mg capsule 0.4 mg PO QPM 04/11/20 10/27/24 05/09/24 20:00 History isosorbide dinitrate 5 mg tablet 5 mg PO DAILY 05/05/21 10/27/24 05/10/24 04:00 History gemfibrozil 600 mg tablet 600 mg PO BID 04/21/22 10/27/24 05/10/24 04:00 History levothyroxine 25 mcg tablet 25 mcg PO DAILY 04/21/22 10/27/24 05/10/24 04:00 History (Synthroid) fluticasone propionate 50 2 spray intranasal DAILY #16 grams 12/11/22 10/27/24 05/10/24 04:00 Rx mcg/actuation nasal spray,suspension (Flonase Allergy Relief) clopidogrel 75 mg tablet 75 mg PO DAILY #90 tabs 02/15/24 10/27/24 05/10/24 04:00 Rx amlodipine 5 mg tablet 5 mg PO BID #180 tabs 02/29/24 10/27/24 05/10/24 04:00 Rx alirocumab 150 mg/mL subcutaneous 150 mg SUBCUT Q14D #2 mL 03/08/24 10/27/24 Unknown Rx pen injector (Praluent Pen) aripiprazole 10 mg tablet 5 mg PO DAILY 03/15/24 10/27/24 05/10/24 04:00 History citalopram 40 mg tablet 40 mg PO QAM 03/15/24 10/27/24 05/10/24 04:00 History cyclobenzaprine 10 mg tablet 10 mg PO BID PRN Muscle Spasm 03/15/24 10/27/24 Unknown History hydralazine 50 mg tablet 50 mg PO BID #60 tabs 03/15/24 10/27/24 05/10/24 04:00 Rx metoprolol tartrate 100 mg tablet 50 mg (1/2 x 100 mg) PO BID #120 05/11/24 10/27/24 05/10/24 04:00 Rx tabs furosemide 40 mg tablet (Lasix) 40 mg PO DAILY 05/31/24 10/27/24 Unknown History guaifenesin 200 mg tablet 400 mg PO BID 07/31/24 10/27/24 Unknown History potassium chloride 20 mEq 20 meq PO DAILY@0800 #90 tabs 07/31/24 10/27/24 Unknown Rx tablet,extended release albuterol sulfate 90 mcg/actuation 1 - 2 inh inhalation Q4H PRN 08/10/24 10/27/24 Unknown Rx aerosol inhaler (Ventolin HFA) shortness of breath or wheezing #8.5 grams metolazone 2.5 mg tablet 2.5 mg PO DAILY #30 tabs 08/21/24 10/27/24 Unknown Rx fluticasone fur. 100 mcg-umeclid 1 inh inhalation DAILY 30 days #28 10/02/24 10/27/24 Unknown Rx 62.5 mcg-vilant 25 mcg ea inhalat.powder (Trelegy Ellipta) gabapentin 300 mg capsule 300 mg PO .hs #30 caps 10/24/24 10/27/24 Unknown Rx olodaterol 2.5 mcg/actuation mist 2 inh inhalation DAILY 10/27/24 10/27/24 Unknown History for inhalation (Striverdi Respimat) ropinirole 3 mg tablet 3 mg PO DAILY 10/27/24 10/27/24 Unknown History tiotropium 2.5 mcg-olodaterol 2.5 1 inh inhalation BID 10/27/24 10/27/24 Unknown History mcg/actuation mist for inhalation (Stiolto Respimat) Allergies Allergy/AdvReac Type Severity Reaction Status Date / Time atorvastatin [From Lipitor] Allergy Unknown Verified 10/27/24 13:04 bupropion [From Wellbutrin] Allergy hallucinati Verified 10/27/24 13:04 ons buspirone Allergy caused Verified 10/27/24 13:04 negative thinking ezetimibe [From Zetia] Allergy Unknown Verified 10/27/24 13:04 lovastatin Allergy Unknown Verified 10/27/24 13:04 pravastatin [From Pravachol] Allergy Unknown Verified 10/27/24 13:04 simvastatin Allergy fatigue Verified 10/27/24 13:04 PFSH Acute 2 PFSH: Medical History Worsening angina Chest pain Acute non-ST elevation myocardial infarction (NSTEMI) Acute kidney injury COPD exacerbation Hypokalemia Rotator cuff arthropathy of right shoulder Venous insufficiency (chronic) (peripheral) CHF (congestive heart failure) Pneumonia Elevated troponin Primary osteoarthritis of knees, bilateral Low back pain Chronic kidney disease Osteoarthritis Gastro-esophageal reflux disease without esophagitis Hyperlipidemia Obstructive sleep apnea Other idiopathic peripheral autonomic neuropathy History of colon polyps Left rotator cuff tear arthropathy Chronic shoulder pain Small airways disease Coronary artery disease Back pain Depression Anemia Primary osteoarthritis of right knee Primary osteoarthritis of left knee Mass of lingula of lung Bronchitis Primary localized osteoarthritis of both knees Allergic rhinosinusitis COPD (chronic obstructive pulmonary disease) Hypertension Anxiety Surgical History Hx of colonoscopy (04/2022) Status post coronary artery stent placement Status post hernia repair (2016) Repair of bilateral inguinal and umbilical hernias with mesh Status post total knee replacement Status post shoulder surgery Family History Other Hypertension Social History Smoking and tobacco/nicotine status: never used tobacco/nicotine Quit status (tobacco/nicotine): has quit using Year quit tobacco: 2002 - 1PPD x 35 Years Alcohol intake: former Substance/Drug Use: never Lives independently: Yes Household members: spouse Marital status: Current occupational status: employed Current occupation: [employer] Do you think of yourself as: Straight/Heterosexual Current gender identity: Male Vitals/I&O/Wt Last Vital Signs Temp 97.9 F 10/27/24 11:47 Pulse 75 10/27/24 14:59 Resp 16 10/27/24 14:59 BP 137/85 10/27/24 14:59 Pulse Ox 92 10/27/24 14:59 O2 Del Method Nasal Cannula 10/27/24 16:00 O2 Flow Rate 6 10/27/24 13:36 FiO2 40 10/27/24 13:47 10/27/24 10/27/24 10/27/24 06:59 14:59 22:59 Intake Total 50 / 50 Balance 50 / 50 Weight last 48 hrs Weight 90 kg Weight 89.358 kg Physical Exam 2 Const: COMMON NORMALS: patient oriented x3 and alert GENERAL APPEARANCE: c ooperative ORIENTATION/CONSCIOUSNESS: Yes awake HENMT: COMMON NORMALS: oropharynx normal Neck/C-Spine: COMMON NORMALS: no JVD Resp: AUSCULTATION: wheezes Cardio: COMMON NORMALS: no JVD, regular rhythm, S1 normal heart sound present, S2 normal heart sound present and No murmurs present (Cardio) RHYTHM: regular rhythm HEART SOUNDS: S1 normal heart sound present and S2 normal heart sound present GI: COMMON NORMALS: Normal to inspection, nondistended, normoactive bowel sounds present, Soft to palpation and non-tender PALPATION: Yes Soft to palpation Extremity: COMMON NORMALS: no joint enlargement and no pedal edema Neuro: COMMON NORMALS: patient oriented x3 and moves all extremities S ENSORIUM/ORIENTATION: Yes alert Skin: COMMON NORMALS: no rashes or lesions noted GENERAL SKIN EXAM: no rashes or lesions noted Data 10/27/24 12:44 10/27/24 12:44 Micro: Microbiology 10/27/24 12:30 Blood Culture - Preliminary Blood SPECIMEN COLLECTED 10/27/24 12:23 Blood Culture - Preliminary Blood SPECIMEN COLLECTED A&P Assessment and plan (1) Acute hypoxemic respiratory failure: Acute hypoxic respiratory failure with worsening significant despite oxygen support in ER, requiring up to 6 L of oxygen with saturation was going down to 88%, started on BiPAP. Has been worsening over the last several days. With productive cough. Severe exacerbation of COPD. Reviewed vitals, CBC, D-dimer, ABG, CMP, lactic acid, troponin, influenza, coronavirus, RSV PCR, EKG, troponin, ER provider note, discussed with ER provider, discussed with ecosystem ecology professor. Initially admitted to intensive care unit due to worsening oxygenation despite support. BiPAP. Continue support as needed, wean down to nasal cannula. Oxygen saturations target 88-92%. Continue treatment of severe COPD with Solu-Medrol 60 mg every 6, ceftriaxone, DuoNebs. Collect sputum culture. Flutter valve. (2) COPD with acute exacerbation: As above. (3) Non-ST elevated myocardial infarction: With known CAD, multiple stents, most recently in April, although troponin is only mildly elevated. Suspect demand ischemia. Obtain TTE. Discussed with ecosystem ecology professor, appreciate consultation. NT proBNP not elevated. No evidence of decompensated CHF at current time. Aspirin, Plavix, has been anticoagulated. Monitor PTT with risk of bleeding. Reassess blood counts. (4) Hypokalemia: Received supplementation for severe hypokalemia. Recheck potassium. Check magnesium. Plan CAD with prior staged procedure most recent stent to obtuse marginal in April, prior to that stents to proximal LAD in January, COPD, not normally on oxygen Former smoker, CKD, creatinine appears close to baseline. Recheck chemistry. ELZA, but intolerant of CPAP, HTN, continue hydralazine, Imdur HLD, continue gemfibrozil. On PCSK9 inhibitor. GERD, continue famotidine BPH, continue Flomax Osteoarthritis, Other medical problems Attestations 2 Medical Necessity Statement*: Admission of over 2 midnights anticipated for assessment and management of hypoxic respiratory failure with severe exacerbation of COPD. NSTEMI and gentleman with known CAD with multiple prior stents within the last year, additional comorbidities as above. Diagnoses Acute hypoxemic respiratory failure J96.01 COPD with acute exacerbation J44.1 Non-ST elevated myocardial infarction I21.4 Hypokalemia E87.6
--- NOTE | 2024-10-27 17:41 | ECG_ITS ---
[facility] Test Date: 2024-10-27 Pat Name: Mian Menendez Department: Room: ICU02 Gender: Male Fws Faculty Assistant: : 1950 Requested By: Marcia Casey Order Number: [id number] Reji MD: Mele Barragan M.D. Measurements Intervals [place] Rate: 80 P: 42 WA: 132 QRS: 5 QRSD: 110 T: 42 QT: 368 QTc: 425 Interpretive Statements SINUS RHYTHM INCOMPLETE RIGHT BUNDLE BRANCH BLOCK [90+ ms QRS DURATION, TERMINAL R IN V1/V2, 40+ ms S IN I/aVL/V4/V5/V6] NONSPECIFIC T-WAVE ABNORMALITY Compared to ECG 10/27/2024 13:45:43 Incomplete right bundle-branch block now present Ventricular premature complex(es) no longer present T-wave abnormality still present Electronically Signed On 10-27-2024 21:51:45 SCIENCE LIAISON by Mele Barragan M.D. [email or web address]
[2024-10-27 19:08] LABS: Troponin 5 6HR 21.31 ng/L (0-15)
[2024-10-27 19:13] LABS: Troponin 5 6HR Delta -9.69 ng/L (0-12)
[2024-10-27 19:33] LABS: Magnesium 2.3 mg/dL (1.7-2.3)
[2024-10-27] MEDS: aspirin 325 mg Tablet PO (19:51)
[2024-10-27] MEDS: cefTRIAXone 1,000 mg SDV 1000 MG IVP (19:51)
[2024-10-27] MEDS: methylPREDNISolone sod succ 125 mg/2 mL INJ 60 MG IVP (19:51)
[2024-10-27 22:20] LABS: Partial Thromboplastin Time 162.2 SECONDS (23.9-36.7)
[2024-10-28] VITALS (51 sets, daily range): BP systolic 102–172; BP diastolic 37–114; PULSE 72–126; RESP 12–22; TEMP 36.9–37.4; O2SAT 88–96
--- NOTE | 2024-10-28 00:08 | ECG_ITS ---
[facility]24-[facility]28 Pat Name: Mian Menendez Department: Room: ICU02 Gender: Male Aerographer: : 1950 Requested By: Reji Bernard Order Number: [id number] Reji MD: Mele Barragan M.D. Measurements Intervals [place] Rate: 121 P: 11 VT: 139 QRS: -10 QRSD: 114 T: 68 QT: 228 QTc: 324 Interpretive Statements SINUS TACHYCARDIA WITH OCCASIONAL VENTRICULAR PREMATURE COMPLEXES MODERATE INTRAVENTRICULAR CONDUCTION DELAY [110+ ms QRS DURATION] NONSPECIFIC ST & T-WAVE ABNORMALITY ABNORMAL RHYTHM ECG Compared to ECG 10/27/2024 17:41:47 Ventricular premature complex(es) now present Intraventricular conduction delay now present Sinus rhythm no longer present Incomplete right bundle-branch block no longer present T-wave abnormality still present Electronically Signed On 10-28-2024 21:24:52 TOWEL STRETCHER by Mele Barragan M.D. [email or web address]
[2024-10-28] MEDS: lidocaine 2% viscous 15 ML, aluminum-mag hydrox-simethicon 30 ML, sucralfate oral liq 1 GM PO (00:53)
[2024-10-28] MEDS: morphine 4 mg/mL SDV 1 mL 2 MG IVP ×2 (00:55→07:39)
[2024-10-28] MEDS: methylPREDNISolone sod succ 125 mg/2 mL INJ 60 MG IVP ×4 (00:56→21:35)
[2024-10-28] MEDS: ipratropium-albuterol 3 mL Neb INHALATION ×6 (04:07→23:18)
[2024-10-28 05:17] LABS: Basophils % 0.1 %; Hematocrit 31.2 % (37-53); Lymphocytes # 0.9 10^3/uL (0.8-4.8); Lymphocytes % 12.2 %; Mean Corpuscular Volume 87.9 fl (82-101); Mean Platelet Volume 10.3 fL (7.4-10.4); Monocytes # 0.2 10^3/uL (0.2-0.9); Monocytes % 2.3 %; Neutrophils # 5.91 10^3/uL (1.8-7.7); Neutrophils % 85.1 %; Nucleated Red Blood Cells % 0 %; Platelet Count 246 10^3/cmm (157-399); Red Blood Count 3.55 10^6/uL (3.85-5.65); Red Cell Distribution Width 13.1 % (12.1-15.1); White Blood Count 6.95 10^3/uL (3.29-11.43)
[2024-10-28 05:44] LABS: Blood Urea Nitrogen 43 mg/dL (8-23); Calcium 9.3 mg/dL (8.5-10.5); Carbon Dioxide 29 mmol/L (22-29); Chloride 93 mmol/L (98-107); Creatinine Clr Calc Pharmacy 40.8333; Glucose 284 mg/dL (65-115); Osmolality Calculated 307 mOsm/kg (285-295); Sodium 138 mmol/L (136-145)
[2024-10-28] MEDS: citalopram 20 mg Tablet 40 MG PO (06:17)
--- NOTE | 2024-10-28 07:30 | ECG_ITS ---
[facility] Test Date: 2024-10-28 Pat Name: Mian Menendez Department: Room: ICU02 Gender: Male Confectionery Drops Machine Operator: : 1950 Requested By: Fransico Patel Order Number: [id number] Reji MD: Mele Barragan M.D. Measurements Intervals [place] Rate: 108 P: 46 RI: 167 QRS: -1 QRSD: 110 T: 29 QT: 384 QTc: 515 Interpretive Statements SINUS TACHYCARDIA WITH OCCASIONAL VENTRICULAR PREMATURE COMPLEXES MODERATE ST DEPRESSION [0.05+ mV ST DEPRESSION] Compared to ECG 10/28/2024 00:21:49 ST (T wave) deviation now present Intraventricular conduction delay no longer present T-wave abnormality no longer present Electronically Signed On 10-28-2024 21:24:15 SUPERVISOR BOILER REPAIR by Mele Barragan M.D. [id number]
[2024-10-28 07:34] LABS: Troponin T (5th) Once 33 ng/L (0-15)
[2024-10-28] MEDS: fluticasone nasal spray 16gm Btl 2 SPRAY INTRANASAL (08:40)
[2024-10-28] MEDS: famotidine 20 mg Tablet PO (08:42)
[2024-10-28] MEDS: hyDRALAzine 50 mg Tablet PO ×2 (08:42→18:06)
[2024-10-28] MEDS: clopidogrel 75 mg Tablet PO (08:42)
[2024-10-28] MEDS: guaiFENesin 600 mg Tablet 300 MG PO ×2 (08:42→18:07)
[2024-10-28] MEDS: ropinirole 1 mg Tablet 3 MG PO (08:42)
[2024-10-28] MEDS: FUROsemide 40 mg Tablet PO (08:42)
[2024-10-28] MEDS: gemfibrozil 600 mg Tablet PO ×2 (08:42→18:06)
[2024-10-28] MEDS: metoprolol tartrate 50 mg Tablet PO ×2 (08:42→18:06)
[2024-10-28] MEDS: ARIPiprazole 10 mg Tablet 5 MG PO (08:43)
[2024-10-28] MEDS: levothyroxine 25 mcg Tablet PO (08:43)
[2024-10-28] MEDS: isosorbide dinitrate 20 mg Tablet 5 MG PO (08:44)
--- NOTE | 2024-10-28 09:43 | P.PN_ITS ---
Subjective 2 Subjective: Patient has been having episodes of chest pain through the night. He had a least half a dozen episodes of chest pain, each of them, lasting anywhere from 10 to 15 minutes. Couple of the episodes were severe in intensity up to 10/10. This morning also he continues to have recurrence of chest pain. The EKG did not show any new changes. Troponin T is still is unremarkable. Medications: Medication Review Details: Current Medications Acetaminophen (Acetaminophen 325 Mg Tablet) 650 mg PO Q6H PRN PRN Reason: Mild/Mod Pain Or Temp >/= 101 Albuterol/Ipratropium (Ipratropium-Albuterol 3 Ml Neb) 3 ml INHALATION Q4H PRN PRN Reason: SHORTNESS OF BREATH Albuterol/Ipratropium (Ipratropium-Albuterol 3 Ml Neb) 3 ml INHALATION Q4H.RESPIRATORY [facility] Last Admin: 10/28/24 07:58 Dose: 3 ml Aripiprazole (Aripiprazole 10 Mg Tablet) 5 mg PO DAILY [facility] Last Admin: 10/28/24 08:43 Dose: 5 mg Aspirin (Aspirin 325 Mg Tablet) 325 mg PO Q24H [facility] Last Admin: 10/27/24 19:51 Dose: 325 mg Ceftriaxone Sodium (Ceftriaxone 1,000 Mg Sdv) 1,000 mg IVP Q24H [facility]; Protocol Last Admin: 10/27/24 19:51 Dose: 1,000 mg Citalopram Hydrobromide (Citalopram 20 Mg Tablet) 40 mg PO QAM [facility] Last Admin: 10/28/24 06:17 Dose: 40 mg Clopidogrel Bisulfate (Clopidogrel 75 Mg Tablet) 75 mg PO DAILY [facility] Last Admin: 10/28/24 08:42 Dose: 75 mg Cyclobenzaprine HCl (Cyclobenzaprine 10 Mg Tablet) 10 mg PO BID PRN PRN Reason: Muscle Spasm Famotidine (Famotidine 20 Mg Tablet) 20 mg PO DAILY [facility] Last Admin: 10/28/24 08:42 Dose: 20 mg Fluticasone Propionate (Fluticasone Nasal [place] 16gm Btl) 2 spray INTRANASAL DAILY [facility] Last Admin: 10/28/24 08:40 Dose: 2 spray Furosemide (Furosemide 40 Mg Tablet) 40 mg PO DAILY [facility] Last Admin: 10/28/24 08:42 Dose: 40 mg Gabapentin (Gabapentin 300 Mg Capsule) 300 mg PO .hs [facility] Gemfibrozil (Gemfibrozil 600 Mg Tablet) 600 mg PO BID [facility] Last Admin: 10/28/24 08:42 Dose: 600 mg Guaifenesin (Guaifenesin 600 Mg Tablet) 300 mg PO BID [facility] Last Admin: 10/28/24 08:42 Dose: 300 mg Heparin Sodium (Porcine) (Heparin 5,000 Unit/Ml Inj 1 Ml) 0 unit IVP PRN PRN; Protocol PRN Reason: Heparin Weight Based Protocol -Subsequent Bolus Last Admin: 10/27/24 15:39 Dose: 4,500 unit Hydralazine HCl (Hydralazine 50 Mg Tablet) 50 mg PO BID [facility] Last Admin: 10/28/24 08:42 Dose: 50 mg Heparin Sodium/Sodium Chloride (Heparin Drip) 25,000 unit in 500 mls @ 0 mls/hr IV CONT [facility]; Protocol Last Titration: 10/28/24 02:56 Dose: 12.31 unit/kg/hr, 22 mls/hr Isosorbide Dinitrate (Isosorbide Dinitrate 20 Mg Tablet) 5 mg PO DAILY [facility] Last Admin: 10/28/24 08:44 Dose: 5 mg Levothyroxine Sodium (Levothyroxine 25 Mcg Tablet) 25 mcg PO DAILY [facility] Last Admin: 10/28/24 08:43 Dose: 25 mcg Methylprednisolone Sodium Succinate (Methylprednisolone Sod Succ 125 Mg/2 Ml Inj) 60 mg IVP Q6H [facility] Last Admin: 10/28/24 06:17 Dose: 60 mg Metoprolol Tartrate (Metoprolol Tartrate 50 Mg Tablet) 50 mg PO BID [facility] Last Admin: 10/28/24 08:42 Dose: 50 mg Montelukast Sodium (Montelukast Sodium 10 Mg Tablet) 10 mg PO QPM [facility] Ondansetron HCl (Ondansetron 2 Mg/Ml Sdv 2 Ml) 4 mg IVP Q8H PRN PRN Reason: vomiting, or N/V if npo Ropinirole HCl (Ropinirole 1 Mg Tablet) 3 mg PO DAILY [facility] Last Admin: 10/28/24 08:42 Dose: 3 mg Tamsulosin HCl (Tamsulosin 0.4 Mg Capsule) 0.4 mg PO QPM [facility] Vitals/I&O/Wt Last Vital Signs Temp 97.9 F 10/27/24 22:00 Pulse 118 H 10/28/24 08:05 Resp 12 10/28/24 07:59 BP 135/99 10/28/24 05:00 Pulse Ox 94 10/28/24 07:59 O2 Del Method Nasal Cannula 10/28/24 07:59 O2 Flow Rate 4 10/28/24 07:59 FiO2 40 10/27/24 13:47 10/27/24 10/28/24 10/28/24 22:59 06:59 14:59 Intake Total 1167.083 / 1217.083 600 / 1817.083 Output Total 900 / 900 300 / 1200 Balance 267.083 / 317.083 300 / 617.083 Weight last 48 hrs Weight 201 lb 11.567 oz Weight 198 lb 6.656 oz Weight 197 lb Physical Exam 2 Narrative: GENERAL: The patient is alert and oriented times three. Not in any acute distress. HEENT: No significant pallor, icterus or lymphadenopathy.Oral cavity: There are no mucous membrane lesions. NECK: Trachea appears to be central. No masses noted. No JVD or thyromegaly appreciated. RESPIRATORY: Chest is symmetrical. No intercostals muscle retraction or any accessory muscle activation. There is no chest wall tenderness. Breath sounds are heard bilaterally. No rales or rhonchi heard. No evidence of any consolidation. BREASTS: Deferred. HEART: The heart sounds are normal. No S3 or S4. No significant murmurs. No pericardial rub ABDOMEN: No vessel pulsations or distention. No tenderness. No organomegaly appreciated. Bowel sounds are normally heard. : Deferred. RECTAL: Deferred. LYMPHATIC: No lymphadenopathy noted in the neck. EXTREMITIES: No edema or cyanosis. No clubbing. MUSCULOSKELETAL: No acute joint deformities or swelling SKIN: There are no significant rashes or ecchymosis NEUROPSYCHIATRIC: The patient is alert and oriented x3. Appears to be in a good mood. No tremors or rigidity noted. Data 10/28/24 04:19 10/28/24 04:19 Other Labs: Laboratory Last Values WBC 6.95 10^3/uL (3.29-11.43) 10/28/24 04:19 Corrected WBC Cancelled 10/27/24 12:05 RBC 3.55 10^6/uL (3.85-5.65) L 10/28/24 04:19 Hgb 10.30 g/dL (11.27-16.99) L 10/28/24 04:19 Hct 31.2 % (37-53) L 10/28/24 04:19 MCV 87.9 fl (82-101) 10/28/24 04:19 MCH 29.0 pg (27-33) 10/28/24 04:19 MCHC 33.0 g/dL (30-55) 10/28/24 04:19 RDW 13.1 % (12.1-15.1) 10/28/24 04:19 Plt Count 246 10^3/cmm (157-399) 10/28/24 04:19 MPV 10.3 fL (7.4-10.4) 10/28/24 04:19 Gran % Cancelled 10/27/24 12:05 Neut % (Auto) 85.1 % 10/28/24 04:19 Lymph % (Auto) 12.2 % 10/28/24 04:19 [place] % (Auto) 2.3 % 10/28/24 04:19 Eos % (Auto) 0.0 % 10/28/24 04:19 Baso % (Auto) 0.1 % 10/28/24 04:19 Neut # (Auto) 5.91 10^3/uL (1.8-7.7) 10/28/24 04:19 Lymph # (Auto) 0.9 10^3/uL (0.8-4.8) 10/28/24 04:19 [place] # (Auto) 0.2 10^3/uL (0.2-0.9) 10/28/24 04:19 Eos # (Auto) 0.0 10^3/uL (0.0-0.8) 10/28/24 04:19 Baso # (Auto) 0.0 10^3/uL (0.0-0.1) 10/28/24 04:19 Absolute Gran (auto) Cancelled 10/27/24 12:05 Nucleated RBC % (auto) 0 % 10/28/24 04:19 Nucleated RBCs # 0.0 /100WBC 10/28/24 04:19 PT 13.10 SECONDS (12.1-14.9) 10/27/24 14:18 INR 0.93 (0.8-1.2) 10/27/24 14:18 APTT 162.2 SECONDS (23.9-36.7) H* D 10/27/24 21:35 D-Dimer 0.42 ug/mLFEU (0-0.59) 10/27/24 12:44 Specimen Type Arterial 10/27/24 12:01 Sample Site Radial, right 10/27/24 12:01 ABG pH 7.45 (7.35-7.45) 10/27/24 12:01 ABG pCO2 53.9 mmHg (35-45) H 10/27/24 12:01 ABG pO2 61.3 mmHg (80.0-100.0) L 10/27/24 12:01 ABG PO2/FiO2 Ratio 170 10/27/24 12:01 ABG HCO3 37.7 mmol/L (22-26) H 10/27/24 12:01 ABG O2 Saturation 91.8 10/27/24 12:01 ABG Base Excess 11.7 mmol/L (-2.0-2.0) H 10/27/24 12:01 [place] Test Pos 10/27/24 12:01 A-a O2 Gradient 17.4 mmHg (5-10) H 10/27/24 12:01 Hematocrit 39.3 % (42-52) L 10/27/24 12:01 Hgb O2 Saturation 90.5 % (95-100) L 10/27/24 12:01 Carboxyhemoglobin 1.3 %THgb (0.4-20.1) 10/27/24 12:01 Methemoglobin 0.2 % (0.4-1.5) L 10/27/24 12:01 Total Hemoglobin 12.8 g/dL (14-18) L 10/27/24 12:01 Sodium 141.0 mmol/L (131-143) 10/27/24 12:01 Potassium 2.6 mmol/L (3.5-5.0) L 10/27/24 12:01 Glucose 122.0 mg/dL (70-115) H 10/27/24 12:01 Ionized Calcium 1.2 mmol/L (1.1-1.4) 10/27/24 12:01 O2 Delivery Device Nc 10/27/24 12:01 O2 Liters/Min 3.5 % 10/27/24 12:01 FiO2 36.0 % 10/27/24 12:01 Fitness Trainer ID glc 10/27/24 12:01 Sodium 138 mmol/L (136-145) 10/28/24 04:19 Potassium 3.0 mmol/L (3.5-5.1) L 10/28/24 04:19 Chloride 93 mmol/L (98-107) L 10/28/24 04:19 Carbon Dioxide 29 mmol/L (22-29) 10/28/24 04:19 Anion Gap 19.0 (5-19) 10/28/24 04:19 BUN 43 mg/dL (8-23) H 10/28/24 04:19 Creatinine 1.7 mg/dL (0.7-1.2) H 10/28/24 04:19 GFR Calculation Not Reportable 10/28/24 04:19 Glucose 284 mg/dL (65-115) H 10/28/24 04:19 Calculated Osmolality 307 mOsm/kg (285-295) H 10/28/24 04:19 Lactic Acid 2.0 mmol/L (0.5-2.2) 10/27/24 12:44 Calcium 9.3 mg/dL (8.5-10.5) 10/28/24 04:19 Magnesium 2.3 mg/dL (1.7-2.3) 10/27/24 18:39 Total Bilirubin 0.2 mg/dL (0.15-1.2) 10/27/24 12:44 AST 29 U/L (0-40) 10/27/24 12:44 ALT 19 U/L (0-41) 10/27/24 12:44 Alkaline Phosphatase 103 U/L (40-130) 10/27/24 12:44 Troponin T 5th Gen ng/L 33 ng/L (0-15) H 10/28/24 04:19 Troponin T Baseline 31 ng/L (0-15) H 10/27/24 12:44 Troponin T 120 Minute 27.19 ng/L (0-15) H 10/27/24 14:34 Delta Troponin T -3.81 ABS# (0-10) L 10/27/24 14:34 Troponin T Hi Sens 6Hr 21.31 ng/L (0-15) H 10/27/24 18:39 Troponin T Hi Sens 6Hr Delta -9.69 ng/L (0-12) L 10/27/24 18:39 C-Reactive Protein 23.1 mg/L (0.0-4.9) H 10/27/24 12:44 NT-Pro-B Natriuret Pep 168 pg/mL (0-125) H 10/27/24 12:44 Total Protein 7.2 g/dL (6.6-8.7) 10/27/24 12:44 Albumin 4.6 g/dL (3.5-5.2) 10/27/24 12:44 Globulin 2.6 g/dL (1.3-4.6) 10/27/24 12:44 Coronavirus (PCR) Negative (Negative) 10/27/24 12:05 Influenza A (PCR) Negative (Negative) 10/27/24 12:05 Influenza Type B (PCR) Negative (Negative) 10/27/24 12:05 RSV (PCR) Negative (Negative) 10/27/24 12:05 Micro: Microbiology 10/27/24 12:30 Blood Culture - Preliminary Blood SPECIMEN COLLECTED 10/27/24 12:23 Blood Culture - Preliminary Blood SPECIMEN COLLECTED A&P Assessment and plan (1) Congestive heart failure: Clinically appears compensated. The BNP is almost in the normal range. At this point, I may hold off on any intervention. The increasing shortness of breath most likely from the COPD. The shortness of breath seems to be better now. Qualifiers: Heart failure chronicity: chronic Heart failure type: unspecified Qualified Code(s): I50.9 - Heart failure, unspecified (2) Atherosclerotic heart disease of [place] coronary artery with other forms of angina pectoris: Patient seems to have symptoms suggestive of unstable angina. However the EKG is unremarkable. No significant change in the troponin T. The baseline troponin was slightly elevated. In view of his ongoing worsening symptoms, he may benefit from a cardiac catheterization. (3) Elevated troponin: Could be related to a non-ST elevation IN. (4) Hyperlipidemia: May continue on the current medications. Qualifiers: Hyperlipidemia type: mixed hyperlipidemia Qualified Code(s): E78.2 - Mixed hyperlipidemia (5) Hypokalemia: This needs to be corrected., Possibly iatrogenic. Plan I discussed the patient and his family about the cardiac catheterization. Patient and the family are wanting to go ahead with the angiogram. The risk of bleeding, hematoma, vascular injury, myocardial infarction, myocardial perforation, malignant cardiac arrhythmias ,CVA, renal failure and other concomitant complications were explained in detail. In view of the chronic kidney disease, he carries a higher risk for contrast-induced nephropathy. This also was discussed in detail. Patient and the family is willing to take the risk. They seems understand very well the implications. Attestations 2 Medical Necessity Statement*: Patient requires continued hospital stay for close monitoring and further management Coding Level of Care Code 24465 Diagnoses Chronic congestive heart failure, unspecified heart failure type I50.9 Heart failure chronicity: chronic Heart failure type: unspecified Atherosclerotic heart disease of [place] coronary artery with other forms of angina pectoris I25.118 Elevated troponin R79.89 Mixed hyperlipidemia E78.2 Hyperlipidemia type: mixed hyperlipidemia Hypokalemia E87.6
[2024-10-28 10:07] LABS: Partial Thromboplastin Time 58.6 SECONDS (23.9-36.7)
[2024-10-28] MEDS: nitroglycerin 1 gm/inch oint Pkt 2 INCH TOPICAL ×2 (11:19→21:37)
--- NOTE | 2024-10-28 11:28 | W.PM.OPSUD ---
Surgery/Procedure H&P Update DATE OF PROCEDURE: October 28, 2024 DATE H&P PERFORMED: 10/27/24 H&P UPDATE INFORMATION: I have reviewed H&P completed within last 30 days, I have examined patient prior to procedure and No changes to prior documentation PREOP DIAGNOSIS: ASHD PRIMARY INDICATION FOR PROCEDURE: History of ASHD, status post multiple PCI, currently presenting with unstable angina PLANNED PROCEDURE: Left heart catheterization with left and right coronary angiogram and possible PCI PATIENT REASSESSED PRIOR TO SEDATION, WITH NO CHANGE NOTED: Yes PHYSICAL EXAM: alert and clear to auscultation bilaterally AIRWAY EVAL/ANESTHESIA PLAN: normal airway, see other exam findings, ASA III, Monitored Anesthesia, Local Anesthesia, Risks, benefits & alternatives of sedation and/or procedure discussed and Patient agrees to continue as planned
--- NOTE | 2024-10-28 11:59 | XACV_ITS ---
Exam Room: 2 Ht: 165 cm Wt: 91 kg BSA: 2.08 m2 Gender: Male : 1950 Any Known Allergies: Other Exam Priority: Routine Procedure(s): Procedure Description: Diagnostic procedure Procedure Description: PCI procedure Procedure Description: Left Heart Catheterization Procedure Description: Coronary IVUS Procedure Description: Drug Eluting Coronary Stent Procedure Description: PTCA Procedure Description: Miscellaneous Procedure Description: ACT Procedure Description: Coronary Angiography Procedure Description: Pressure Wire Yung PALM; Diagnostic Cath Status: Urgent Diagnostic Findings * The left main is a medium to large caliber vessel with minimal distal tapering. No significant stenotic lesions. * The left anterior descending artery is a medium caliber vessel, which was found to have moderate diffuse calcification in the proximal and mid segment. There was a 40 to 50% diffuse irregular narrowing in the distal 6 segment around the third diagonal branch. The second diagonal branch was found to have 50 to 60% diffuse narrowing in the proximal segment involving the ostium. * The circumflex artery was found to have around 70 to 80% ostial narrowing. Right after this, the artery appears to gives off the first obtuse marginal branch which appears to be stented proximally. The distal obtuse marginal artery was found to have mild diffuse disease. The mid circumflex artery was found to have 20 to 30% diffuse irregular narrowing. No significant stenotic lesions. * The right coronary artery has a low and posterior takeoff. The artery was found to have mild to moderate diffuse disease with no significant stenotic lesions. Selective engagement was somewhat difficult. PCI Status: Urgent Interventional Findings * Procedure note:We engaged left main artery with XB 3.0 guide catheter. IV heparin was administered to maintain anticoagulation. We attempted to perform IVUS however IVUS catheter could not be advanced into left circumflex artery. We then performed iFR of ostial left circumflex artery showing significantly abnormal value of 0.62. On pull back all gradient was across the ostial left circumflex artery. We then proceeded with PCI. We advanced the runthrough wire into OM. 2.5x12 mm semicompliant balloon was used to predilate the lesion. We then placed a 2.75x8mm resolute susannah jose angel. This was post dilated using a 3.0x12 mm NC balloon. At this time final angiogram was performed that showed excellent stent expansion and no residual stenosis. Guidewire and guide catheter were removed. 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 * Proximal Circumflex: 70% stenosis treated with a AB TREK 2.50X12 RX BALLOON, CONCEPCIÓN R SUSANNAH 2.75X8 JOSE ANGEL, and CONCEPCIÓN MADRIGAL EUPHORA RX [id number] BALLOON. Conclusions 1. This 80-year-old white female with a history of coronary artery disease and previous PCI's, is presenting with shortness of breath and chest pain. While being in the hospital, he started having increasing episodes of chest pain. In view of his ongoing and worsening symptoms, in order to further evaluate his coronary status, a cardiac catheterization was recommended. Patient underwent left heart catheterization with a left and right coronary angiogram today. The findings are as follows. 2. No significant left main disease. Left and descending artery was found to have moderate diffuse calcification in the proximal mid segment. The mid stented segment was found to be widely patent. The second diagonal branch was found to have moderate diffuse disease proximally with a possible jailed lesion at the ostium. Mild diffuse disease in the distal left anterior descending artery. The circumflex artery was found to have a high-grade ostial stenosis of around 80%. Patent stented segment of the obtuse marginal branch. Mild diffuse disease in the right coronary artery. LVEDP of 29 mmHg. 3. I reviewed and discussed the cardiac catheterization data with Dr. Villareal. It was thought to be appropriate to consider PCI of the ostial circumflex lesion. Dr. Villareal took over further management of this patient at this point. 4. s/p successful revascularization of proximal left circumflex artery into OM with 1 stent. 5. Proximal Circumflex was treated with a Balloon, Drug Eluting Stent, and Balloon. Recommendations * Dual antiplatelet therapy with aspirin and plavix for atleast 1 year. * High intensity statin therapy. * Outpatient cardiology follow up in 2 weeks. Interventional RX Recommendation: PCI w/o planned CABG Diagnostic RX Recommendation: PCI w/o planned CABG Anticoagulation: Heparin LV EDP: 29 mmHg Left Ventriculography Findings: * LV gram was not performed because of the chronic kidney disease. The LVEDP was 20 mmHg. Pressures Phase:Rest AO : 112 / 77 ( 93 ) @ 12:48:00 PM 129 / 68 ( 94 ) @ 1:03:00 PM 130 / 68 ( 95 ) @ 1:03:00 PM 206 / 110 ( 100 ) @ 1:05:00 PM 118 / 73 ( 93 ) @ 1:24:00 PM 113 / 71 ( 90 ) @ 1:28:00 PM 115 / 70 ( 88 ) @ 1:35:00 PM 126 / 80 ( 96 ) @ 1:54:00 PM LV : 141 / 9 / 29 @ 1:03:00 PM 143 / 10 / 31 @ 1:03:00 PM Valves Phase:DefaultPhase AV : 12.0 @ 2:09:56 PM AV Mean Gradient: 11.0 @ 2:09:56 PM Clinical Evaluation EBL: 5mL-10mL Procedural Details Pre-Procedure Time Out. Identified patient by full name and date of as verbalized by the patient/guarantor. Does the consent match the physician's order: Yes. Accurate & Complete Informed Consent: Yes. Inpatient/Outpatient History & Physical on Chart: Yes. If H&P is completed, is and addenduem needed: No. Visualize and Verify Site with Patient/Guarantor: N/A. Relevant Radiology Images available: Yes. Pre-op teaching completed and patient verbalized understanding. The risks, benefits, and alternatives of sedation and/or procedure were discussed by physician. The patient agrees to continue. Procedure started. [facility] Clinical Fraility Score: 4: Vulnerable. Staff Nurse Midwife Indications: ACS > 24 hours. Chest Pain Symptom Assessment: Typical Angina Symptoms. Correct patient, site and procedure confirmed by cath team. Current diagnosis: NSTEMI. PERRLA. 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 Lungs clear x 5 lobes. IV Site on Arrival: 22 gauge in the left hand. IV Fluids: 0.9% NaCl at KVO. 0 mL infused prior to optical lab technician. Pre Procedural Pulses: bilateral dorsalis pedis was Doppled. Pre Procedural Pulses: bilateral posterior tibial was Doppled. Pre Procedural Pulses: bilateral radial was 3+. Oxygen started at 2liters/min via nasal canula. right groin was prepped with chloroprep then draped in the usual sterile fashion. right radial was prepped with chloroprep then draped in the usual sterile fashion. Physician notified. Baseline sample Acquired. HR: 77 BPM. Patient's family waiting in ICU #2. Dr. Barragan will update a tthe completion of the procedure. Equipment: 6F - Radial. Cardiac Cath Pack. ACIST Manifold Kit Model BT 2000. Heparinized Saline (2 units/mL), 1000 mL bag. Physician arrived. Physician scrubbed in. Immediate Pre-Procedure Time Out. Correct Patient: Yes; Correct Procedure: Yes; Correct Site: Yes; Correct Patient Position: Yes; Correct Supplies: Yes; Dried Flammable Prep: Yes; Blood Products Available: N/A. Lidocaine 1% infiltrated to the right radial. Arterial access obtained. ACT drawn. Results 157 seconds. Therapeutic limits - pre-heparin administration 90-150 seconds and monitoring heparin during a vascular procedure >250 seconds. A 5 israeli Pavan catheter in over the exchange J wire. Multiple views taken of left coronary artery. Catheter redirected to the RCA. unable to cannulate. Catheter removed over the exchange J wire. A 5 israeli JR4 catheter in over the exchange J wire. unable to cannulate. Catheter removed over the exchange J wire. A 5 israeli 3DRC catheter in over the exchange J wir and advanced across to the LV. EDP Sample taken: LV 141/9,29; HR: 77 BPM; SpO2: 94%. Pullback taken: LV 143/10,31; AO 129/68(94); Mean: 11mmHg, Peak to Peak: 12mmHg, SEP: 22sec/min; HR: 75 BPM; SpO2: 93%. Dr. Villareal here to review cineography. Catheter redirected to the RCA. Catheter removed over the exchange J wire. Dr. Barragan scrubbed out. PCI Indication: NSTE. Dr. Villareal scrubbed in to begin PCI. 6 israeli XB 3 guide catheter was inserted over the exchange J wire. Runthrough guidewire was advanced through the guide catheter to lesion in the prox Circ. Dr. Barragan called at the request of Dr. Villareal. Dr. Barragan here to view cineography with Dr. Villareal. IVUS catheter in OTW. IVUS catheter out OTW. iFR guidewire was advanced through the guide catheter to lesion in the prox Circ. Runthrough guidewire out. iFR measuments obtained of the Proc CX = 0.62 with a pullback of 0.67. iFR wire out. Runthrough guidewire was advanced through the guide catheter to lesion in the prox Circ. Inflation number : 1 A AB TREK 2.50X12 RX BALLOON was prepped and advanced across the Prox CX , then inflated to 10 PIOTR for 0:12 seconds. Inflation number: 2 The AB TREK 2.50X12 RX BALLOON was reinflated across the Prox CX, to 10 PIOTR for 0:12 seconds. Balloon out. Results checked. Inflation Number : 3 A T Megha SUSANNAH 2.75X8 JOSE ANGEL -Lot Number# [id number] was prepped and advanced across the Prox CX. The stent was deployed at 12 PIOTR for 0:16 seconds. Exp. . Stent balloon out over wire. Results checked. IVUS catheter in OTW. IVUS run of the CX performed. IVUS catheter out OTW. Inflation number : 4 A MDT ROHAN EUPHORA RX [id number] BALLOON was prepped and advanced across the Prox CX , then inflated to 12 PIOTR for 0:13 seconds. Balloon out. Results checked. Wire out. ACT drawn. Results 303 seconds. Therapeutic limits - pre-heparin administration 90-150 seconds and monitoring heparin during a vascular procedure >250 seconds. Guide catheter out over the exchange J wire. Dr. Villareal scrubbed out. A TR Band was successful obtaining hemostatsis at the Right Radial artery insertion site. Post Procedure: Pulses reassessed and unchanged. PERRLA. 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 No VTE prophylaxis required. Medication's Wasted: Lidocaine 1% = 18 mL. Medication's Wasted: Nitro = 49.8 mg. Medication's Wasted: Heparin = 1000 units. Medication's Wasted: Other = Fentanyl 25 mcg. Total IV fluids: 75 mL. Post-op diagnosis: PCI of the Prox CX with one JOSE ANGEL. Complications: none. Estimated blood loss: 5mL-10mL. Responsiveness - Normal response to verbal stimuli; alert and oriented, PERRLA. Airway - Unaffected, no intervention required; spontaneous ventilation. Circulation: W/N/L, pulses unchanged. Nausea/Vomiting: No. Procedure completed. Patient transferred by bed to ICU. Vital chart was stopped. Access Site Site: Right Radial artery Sheath Size: 6 Fr Hemostasis Method: TR Band Hemostasis Success: Successful Procedure Medications Start: 12:28 PM Stop: 12:28 PM Medication: Benadryl Amount: 25 mg Route: I.V. Start: 12:36 PM Stop: 12:36 PM Medication: Versed Amount: 1 mg Route: I.V. Start: 12:36 PM Stop: 12:36 PM Medication: Fentanyl Amount: 25 mcg Route: I.V. Start: 12:43 PM Stop: 12:43 PM Medication: Verapamil Amount: 5 mg Route: I.A. Start: 12:44 PM Stop: 12:44 PM Medication: Nitrogylcerin Amount: 200 mcg Route: I.A. Start: 12:47 PM Stop: 12:47 PM Medication: Heparin Amount: 2000 units Route: I.V. Start: 1:23 PM Stop: 1:23 PM Medication: Heparin Amount: 3000 units Route: I.V. Start: 1:28 PM Stop: 1:28 PM Medication: Fentanyl Amount: 25 mcg Route: I.V. Start: 1:54 PM Stop: 1:54 PM Medication: Fentanyl Amount: 25 mcg Route: I.V. Start: 1:28 PM Stop: 1:28 PM Medication: Versed Amount: 1 mg Route: I.V. Start: 2:08 PM Stop: 2:08 PM Medication: Plavix Amount: 300 mg Route: P.O. I, the attending physician, have reviewed and verified all procedure medications. Yes, all medications given per verbal order History/Risk Factors Hypertension: Yes Dyslipidemia: Yes Peripheral Arterial Disease (PAD): No Myocardial Infarction (NE): No Obesity: Yes Renal Disease: No Tobacco Use: Former Prior Interventions PCI: Yes CABG: No Valve Surgery: No Date of PCI: 05/10/2024 Report Signatures Interventional Workflow Finalized by Zack Villareal MD on 10/28/2024 11:17 PM Diagnostic Workflow Finalized by Dr Mele Barragan MD [facility] on 10/28/2024 08:25 PM
[2024-10-28] MEDS: aspirin 325 mg Tablet PO (18:06)
[2024-10-28] MEDS: montelukast sodium 10 mg Tablet PO (18:06)
[2024-10-28] MEDS: tamsulosin 0.4 mg Capsule PO (18:06)
[2024-10-28] MEDS: cefTRIAXone 1,000 mg SDV 1000 MG IVP (18:07)
--- NOTE | 2024-10-28 18:55 | USCV_ITS ---
Mian Menendez Age: 74 Gender: M : 1950 Exam Date: 10/28/2024 10:11 Ordering Phys: Fransico Patel MD Technologist: Juvencio Issa [place] [facility] [place]: nstemi BP: 135 / 99 HR: 77 Rhythm: Sinus Technical Quality: Adequate MEASUREMENTS (Male / Female) Normal Values 2D ECHO LV Diastolic Diameter PLAX 3.6 cm 4.2 - 5.9 / 3.9 - 5.3 cm IVS Diastolic Thickness 1.2 cm 0.6 - 1.0 / 0.6 - 0.9 cm IVS Systolic Thickness 1.4 cm LVPW Diastolic Thickness 2.5 cm 0.6 - 1.0 / 0.6 - 0.9 cm LVPW Systolic Thickness 2.2 cm LVOT Diameter 2.1 cm LV Ejection Fraction 2D Teich 56.9 % LV Ejection Fraction MOD 2C 64.0 % LV Ejection Fraction 2C AL 65.0 % LA Diameter 4.3 cm RA Systolic Volume 4C AL 48.1 ml RA Systolic Volume 4C MOD 48.0 ml Aorta at Sinotubular Diameter 2.7 cm IVC Diameter 2.1 cm M-MODE LA Ao Ratio MM 1.6 AV Cusp Separation MM 1.7 cm DOPPLER AV Peak Velocity 228.3 cm/s LVOT Peak Velocity 146.0 cm/s AV Area Cont Eq vti 2.2 cm squared AV Area Cont Eq pk 2.1 cm squared MV Peak Velocity 121.0 cm/s MV Area PHT 4.6 cm squared Mitral E to A Ratio 0.9 TV Peak Velocity 391.5 cm/s TR Peak Velocity 322.0 cm/s TR Peak Gradient 41.5 mmHg TR Mean Velocity 394.0 cm/s TR Mean Gradient 64.5 mmHg TR Velocity Time Integral 119.4 cm PV Peak Velocity 128.3 cm/s RV Ejection Time 0.3 s FINDINGS Left Ventricle Normal left ventricular size and systolic function, EF 64%.no regional wall motion abnormalities. Mild left ventricular hypertrophy. Grade I/IV diastolic dysfunction (abnormal relaxation filling pattern), normal to mildly elevated filling pressures. Right Ventricle The right ventricle is normal in size and function. Right Atrium The right atrium is normal in size. Left Atrium The left atrium is normal in size. Mitral Valve Trace mitral valve regurgitation. Aortic Valve No gross abnormalities noted Tricuspid Valve Mild tricuspid valve regurgitation. Estimated pulmonary artery peak systolic pressure E PSP 45 mmHg.. This could be an underestimation because of the poor Doppler signals. Pulmonic Valve No gross abnormalities noted Pericardium Normal pericardium without effusion. Aorta Normal ascending aorta dimension. IVC The inferior vena cava appears normal. CONCLUSIONS Normal left ventricular size and systolic function, EF 64%.no regional wall motion abnormalities. Mild left ventricular hypertrophy. Grade I/IV diastolic dysfunction (abnormal relaxation filling pattern), normal to mildly elevated filling pressures. Mild tricuspid valve regurgitation. Estimated pulmonary artery peak systolic pressure E PSP 45 mmHg.. This could be an underestimation because of the poor Doppler signals. Trace mitral valve regurgitation. There is no pericardial effusion. There are no intracardiac masses. Compared to the study from 09/09/2023, there may not be a significant change Dr Mele Barragan MD [facility] (Electronically Signed) Final Date: 28 October 2024 20:52 S
--- NOTE | 2024-10-28 20:28 | PM.PN ---
Subjective Subjective: Had an episode of chest pain overnight, requiring morphine, additional chest pain this morning. Accompanied with some sinus tachycardia. Reports associated dyspnea and sweats with the episodes. Vitals/I&O/Wt Last Vital Signs Temp 98.4 F 10/28/24 14:21 Pulse 88 10/28/24 19:54 Resp 18 10/28/24 19:54 BP 135/71 10/28/24 16:45 Pulse Ox 93 10/28/24 19:54 O2 Del Method Nasal Cannula 10/28/24 19:54 O2 Flow Rate 3 10/28/24 19:54 FiO2 40 10/27/24 13:47 10/28/24 10/28/24 10/28/24 06:59 14:59 22:59 Intake Total 600 / 1817.083 421.9 / 421.9 383.017 / 804.917 Output Total 300 / 1200 600 / 600 1100 / 1700 Balance 300 / 617.083 -178.1 / -178.1 -716.983 / -895.083 Weight last 48 hrs Weight 91.5 kg Weight 90 kg Weight 89.358 kg Physical Exam Const: COMMON NORMALS: patient oriented x3 and alert GENERAL APPEARANCE: cooperative ORIENTATION/CONSCIOUSNESS: Yes awake HENMT: COMMON NORMALS: oropharynx normal Neck/C-Spine: COMMON NORMALS: no JVD Resp: AUSCULTATION: wheezes Cardio: COMMON NORMALS: no JVD, regular rhythm, S1 normal heart sound present, S2 normal heart sound present and No murmurs present (Cardio) RHYTHM: regular rhythm HEART SOUNDS: S1 normal heart sound present and S2 normal heart sound present GI: COMMON NORMALS: Normal to inspection, nondistended, normoactive bowel sounds present, Soft to palpation and non-tender PALPATION: Yes Soft to palpation Extremity: COMMON NORMALS: no joint enlargement and no pedal edema Neuro: COMMON NORMALS: patient oriented x3 and moves all extremities SENSORIUM/ORIENTATION: Yes alert Skin: COMMON NORMALS: no rashes or lesions noted GENERAL SKIN EXAM: no rashes or lesions noted Data 10/28/24 04:19 10/28/24 04:19 Micro: Microbiology 10/27/24 17:00 Gram Stain - Final Sputum - Expectorated Sputum 10/27/24 12:30 Blood Culture - Preliminary Blood NEGATIVE TO DATE 10/27/24 12:23 Blood Culture - Preliminary Blood NEGATIVE TO DATE A&P Assessment and plan (1) Non-ST elevated myocardial infarction: Recurrent episodes of chest pain accompanied by dyspnea, sweats. Requested repeat troponin, EKG. Discussed with administrative asst. Has been reevaluated. Concern for unstable angina. Additional assessment pending with coronary angiography today. Continue admission ICU for now due to unstable angina. Continue anticoagulation. Monitor for risk of bleeding. Reviewed D-dimer, with low probability of VTE. Reviewed BMP. Give replacement potassium. Check magnesium. Monitor telemetry with risk of arrhythmia. With known CAD, multiple stents, most recently in April, although troponin is only mildly elevated. Suspect demand ischemia. Obtain TTE. Discussed with administrative asst, appreciate consultation. NT proBNP not elevated. No evidence of decompensated CHF at current time. Aspirin, Plavix, has been anticoagulated. Monitor PTT with risk of bleeding. Reassess blood counts. (2) Acute hypoxemic respiratory failure: Showing improvement. Coming down on oxygen requirement down to 3 L. Additional instigation of management of unstable angina as above. Continue treatment of severe exacerbation of COPD which is gradually improving. Continue Solu-Medrol, will decrease dose down to 30 mg every 6 hours. Monitor for risk of hyperglycemia, hypertension, gastritis, encephalopathy. Blood pressure doing okay. Reviewed glucose, with elevation this morning, 284. Will request POC glucose monitoring, sliding scale insulin. Change diet to consult carbohydrate. Continue support as needed, wean down to nasal cannula. Oxygen saturations target 88-92%. Continue treatment of severe COPD with Solu-Medrol 60 mg every 6, ceftriaxone, DuoNebs. Collect sputum culture. Flutter valve. (3) COPD with acute exacerbation: As above. (4) Hypokalemia: Additional supplementation requested. Recheck magnesium. Received supplementation for severe hypokalemia. Recheck potassium. Plan CAD with prior staged procedure most recent stent to obtuse marginal in April, prior to that stents to proximal LAD in January, COPD, not normally on oxygen Former smoker, CKD, creatinine appears close to baseline. Recheck chemistry. ELZA, but intolerant of CPAP, HTN, continue hydralazine, Imdur HLD, continue gemfibrozil. On PCSK9 inhibitor. GERD, continue famotidine BPH, continue Flomax Osteoarthritis, Other medical problems Attestations Medical Necessity Statement*: Continue admission for assessment and management of unstable angina, severe exacerbation of COPD. Coding Level of Care Code Critical Care >/= 30 minutes Critical care time (in minutes): 35 The high probability of a clinically significant, sudden or life threatening deterioration, as referenced in this documentation, required my full and direct attention, intervention and personal management. The critical care time shown is in addition to time spent performing any reported separately billable procedures and includes the following: [x] Data and vital sign review and interpretation [x] Patient assessment, examination and intervention [x] Medication orders and management [x] Patient/Family updates as able [x] Care Coordination and Documentation. Diagnoses Non-ST elevated myocardial infarction I21.4 Acute hypoxemic respiratory failure J96.01 COPD with acute exacerbation J44.1 Hypokalemia E87.6
[2024-10-28] MEDS: cyclobenzaprine 10 mg Tablet PO (21:35)
[2024-10-28] MEDS: potassium chloride ER 20 mEq Tablet PO (21:35)
[2024-10-28] MEDS: insulin lispro 100 unit/1 mL SUBCUT (21:53)
--- NOTE | 2024-10-28 22:30 | PC.NURSE ---
report recieved patient with normal saline infusing only at 50 ml/hr instructed per day shift nurse Love to leave running til 2200 tonight and then discontinue.
[2024-10-28 23:16] LABS: Glucose Point of Care 251 mg/dL (70-110)
[2024-10-29] VITALS (35 sets, daily range): BP systolic 108–138; BP diastolic 62–83; PULSE 78–94; RESP 18–24; TEMP 36.3–36.7; O2SAT 85–97
[2024-10-29] MEDS: ipratropium-albuterol 3 mL Neb INHALATION ×3 (03:06→10:59)
[2024-10-29] MEDS: methylPREDNISolone sod succ 125 mg/2 mL INJ 60 MG IVP ×2 (04:00→08:20)
[2024-10-29] MEDS: nitroglycerin 1 gm/inch oint Pkt 2 INCH TOPICAL ×2 (04:01→09:44)
[2024-10-29] MEDS: citalopram 20 mg Tablet 40 MG PO (05:54)
[2024-10-29 06:24] LABS: Basophils % 0.1 %; Hematocrit 32.3 % (37-53); Lymphocytes # 1.1 10^3/uL (0.8-4.8); Lymphocytes % 7.6 %; Mean Corpuscular HGB Conc 32.2 g/dL (30-55); Mean Corpuscular Hemoglobin 29.5 pg (27-33); Mean Corpuscular Volume 91.8 fl (82-101); Mean Platelet Volume 10.2 fL (7.4-10.4); Monocytes # 0.7 10^3/uL (0.2-0.9); Monocytes % 4.7 %; Neutrophils # 12.47 10^3/uL (1.8-7.7); Neutrophils % 86.7 %; Nucleated Red Blood Cells % 0 %; Platelet Count 294 10^3/cmm (157-399); Red Blood Count 3.52 10^6/uL (3.85-5.65); Red Cell Distribution Width 13.9 % (12.1-15.1); White Blood Count 14.38 10^3/uL (3.29-11.43)
[2024-10-29 06:50] LABS: Anion Gap 18.2 (5-19); Blood Urea Nitrogen 56 mg/dL (8-23); Calcium 9.8 mg/dL (8.5-10.5); Carbon Dioxide 28 mmol/L (22-29); Chloride 97 mmol/L (98-107); Creatinine Clr Calc Pharmacy 38.4599; Glucose 201 mg/dL (65-115); Osmolality Calculated 311 mOsm/kg (285-295); Potassium 3.2 mmol/L (3.5-5.1); Sodium 140 mmol/L (136-145)
[2024-10-29 06:51] LABS: Magnesium 2.5 mg/dL (1.7-2.3)
[2024-10-29 07:33] LABS: Glucose Point of Care 243 mg/dL (70-110)
[2024-10-29] MEDS: insulin lispro 100 unit/1 mL SUBCUT ×2 (08:17→11:39)
[2024-10-29] MEDS: isosorbide dinitrate 20 mg Tablet 5 MG PO (08:17)
[2024-10-29] MEDS: FUROsemide 40 mg Tablet PO (08:18)
[2024-10-29] MEDS: ARIPiprazole 10 mg Tablet 5 MG PO (08:18)
[2024-10-29] MEDS: metoprolol tartrate 50 mg Tablet PO (08:19)
[2024-10-29] MEDS: levothyroxine 25 mcg Tablet PO (08:19)
[2024-10-29] MEDS: hyDRALAzine 50 mg Tablet PO (08:19)
[2024-10-29] MEDS: clopidogrel 75 mg Tablet PO (08:19)
[2024-10-29] MEDS: guaiFENesin 600 mg Tablet 300 MG PO (08:20)
[2024-10-29] MEDS: gemfibrozil 600 mg Tablet PO (08:20)
[2024-10-29] MEDS: famotidine 20 mg Tablet PO (08:20)
[2024-10-29] MEDS: ropinirole 1 mg Tablet 3 MG PO (08:20)
[2024-10-29] MEDS: fluticasone nasal spray 16gm Btl 2 SPRAY INTRANASAL (08:25)
[2024-10-29] MEDS: potassium chloride ER 20 mEq Tablet 40 MEQ PO (08:29)
--- NOTE | 2024-10-29 10:40 | P.PN_ITS ---
Subjective 2 Subjective: The patient is feeling okay. No chest pain or chest tightness. Still has some dyspnea on exertion. Oxygen saturation with exertion is around 89%. Had The cardiac catheterization yesterday followed by PCI of the proximal circumflex artery lesion. Has not had a recurrence of chest pain since then. Medications: Medication Review Details: Current Medications Acetaminophen (Acetaminophen 325 Mg Tablet) 650 mg PO Q6H PRN PRN Reason: Mild/Mod Pain Or Temp >/= 101 Albuterol/Ipratropium (Ipratropium-Albuterol 3 Ml Neb) 3 ml INHALATION Q4H PRN PRN Reason: SHORTNESS OF BREATH Albuterol/Ipratropium (Ipratropium-Albuterol 3 Ml Neb) 3 ml INHALATION Q4H.RESPIRATORY [facility] Last Admin: 10/29/24 07:37 Dose: 3 ml Aripiprazole (Aripiprazole 10 Mg Tablet) 5 mg PO DAILY [facility] Last Admin: 10/29/24 08:18 Dose: 5 mg Aspirin (Aspirin 325 Mg Tablet) 325 mg PO Q24H [facility] Last Admin: 10/28/24 18:06 Dose: 325 mg Ceftriaxone Sodium (Ceftriaxone 1,000 Mg Sdv) 1,000 mg IVP Q24H [facility]; Protocol Last Admin: 10/28/24 18:07 Dose: 1,000 mg Citalopram Hydrobromide (Citalopram 20 Mg Tablet) 40 mg PO QAM [facility] Last Admin: 10/29/24 05:54 Dose: 40 mg Clopidogrel Bisulfate (Clopidogrel 75 Mg Tablet) 75 mg PO DAILY [facility] Last Admin: 10/29/24 08:19 Dose: 75 mg Cyclobenzaprine HCl (Cyclobenzaprine 10 Mg Tablet) 10 mg PO BID PRN PRN Reason: Muscle Spasm Last Admin: 10/28/24 21:35 Dose: 10 mg Famotidine (Famotidine 20 Mg Tablet) 20 mg PO DAILY [facility] Last Admin: 10/29/24 08:20 Dose: 20 mg Fluticasone Propionate (Fluticasone Nasal [place] 16gm Btl) 2 spray INTRANASAL DAILY [facility] Last Admin: 10/29/24 08:25 Dose: 2 spray Furosemide (Furosemide 40 Mg Tablet) 40 mg PO DAILY [facility] Last Admin: 10/29/24 08:18 Dose: 40 mg Gabapentin (Gabapentin 300 Mg Capsule) 300 mg PO .[facility] Gemfibrozil (Gemfibrozil 600 Mg Tablet) 600 mg PO BID [facility] Last Admin: 10/29/24 08:20 Dose: 600 mg Glucagon (Glucagon 1 Mg/Ml Kit 1 Ml) 1 mg IM ONCE PRN; Protocol PRN Reason: Adult Acute Hypoglycemia Nursing Prot. Guaifenesin (Guaifenesin 600 Mg Tablet) 300 mg PO BID [facility] Last Admin: 10/29/24 08:20 Dose: 300 mg Hydralazine HCl (Hydralazine 50 Mg Tablet) 50 mg PO BID [facility] Last Admin: 10/29/24 08:19 Dose: 50 mg Dextrose (D5w) 500 mls @ 0 mls/hr IV ONCE PRN; Protocol PRN Reason: Adult Acute Hypoglycemia Prot Dextrose (D10w) 125 mls @ 750 mls/hr IV PRN PRN; Protocol PRN Reason: Adult Acute Hypoglycemia Nursing Protocol Dextrose (D10w) 250 mls @ 1,000 mls/hr IV PRN PRN; Protocol PRN Reason: Adult Acute Hypoglycemia Nursing Protocol Insulin Human Lispro (Insulin Lispro 100 Unit/1 Ml) 0 unit SUBCUT WM&BEDTIME [facility]; Protocol Last Admin: 10/29/24 08:17 Dose: 6 unit Isosorbide Dinitrate (Isosorbide Dinitrate 20 Mg Tablet) 5 mg PO DAILY [facility] Last Admin: 10/29/24 08:17 Dose: 5 mg Levothyroxine Sodium (Levothyroxine 25 Mcg Tablet) 25 mcg PO DAILY [facility] Last Admin: 10/29/24 08:19 Dose: 25 mcg Methylprednisolone Sodium Succinate (Methylprednisolone Sod Succ 125 Mg/2 Ml Inj) 60 mg IVP Q6H [facility] Last Admin: 10/29/24 08:20 Dose: 60 mg Metoprolol Tartrate (Metoprolol Tartrate 50 Mg Tablet) 50 mg PO BID [facility] Last Admin: 10/29/24 08:19 Dose: 50 mg Montelukast Sodium (Montelukast Sodium 10 Mg Tablet) 10 mg PO QPM [facility] Last Admin: 10/28/24 18:06 Dose: 10 mg Nitroglycerin (Nitroglycerin 1 Gm/Inch Oint Pkt) 2 inch TOPICAL Q6H [facility] Last Admin: 10/29/24 09:44 Dose: 2 inch Ondansetron HCl (Ondansetron 2 Mg/Ml Sdv 2 Ml) 4 mg IVP Q8H PRN PRN Reason: vomiting, or N/V if npo Ropinirole HCl (Ropinirole 1 Mg Tablet) 3 mg PO DAILY [facility] Last Admin: 10/29/24 08:20 Dose: 3 mg Tamsulosin HCl (Tamsulosin 0.4 Mg Capsule) 0.4 mg PO QPM [facility] Last Admin: 10/28/24 18:06 Dose: 0.4 mg Vitals/I&O/Wt Last Vital Signs Temp 98.1 F 10/29/24 04:00 Pulse 87 10/29/24 09:44 Resp 18 10/29/24 07:37 BP 121/73 10/29/24 09:44 Pulse Ox 92 10/29/24 09:30 O2 Del Method Nasal Cannula 10/29/24 07:37 O2 Flow Rate 4 10/29/24 07:37 FiO2 3 10/29/24 04:00 10/28/24 10/29/24 10/29/24 22:59 06:59 14:59 Intake Total 383.017 / 804.917 270 / 1074.917 240 / 240 Output Total 1100 / 1700 350 / 2050 375 / 375 Balance -716.983 / -895.083 -80 / -975.083 -135 / -135 Weight last 48 hrs Weight 200 lb 9.93 oz Weight 201 lb 11.567 oz Weight 198 lb 6.656 oz Weight 197 lb Physical Exam 2 Narrative: GENERAL: The patient is alert and oriented times three. Not in any acute distress. HEENT: No significant pallor, icterus or lymphadenopathy.Oral cavity: There are no mucous membrane lesions. NECK: Trachea appears to be central. No masses noted. No JVD or thyromegaly appreciated. RESPIRATORY: Chest is symmetrical. No intercostals muscle retraction or any accessory muscle activation. There is no chest wall tenderness. Breath sounds are heard bilaterally. No rales or rhonchi heard. No evidence of any consolidation. BREASTS: Deferred. HEART: The heart sounds are normal. No S3 or S4. No significant murmurs. No pericardial rub ABDOMEN: No vessel pulsations or distention. No tenderness. No organomegaly appreciated. Bowel sounds are normally heard. : Deferred. RECTAL: Deferred. LYMPHATIC: No lymphadenopathy noted in the neck. EXTREMITIES: No edema or cyanosis. No clubbing. MUSCULOSKELETAL: No acute joint deformities or swelling SKIN: There are no significant rashes or ecchymosis NEUROPSYCHIATRIC: The patient is alert and oriented x3. Appears to be in a good mood. No tremors or rigidity noted. Data 10/29/24 05:54 10/29/24 05:54 Other Labs: Laboratory Last Values WBC 14.38 10^3/uL (3.29-11.43) H 10/29/24 05:54 Corrected WBC Cancelled 10/27/24 12:05 RBC 3.52 10^6/uL (3.85-5.65) L 10/29/24 05:54 Hgb 10.40 g/dL (11.27-16.99) L 10/29/24 05:54 Hct 32.3 % (37-53) L 10/29/24 05:54 MCV 91.8 fl (82-101) 10/29/24 05:54 MCH 29.5 pg (27-33) 10/29/24 05:54 MCHC 32.2 g/dL (30-55) 10/29/24 05:54 RDW 13.9 % (12.1-15.1) 10/29/24 05:54 Plt Count 294 10^3/cmm (157-399) 10/29/24 05:54 MPV 10.2 fL (7.4-10.4) 10/29/24 05:54 Gran % Cancelled 10/27/24 12:05 Neut % (Auto) 86.7 % 10/29/24 05:54 Lymph % (Auto) 7.6 % 10/29/24 05:54 [place] % (Auto) 4.7 % 10/29/24 05:54 Eos % (Auto) 0.0 % 10/29/24 05:54 Baso % (Auto) 0.1 % 10/29/24 05:54 Neut # (Auto) 12.47 10^3/uL (1.8-7.7) H 10/29/24 05:54 Lymph # (Auto) 1.1 10^3/uL (0.8-4.8) 10/29/24 05:54 [place] # (Auto) 0.7 10^3/uL (0.2-0.9) 10/29/24 05:54 Eos # (Auto) 0.0 10^3/uL (0.0-0.8) 10/29/24 05:54 Baso # (Auto) 0.0 10^3/uL (0.0-0.1) 10/29/24 05:54 Absolute Gran (auto) Cancelled 10/27/24 12:05 Nucleated RBC % (auto) 0 % 10/29/24 05:54 Nucleated RBCs # 0.0 /100WBC 10/29/24 05:54 PT 13.10 SECONDS (12.1-14.9) 10/27/24 14:18 INR 0.93 (0.8-1.2) 10/27/24 14:18 APTT 58.6 SECONDS (23.9-36.7) H D 10/28/24 09:14 D-Dimer 0.42 ug/mLFEU (0-0.59) 10/27/24 12:44 Specimen Type Arterial 10/27/24 12:01 Sample Site Radial, right 10/27/24 12:01 ABG pH 7.45 (7.35-7.45) 10/27/24 12:01 ABG pCO2 53.9 mmHg (35-45) H 10/27/24 12:01 ABG pO2 61.3 mmHg (80.0-100.0) L 10/27/24 12:01 ABG PO2/FiO2 Ratio 170 10/27/24 12:01 ABG HCO3 37.7 mmol/L (22-26) H 10/27/24 12:01 ABG O2 Saturation 91.8 10/27/24 12:01 ABG Base Excess 11.7 mmol/L (-2.0-2.0) H 10/27/24 12:01 Silvano Test Pos 10/27/24 12:01 A-a O2 Gradient 17.4 mmHg (5-10) H 10/27/24 12:01 Hematocrit 39.3 % (42-52) L 10/27/24 12:01 Hgb O2 Saturation 90.5 % (95-100) L 10/27/24 12:01 Carboxyhemoglobin 1.3 %THgb (0.4-20.1) 10/27/24 12:01 Methemoglobin 0.2 % (0.4-1.5) L 10/27/24 12:01 Total Hemoglobin 12.8 g/dL (14-18) L 10/27/24 12:01 Sodium 141.0 mmol/L (131-143) 10/27/24 12:01 Potassium 2.6 mmol/L (3.5-5.0) L 10/27/24 12:01 Glucose 122.0 mg/dL (70-115) H 10/27/24 12:01 Ionized Calcium 1.2 mmol/L (1.1-1.4) 10/27/24 12:01 O2 Delivery Device Nc 10/27/24 12:01 O2 Liters/Min 3.5 % 10/27/24 12:01 FiO2 36.0 % 10/27/24 12:01 Property Disposal Manager ID [email or web address] 10/27/24 12:01 Sodium 140 mmol/L (136-145) 10/29/24 05:54 Potassium 3.2 mmol/L (3.5-5.1) L 10/29/24 05:54 Chloride 97 mmol/L (98-107) L 10/29/24 05:54 Carbon Dioxide 28 mmol/L (22-29) 10/29/24 05:54 Anion Gap 18.2 (5-19) 10/29/24 05:54 BUN 56 mg/dL (8-23) H 10/29/24 05:54 Creatinine 1.8 mg/dL (0.7-1.2) H 10/29/24 05:54 GFR Calculation Not Reportable 10/29/24 05:54 Glucose 201 mg/dL (65-115) H 10/29/24 05:54 POC Glucose 243 mg/dL (70-110) H 10/29/24 07:31 Calculated Osmolality 311 mOsm/kg (285-295) H 10/29/24 05:54 Lactic Acid 2.0 mmol/L (0.5-2.2) 10/27/24 12:44 Calcium 9.8 mg/dL (8.5-10.5) 10/29/24 05:54 Magnesium 2.5 mg/dL (1.7-2.3) H 10/29/24 05:54 Total Bilirubin 0.2 mg/dL (0.15-1.2) 10/27/24 12:44 AST 29 U/L (0-40) 10/27/24 12:44 ALT 19 U/L (0-41) 10/27/24 12:44 Alkaline Phosphatase 103 U/L (40-130) 10/27/24 12:44 Troponin T 5th Gen ng/L 33 ng/L (0-15) H 10/28/24 04:19 Troponin T Baseline 31 ng/L (0-15) H 10/27/24 12:44 Troponin T 120 Minute 27.19 ng/L (0-15) H 10/27/24 14:34 Delta Troponin T -3.81 ABS# (0-10) L 10/27/24 14:34 Troponin T Hi Sens 6Hr 21.31 ng/L (0-15) H 10/27/24 18:39 Troponin T Hi Sens 6Hr Delta -9.69 ng/L (0-12) L 10/27/24 18:39 C-Reactive Protein 23.1 mg/L (0.0-4.9) H 10/27/24 12:44 NT-Pro-B Natriuret Pep 168 pg/mL (0-125) H 10/27/24 12:44 Total Protein 7.2 g/dL (6.6-8.7) 10/27/24 12:44 Albumin 4.6 g/dL (3.5-5.2) 10/27/24 12:44 Globulin 2.6 g/dL (1.3-4.6) 10/27/24 12:44 Coronavirus (PCR) Negative (Negative) 10/27/24 12:05 Influenza A (PCR) Negative (Negative) 10/27/24 12:05 Influenza Type B (PCR) Negative (Negative) 10/27/24 12:05 RSV (PCR) Negative (Negative) 10/27/24 12:05 Micro: Microbiology 10/27/24 17:00 Gram Stain - Final Sputum - Expectorated Sputum 10/27/24 12:30 Blood Culture - Preliminary Blood NEGATIVE TO DATE 10/27/24 12:23 Blood Culture - Preliminary Blood NEGATIVE TO DATE A&P Assessment and plan (1) Atherosclerotic heart disease of [place] coronary artery with other forms of angina pectoris: patient status post cardiac catheterization. He was found to have a high-grade lesion in the proximal circumflex artery. Had a PCI of this lesion. Currently seems to be stable. Mild diffuse disease in the other vessels. (2) Congestive heart failure: Clinically appears compensated. May continue on the current medications. Qualifiers: Heart failure chronicity: chronic Heart failure type: unspecified Qualified Code(s): I50.9 - Heart failure, unspecified (3) Elevated troponin: Possibly from the neurology revision myocardial infarction. (4) Hyperlipidemia: May continue on the current medications. Qualifiers: Hyperlipidemia type: mixed hyperlipidemia Qualified Code(s): E78.2 - Mixed hyperlipidemia (5) Hypokalemia: It is improving. Plan The BUN and creatinine are slightly elevated. Encourage oral hydration. If he is going home today, need to arrange for an outpatient BMP in the office in 3 days. Attestations 2 Medical Necessity Statement*: Disposition as per the primary Coding Level of Care Code 43032 Diagnoses Atherosclerotic heart disease of [place] coronary artery with other forms of angina pectoris I25.118 Chronic congestive heart failure, unspecified heart failure type I50.9 Heart failure chronicity: chronic Heart failure type: unspecified Elevated troponin R79.89 Mixed hyperlipidemia E78.2 Hyperlipidemia type: mixed hyperlipidemia Hypokalemia E87.6
[2024-10-29] MEDS: isosorbide dinitrate 20 mg Tablet 30 MG PO (11:32)
[2024-10-29 11:38] LABS: Glucose Point of Care 407 mg/dL (70-110)
--- NOTE | 2024-10-29 13:50 | PM.DCS ---
Discharge Providers Date of Admission: 10/27/24 13:50 Date of Discharge: October 29, 2024 Attending Provider at Admission: Fransico Patel Attending Provider at Discharge: Fransico Patel Primary Care Provider: BOB Alex Diagnoses at Discharge Discharge Diagnosis (1) Atherosclerotic heart disease of [place] coronary artery with other forms of angina pectoris: Status: Acute (2) Congestive heart failure: Status: Acute Qualifiers: Heart failure chronicity: chronic Heart failure type: unspecified Qualified Code(s): I50.9 - Heart failure, unspecified (3) Elevated troponin: Status: Acute (4) Hyperlipidemia: Status: Acute Qualifiers: Hyperlipidemia type: mixed hyperlipidemia Qualified Code(s): E78.2 - Mixed hyperlipidemia (5) Hypokalemia: Status: Acute Reason for Visit Reason for Visit: SOB Brief History: Pleasant 80-year-old gentleman with history of CAD, prior staged procedure most recent stent to obtuse marginal in April, prior to that stents to proximal LAD in January, also with history of COPD, former smoker, CKD, ELZA, but intolerant of CPAP, HTN, HLD, GERD, BPH, osteoarthritis, other medical problems presented to ER due to progressive shortness of breath, with only slight improvement with breathing treatments. With hypoxia at home, oxygen saturation in the 80s when being picked up by EMS. In ER initially 91% on 3.5 L, but with worsening saturation requiring 6 L with saturation 88% was started on BiPAP support. He states has been having productive cough. Denies chest pain. With mild elevation of troponin in the ER. Chest x-ray without acute findings. Viral studies negative for flu, COVID, RSV. D-dimer obtained, not elevated 0.42. With worsening hypoxia despite oxygen support initial admission requested to intensive care unit. Hospital Course Hospital Course He was admitted and treated for COPD exacerbation, as well as NSTEMI and found to be in unstable angina with multiple episodes of chest pain, was further assessed by cardiology, underwent coronary angiography which revealed significantly stenotic area of LAD which was treated by PCI with stent placement. He had no further recurrence of chest pain. Overall feeling better. Gradually improving from COPD exacerbation, although still requiring oxygen, which she has requested for him to allow completion of antibiotic and steroid course at home since he is otherwise improving and feeling much better with resolved tachypnea, tachycardia, improved air entry, resolved dyspnea. He knows to seek medical attention again in case of any worsening or new concerning symptoms. As per discussion with cardiology, continue Plavix with aspirin at discharge. With noted some worsening renal function over the last month or so, please follow-up and reassess his kidney function. With mild hypokalemia continues on potassium supplementation as well. Please reassess. Physical Exam Const: COMMON NORMALS: patient oriented x3 and alert GENERAL APPEARANCE: cooperative ORIENTATION/CONSCIOUSNESS: Yes awake HENMT: COMMON NORMALS: oropharynx normal Neck/C-Spine: COMMON NORMALS: no JVD Resp: COMMON NORMALS: normal respiratory effort and clear to auscultation bilaterally AUSCULTATION: clear to auscultation bilaterally Cardio: COMMON NORMALS: no JVD, regular rhythm, S1 normal heart sound present, S2 normal heart sound present and No murmurs present (Cardio) RHYTHM: regular rhythm HEART SOUNDS: S1 normal heart sound present and S2 normal heart sound present GI: COMMON NORMALS: Normal to inspection, nondistended, normoactive bowel sounds present, Soft to palpation and non-tender PALPATION: Yes Soft to palpation Extremity: COMMON NORMALS: no joint enlargement and no pedal edema NARRATIVE EXTREMITY EXAM: Right wrist access site without bruising, swelling, bleeding or other issues. Neuro: COMMON NORMALS: patient oriented x3 and moves all extremities SENSORIUM/ORIENTATION: Yes alert Skin: COMMON NORMALS: no rashes or lesions noted GENERAL SKIN EXAM: no rashes or lesions noted Discharge Data Studies Completed and Pending Completed Studies During Hospitalization Category Date Time Status PLUMBING TECHNICIAN request for service Routine Exams 10/28/24 11:59 Completed XR chest 1V portable [id number] Stat Exams 10/27/24 11:30 Completed CV. echo complete* [id number] Routine Ultrasound 10/28/24 18:55 Completed Pending at discharge Category Date Time Status Basic Metabolic Panel AM LABS Lab 10/30/24 04:00 Ordered Blood Culture Stat Lab 10/27/24 12:30 Results Complete Blood Count w/Auto AM LABS Lab 10/30/24 04:00 Ordered Platelet Count Q2D Lab 10/31/24 04:00 Ordered Sputum Culture and Gram Stain Routine Lab 10/27/24 17:00 Results Radiology Impressions Chest X-Ray 10/27/24 11:30 IMPRESSION: No acute findings. Laboratory Results WBC 14.38 10^3/uL (3.29-11.43) H 10/29/24 05:54 Corrected WBC Cancelled 10/27/24 12:05 RBC 3.52 10^6/uL (3.85-5.65) L 10/29/24 05:54 Hgb 10.40 g/dL (11.27-16.99) L 10/29/24 05:54 Hct 32.3 % (37-53) L 10/29/24 05:54 MCV 91.8 fl (82-101) 10/29/24 05:54 MCH 29.5 pg (27-33) 10/29/24 05:54 MCHC 32.2 g/dL (30-55) 10/29/24 05:54 RDW 13.9 % (12.1-15.1) 10/29/24 05:54 Plt Count 294 10^3/cmm (157-399) 10/29/24 05:54 MPV 10.2 fL (7.4-10.4) 10/29/24 05:54 Gran % Cancelled 10/27/24 12:05 Neut % (Auto) 86.7 % 10/29/24 05:54 Lymph % (Auto) 7.6 % 10/29/24 05:54 [place] % (Auto) 4.7 % 10/29/24 05:54 Eos % (Auto) 0.0 % 10/29/24 05:54 Baso % (Auto) 0.1 % 10/29/24 05:54 Neut # (Auto) 12.47 10^3/uL (1.8-7.7) H 10/29/24 05:54 Lymph # (Auto) 1.1 10^3/uL (0.8-4.8) 10/29/24 05:54 [place] # (Auto) 0.7 10^3/uL (0.2-0.9) 10/29/24 05:54 Eos # (Auto) 0.0 10^3/uL (0.0-0.8) 10/29/24 05:54 Baso # (Auto) 0.0 10^3/uL (0.0-0.1) 10/29/24 05:54 Absolute Gran (auto) Cancelled 10/27/24 12:05 Nucleated RBC % (auto) 0 % 10/29/24 05:54 Nucleated RBCs # 0.0 /100WBC 10/29/24 05:54 PT 13.10 SECONDS (12.1-14.9) 10/27/24 14:18 INR 0.93 (0.8-1.2) 10/27/24 14:18 APTT 58.6 SECONDS (23.9-36.7) H D 10/28/24 09:14 D-Dimer 0.42 ug/mLFEU (0-0.59) 10/27/24 12:44 Specimen Type Arterial 10/27/24 12:01 Sample Site Radial, right 10/27/24 12:01 ABG pH 7.45 (7.35-7.45) 10/27/24 12:01 ABG pCO2 53.9 mmHg (35-45) H 10/27/24 12:01 ABG pO2 61.3 mmHg (80.0-100.0) L 10/27/24 12:01 ABG PO2/FiO2 Ratio 170 10/27/24 12:01 ABG HCO3 37.7 mmol/L (22-26) H 10/27/24 12:01 ABG O2 Saturation 91.8 10/27/24 12:01 ABG Base Excess 11.7 mmol/L (-2.0-2.0) H 10/27/24 12:01 Silvano Test Pos 10/27/24 12:01 A-a O2 Gradient 17.4 mmHg (5-10) H 10/27/24 12:01 Hematocrit 39.3 % (42-52) L 10/27/24 12:01 Hgb O2 Saturation 90.5 % (95-100) L 10/27/24 12:01 Carboxyhemoglobin 1.3 %THgb (0.4-20.1) 10/27/24 12:01 Methemoglobin 0.2 % (0.4-1.5) L 10/27/24 12:01 Total Hemoglobin 12.8 g/dL (14-18) L 10/27/24 12:01 Sodium 141.0 mmol/L (131-143) 10/27/24 12:01 Potassium 2.6 mmol/L (3.5-5.0) L 10/27/24 12:01 Glucose 122.0 mg/dL (70-115) H 10/27/24 12:01 Ionized Calcium 1.2 mmol/L (1.1-1.4) 10/27/24 12:01 O2 Delivery Device Nc 10/27/24 12:01 O2 Liters/Min 3.5 % 10/27/24 12:01 FiO2 36.0 % 10/27/24 12:01 Night Warehouse Selector ID glc 10/27/24 12:01 Sodium 140 mmol/L (136-145) 10/29/24 05:54 Potassium 3.2 mmol/L (3.5-5.1) L 10/29/24 05:54 Chloride 97 mmol/L (98-107) L 10/29/24 05:54 Carbon Dioxide 28 mmol/L (22-29) 10/29/24 05:54 Anion Gap 18.2 (5-19) 10/29/24 05:54 BUN 56 mg/dL (8-23) H 10/29/24 05:54 Creatinine 1.8 mg/dL (0.7-1.2) H 10/29/24 05:54 GFR Calculation Not Reportable 10/29/24 05:54 Glucose 201 mg/dL (65-115) H 10/29/24 05:54 POC Glucose 407 mg/dL (70-110) H 10/29/24 11:34 Calculated Osmolality 311 mOsm/kg (285-295) H 10/29/24 05:54 Lactic Acid 2.0 mmol/L (0.5-2.2) 10/27/24 12:44 Calcium 9.8 mg/dL (8.5-10.5) 10/29/24 05:54 Magnesium 2.5 mg/dL (1.7-2.3) H 10/29/24 05:54 Total Bilirubin 0.2 mg/dL (0.15-1.2) 10/27/24 12:44 AST 29 U/L (0-40) 10/27/24 12:44 ALT 19 U/L (0-41) 10/27/24 12:44 Alkaline Phosphatase 103 U/L (40-130) 10/27/24 12:44 Troponin T 5th Gen ng/L 33 ng/L (0-15) H 10/28/24 04:19 Troponin T Baseline 31 ng/L (0-15) H 10/27/24 12:44 Troponin T 120 Minute 27.19 ng/L (0-15) H 10/27/24 14:34 Delta Troponin T -3.81 ABS# (0-10) L 10/27/24 14:34 Troponin T Hi Sens 6Hr 21.31 ng/L (0-15) H 10/27/24 18:39 Troponin T Hi Sens 6Hr Delta -9.69 ng/L (0-12) L 10/27/24 18:39 C-Reactive Protein 23.1 mg/L (0.0-4.9) H 10/27/24 12:44 NT-Pro-B Natriuret Pep 168 pg/mL (0-125) H 10/27/24 12:44 Total Protein 7.2 g/dL (6.6-8.7) 10/27/24 12:44 Albumin 4.6 g/dL (3.5-5.2) 10/27/24 12:44 Globulin 2.6 g/dL (1.3-4.6) 10/27/24 12:44 Coronavirus (PCR) Negative (Negative) 10/27/24 12:05 Influenza A (PCR) Negative (Negative) 10/27/24 12:05 Influenza Type B (PCR) Negative (Negative) 10/27/24 12:05 RSV (PCR) Negative (Negative) 10/27/24 12:05 Vitals Last Vital Signs Temp 98.1 F 10/29/24 04:00 Pulse 79 10/29/24 12:00 Resp 18 10/29/24 11:01 BP 130/62 10/29/24 11:00 Pulse Ox 92 10/29/24 12:00 O2 Del Method Nasal Cannula 10/29/24 11:01 O2 Flow Rate 4 10/29/24 11:01 FiO2 3 10/29/24 04:00 Discharge Plan Discharge Patient Disposition: Home Condition: Stable Prescriptions: New aspirin 81 mg tablet,delayed release (DR/EC) 81 mg PO DAILY Qty: 90 0RF cefdinir 300 mg capsule 300 mg PO BID 5 Days Qty: 10 0RF prednisone 20 mg tablet 10 mg PO DAILY Qty: 20 0RF Rx Instructions: 3 tab daily for 3 days, then 2 tab for 3 days, then 1 tab for 3 days, then 1/2 tab for 4 days. Continued tamsulosin 0.4 mg capsule 0.4 mg PO QPM famotidine [Pepcid] 20 mg tablet 20 mg PO DAILY montelukast [Singulair] 10 mg tablet 10 mg PO QPM isosorbide dinitrate 5 mg tablet 5 mg PO DAILY Rx Instructions: allow nitrate-free interval of 12-14 hrs per 24-hr period amlodipine 5 mg tablet 5 mg PO BID Qty: 180 2RF albuterol sulfate [Ventolin HFA] 90 mcg/actuation HFA aerosol inhaler 1 - 2 inh inhalation Q4H PRN (Reason: shortness of breath or wheezing) Qty: 8.5 0RF Trelegy Ellipta 100-62.5-25 mcg blister with device 1 inh inhalation DAILY 30 Days Qty: 28 1RF levothyroxine [Synthroid] 25 mcg tablet 25 mcg PO DAILY gemfibrozil 600 mg tablet 600 mg PO BID fluticasone propionate [Flonase Allergy Relief] 50 mcg/actuation spray,suspension 2 spray intranasal DAILY Qty: 16 0RF Rx Instructions: administer into each nostril guaifenesin 200 mg tablet 400 mg PO BID potassium chloride 20 mEq tablet extended release 20 meq PO DAILY@0800 Qty: 90 3RF gabapentin 300 mg capsule 300 mg PO .hs Qty: 30 3RF Praluent Pen 150 mg/mL pen injector 150 mg SUBCUT Q14D Qty: 2 11RF clopidogrel 75 mg Tablet 75 mg PO DAILY Qty: 90 0RF metoprolol tartrate 100 mg Tablet 50 mg PO BID Qty: 120 0RF ropinirole 3 mg tablet 3 mg PO DAILY Striverdi Respimat 2.5 mcg/actuation Mist 2 inh INHALATION DAILY Stiolto Respimat 2.5-2.5 mcg/actuation mist 1 inh INHALATION BID aripiprazole 10 mg tablet 5 mg PO DAILY cyclobenzaprine 10 mg tablet 10 mg PO BID PRN (Reason: Muscle Spasm) citalopram 40 mg tablet 40 mg PO QAM hydralazine 50 mg tablet 50 mg PO BID Qty: 60 0RF Changed furosemide [Lasix] 40 mg tablet 40 mg PO DAILY PRN (Reason: Edema) Qty: 1 0RF Rx Instructions: Dose change only Discontinued metolazone 2.5 mg tablet 2.5 mg PO DAILY Qty: 30 1RF Discharge Orders: Discharge Order (Routine); Ordered 10/29/24 Ordered By: Fransico Patel Other Ambulatory Orders: DME: Oxygen (Order) Location: None Selected Ordered By: Fransico Patel Referrals: Reji Magallon MD [Physician] - 1 month (We have notified your physician's clinic of the need for a follow-up appointment to be scheduled. If you have not heard from them within the next 2 business days, please call them directly. ) Raquel Toussaint FNP [Nurse Practitioner] - 1 week (We have notified your physician's clinic of the need for a follow-up appointment to be scheduled. If you have not heard from them within the next 2 business days, please call them directly. ) Mariluz Ko FNP [Primary Care Provider] - 4-7 days (Please call to make you own follow up appointment for 4-7 days from date of discharge. ) Discharge Diet: Cardiac and Diabetic Discharge Activity: Oxygen as instructed Patient Instructions: Prednisone (By mouth), Cefdinir (By mouth), Heart Attack (GEN), Using Oxygen at Home (GEN), COPD (Chronic Obstructive Pulmonary Disease) (GEN), Coronary Intravascular Stent Placement (GEN), Opioid Safety Activity Restrictions/Additional Instructions: Please continue aspirin, Plavix to make sure that your new stent remains patent. As discussed, please do not lift any weights heavier than about 2 pounds for the next several days. You may experience some bruising, but if you experience any pulsatile mass, any numbness or weakness in your right hand, seek medical attention without delay. Similarly, I seek medical attention in case of any chest pain pressure or any other worsening or new concerning symptoms. Please complete antibiotic and prednisone course for COPD exacerbation. Follow-up with your primary doctor for reassessment. Maintain consistent carbohydrate diet while on prednisone which can increase your blood glucose. Follow-up with your primary doctor for reassessment of blood glucose. Avoid dehydration, and include some extra hydration over the next few days. Have your primary doctor recheck your kidney function due to some worsening over the last two months. Avoid any NSAID medications. Discharge Attestations Time Spent in Discharge Care*: greater than 30 min Quality Metrics Clinical Quality Measures [ No reported AMI, CVA or VTE this stay] Coding Level of Care Code 70584 Total time (in minutes) for Discharge: 45 Diagnoses Atherosclerotic heart disease of [place] coronary artery with other forms of angina pectoris I25.118 Chronic congestive heart failure, unspecified heart failure type I50.9 Heart failure chronicity: chronic Heart failure type: unspecified Elevated troponin R79.89 Mixed hyperlipidemia E78.2 Hyperlipidemia type: mixed hyperlipidemia Hypokalemia E87.6
--- NOTE | 2024-10-29 15:20 | PC.NURSE ---
Pt was discharged home with [facility] oxygen tank with instructions to take back to [facility] clinic. All questions answered at time of discharge.
== END 2024-10-29 15:20 | disposition home or self-care (01) | DRG 321 ==
LOC: ER 13:41 → ICU 13:51
PROVIDERS: Internal Medicine; Internal Medicine Cardiovascular Disease; Admitting Provider Internal Medicine; Emergency Provider Emergency Medicine; PCP Nurse Practitioner; Visit Provider Internal Medicine
PROC: 027034Z Dilation of Coronary Artery, One Artery with Drug-eluting Intraluminal Device, Percutaneous Approach (ICD-10-PCS; principal; 2024-10-28 12:00)
PROC: B241ZZ3 Ultrasonography of Multiple Coronary Arteries, Intravascular (ICD-10-PCS; 2024-10-28 12:00)
DX: I21.4 Non-ST elevation (NSTEMI) myocardial infarction (principal); J96.01 Acute respiratory failure with hypoxia; J44.1 Chronic obstructive pulmonary disease with (acute) exacerbation; I13.0 Hypertensive heart and chronic kidney disease with heart failure and stage 1 through stage 4 chronic kidney disease, or unspecified chronic kidney disease; I25.10 Atherosclerotic heart disease of native coronary artery without angina pectoris; I50.9 Heart failure, unspecified; N18.9 Chronic kidney disease, unspecified; E78.5 Hyperlipidemia, unspecified; E87.6 Hypokalemia; G47.33 Obstructive sleep apnea (adult) (pediatric); K21.9 Gastro-esophageal reflux disease without esophagitis; N40.0 Benign prostatic hyperplasia without lower urinary tract symptoms; M19.90 Unspecified osteoarthritis, unspecified site; G62.9 Polyneuropathy, unspecified; D64.89 Other specified anemias; F32.A Depression, unspecified; F41.9 Anxiety disorder, unspecified; Z95.5 Presence of coronary angioplasty implant and graft; Z87.891 Personal history of nicotine dependence; Z79.02 Long term (current) use of antithrombotics/antiplatelets
CPT/HCPCS: 36415; 36416; 36600; 71045; 80048; 80051; 80053; 82330; 82805; 82962; 83605; 83735; 83880; 84484; 85025; 85347; 85378; 85610; 85730; 86140; 87040; 87070; 87077; 87186; 87205; 87637; 92978; 93005; 93306; 93458; 93571; 94640; 94660; 94760; 96365; 96367; 96372; 96374; 96375; 96376; 99152; 99153; 99291; C1725; C1753; C1769; C1874; C1887; C1894; C9600; J0696; J1200; J1644; J1815; J2250; J2270; J2919; J3010; J3475; J3480; J3490; J7030; J7613; Q9967

== ENCOUNTER → 2024-11-02 12:59 | Outpatient (BNVA) | payer OTHER, BC, SELFPAY | PROVIDERS: PCP Nurse Practitioner; Visit Provider Internal Medicine Cardiovascular Disease | DX: I13.0 Hypertensive heart and chronic kidney disease with heart failure and stage 1 through stage 4 chronic kidney disease, or unspecified chronic kidney disease (principal); I50.33 Acute on chronic diastolic (congestive) heart failure; I48.91 Unspecified atrial fibrillation; I25.118 Atherosclerotic heart disease of native coronary artery with other forms of angina pectoris; N18.9 Chronic kidney disease, unspecified | CPT/HCPCS: 99214 ==

== ENCOUNTER → 2024-11-07 14:10 | Outpatient (BNVA) | payer BC, MEDICARE, SELFPAY | PROVIDERS: PCP Nurse Practitioner; Visit Provider Nurse Practitioner Family | DX: J15.1 Pneumonia due to Pseudomonas (principal) | CPT/HCPCS: 71046 ==

== ENCOUNTER → 2024-11-24 07:59 | Outpatient (BNVA) | payer OTHER, SELFPAY | PROVIDERS: PCP Nurse Practitioner Family; Visit Provider Specialist | DX: M17.0 Bilateral primary osteoarthritis of knee (principal) | CPT/HCPCS: 20610; J1100; J2795; J3301 ==

== ENCOUNTER → 2024-12-18 10:46 | Outpatient (BNVA) | payer OTHER, SELFPAY | PROVIDERS: PCP Nurse Practitioner Family; Visit Provider Dermatology | DX: L72.0 Epidermal cyst (principal); L82.1 Other seborrheic keratosis; L21.8 Other seborrheic dermatitis; L90.5 Scar conditions and fibrosis of skin; L85.3 Xerosis cutis; Z08 Encounter for follow-up examination after completed treatment for malignant neoplasm; Z85.820 Personal history of malignant melanoma of skin; D48.5 Neoplasm of uncertain behavior of skin; L57.0 Actinic keratosis | CPT/HCPCS: 11102; 17000; 99213 ==

== ENCOUNTER → 2024-12-27 09:02 | Outpatient (BNVA) | payer OTHER, SELFPAY | PROVIDERS: PCP Nurse Practitioner Family; Visit Provider Nurse Practitioner Family | DX: I13.0 Hypertensive heart and chronic kidney disease with heart failure and stage 1 through stage 4 chronic kidney disease, or unspecified chronic kidney disease (principal); I50.33 Acute on chronic diastolic (congestive) heart failure; N18.9 Chronic kidney disease, unspecified; I25.118 Atherosclerotic heart disease of native coronary artery with other forms of angina pectoris; Z95.5 Presence of coronary angioplasty implant and graft; I48.91 Unspecified atrial fibrillation; Z87.891 Personal history of nicotine dependence | CPT/HCPCS: 99214 ==

== ENCOUNTER 2025-01-09 14:47 | Oncology outpatient (recurring) (ONCR) | payer OTHER, SELFPAY | END 2025-01-22 23:59 | disposition home or self-care (01) | LOC: ONCMED 14:47 | PROVIDERS: PCP Nurse Practitioner Family; Visit Provider Internal Medicine Medical Oncology | DX: C43.62 Malignant melanoma of left upper limb, including shoulder (principal); Z87.891 Personal history of nicotine dependence | CPT/HCPCS: 99205 ==

== ENCOUNTER → 2025-01-17 15:09 | Outpatient (BNVA) | payer OTHER, SELFPAY | PROVIDERS: PCP Nurse Practitioner Family; Visit Provider Dermatology | DX: L82.1 Other seborrheic keratosis (principal); L81.4 Other melanin hyperpigmentation; Z85.820 Personal history of malignant melanoma of skin; Z08 Encounter for follow-up examination after completed treatment for malignant neoplasm; Z85.828 Personal history of other malignant neoplasm of skin; D22.5 Melanocytic nevi of trunk | CPT/HCPCS: 11604; 12032; 99213 ==

== ENCOUNTER 2025-01-24 13:04 | Outpatient (CLI) | payer OTHER, SELFPAY ==
[2025-01-24 14:42] LABS: Anion Gap 12.9 (5-19); Blood Urea Nitrogen 13 mg/dL (8-23); Carbon Dioxide 31 mmol/L (22-29); Chloride 103 mmol/L (98-107); Glucose 124 mg/dL (65-115); NT Pro B Type Natriuretic Pept 625 pg/mL (0-125); Osmolality Calculated 298 mOsm/kg (285-295); Potassium 3.9 mmol/L (3.5-5.1); Sodium 143 mmol/L (136-145)
== END 2025-01-24 13:05 | disposition home or self-care (01) ==
LOC: LAB 13:06
PROVIDERS: PCP Nurse Practitioner Family; Visit Provider Internal Medicine
DX: I50.9 Heart failure, unspecified (principal); I10 Essential (primary) hypertension
CPT/HCPCS: 36415; 80048; 83880

== ENCOUNTER → 2025-02-23 08:02 | Outpatient (BNVA) | payer OTHER, SELFPAY | PROVIDERS: PCP Nurse Practitioner Family; Visit Provider Specialist | DX: M17.0 Bilateral primary osteoarthritis of knee (principal); A49.8 Other bacterial infections of unspecified site; Z71.89 Other specified counseling | CPT/HCPCS: 20610; 80503; 87070; 87075; 87205; 89050; J1100; J2795; J3301; J9999 ==

== ENCOUNTER → 2025-05-10 15:20 | Outpatient (BNVA) | payer MEDICARE, BC, OTHER, SELFPAY | PROVIDERS: PCP Nurse Practitioner Family; Visit Provider Nurse Practitioner Family | DX: D22.5 Melanocytic nevi of trunk (principal); L72.0 Epidermal cyst; L82.1 Other seborrheic keratosis; L81.4 Other melanin hyperpigmentation; L81.8 Other specified disorders of pigmentation; Z85.820 Personal history of malignant melanoma of skin; Z08 Encounter for follow-up examination after completed treatment for malignant neoplasm; Z85.828 Personal history of other malignant neoplasm of skin; L82.0 Inflamed seborrheic keratosis; L53.8 Other specified erythematous conditions; Z78.9 Other specified health status; R20.8 Other disturbances of skin sensation; L57.0 Actinic keratosis | CPT/HCPCS: 17000; 17110; 99213 ==

== ENCOUNTER → 2025-05-22 14:28 | Outpatient (BNVA) | payer OTHER, SELFPAY | PROVIDERS: PCP Nurse Practitioner Family; Visit Provider Internal Medicine Cardiovascular Disease | DX: I25.10 Atherosclerotic heart disease of native coronary artery without angina pectoris (principal); Z95.5 Presence of coronary angioplasty implant and graft; I13.0 Hypertensive heart and chronic kidney disease with heart failure and stage 1 through stage 4 chronic kidney disease, or unspecified chronic kidney disease; I50.9 Heart failure, unspecified; N18.9 Chronic kidney disease, unspecified; Z87.891 Personal history of nicotine dependence; I25.2 Old myocardial infarction | CPT/HCPCS: 99214 ==

== ENCOUNTER → 2025-06-15 10:10 | Outpatient (BNVA) | payer OTHER, SELFPAY | PROVIDERS: PCP Nurse Practitioner Family; Visit Provider Specialist | DX: M17.11 Unilateral primary osteoarthritis, right knee (principal) | CPT/HCPCS: 20610; J1100; J2795; J3301; J9999 ==

== ENCOUNTER → 2025-06-20 13:27 | Outpatient (BNVA) | payer OTHER, SELFPAY | PROVIDERS: PCP Nurse Practitioner Family; Visit Provider Specialist | DX: M17.0 Bilateral primary osteoarthritis of knee (principal); Z01.818 Encounter for other preprocedural examination | CPT/HCPCS: 36415; 73560; 73565; 80053; 81001; 85025; 99214 ==

== ENCOUNTER 2025-07-13 13:49 | Outpatient (CLI) | payer OTHER, SELFPAY ==
--- NOTE | 2025-07-13 14:30 | CT_ITS ---
WS: [id number] CT LEFT knee, noncontrast HISTORY: M17.12 - Unilateral primary osteoarthritis, left knee TECHNIQUE: Protocol for [facility] total knee replacement has been obtained. This includes axial imaging through the LEFT hip, LEFT knee and LEFT ankle. DLP: 832.82 mGy.cm COMPARISON: Radiograph 06/20/2025 Hips: Bilateral mild SI joint disease. Normal narrowing of the hip joints. No destructive bone lesions. Mild atherosclerotic plaque in the iliac and proximal femoral arteries. LEFT knee: Advanced joint space narrowing involving all 3 compartments with osteophytes. No fracture. There is a moderate-sized joint effusion. LEFT ankle: Negative. CT/CT knee LT [facility] [id number] IMPRESSION: CT imaging provided for [facility] robotic total knee replacement.
== END 2025-07-13 13:50 | disposition home or self-care (01) ==
LOC: RAD 13:50
PROVIDERS: PCP Nurse Practitioner; Visit Provider Specialist
DX: M17.12 Unilateral primary osteoarthritis, left knee (principal)
CPT/HCPCS: 73700

== ENCOUNTER → 2025-07-17 09:08 | Outpatient (BNVA) | payer OTHER, SELFPAY | PROVIDERS: PCP Nurse Practitioner; Visit Provider Family Medicine | DX: Z01.818 Encounter for other preprocedural examination (principal); R00.1 Bradycardia, unspecified | CPT/HCPCS: 81003; 93005 ==

== ENCOUNTER → 2025-07-20 08:36 | Outpatient (BNVA) | payer OTHER, SELFPAY | PROVIDERS: PCP Nurse Practitioner; Visit Provider Specialist | DX: M17.12 Unilateral primary osteoarthritis, left knee (principal) | CPT/HCPCS: 20610; J1100; J2795; J3301; J9999 ==

== ENCOUNTER 2025-08-20 17:41 | Emergency (ER) | payer OTHER, SELFPAY ==
--- OUTSIDE RECORDS SUMMARY | 2025-08-20 17:46 | XMS_ITS | Clinical Summary ---
Author Organization [facility] Address [address] [place] [address] Care Team Providers Care Photographic Platemaker Name Role Phone Mariluz Ko [facility] Primary Care Provi jose Allergies No known active allergies Medications lisinopril-hydroc hlorothiazide (ZESTORETIC) 10-12.5 mg tablet Take 1 Tablet by mouth daily. Active METOPROLOL SUCCINATE ORAL Take by mouth 2 times daily. Active CITALOPRAM HYDROBROMIDE (CITALOPRAM ORAL) Take by mouth daily. Active oxyCODONE-acetami nophen (PERCOCET) 10-325 mg Tablet Take 1 Tablet by mouth every 4 hours as needed for Pain, Severe. Max Daily Amount: 6 Tablet 20 Tablet None 10/16/2015 Active Active Problems Problem Noted Date Diagnosed Date Cigarette dependence 10/16/2015 Social History Tobacco Use Types Packs/Day Years Used Date Smoking Tobacco: Former Smokeless Tobacco: Current Chew Alcohol Use Standard Drinks/Week Comments No 0 (1 standard drink = 0.6 oz pur e alcohol) Sex and Gender Information Value Date Recorded Sex Assigned at Not on file Legal Sex Male 2:43 AM QUALITY ASSURANCE PRACTICE MANAGER Gender Identity Not on file Sexual Orientation Not on file Last Filed Vital Signs Vital Sign Reading Time Taken Comments Blood Pressure 138/87 10/16/2015 7:45 PM QUALITY ASSURANCE PRACTICE MANAGER Pulse - - Temperature 36.8 C (98.2 F) 10/16/2015 7:45 PM QUALITY ASSURANCE PRACTICE MANAGER Respiratory Rate 16 10/16/2015 7:45 PM QUALITY ASSURANCE PRACTICE MANAGER Oxygen Saturation 96% 10/16/2015 7:45 PM QUALITY ASSURANCE PRACTICE MANAGER Inhaled Oxygen Concentration - - Weight 87.1 kg (192 lb) 10/16/2015 6:52 PM QUALITY ASSURANCE PRACTICE MANAGER Height 165.1 cm (5' 5 ) 10/16/2015 6:52 PM QUALITY ASSURANCE PRACTICE MANAGER Body Mass Index 31.95 10/16/2015 6:52 PM QUALITY ASSURANCE PRACTICE MANAGER Plan of Treatment Health Maintenance Due Date Last Done Comments DTAP/TDAP/TD VACCINES (1 - Tdap) 1971 COLORECTAL SCREENING 1997 Colorectal Cancer Screening 1997 FIT-DNA Q 3 years 1997 FIT/FOBT Q 1 year 1997 Flex Sig/CT Colonography Q 5 years 1997 PNEUMOCOCCAL VACCINE 50+ YEARS (1 of 1 - PCV) 06/16/20 02 ZOSTER VACCINE (1 of 2) 2002 INFLUENZA VACCINE (#1) 2025 RSV VACCINE (60+ or ) (1 - 1-dose 75+ series) 2027 Insurance [email or web address] Care Teams Photographic Platemaker Relationship Specialty Start Date End Date Mariluz Ko FNP PCP - General NURSE PRACTITIONER 10/16/15
--- OUTSIDE RECORDS SUMMARY | 2025-08-20 17:46 | XMS_ITS | Clinical Summary ---
Author Organization [facility] [employer], [facility] Address [address] [place] [address] Phone Care Team Providers Care Marshmallow Machine Worker Name Role Phone Mariluz Ko NP Primary Care Provider [phone] Allergies Active Allergy Reactions Criticality Noted Date Comments Atorvastatin 10/27/2024 Other Reaction(s): Not available, Unknown Buspirone Other (see comments) 10/27/2024 Other Reaction(s): caused negative thinking buspirone Ezetimibe 10/27/2024 Other Reaction(s): Not available, Unknown Lovastatin 10/27/2024 Other Reaction(s): Not available, Unknown Pravastatin 10/27/2024 Other Reaction(s): Not available, Unknown Statins Other (see comments) 01/10/2010 Product containing 1-bpiultk-2-methylglutaryl -coenzyme A reductase inhibitor (product) Simvastatin 10/27/2024 Other Reaction(s): fatigue, Not available Medications traMADol (ULTRAM) 50 MG tablet Take 50 mg by mouth Active tamsulosin (FLOMAX) 0.4 MG 24 hr capsule Take 1 capsule every day by oral route. Active potassium chloride (K-TAB) 20 MEQ CR tablet Take 20 mEq by mouth in the morning and 20 mEq in the evening. Active nitroglycerin (NITROSTAT) 0.[address] 0.4 mg under the tongue every 5 (five) minutes if needed Active montelukast (SINGULAIR) 10 MG tablet Take 1 tablet every day by oral route. Active metoprolol tartrate (LOPRESSOR) 100 MG tablet Take 50 mg by mouth in the morning and 50 mg in the evening. Active metOLazone 2.5 MG tablet TAKE 1 tablet BY MOUTH 30 minutes prior TO lasix WITH one extra potassium pill needed FOR weight gain OF 3 pounds IN 1 DAY OR 5 pounds IN 1 WEEK Active Melatonin 10 MG tablet Take 1 tablet every day by oral route in the evening. Active losartan (COZAAR) 100 MG tablet Take 100 mg by mouth 1 (one) time each day Active lisinopril-hydr oCHLOROthiazide (PRINZIDE,ZESTO RETIC) 10-12.5 MG per tablet Take 1 tablet by mouth in the morning. 5 Active levothyroxine (SYNTHROID, LEVOTHROID) 25 MCG tablet Take 1 tablet every day by oral route. Active ketoconazole (NIZORAL) 2 % cream Active isosorbide dinitrate (ISORDIL) 10 MG tablet Take 10 mg by mouth Active hydrocortisone 2.5 % cream APPLY TO FACE TWICE DAILY NEEDED FOR RASH USE NO MORE THAN 1 WEEK ON FACE WITHOUT A BREAK Active hydrALAZINE 50 MG tablet Take by mouth in the morning and in the evening. Active gemfibrozil (LOPID) 600 MG tablet Take 600 mg by mouth in the morning and 600 mg in the evening. Active gabapentin (NEURONTIN) 300 MG capsule Take 300 mg by mouth Active furosemide (LASIX) 40 MG tablet Take 40 mg by mouth Pt to take 40mg in AM and 20mg in PM Active fluticasone (FLONASE) 50 MCG/ACT nasal spray [place] 2 sprays every day by intranasal route. Active famotidine (PEPCID) 20 MG tablet Take 20 mg by mouth Active cyclobenzaprine (FLEXERIL) 10 MG tablet Take 1 tablet twice a day by oral route. Active clotrimazole-be tamethasone (LOTRISONE) cream APPLY TO THE AFFECTED AREA TWICE A DAY FOR 2 WEEKS Active clopidogrel (PLAVIX) 75 MG tablet Take 75 mg by mouth 1 (one) time each day Active cloNIDine (CATAPRES) 0.1 MG tablet Take 0.1 mg by mouth in the morning and 0.1 mg in the evening. Active citalopram (CeleXA) 40 MG tablet Take 40 mg by mouth 1 (one) time each day Active aspirin ([place]) 81 MG EC tablet Take 81 mg by mouth 1 (one) time each day Active ARIPiprazole (ABILIFY) 5 MG tablet Take 5 mg by mouth 1 (one) time each day Active amLODIPine (NORVASC) 5 MG tablet Take 5 mg by mouth 1 (one) time each day Active Alirocumab 150 MG/ML solution auto-injector Inject 1 mL every 2 weeks by subcutaneous route. Active albuterol HFA (PROVENTIL HFA;VENTOLIN HFA) 108 (90 Base) MCG/ACT inhaler Q4H as needed for shortness of breath or wheezing 4 Active Tiotropium Stanford-Olodate rol 2.5-2.5 MCG/ACT aerosol solution Twice A Day 5 Active tamsulosin (FLOMAX) 0.4 MG 24 hr capsule 0.4 mg 0 Active rOPINIRole (REQUIP) 3 MG tablet Take 3 mg by mouth every night 5 Active predniSONE (DELTASONE) 20 MG tablet Take 20 mg by mouth 1 (one) time each day 5 Active cholecalciferol (VITAMIN D-3 SUPER STRENGTH) 50 MCG (1999 UT) tablet Active Multiple Vitamins-Minera ls (MULTIVITAMIN ADULTS 50+ PO) Take 1 tablet every day by oral route. Active levothyroxine (SYNTHROID, LEVOTHROID) 25 MCG tablet 1 (one) time each day 2 Active Fluticasone-Ume clidin-Vilant (Trelegy Ellipta) 100-62.5-25 MCG/ACT aerosol powder USE 1 INHALATION BY MOUTH EVERY DAY Active citalopram (CeleXA) 40 MG tablet 1 (one) time each day in the morning 4 Active hydrALAZINE 50 MG tablet 50 mg 4 Active isosorbide dinitrate (ISORDIL) 5 MG tablet 1 (one) time each day 1 Active gemfibrozil (LOPID) 600 MG tablet 600 mg 2 Active gabapentin (NEURONTIN) 300 MG capsule 300 mg 4 Active Encounters Date Type Department Care Team Description 07/12/2025 Documentation Only [facility] [address] [place] [address] Karon Gonzales from Last 3 Months Social History Tobacco Use Types Packs/Day Years Used Date Smoking Tobacco: Never Assessed Sex and Gender Information Value Date Recorded Sex Assigned at Not on file Legal Sex Male 11:04 AM EDT Gender Identity Not on file Sexual Orientation Not on file Plan of Treatment Upcoming Encounters Date Type Department Care Team (Late st Contact Info) Description 08/28/2025 1:00 PM COATING ENGINEER Office Visit [facility], [facility] [address] [place] [address] Garima Pelaez MD [address] [facility] [address] [place] [id number] Health Maintenance Due Date Last Done Comments Pneumococcal Vaccine: 50+ Ye ars (1 of 2 - PCV) 1971 Colorectal Cancer Screening: Annual FOBT 2001 Colorectal Cancer Screening: Colonoscopy 2001 Colorectal Cancer Screening: Sigmoidoscopy 2001 Influenza Vaccine (#1) 2025 Hepatitis B Vaccine Aged Out No longe r eligible based on patient's age to complete this topic Insurance [facility] [employer] 1,2,3 (VACCN) Care Teams Marshmallow Machine Worker Relationship Specialty Start Date End Date Mariluz Ko NP [address] [place], [place] [id number] PCP - General Nurse Practitioner 07/12/25
--- OUTSIDE RECORDS SUMMARY | 2025-08-20 17:46 | XMS_ITS | Clinical Summary ---
Author Organization [facility] Address [address] [place] [address] Care Team Providers Care Mobile Patrol Officer Name Role Phone Mariluz Ko [facility] Primary Care Provi jose Allergies No known active allergies Medications METOPROLOL SUCCINATE ORAL Take by mouth 2 times daily. 10/16/2015 Active lisinopril-hydroC HLOROthiazide (ZESTORETIC) 10-12.5 mg tablet Take 1 Tablet by mouth daily. 10/16/2015 Active citalopram hydrobromide (CITALOPRAM ORAL) Take by mouth daily. 10/16/2015 Active oxyCODONE-acetami nophen (PERCOCET) 10-325 mg Tablet Take 1 Tablet by mouth every 4 hours as needed for Pain, Severe. Max Daily Amount: 6 Tablet 20 Tablet None 10/16/2015 Active Active Problems Problem Noted Date Diagnosed Date Cigarette dependence 10/16/2015 Encounters Date Type Department Care Team Description 08/14/2025 External Device Data [facility] ABSTRACTION Provider, Abstract 07/31/2025 External Device Data [facility] ABSTRACTION Provider, Abstract 07/10/2025 External Device Data [facility] ABSTRACTION Provider, Abstract 07/03/2025 External Device Data [facility] ABSTRACTION Provider, Abstract 06/26/2025 External Device Data [facility] ABSTRACTION Provider, Abstract from Last 3 Months Social History Tobacco Use Types Packs/Day Years Used Date Smoking Tobacco: Former Smokeless Tobacco: Current Alcohol Use Standard Drinks/Week Comments No 0 (1 standard drink = 0.6 oz pur e alcohol) Sex and Gender Information Value Date Recorded Sex Assigned at Not on file 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 Gender Identity Not on file Sexual Orientation Not on file Last Filed Vital Signs Vital Sign Reading Time Taken Comments Blood Pressure 143/77 05/07/2025 9:00 AM CDT Pulse 63 05/07/2025 9:00 AM CDT Temperature 36.8 C (98.2 F) 10/16/2015 7:45 PM SLOT OPERATIONS DIRECTOR Respiratory Rate 18 05/07/2025 9:00 AM CDT Oxygen Saturation 96% 05/07/2025 9:00 AM CDT Inhaled Oxygen Concentration - - Weight 89.9 kg (198 lb 3.2 oz) 05/07/2025 9:00 A M CDT Height 165.1 cm (5' 5 ) 04/25/2025 9:00 AM CDT Body Mass Index 32.98 04/25/2025 9:00 AM CDT Plan of Treatment Health Maintenance Due Date Last Done Comments COLORECTAL SCREENING 1997 Colorectal Cancer Screening 1997 FIT-DNA Q 3 years 1997 FIT/FOBT Q 1 year 1997 Flex Sig/CT Colonography Q 5 years 1997 RSV VACCINE (60+ or ) (1 - Risk 50-74 years 1-dose series) 2002 INFLUENZA VACCINE (#1) 2025 , 07/22/2022, 08/21/2021, Additional history exists DTAP/TDAP/TD VACCINES (4 - T d or Tdap) 10/27/2028 10/27/2018, 03/24/2017, 05/16/2008, Additional history exists PNEUMOCOCCAL VACCINE 50+ YEARS Completed 1 , 10/27/2018, 04/06/2007 ZOSTER VACCINE Completed 10/23/2021, 08/21/2021 Insurance MEDICARE PART A HOSPITAL ONLY BCBS [facility] [employer] Care Teams Mobile Patrol Officer Relationship Specialty Start Date End Date Mariluz Ko FNP [address] [place] [phone] PCP - General NURSE PRACTITIONER 10/16/15
--- OUTSIDE RECORDS SUMMARY | 2025-08-20 17:46 | XMS_ITS | Encounter Summary ---
Author Organization [facility] Address [address] [place] [address] Care Team Providers Care Coining Press Operator Name Role Phone Mariluz Ko [facility] Primary Care Provi jose Encounter Details Date Type Department Care Team (Late st Contact Info) Description 04/15/2017 Ancillary Orders [facility] [place] [address] [place] [phone] Mariluz Ko [facility] [address] [place] [address] Bronchitis, mucopurulent recurrent (CMS/HCC) Social History Tobacco Use Types Packs/Day Years Used Date Smoking Tobacco: Former Smokeless Tobacco: Current Chew Alcohol Use Standard Drinks/Week Comments No 0 (1 standard drink = 0.6 oz pur e alcohol) Sex and Gender Information Value Date Recorded Sex Assigned at Not on file 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 Exam: XR CHEST PA AND LATERAL Date/Time of Exam: 04/15/2017 12:59 PM Reason For Exam: Bronchitis, mucopurulent recurrent. Findings: The lungs are clear. No pleural effusion or pneumothorax. Mediastinal contours are unremarkable. Narrative Procedure Note Hugo Meyers MD - 04/15/2017 IMPRESSION IMPRESSION: See below. Exam: XR CHEST PA AND LATERAL Date/Time of Exam: 04/15/2017 12:59 PM Reason For Exam: Bronchitis, mucopurulent recurrent. Findings: The lungs are clear. No pleural effusion or pneumothorax. Mediastinal contours are unremarkable. Mariluz [facility] ORDER[facility] Final Result documented in this encounter Visit Diagnoses Diagnosis Bronchitis, mucopurulent recurrent (CMS/HCC) Mucopurulent chronic bronchitis Bronchitis, mucopurulent recurrent (CMS/HCC) Mucopurulent chronic bronchitis documented in this encounter Care Teams Coining Press Operator Relationship Specialty Start Date End Date Mariluz Ko FNP PCP - General NURSE PRACTITIONER 10/16/15 documented as of this encounter
--- OUTSIDE RECORDS SUMMARY | 2025-08-20 17:46 | XMS_ITS | Encounter Summary ---
Author Organization [email or web address], [facility] Address [address] [place] [address] Phone Care Team Providers Care Mis Director Name Role Phone Mariluz Ko PC ANALYST Primary Care Provider [phone] Encounter Details Date Type Department Care Team (Late st Contact Info) Description 01/01/2025 Orders Only [email or web address], [facility] [address] [place] [address] Chronic kidney disease, Stage IV (severe) (HCC) Social History Tobacco Use Types Packs/Day Years Used Date Smoking Tobacco: Never Assessed Sex and Gender Information Value Date Recorded Sex Assigned at Not on file Legal Sex Male 11:04 AM EDT Gender Identity Not on file Sexual Orientation Not on file documented as of this encounter Plan of Treatment Upcoming Encounters Date Type Department Care Team (Late st Contact Info) Description 08/28/2025 1:00 PM SHOE SPRAYER Office Visit [facility], [facility] [address] [place] [address] Garima Pelaez MD [address] [facility] [address] [place] [address] documented as of this encounter Visit Diagnoses Diagnosis Chronic kidney disease, Stage IV (severe) (HCC) Chronic kidney disease, Stage IV (severe) documented in this encounter Care Teams Mis Director Relationship Specialty Start Date End Date Mariluz Ko NP [address] [place] [address] PCP - General Nurse Practitioner 07/12/25 documented as of this encounter
--- OUTSIDE RECORDS SUMMARY | 2025-08-20 17:46 | XMS_ITS | Encounter Summary ---
Author Organization [facility] Address [address] [place] [address] Care Team Providers Care Cottage Supervisor Name Role Phone Mariluz Ko Primary Care Provi jose Encounter Details Date Type Department Care Team (Latest Contact Info) Description 06/10/2000 Outpatient Historical [facility] [place] [address] [facility] [address] [place] [phone] Janel Tse NO ADDRESS ON FILE Other specified sites of sprains and strains (Primary Dx) Social History Tobacco Use Types Packs/Day Years Used Date Smoking Tobacco: Never Assessed Sex and Gender Information Value Date Recorded Sex Assigned at Not on file 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
--- OUTSIDE RECORDS SUMMARY | 2025-08-20 17:46 | XMS_ITS | Encounter Summary ---
Author Organization [facility] Address 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
[2025-08-20 17:49] VITALS: BP 169/101; PULSE 67; RESP 16; TEMP 36.7; O2SAT 92
[2025-08-20 17:53] VITALS: BP 115/70; PULSE 62; O2SAT 94
--- NOTE | 2025-08-20 18:03 | W.ED.EAR ---
HPI - Ear Problem General: Chief complaint: Ear Stated complaint: L ear pain Time Seen by Provider: 08/20/25 18:01 Source: patient Mode of arrival: ambulatory Limitations: no limitations History of Present Illness: Patient is a 75-year-old male who presents to ED today after he was sent here from the walk-in clinic due to bleeding from his left ear. He states he was seen earlier at the [facility] and had his ears irrigated and cleaned. They state while the provider was using a ear curette, he felt a sharp excruciating pain and then began noticing blood. They were initially told that this was probably an abrasion to his EAC. Patient was seen at the walk-in clinic and referred here as the ear would not stop bleeding. Patient does take Plavix and aspirin. MD Complaint: ear pain and ear discharge Location: left ear Severity: mild Relieving factors: nothing Context: trauma Discharge from ear: yes - bloody Associated symptoms: Reports no associated symptoms and ear or mastoid pain; Denies fever(s) or tinnitus Related Data Home Medications ?Medication ?Instructions ?Recorded ?Confirmed famotidine 20 mg tablet (Pepcid) 20 mg PO DAILY 12/18/19 08/20/25 montelukast 10 mg tablet 10 mg PO QPM 12/18/19 08/20/25 (Singulair) tamsulosin 0.4 mg capsule 0.4 mg PO QPM 04/11/20 08/20/25 isosorbide dinitrate 5 mg tablet 5 mg PO DAILY 05/05/21 08/20/25 gemfibrozil 600 mg tablet 600 mg PO BID 04/21/22 08/20/25 levothyroxine 25 mcg tablet 25 mcg PO DAILY 04/21/22 08/20/25 (Synthroid) aripiprazole 10 mg tablet 5 mg PO DAILY 03/15/24 08/20/25 citalopram 40 mg tablet 40 mg PO QAM 03/15/24 08/20/25 cyclobenzaprine 10 mg tablet 10 mg PO BID PRN Muscle Spasm 03/15/24 08/20/25 fluticasone propionate 50 2 spray intranasal DAILY PRN 05/22/25 08/20/25 mcg/actuation nasal spray,suspension (Flonase Allergy Relief) guaifenesin 200 mg tablet 400 mg PO BID PRN 05/22/25 08/20/25 trazodone 50 mg tablet 25 mg PO DAILY 05/22/25 08/20/25 Previous Rx's ?Medication ?Instructions ?Recorded clopidogrel 75 mg tablet 75 mg PO DAILY #90 tabs 02/15/24 alirocumab 150 mg/mL subcutaneous 150 mg SUBCUT Q14D #2 mL 03/08/24 pen injector (Praluent Pen) hydralazine 50 mg tablet 50 mg PO BID #60 tabs 03/15/24 albuterol sulfate 90 mcg/actuation 1 - 2 inh inhalation Q4H PRN 08/10/24 aerosol inhaler (Ventolin HFA) shortness of breath or wheezing #8.5 grams aspirin 81 mg tablet,delayed 81 mg PO DAILY #90 tabs 10/29/24 release ipratropium 0.5 mg-albuterol 3 mg 3 ml inhalation Q4H PRN shortness 11/07/24 (2.5 mg base)/3 mL nebulization of breath #180 mL soln clotrimazole-betamethasone 1 1 applic topical BID 2 weeks #15 11/30/24 %-0.05 % topical cream grams potassium chloride 20 mEq 20 meq PO BID #90 tabs 02/05/25 tablet,extended release gabapentin 300 mg capsule 300 mg PO .hs #30 caps 04/19/25 clonidine HCl 0.1 mg tablet 0.1 mg PO BID PRN hypertensive 05/22/25 emergency #60 tabs fluticasone fur. 100 mcg-umeclid See Rx Instructions .Route 07/16/25 62.5 mcg-vilant 25 mcg .COMPLEX #60 blisters inhalat.powder (Trelegy Ellipta) furosemide 40 mg tablet (Lasix) 40 mg PO DIRECTED Edema #90 tabs 08/09/25 metoprolol tartrate 50 mg tablet 50 mg PO BID #180 tabs 08/09/25 tramadol 50 mg tablet 50 mg PO BID PRN pain #60 tabs 08/09/25 ofloxacin 0.3 % ear drops 5 drp otic (ear) BID 7 days #5 mL 08/20/25 Allergies Allergy/AdvReac Type Severity Reaction Status Date / Time atorvastatin (From Lipitor) Allergy Unknown Verified 08/20/25 17:54 bupropion (From Wellbutrin) Allergy hallucinati Verified 08/20/25 17:54 ons buspirone Allergy caused Verified 08/20/25 17:54 negative thinking ezetimibe (From Zetia) Allergy Unknown Verified 08/20/25 17:54 lovastatin Allergy Unknown Verified 08/20/25 17:54 pravastatin (From Pravachol) Allergy Unknown Verified 08/20/25 17:54 simvastatin Allergy fatigue Verified 08/20/25 17:54 Review of Systems Const: Denies: fever(s) ENMT: Reports: ear or mastoid pain and ear discharge; Denies: change in hearing, tinnitus or disequilibrium PFSH ED PFSH: Medical History Bleeding from left ear Dermatitis Primary osteoarthritis of knees, bilateral Enrolled in chronic care management Pseudomonas aeruginosa infection Pseudomonas pneumonia Elevated troponin Worsening angina Chest pain Acute non-ST elevation myocardial infarction (NSTEMI) Acute kidney injury COPD exacerbation Hypokalemia Rotator cuff arthropathy of right shoulder Venous insufficiency (chronic) (peripheral) CHF (congestive heart failure) Pneumonia Low back pain Chronic kidney disease Osteoarthritis Gastro-esophageal reflux disease without esophagitis Hyperlipidemia Obstructive sleep apnea Other idiopathic peripheral autonomic neuropathy History of colon polyps Left rotator cuff tear arthropathy Chronic shoulder pain Small airways disease Coronary artery disease Back pain Depression Anemia Primary osteoarthritis of right knee Primary osteoarthritis of left knee Mass of lingula of lung Bronchitis Primary localized osteoarthritis of both knees Allergic rhinosinusitis COPD (chronic obstructive pulmonary disease) Hypertension Anxiety Surgical History Hx of colonoscopy (04/2022) Status post coronary artery stent placement Status post hernia repair (2016) Repair of bilateral inguinal and umbilical hernias with mesh Status post total knee replacement Status post shoulder surgery Family History Other Hypertension Social History Smoking and tobacco/nicotine status: unknown if used tobacco/nicotine Quit status (tobacco/nicotine): has quit using Year quit tobacco: 2003 - 1PPD x 35 Years Alcohol intake: former Substance/Drug Use: never Lives independently: Yes Household members: spouse Marital status: Current occupational status: employed Current occupation: [employer] Do you think of yourself as: Straight/Heterosexual Current gender identity: Male Physical Exam Const: COMMON NORMALS: no acute distress, average body habitus, no limitations, healthy appearing, alert and well nourished HENMT: EXTERNAL AUDITORY CANAL: Abnormal EAC present EAC laterality: left (fresh blood in EAC-removed gently with qtip with direct visualization) Details: other (I do not appreciate any active bleeding) TYMPANIC MEMBRANE: TM abnormal TM laterality: left Details: perforation Neuro: SENSORIUM/ORIENTATION: Yes alert Course Vital Signs: Vital signs: Vital Signs Temperature 98.1 F 08/20/25 17:49 Pulse Rate 62 08/20/25 17:53 Respiratory Rate 16 08/20/25 17:49 Blood Pressure 115/70 08/20/25 17:53 Pulse Oximetry 94 08/20/25 17:53 Oxygen Delivery Me thod Room Air 08/20/25 17:49 MDM - Ear Medical Decision Making Patient here for ruptured TM. He did have some fresh blood to his EAC but no active bleeding. He did have a 4 x 4 rolled up and placed in the ear that had a very small amount of blood on it. At this time there is no concern for excessive or life-threatening bleeding. Will get him set up with ENT this week for re-evaluation. Discussed nothing in the ear/keeping water out of the ear. Will place on otic abx drops. Differential Diagnosis Likely ruptured TM Medical Records I reviewed the patient's medical records. No radiology studies performed this visit Discharge Plan Discharge Patient Disposition: Home Clinical Impression: Perforation of tympanic membrane Qualifiers: Laterality: left Qualified Code(s): H72.92 - Unspecified perforation of tympanic membrane, left ear Condition: Stable Prescriptions: New ofloxacin 0.3 % drops 5 drp otic (ear) BID 7 Days Qty: 5 0RF No Action tamsulosin 0.4 mg capsule 0.4 mg PO QPM famotidine [Pepcid] 20 mg tablet 20 mg PO DAILY montelukast [Singulair] 10 mg tablet 10 mg PO QPM isosorbide dinitrate 5 mg tablet 5 mg PO DAILY Rx Instructions: allow nitrate-free interval of 12-14 hrs per 24-hr period albuterol sulfate [Ventolin HFA] 90 mcg/actuation HFA aerosol inhaler 1 - 2 inh inhalation Q4H PRN (Reason: shortness of breath or wheezing) Qty: 8.5 0RF fluticasone propionate [Flonase Allergy Relief] 50 mcg/actuation spray,suspension 2 spray intranasal DAILY PRN Rx Instructions: administer into each nostril trazodone 50 mg tablet 25 mg PO DAILY clonidine HCl 0.1 mg tablet 0.1 mg PO BID PRN (Reason: hypertensive emergency) Qty: 60 2RF ipratropium-albuterol 0.5 mg-3 mg(2.5 mg base)/3 mL solution for nebulization 3 ml inhalation Q4H PRN (Reason: shortness of breath) Qty: 180 0RF Rx Instructions: until breathing returns to target peak flow/parameters clotrimazole-betamethasone 1-0.05 % cream 1 applic topical BID 14 Days Qty: 15 0RF potassium chloride 20 mEq tablet extended release 20 meq PO BID Qty: 90 3RF levothyroxine [Synthroid] 25 mcg tablet 25 mcg PO DAILY gemfibrozil 600 mg tablet 600 mg PO BID guaifenesin 200 mg tablet 400 mg PO BID PRN Praluent Pen 150 mg/mL pen injector 150 mg SUBCUT Q14D Qty: 2 11RF gabapentin 300 mg capsule 300 mg PO .hs Qty: 30 3RF Trelegy Ellipta 100-62.5-25 mcg blister with device See Rx Instructions .ROUTE .COMPLEX Qty: 60 1RF Dose Instruction: USE 1 INHALATION BY MOUTH EVERY DAY Rx Instructions: USE 1 INHALATION BY MOUTH EVERY DAY metoprolol tartrate 50 mg tablet 50 mg PO BID Qty: 180 3RF furosemide [Lasix] 40 mg tablet 40 mg PO DIRECTED Qty: 90 3RF Rx Instructions: take 40 mg am and 20 mg pm tramadol 50 mg tablet 50 mg PO BID PRN (Reason: pain) Qty: 60 0RF clopidogrel 75 mg Tablet 75 mg PO DAILY Qty: 90 0RF aspirin 81 mg tablet,delayed release (DR/EC) 81 mg PO DAILY Qty: 90 0RF aripiprazole 10 mg tablet 5 mg PO DAILY cyclobenzaprine 10 mg tablet 10 mg PO BID PRN (Reason: Muscle Spasm) citalopram 40 mg tablet 40 mg PO QAM hydralazine 50 mg tablet 50 mg PO BID Qty: 60 0RF Discharge Orders: Discharge ED (Routine); Ordered 08/20/25 Ordered By: Fe Lemus Referrals: [facility] [Primary Care Provider, Family Practice] Patient Instructions: Patient Portal & Myrna Instructions Activity Restrictions/Additional Instructions: As we discussed, I will place a case management referral to get him a follow-up appointment with ENT. You may also contact Dr. El's office in the morning to see if they can see you this week. I am going to go ahead and place him on antibiotics in his ear in the meantime. We discussed keeping water out of his ear. Print Language: Gambian Coding Level of Care Code ED Window Covering Sales Consultant for Meghan Hu
[2025-08-20 18:32] VITALS: BP 115/70; PULSE 62; O2SAT 94
--- NOTE | 2025-08-21 09:33 | DCPLANNER ---
Referral Sent to DR El's Office
== END 2025-08-20 18:33 | disposition home or self-care (01) ==
PROVIDERS: Emergency Provider Physician Assistant; PCP Nurse Practitioner Family
DX: H72.92 Unspecified perforation of tympanic membrane, left ear (principal)
CPT/HCPCS: 99283

== ENCOUNTER → 2025-09-03 10:44 | Outpatient (BNVA) | payer BC, SELFPAY | PROVIDERS: PCP Nurse Practitioner Family; Visit Provider Nurse Practitioner Family | DX: J44.1 Chronic obstructive pulmonary disease with (acute) exacerbation (principal) | CPT/HCPCS: 71046 ==

== ENCOUNTER → 2025-09-07 09:33 | Outpatient (BNVA) | payer OTHER, SELFPAY | PROVIDERS: PCP Nurse Practitioner Family; Visit Provider Specialist | DX: M17.11 Unilateral primary osteoarthritis, right knee (principal); Z71.89 Other specified counseling | CPT/HCPCS: 20610; J1100; J2795; J3301; J9999 ==